=== PATIENT | female | born 1935 | race Caucasian/White ===

== ENCOUNTER → 2017-06-21 09:03 | Outpatient (CLI) | payer MEDICARE, OTHER, SELFPAY ==
[2017-06-21 11:39] LABS: Absolute Lymphocyte Count 0.76 X10^3/ul (0.83-4.51); Basophil# 0.01 X10^3/uL; Basophil% 0.2 % (0-1); Eosinophil# 0.18 X10^3/uL; Eosinophils% 3.2 % (0-5); Hematocrit 33.4 % (37-47); Hemoglobin 10.4 g/dl (12.0-15.0); Lymphocyte # 0.76 X10^3/ul (4.0); Lymphocyte % 13.6 % (19-41); Mean Corp Hgb Conc 31.1 g/gl (32-36); Mean Corpuscular Hgb 29.5 pg (27.0-32.0); Mean Corpuscular Volume 94.6 fL (81-99); Mean Platelet Vol. 11.8 fl (6.2-12.0); Monocyte# 0.61 X10^3/uL; Monocyte% 10.9 % (0-10); Neutrophil # 4.02 X10^3/uL (2.7-7.7); Neutrophil % 71.9 % (47-70); Platelet Count 134 K/mm3 (150-450); RBC Distribution Width CV 13.9 % (11.6-14.6); RBC Distribution Width SD 47.9 fl (35.1-43.9); Red Blood Count 3.53 M/mm3 (4.2-5.4); White Blood Count 5.6 K/mm3 (4.4-11.0)
[2017-06-21 11:44] LABS: POSITIVE COUNT NO; POSITIVE DIFFERENTIAL NO; POSITIVE MORPHOLOGY NO
[2017-06-21 12:06] LABS: ALB/GLOB Ratio 0.9 RATIO (0.9-2.4); AST(SGOT) 20 U/L (15-37); Alanine Aminotransfer ALT/SGPT 31 U/L (13-56); Albumin, Serum 3.6 g/dL (3.2-5.0); Alkaline Phosphatase 98 U/L (45-117); Anion Gap 9 (5-15); BUN 28 mg/dL (7-18); BUN/Creat Ratio 20.9 RATIO (10-20); Calcium,Total 8.6 mg/dL (8.5-10.1); Chloride 102 mmol/L (98-107); Creatinine, Serum 1.34 mg/dL (0.55-1.02); EST Glomerular Filtration Rate 40 mL/min (>60); Est Glom Filt Rate - Afr Amer 49 mL/min (>60); Globulin 3.9 g/dL (2.2-4.2); Glucose 259 mg/dL (70-110); Potassium 4.7 mmol/L (3.5-5.1); Protein, Total 7.5 g/dL (6.4-8.2); Sodium Level 135 mmol/L (136-145); Thyroid Stim Hormone (TSH) 2.24 uIU/mL (0.358-3.74)
== END ==
PROVIDERS: Family Provider Family Medicine Geriatric Medicine; PCP Family Medicine Geriatric Medicine; Visit Provider Family Medicine Geriatric Medicine
DX: I10 Essential (primary) hypertension (principal); E11.9 Type 2 diabetes mellitus without complications; E55.9 Vitamin D deficiency, unspecified
CPT/HCPCS: 36415; 80053; 82306; 84443; 85025

== ENCOUNTER → 2017-09-19 10:40 | Outpatient (CLI) | payer MEDICARE, OTHER, SELFPAY ==
[2017-09-19 12:56] LABS: Absolute Lymphocyte Count 1.01 X10^3/ul (0.83-4.51); Absolute Neutrophil Count 3.3 X10^3/uL (2.0-7.7); Basophil# 0.01 X10^3/uL; Basophil% 0.2 % (0-1); Eosinophil# 0.11 X10^3/uL; Eosinophils% 2.2 % (0-5); Hematocrit 30.7 % (37-47); Lymphocyte # 1.01 X10^3/ul (4.0); Mean Corp Hgb Conc 32.6 g/gl (32-36); Mean Corpuscular Hgb 31.3 pg (27.0-32.0); Mean Corpuscular Volume 95.9 fL (81-99); Mean Platelet Vol. 11.7 fl (6.2-12.0); Monocyte# 0.62 X10^3/uL; Monocyte% 12.3 % (0-10); Neutrophil # 3.29 X10^3/uL (2.7-7.7); Neutrophil % 65.3 % (47-70); Platelet Count 119 K/mm3 (150-450); RBC Distribution Width CV 14.3 % (11.6-14.6); RBC Distribution Width SD 47.9 fl (35.1-43.9)
[2017-09-19 12:57] LABS: POSITIVE COUNT NO; POSITIVE DIFFERENTIAL NO; POSITIVE MORPHOLOGY NO
[2017-09-19 13:23] LABS: AST(SGOT) 32 U/L (15-37); Alanine Aminotransfer ALT/SGPT 38 U/L (13-56); Albumin, Serum 3.6 g/dL (3.2-5.0); Alkaline Phosphatase 107 U/L (45-117); Anion Gap 7 (5-15); BUN 41 mg/dL (7-18); BUN/Creat Ratio 27.7 RATIO (10-20); Calcium,Total 8.7 mg/dL (8.5-10.1); Chloride 107 mmol/L (98-107); Creatinine, Serum 1.48 mg/dL (0.55-1.02); EST Glomerular Filtration Rate 36 mL/min (>60); Est Glom Filt Rate - Afr Amer 43 mL/min (>60); Globulin 3.7 g/dL (2.2-4.2); Glucose 207 mg/dL (74-106); Potassium 4.6 mmol/L (3.5-5.1); Protein, Total 7.3 g/dL (6.4-8.2); Sodium Level 137 mmol/L (136-145); Thyroid Stim Hormone (TSH) 2.22 uIU/mL (0.358-3.74)
[2017-09-20 08:47] LABS: Vitamin D,25 Hydroxy 31.7 ng/mL (29.95-100.01)
== END ==
PROVIDERS: Family Provider Family Medicine Geriatric Medicine; PCP Family Medicine Geriatric Medicine; Visit Provider Family Medicine Geriatric Medicine
DX: E11.9 Type 2 diabetes mellitus without complications (principal); E55.9 Vitamin D deficiency, unspecified; I10 Essential (primary) hypertension
CPT/HCPCS: 36415; 80053; 82306; 84443; 85025

== ENCOUNTER → 2017-11-08 09:44 | Outpatient (CLI) | payer MEDICARE, OTHER, SELFPAY ==
--- NOTE | 2017-11-08 09:46 | BI_ITS ---
MAMMOGRAPHY - BILATERAL SCREENING REASON FOR EXAM: Female, 82 years old. Routine annual screening examination. PERTINENT HISTORY: Grandmother with breast cancer. TECHNIQUE: Digital bilateral breast clive (3D mammographic acquisition) in the CC and MLO projections. 2-D mediolateral oblique (MLO) and craniocaudad (CC) views of both breasts were obtained. CAD: Full Field Digital Mammography with Computer Added Detection was performed. COMPARISON: Comparison is made with prior study dated July 13, 2016 and June 01, 2015. FINDINGS: Breast Composition: There are scattered areas of fibroglandular density. There are no dominant masses or suspicious calcifications. Stable appearance of the bilateral benign appearing axillary lymph nodes. No other significant abnormalities are identified. There has been no significant change since the prior study. BI/SCREENING MAMM (CAD), BILAT IMPRESSION: Stable bilateral screening mammogram. Yearly follow-up mammogram recommended. (A) ASSESSMENT CATEGORY: BIRADS Category 2: Benign. A letter regarding these results will be sent to the patient by the facility within 30 days. Approximately 10% of breast cancers are not detected by mammography. A normal mammogram should not delay biopsy of a clinically suspicious abnormality. [id number] Electronically Signed: Larry Abraham MD at 13:15 EDT Tel [phone], Service support ,
== END ==
PROVIDERS: Family Provider Family Medicine Geriatric Medicine; PCP Family Medicine Geriatric Medicine; Visit Provider Family Medicine Geriatric Medicine
DX: Z12.31 Encounter for screening mammogram for malignant neoplasm of breast (principal)
CPT/HCPCS: 77063; 77067

== ENCOUNTER → 2017-12-27 11:25 | Outpatient (CLI) | payer MEDICARE, OTHER, SELFPAY ==
[2017-12-27 12:55] LABS: Absolute Lymphocyte Count 0.95 X10^3/ul (0.83-4.51); Absolute Neutrophil Count 2.9 X10^3/uL (2.0-7.7); Basophil# 0.01 X10^3/uL; Basophil% 0.2 % (0-1); Eosinophil# 0.09 X10^3/uL; Hematocrit 30.5 % (37-47); Lymphocyte # 0.95 X10^3/ul (4.0); Lymphocyte % 21.2 % (19-41); Mean Corp Hgb Conc 32.8 g/gl (32-36); Mean Corpuscular Hgb 31.9 pg (27.0-32.0); Mean Corpuscular Volume 97.4 fL (81-99); Mean Platelet Vol. 11.2 fl (6.2-12.0); Monocyte# 0.56 X10^3/uL; Monocyte% 12.5 % (0-10); Neutrophil # 2.87 X10^3/uL (2.7-7.7); Neutrophil % 64.1 % (47-70); Platelet Count 114 K/mm3 (150-450); RBC Distribution Width CV 12.8 % (11.6-14.6); RBC Distribution Width SD 44.1 fl (35.1-43.9); Red Blood Count 3.13 M/mm3 (4.2-5.4); White Blood Count 4.5 K/mm3 (4.4-11.0)
[2017-12-27 13:03] LABS: POSITIVE COUNT NO; POSITIVE DIFFERENTIAL NO; POSITIVE MORPHOLOGY NO
[2017-12-27 13:16] LABS: Vitamin D,25 Hydroxy 29.1 ng/mL (29.95-100.01)
[2017-12-27 13:19] LABS: ALB/GLOB Ratio 1.1 RATIO (0.9-2.4); AST(SGOT) 26 U/L (15-37); Alanine Aminotransfer ALT/SGPT 33 U/L (13-56); Albumin, Serum 3.9 g/dL (3.2-5.0); Alkaline Phosphatase 99 U/L (45-117); Anion Gap 10 (5-15); BUN 30 mg/dL (7-18); BUN/Creat Ratio 22.4 RATIO (10-20); Calcium,Total 8.9 mg/dL (8.5-10.1); Chloride 103 mmol/L (98-107); Creatinine, Serum 1.34 mg/dL (0.55-1.02); EST Glomerular Filtration Rate 40 mL/min (>60); Est Glom Filt Rate - Afr Amer 49 mL/min (>60); Globulin 3.7 g/dL (2.2-4.2); Glucose 116 mg/dL (74-106); Iron 103 ug/dL (50-170); Iron Binding Capacity,Total 322 ug/dL (250-450); Potassium 4.5 mmol/L (3.5-5.1); Protein, Total 7.6 g/dL (6.4-8.2); Sodium Level 137 mmol/L (136-145); Thyroid Stim Hormone (TSH) 2.83 uIU/mL (0.358-3.74)
== END ==
PROVIDERS: Family Provider Family Medicine Geriatric Medicine; PCP Family Medicine Geriatric Medicine; Visit Provider Family Medicine Geriatric Medicine
DX: I10 Essential (primary) hypertension (principal); D64.9 Anemia, unspecified; D69.6 Thrombocytopenia, unspecified; E55.9 Vitamin D deficiency, unspecified; E11.9 Type 2 diabetes mellitus without complications
CPT/HCPCS: 36415; 80053; 82306; 83540; 83550; 84443; 85025

== ENCOUNTER → 2018-01-02 12:07 | Outpatient (CLI) | payer MEDICARE, OTHER, SELFPAY ==
--- NOTE | 2018-01-02 10:07 | LES_PTH ---
PATIENT: MERCEDES SORTO LOC: [facility] U#:[id number] AGE/SX: 89/F ROOM: RE01/02/[address]: Dr. Aleksandar Clemens MD : 1935 BED: DIS: SPEC #: [id number] RECD: 01/02/18 13:51 STATUS: IRA PARAMJIT #: [id number] JOSE RAFAEL: 01/02/18 10:[address]: Aleksandar Clemens Chi DEPT: SURGICAL PATHOLOGY RECD BY: Ihsan Cuba Tissues: Skin of face, NOS Procedures: Surgery Specimen Level IV HEADER OPERATION: Not noted PRE-OP DIAGNOSIS: L98.9 TISSUE SUBMITTED: Under darren in [facility] MICROSCOPIC DIAGNOSIS Skin lesion of [facility], biopsy: Ulcerated basal cell carcinoma. Solar elastosis. AM:[place] 01/03/18 COMMENT The lesion extends focally to the deep margin of excision. Clinical correlation is suggested. MICROSCOPIC DESCRIPTION Slides are reviewed. GROSS DESCRIPTION Received in fixative is one container labeled with the patient's name and designated under chin. The specimen consists of a piece of lewis-white skin measuring 1 x 0.7 cm and up to 0.2 cm in thickness. The specimen is inked and submitted entirely in one cassette. It will be serially sectioned at the time of embedding. / SJ:rg 01/02/18 TC:0 [facility]: [id number]
== END ==
PROVIDERS: Family Provider Family Medicine Geriatric Medicine; PCP Family Medicine Geriatric Medicine; Visit Provider Family Medicine Geriatric Medicine
DX: L98.9 Disorder of the skin and subcutaneous tissue, unspecified (principal)
CPT/HCPCS: 88305

== ENCOUNTER → 2018-06-27 15:02 | Outpatient (CLI) | payer MEDICARE, OTHER, SELFPAY ==
[2018-06-27 16:46] LABS: Absolute Neutrophil Count 3.6 X10^3/uL (2.0-7.7); Basophil# 0.02 X10^3/uL; Basophil% 0.4 % (0-1); Eosinophil# 0.12 X10^3/uL; Eosinophils% 2.3 % (0-5); Hematocrit 32.2 % (37-47); Lymphocyte % 17.3 % (19-41); Mean Corp Hgb Conc 31.1 g/gl (32-36); Mean Corpuscular Hgb 31.1 pg (27.0-32.0); Mean Platelet Vol. 11.7 fl (6.2-12.0); Monocyte# 0.51 X10^3/uL; Monocyte% 9.8 % (0-10); Neutrophil # 3.64 X10^3/uL (2.7-7.7); Platelet Count 107 K/mm3 (150-450); RBC Distribution Width CV 12.9 % (11.6-14.6); RBC Distribution Width SD 45.6 fl (35.1-43.9); Red Blood Count 3.22 M/mm3 (4.2-5.4); White Blood Count 5.2 K/mm3 (4.4-11.0)
[2018-06-27 16:55] LABS: POSITIVE COUNT NO; POSITIVE DIFFERENTIAL NO; POSITIVE MORPHOLOGY NO; Vitamin D,25 Hydroxy 29.5 ng/mL (29.95-100.01)
[2018-06-27 17:02] LABS: AST(SGOT) 21 U/L (15-37); Alanine Aminotransfer ALT/SGPT 30 U/L (13-56); Albumin, Serum 3.6 g/dL (3.2-5.0); Alkaline Phosphatase 93 U/L (45-117); Anion Gap 9 (5-15); BUN 28 mg/dL (7-18); BUN/Creat Ratio 19.6 RATIO (10-20); Calcium,Total 8.6 mg/dL (8.5-10.1); Chloride 104 mmol/L (98-107); Creatinine, Serum 1.43 mg/dL (0.55-1.02); EST Glomerular Filtration Rate 37 mL/min (>60); Est Glom Filt Rate - Afr Amer 45 mL/min (>60); Globulin 3.5 g/dL (2.2-4.2); Glucose 232 mg/dL (74-106); Potassium 4.8 mmol/L (3.5-5.1); Protein, Total 7.1 g/dL (6.4-8.2); Sodium Level 137 mmol/L (136-145); Thyroid Stim Hormone (TSH) 2.36 uIU/mL (0.358-3.74)
[2018-07-02 11:36] LABS: Ferritin 134 ng/mL (8-252); Iron 103 ug/dL (50-170); Iron Binding Capacity,Total 268 ug/dL (250-450); PERCENT IRON SATURATION 38.4 % (15.0-55.0)
== END ==
PROVIDERS: Internal Medicine Hematology & Oncology; Family Provider Family Medicine Geriatric Medicine; PCP Family Medicine Geriatric Medicine; Visit Provider Family Medicine Geriatric Medicine
DX: E11.9 Type 2 diabetes mellitus without complications (principal); E55.9 Vitamin D deficiency, unspecified; I10 Essential (primary) hypertension
CPT/HCPCS: 36415; 80053; 82306; 82728; 83540; 83550; 84443; 85025

== ENCOUNTER → 2019-01-01 08:47 | Outpatient (CLI) | payer MEDICARE, OTHER, SELFPAY ==
[2018-07-19 13:41] VITALS: BMI 33.5
[2019-01-01 13:01] LABS: Absolute Lymphocyte Count 0.67 X10^3/uL (0.83-4.51); Absolute Neutrophil Count 3.4 X10^3/uL (2.0-7.7); Basophil# 0.02 X10^3/uL; Basophil% 0.4 % (0-1); Eosinophils% 2.1 % (0-5); Hematocrit 27.9 % (37-47); Hemoglobin 9.3 g/dL (12.0-15.0); Lymphocyte # 0.67 X10^3/ul (4.0); Lymphocyte % 14.4 % (19-41); Mean Corp Hgb Conc 33.3 g/dL (32-36); Mean Corpuscular Hgb 32.5 pg (27.0-32.0); Mean Corpuscular Volume 97.6 fL (81-99); Mean Platelet Vol. 11.4 fl (6.2-12.0); Monocyte# 0.49 X10^3/uL; Monocyte% 10.5 % (0-10); NRBC Flagged by Analyzer 0 % (0-5); Neutrophil # 3.37 X10^3/uL (2.7-7.7); Neutrophil % 72.4 % (47-70); Platelet Count 114 K/mm3 (150-450); RBC Distribution Width CV 13.2 % (11.6-14.6); RBC Distribution Width SD 46.8 fl (35.1-43.9); Red Blood Count 2.86 M/mm3 (4.2-5.4); White Blood Count 4.7 K/mm3 (4.4-11.0)
[2019-01-01 13:25] LABS: Vitamin D,25 Hydroxy 35.4 ng/mL (29.95-100.01)
[2019-01-01 13:32] LABS: AST(SGOT) 23 U/L (15-37); Alanine Aminotransfer ALT/SGPT 24 U/L (13-56); Albumin, Serum 3.7 g/dL (3.2-5.0); Alkaline Phosphatase 101 U/L (45-117); Anion Gap 8 (5-15); BUN 33 mg/dL (7-18); BUN/Creat Ratio 20.1 RATIO (10-20); Calcium,Total 8.7 mg/dL (8.5-10.1); Chloride 100 mmol/L (98-107); Creatinine, Serum 1.64 mg/dL (0.55-1.02); EST Glomerular Filtration Rate 32 mL/min (>60); Est Glom Filt Rate - Afr Amer 38 mL/min (>60); Globulin 3.6 g/dL (2.2-4.2); Glucose 200 mg/dL (74-106); Potassium 4.4 mmol/L (3.5-5.1); Protein, Total 7.3 g/dL (6.4-8.2); Sodium Level 130 mmol/L (136-145); Thyroid Stim Hormone (TSH) 2.82 uIU/mL (0.358-3.74)
== END ==
PROVIDERS: Family Provider Family Medicine Geriatric Medicine; PCP Family Medicine Geriatric Medicine; Visit Provider Family Medicine Geriatric Medicine
DX: E11.9 Type 2 diabetes mellitus without complications (principal); E55.9 Vitamin D deficiency, unspecified; I10 Essential (primary) hypertension
CPT/HCPCS: 36415; 80053; 82306; 84443; 85025

== ENCOUNTER → 2019-02-14 | Outpatient (CLI) | payer MEDICARE, OTHER, SELFPAY ==
[2019-02-08 10:44] VITALS: BMI 34.2
== END | disposition home or self-care (01) ==
LOC: PSN 16:36
PROVIDERS: Family Provider Family Medicine Geriatric Medicine; PCP Family Medicine Geriatric Medicine; Referring Provider Family Medicine Geriatric Medicine; Visit Provider Family Medicine Geriatric Medicine
DX: R68.83 Chills (without fever) (principal)
CPT/HCPCS: 87633

== ENCOUNTER → 2019-04-16 11:29 | Outpatient (CLI) | payer MEDICARE, OTHER, SELFPAY ==
[2019-02-08 10:44] VITALS: BMI 34.2
--- NOTE | 2019-04-16 12:16 | RAD_ITS ---
STUDY: X-RAY CHEST REASON FOR EXAM: Female, 84 years old. TECHNIQUE: COMPARISON: None. FINDINGS: The lungs are clear and expanded. There is no demonstrated pleural abnormality. Normal size heart. Normal mediastinum and simona. Normal visualized pulmonary arteries. Normal visualized aortic arch and descending thoracic aorta there is calcification of the aorta. There is minimal blunting of the left costophrenic angle. No pneumothorax is seen. Normal visualized thoracic spine shows hypertrophic changes with osteoporosis and disc space narrowing. Normal visualized ribs, clavicles, and shoulders old fracture seen in the neck of the right humerus. There is no demonstrated abnormality of the visualized soft tissue structures of the upper abdomen. RAD/Chest PA and Lateral IMPRESSION: Negative study for intrathoracic active disease. Electronically Signed: Addie Bob, at 8:47 EST Tel , Service support ,
[2019-04-16 12:25] LABS: Absolute Lymphocyte Count 0.85 X10^3/uL (0.83-4.51); Absolute Neutrophil Count 6.3 X10^3/uL (2.0-7.7); Basophil# 0.03 X10^3/uL; Basophil% 0.4 % (0-1); Eosinophil# 0.25 X10^3/uL; Hematocrit 27.6 % (37-47); Hemoglobin 8.8 g/dL (12.0-15.0); Lymphocyte # 0.85 X10^3/ul (4.0); Lymphocyte % 10.1 % (19-41); Mean Corp Hgb Conc 31.9 g/dL (32-36); Mean Corpuscular Hgb 29.8 pg (27.0-32.0); Mean Corpuscular Volume 93.6 fL (81-99); Mean Platelet Vol. 10.2 fl (6.2-12.0); Monocyte# 0.88 X10^3/uL; Monocyte% 10.5 % (0-10); NRBC Flagged by Analyzer 0 % (0-5); Neutrophil # 6.33 X10^3/uL (2.7-7.7); Neutrophil % 75.4 % (47-70); Platelet Count 213 K/mm3 (150-450); RBC Distribution Width CV 13.7 % (11.6-14.6); RBC Distribution Width SD 46.9 fl (35.1-43.9); Red Blood Count 2.95 M/mm3 (4.2-5.4); White Blood Count 8.4 K/mm3 (4.4-11.0)
[2019-04-16 12:44] LABS: Anion Gap 9 (5-15); BUN 20 mg/dL (7-18); BUN/Creat Ratio 13.2 RATIO (10-20); Calcium,Total 8.7 mg/dL (8.5-10.1); Chloride 99 mmol/L (98-107); Creatinine, Serum 1.51 mg/dL (0.55-1.02); EST Glomerular Filtration Rate 35 mL/min (>60); Est Glom Filt Rate - Afr Amer 42 mL/min (>60); Glucose 231 mg/dL (74-106); Potassium 4.6 mmol/L (3.5-5.1); Sodium Level 131 mmol/L (136-145)
== END ==
PROVIDERS: Family Provider Family Medicine Geriatric Medicine; PCP Family Medicine Geriatric Medicine; Referring Provider Family Medicine Geriatric Medicine; Visit Provider Family Medicine Geriatric Medicine
DX: I10 Essential (primary) hypertension (principal); R69 Illness, unspecified; R68.83 Chills (without fever)
CPT/HCPCS: 36415; 71046; 80048; 85025; 87633

== ENCOUNTER → 2019-07-02 | Outpatient (CLI) | payer MEDICARE, OTHER, SELFPAY ==
[2019-06-13 13:24] VITALS: BMI 33.8
[2019-07-02 13:07] LABS: Absolute Lymphocyte Count 0.83 X10^3/uL (0.83-4.51); Absolute Neutrophil Count 4.1 X10^3/uL (2.0-7.7); Basophil# 0.03 X10^3/uL; Basophil% 0.5 % (0-1); Eosinophil# 0.11 X10^3/uL; Eosinophils% 1.9 % (0-5); Hematocrit 31.6 % (37-47); Hemoglobin 9.9 g/dL (12.0-15.0); Lymphocyte # 0.83 X10^3/ul (4.0); Lymphocyte % 14.5 % (19-41); Mean Corp Hgb Conc 31.3 g/dL (32-36); Mean Corpuscular Hgb 28.4 pg (27.0-32.0); Mean Corpuscular Volume 90.8 fL (81-99); Mean Platelet Vol. 12.1 fl (6.2-12.0); Monocyte# 0.67 X10^3/uL; Monocyte% 11.7 % (0-10); NRBC Flagged by Analyzer 0 % (0-5); Neutrophil # 4.07 X10^3/uL (2.7-7.7); Neutrophil % 71.2 % (47-70); Platelet Count 149 K/mm3 (150-450); RBC Distribution Width CV 13.9 % (11.6-14.6); RBC Distribution Width SD 46.5 fl (35.1-43.9); Red Blood Count 3.48 M/mm3 (4.2-5.4); White Blood Count 5.7 K/mm3 (4.4-11.0)
[2019-07-02 13:25] LABS: Vitamin D,25 Hydroxy 45.6 ng/mL (29.95-100.01)
[2019-07-02 13:44] LABS: BUN 21 mg/dL (7-18); Creatinine, Serum 1.74 mg/dL (0.55-1.02); Glucose 172 mg/dL (74-106)
[2019-07-02 13:45] LABS: ALB/GLOB Ratio 0.8 RATIO (0.9-2.4); AST(SGOT) 19 U/L (15-37); Alanine Aminotransfer ALT/SGPT 17 U/L (13-56); Alkaline Phosphatase 79 U/L (45-117); Anion Gap 9 (5-15); BUN/Creat Ratio 12.1 RATIO (10-20); Calcium,Total 8.8 mg/dL (8.5-10.1); Chloride 104 mmol/L (98-107); EST Glomerular Filtration Rate 30 mL/min (>60); Est Glom Filt Rate - Afr Amer 36 mL/min (>60); Globulin 3.6 g/dL (2.2-4.2); Potassium 4.4 mmol/L (3.5-5.1); Protein, Total 6.6 g/dL (6.4-8.2); Sodium Level 135 mmol/L (136-145); Thyroid Stim Hormone (TSH) 5.01 uIU/mL (0.358-3.74)
== END | disposition home or self-care (01) ==
LOC: POLAB3 09:49
PROVIDERS: PCP Family Medicine Geriatric Medicine; Visit Provider Family Medicine Geriatric Medicine
DX: E11.9 Type 2 diabetes mellitus without complications (principal); E55.9 Vitamin D deficiency, unspecified; I10 Essential (primary) hypertension
CPT/HCPCS: 36415; 80053; 82306; 84443; 85025

== ENCOUNTER → 2019-07-24 13:45 | Outpatient (CLI) | payer MEDICARE, OTHER, SELFPAY ==
[2019-06-13 13:24] VITALS: BMI 33.8
--- NOTE | 2019-07-24 13:51 | RAD_ITS ---
STUDY: X-RAY CHEST REASON FOR EXAM: Female, 84 years old. Chest pain/pressure TECHNIQUE: PA and lateral views of the chest. COMPARISON: 04/16/2019 FINDINGS: Chronic interstitial changes in both lung causey with left pleural effusion. There is no demonstrated pleural abnormality. Normal size heart. Normal mediastinum and simona. Normal visualized pulmonary arteries. There is atherosclerotic calcification of the aortic arch with tortuosity. There are diffuse degenerative changes of the visualized thoracic spine. There is degenerative osteoarthritis of the bilateral shoulders. Old healed right humeral fracture There is no demonstrated abnormality of the visualized soft tissue structures of the upper abdomen. RAD/Chest PA and Lateral IMPRESSION: Chronic interstitial changes with superimposed left pleural effusion. Follow-up recommended to sure resolution Electronically Signed: Ousmane Gresham MD at 17:00 EST , Service support ,
== END ==
PROVIDERS: PCP Family Medicine Geriatric Medicine
DX: H43.89 Other disorders of vitreous body (principal)
CPT/HCPCS: 71046

== ENCOUNTER → 2019-08-08 | Outpatient (CLI) | payer MEDICARE, OTHER, SELFPAY ==
[2019-06-13 13:24] VITALS: BMI 33.8
--- NOTE | 2019-08-08 09:04 | RAD_ITS ---
STUDY: X-RAY CHEST REASON FOR EXAM: Female, 84 years old. Bronchitis in March, some coughing TECHNIQUE: PA and lateral views of the chest. COMPARISON: Comparison is made with prior examination dated July 24, 2019. FINDINGS: There is evidence of thoracic congestion and mild degree of CHF. Stable small left pleural effusion with left basilar atelectasis. There is borderline cardiomegaly. Normal mediastinum and simona. Normal visualized pulmonary arteries. There is atherosclerotic calcification of the aortic arch with tortuosity. There are diffuse degenerative changes of the visualized thoracic spine. Normal visualized ribs, clavicles, and shoulders. There is no demonstrated abnormality of the visualized soft tissue structures of the upper abdomen. RAD/Chest PA and Lateral IMPRESSION: Mild degree of vascular congestion and CHF superimposed on mild degree of left basilar atelectasis and small left pleural effusion. Electronically Signed: Larry Abraham, at 10:17 EDT , Service support ,
== END | disposition home or self-care (01) ==
LOC: MTRAD 09:02
PROVIDERS: PCP Family Medicine Geriatric Medicine; Referring Provider Family Medicine Geriatric Medicine; Visit Provider Family Medicine Geriatric Medicine
DX: R07.9 Chest pain, unspecified (principal)
CPT/HCPCS: 71046

== ENCOUNTER → 2019-08-13 | Outpatient (CLI) | payer MEDICARE, OTHER, SELFPAY ==
[2019-06-13 13:24] VITALS: BMI 33.8
[2019-08-13 13:02] LABS: BNP,B-Type NATRIURETIC PEPTIDE 463.5 pg/mL (0-100)
[2019-08-13 13:14] LABS: Thyroid Stim Hormone (TSH) 3.96 uIU/mL (0.358-3.74)
== END | disposition home or self-care (01) ==
LOC: POLAB3 12:21
PROVIDERS: PCP Family Medicine Geriatric Medicine; Visit Provider Family Medicine Geriatric Medicine
DX: E03.9 Hypothyroidism, unspecified (principal); I50.9 Heart failure, unspecified
CPT/HCPCS: 36415; 83880; 84443

== ENCOUNTER → 2019-08-24 | Outpatient (CLI) | payer MEDICARE, OTHER, SELFPAY ==
[2019-06-13 13:24] VITALS: BMI 33.8
[2019-08-24 09:44] LABS: Anion Gap 6 (5-15); BUN 29 mg/dL (7-18); Calcium,Total 8.8 mg/dL (8.5-10.1); Chloride 103 mmol/L (98-107); Creatinine, Serum 1.71 mg/dL (0.55-1.02); EST Glomerular Filtration Rate 30 mL/min (>60); Est Glom Filt Rate - Afr Amer 37 mL/min (>60); Glucose 160 mg/dL (74-106); Potassium 4.6 mmol/L (3.5-5.1); Sodium Level 133 mmol/L (136-145)
== END | disposition home or self-care (01) ==
LOC: LAB 09:02
PROVIDERS: PCP Family Medicine Geriatric Medicine; Referring Provider Family Medicine Geriatric Medicine; Visit Provider Family Medicine Geriatric Medicine
DX: R68.89 Other general symptoms and signs (principal)
CPT/HCPCS: 36415; 80048

== ENCOUNTER → 2019-09-27 | Outpatient (CLI) | payer MEDICARE, OTHER, SELFPAY ==
[2019-06-13 13:24] VITALS: BMI 33.8
[2019-09-27 12:15] LABS: Thyroid Stim Hormone (TSH) 2.24 uIU/mL (0.358-3.74)
== END | disposition home or self-care (01) ==
LOC: LAB 11:25
PROVIDERS: PCP Family Medicine Geriatric Medicine; Referring Provider Family Medicine Geriatric Medicine; Visit Provider Family Medicine Geriatric Medicine
DX: E03.9 Hypothyroidism, unspecified (principal); I35.8 Other nonrheumatic aortic valve disorders; I50.9 Heart failure, unspecified
CPT/HCPCS: 36415; 84443; 93306

== ENCOUNTER → 2019-09-27 | Outpatient (CLI) | payer MEDICARE, OTHER, SELFPAY ==
[2019-06-13 13:24] VITALS: BMI 33.8
--- NOTE | 2019-09-27 10:35 | ECHOD_ITS ---
Reason For Study: AORTIC STENOSIS Procedure This was a 2D Doppler, Color Flow transthoracic echocardiogram. Exam performed in department. Left Ventricle Normal LV size. Left ventricular systolic function is normal. The estimated ejection fraction is 60 %. Stage 2 diastolic dysfunction. No regional wall motion abnormalities noted. Right Ventricle Normal RV size. Normal systolic function. Atria Normal left atrium. Normal right atrium. Mitral Valve Bileaflet diffuse mitral valve thickening. Moderate focal mitral valve calcification of the anterior leaflet. Moderate (2+) eccentric mitral valve insufficiency. Tricuspid Valve Normal tricuspid valve. Moderate (2+) tricuspid valve insufficiency. Pulmonary artery systolic pressure is 65 mmHg. Moderate pulmonary hypertension. Aortic Valve Trisinus/trileaflet aortic valve. Mild focal aortic valve calcification. Peak aortic valve gradient 62 mmHg. Mean aortic valve gradient 38 mmHg. Calculated aortic valve area (continuity equation) is 0.8 cm2. Pulmonic Valve Normal pulmonic valve. Great Vessels Normal aortic root. The pulmonary artery is normal size. Normal inferior vena cava. Pericardium/Pleural No pericardial effusion. MMode/2D Measurements & Calculations LVIDd: 4.7 cm IVSd: 0.83 cm LVOT diam: 1.9 cm LVIDs: 2.9 cm LVPWd: 0.90 cm LVOT area: 2.8 cm2 RVDd: 3.7 cm FS: 37.9 % Ao root diam: 2.8 cm LAV(MOD-bp): 52.1 ml LVAd ap4: 29.8 cm2 LAV(MOD-bp) Indexed: 29.9 ml/m2 EDV(MOD-sp4): 93.5 ml LAV(MOD-sp2): 56.4 ml EDV(sp4-el): 97.2 ml LAV(MOD-sp4): 48.6 ml LVAs ap4: 15.5 cm2 ESV(MOD-sp4): 29.6 ml ESV(sp4-el): 30.5 ml EF(MOD-sp4): 68.3 % EF(sp4-el): 68.6 % SV(MOD-sp4): 63.9 ml SV(sp4-el): 66.7 ml LA A4 area: 18.5 cm2 LA dimension(2D): 4.2 cm RA A4 area: 15.9 cm2 Time Measurements MV dec time: 0.30 sec Doppler Measurements & Calculations MV E max jens: 229.5 cm/sec Lat Peak E' Jens: 13.4 cm/sec Med Peak E' Jens: 6.8 cm/sec MV A max jens: 156.3 cm/sec E/E' lat: 17.2 E/E' med: 33.8 MV E/A: 1.5 MV V2 max: 282.8 cm/sec MV P1/2t max jens: 271.9 cm/sec Ao V2 max: 393.8 cm/sec MV max P.0 mmHg MV P1/2t: 107.0 msec Ao max P.1 mmHg MV V2 mean: 151.4 cm/sec Ao V2 mean: 294.9 cm/sec MV mean P.1 mmHg MV dec slope: 744.1 cm/sec2 Ao mean P.4 mmHg MV V2 VTI: 58.0 cm MVA(P1/2t): 2.1 cm2 Ao V2 VTI: 95.9 cm MVA(VTI): 1.4 cm2 KATARINA(I,D): 0.87 cm2 KATARINA(V,D): 0.82 cm2 LV V1 max: 114.5 cm/sec SV(LVOT): 83.5 ml PA V2 max: 222.2 cm/sec LV V1 max P.3 mmHg LV V1 mean P.1 mmHg LV V1 mean: 83.7 cm/sec LV V1 VTI: 29.7 cm TR max jens: 385.3 cm/sec TR max P.5 mmHg Interpretation Summary Normal LV size. Left ventricular systolic function is normal. The estimated ejection fraction is 60 %. Stage 2 diastolic dysfunction. Calculated aortic valve area (continuity equation) is 0.8 cm2. Mean aortic valve gradient 38 mmHg. Pulmonary artery systolic pressure is 65 mmHg. Moderate pulmonary hypertension. Ordering Physician: Sarath^Janel^^ Referring Physician: Aleksandar Clemens Chi Performed By: Uriel, Kellee, RDCS
== END | disposition home or self-care (01) ==
LOC: CVS 10:33
PROVIDERS: PCP Family Medicine Geriatric Medicine; Referring Provider Family Medicine Geriatric Medicine; Visit Provider Family Medicine Geriatric Medicine
DX: I35.8 Other nonrheumatic aortic valve disorders (principal); I50.9 Heart failure, unspecified
CPT/HCPCS: 93306

== ENCOUNTER → 2019-11-06 | Outpatient (CLI) | payer MEDICARE, OTHER, SELFPAY ==
[2019-11-06 10:57] VITALS: BMI 31.4
[2019-11-06 12:46] LABS: Absolute Lymphocyte Count 0.56 X10^3/uL (0.83-4.51); Absolute Neutrophil Count 3.5 X10^3/uL (2.0-7.7); Basophil# 0.03 X10^3/uL; Basophil% 0.6 % (0-1); Eosinophils% 2.1 % (0-5); Hematocrit 28.6 % (37-47); Lymphocyte # 0.56 X10^3/ul (4.0); Lymphocyte % 11.6 % (19-41); Mean Corp Hgb Conc 31.5 g/dL (32-36); Mean Corpuscular Hgb 29.6 pg (27.0-32.0); Mean Corpuscular Volume 94.1 fL (81-99); Mean Platelet Vol. 10.9 fl (6.2-12.0); Monocyte# 0.64 X10^3/uL; Monocyte% 13.2 % (0-10); NRBC Flagged by Analyzer 0 % (0-5); Neutrophil % 72.3 % (47-70); POSITIVE DIFFERENTIAL YES; Platelet Count 128 K/mm3 (150-450); RBC Distribution Width CV 14.1 % (11.6-14.6); RBC Distribution Width SD 48.2 fl (35.1-43.9); Red Blood Count 3.04 M/mm3 (4.2-5.4); White Blood Count 4.8 K/mm3 (4.4-11.0)
[2019-11-06 12:52] LABS: Differential Indicated SCAN CRITERIA MET
[2019-11-06 13:13] LABS: Anion Gap 8 (5-15); BUN 42 mg/dL (7-18); BUN/Creat Ratio 21.5 RATIO (10-20); Calcium,Total 9.1 mg/dL (8.5-10.1); Chloride 101 mmol/L (98-107); Creatinine, Serum 1.95 mg/dL (0.55-1.02); EST Glomerular Filtration Rate 26 mL/min (>60); Est Glom Filt Rate - Afr Amer 31 mL/min (>60); Glucose 180 mg/dL (74-106); Potassium 4.3 mmol/L (3.5-5.1); Sodium Level 133 mmol/L (136-145)
== END | disposition home or self-care (01) ==
LOC: LAB 12:12
PROVIDERS: PCP Family Medicine Geriatric Medicine; Referring Provider Internal Medicine Cardiovascular Disease; Visit Provider Internal Medicine Cardiovascular Disease
DX: I10 Essential (primary) hypertension (principal); I35.0 Nonrheumatic aortic (valve) stenosis; R60.0 Localized edema
CPT/HCPCS: 36415; 80048; 85025

== ENCOUNTER 2019-11-11 06:52 | Day surgery (SDC) | payer MEDICARE, OTHER, SELFPAY ==
[2019-11-06 10:57] VITALS: BMI 31.4
[2019-11-08 09:49] VITALS: BMI 31.4
--- NOTE | 2019-11-11 09:54 | CL.D_ITS ---
Patient Name: MERCEDES SORTO Study Date: 11/11/2019 Performing: Naveen Hodges MD Ht: 59.84 inches 152 cm : 1935 Wt: 160.94 lbs 73 kg Age: 84 Gender: female BSA: 1.7 PROCEDURE(S) PERFORMED [id number] CLINICAL PROFILE AND INDICATIONS Indications: Valvular Disease Heart Failure: None Stress/Imaging Stress/Image Study Performed: No CAD Presentations: No Sxs, no angina. 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 RECOMMENDATIONS Surgery consult for Valve Replacement surgery DESCRIPTION OF PROCEDURE The patient arrived to the procedure lab. The risks and benefits of the procedure as well as a full d escription of our services here and current unavailability of surgical backup were fully explained to the patient and/or their significant other prior to the catheterization. The Timeout was completed, verifying the correct patient and procedure. The patient's procedural site was prepped and draped in the usual fashion. Local anesthetic was given subcutaneously to right radial region with Lidocaine 2% . Using a modified Seldinger technique, arterial access was obtained via the right radial artery, a 6 Fr sheath was inserted. Left Coronary Artery selective angiography was performed in multiple views u sing a 5 Fr. 4.0 Montchanin catheter. Right Coronary Artery selective angiography was then performed in mu ltiple views using a 5 Fr. JR 5 catheter.The arterial sheath was pulled and a TR Band was applied for hemostasis CORONARY ANGIOGRAPHY DOMINANCE: Right Dominant LEFT HEART ASSESSMENT Left Ventricular Ejection Fraction: by Echo 65 % Normal LV wall motion Normal Left Ventricular systolic function LEFT MAIN: Mild calcification, No significant disease noted LEFT ANTERIOR DESCENDING ARTERY: MID LAD: Moderate luminal irregularities up to 50% CIRCUMFLEX ARTERY: Mild luminal irregularities less than 30% RIGHT CORONARY ARTERY: Mild luminal irregularities VALVE FINDINGS: Aortic Valve Calcification - moderate Aortic Valve Stenosis - severe COMPLICATIONS No Complications PROCEDURE MEDICATIONS Versed 0.5 mg IV Versed 0.5 mg IV Fentanyl 25 mcg IV Oxygen: 2 L/min via nasal cannula Heparin diluted in 23cc Heparinized saline. Patient given 10cc IA of this solution. 11/11/2019 09:31: 45 Verapamil 2.5mg, Ntg 100mcgs, 2000 units of Heparin diluted in 23cc Heparinized saline. Patient give n 10cc IA of this solution. 11/11/2019 09:31:45 SUMMARY OF HEMODYNAMIC DATA Time AIR REST ECG 07:26:42 AO 120/37 (62) SA 09:33:37 RM AIR REST 09:52:30 Signed By Naveen Hodges MD On 11/11/2019 09:53:57 Naveen Hodges MD
== END 2019-11-11 13:11 | disposition home or self-care (01) ==
LOC: CLSP 06:53
PROVIDERS: PCP Family Medicine Geriatric Medicine; Referring Provider Internal Medicine Cardiovascular Disease; Visit Provider Internal Medicine Cardiovascular Disease
DX: I25.10 Atherosclerotic heart disease of native coronary artery without angina pectoris (principal); I35.0 Nonrheumatic aortic (valve) stenosis; E78.5 Hyperlipidemia, unspecified; D64.9 Anemia, unspecified; I13.0 Hypertensive heart and chronic kidney disease with heart failure and stage 1 through stage 4 chronic kidney disease, or unspecified chronic kidney disease; E11.22 Type 2 diabetes mellitus with diabetic chronic kidney disease; N18.3 Chronic kidney disease, stage 3 (moderate); I50.32 Chronic diastolic (congestive) heart failure; I27.20 Pulmonary hypertension, unspecified; E03.9 Hypothyroidism, unspecified; Z79.82 Long term (current) use of aspirin; Z79.84 Long term (current) use of oral hypoglycemic drugs; Z79.899 Other long term (current) drug therapy
CPT/HCPCS: 93454; 99152; 99153; J7040; C1769; C1894; Q9967

== ENCOUNTER → 2019-11-26 | Outpatient (CLI) | payer MEDICARE, OTHER, SELFPAY ==
[2019-11-08 09:49] VITALS: BMI 31.4
[2019-11-26 14:56] LABS: Absolute Lymphocyte Count 0.61 X10^3/uL (0.83-4.51); Absolute Neutrophil Count 3.4 X10^3/uL (2.0-7.7); Basophil# 0.02 X10^3/uL; Basophil% 0.4 % (0-1); Eosinophils% 2.2 % (0-5); Hematocrit 18.8 % (37-47); Lymphocyte # 0.61 X10^3/ul (4.0); Lymphocyte % 13.1 % (19-41); Mean Corp Hgb Conc 31.4 g/dL (32-36); Mean Corpuscular Hgb 30.9 pg (27.0-32.0); Mean Corpuscular Volume 98.4 fL (81-99); Mean Platelet Vol. 9.8 fl (6.2-12.0); Monocyte# 0.49 X10^3/uL; Monocyte% 10.5 % (0-10); NRBC Flagged by Analyzer 0 % (0-5); Neutrophil # 3.41 X10^3/uL (2.7-7.7); Neutrophil % 73.4 % (47-70); POSITIVE COUNT YES; Platelet Count 140 K/mm3 (150-450); RBC Distribution Width CV 17.2 % (11.6-14.6); RBC Distribution Width SD 58.7 fl (35.1-43.9); Red Blood Count 1.91 M/mm3 (4.2-5.4); White Blood Count 4.7 K/mm3 (4.4-11.0)
[2019-11-26 15:05] LABS: Differential Indicated SCAN CRITERIA MET; Hemoglobin 5.9 g/dL (12.0-15.0)
[2019-11-26 15:20] LABS: Anion Gap 8 (5-15); BUN 69 mg/dL (7-18); BUN/Creat Ratio 27.3 RATIO (10-20); Calcium,Total 8.2 mg/dL (8.5-10.1); Chloride 96 mmol/L (98-107); Creatinine, Serum 2.53 mg/dL (0.55-1.02); EST Glomerular Filtration Rate 19 mL/min (>60); Est Glom Filt Rate - Afr Amer 23 mL/min (>60); Glucose 189 mg/dL (74-106); Potassium 4.6 mmol/L (3.5-5.1); Sodium Level 130 mmol/L (136-145)
[2019-11-26 15:23] LABS: Vitamin B12 427 pg/mL (211-911)
[2019-11-26 15:34] LABS: Ferritin 113 ng/mL (8-252); Iron 34 ug/dL (50-170); Iron Binding Capacity,Total 304 ug/dL (250-450); PERCENT IRON SATURATION 11.2 % (15.0-55.0)
[2019-11-27 10:59] LABS: Pathologist Review Reviewed
== END | disposition home or self-care (01) ==
PROVIDERS: Internal Medicine Hematology & Oncology; PCP Family Medicine Geriatric Medicine; Referring Provider Nurse Practitioner Family; Visit Provider Nurse Practitioner Family
DX: D50.9 Iron deficiency anemia, unspecified (principal)
CPT/HCPCS: 36415; 80048; 82607; 82728; 82746; 83540; 83550; 85025; 86850; 86900; 86901; 86920; 86922

== ENCOUNTER 2019-12-11 00:04 | Emergency (ER) | payer MEDICARE, OTHER, SELFPAY ==
[2019-12-03 09:06] VITALS: BMI 33.2
[2019-12-11 00:06] VITALS: BP 156/44; PULSE 71; PULSE 72; RESP 16; TEMP 36.7; O2SAT 98; O2SAT 99; BMI 33.3
--- NOTE | 2019-12-11 00:33 | CT_ITS ---
STUDY: CT FACIAL BONES WITHOUT CONTRAST REASON FOR EXAM: Female, 84 years old. HIT FLOOR BRUISING LEFT SIDE FACE WITH HEMATOMA RADIATION DOSAGE (If Supplied By Facility): CTDIvol = ( 29.38 ) mGy, DLP = ( 576.84 ) mGycm TECHNIQUE: The patient was scanned in a multi detector CT scanner. Sagittal and coronal images were reconstructed. Individualized dose optimization techniques were used for this CT. COMPARISON: None. FINDINGS: There is left facial soft tissue swelling/injury. There is a soft tissue attenuation structure overlying the left maxilla/mandible measuring 2.6 x 0.8 cm. Possibly hematoma or soft tissue mass. Correlate clinically. There is soft tissue swelling in the left periorbital region. The bilateral globes appear intact. There is no significant intraconal stranding seen. Normal orbital samuel and orbital contents. Normal nasal bones and anterior nasal spine. Normal facial bones. There is no demonstrated fracture. No paranasal sinus air-fluid levels identified. CT/Sinus/Facial Bone IMPRESSION: There is left facial soft tissue swelling/injury. There is soft tissue swelling in the left periorbital region. No acute facial bone fracture identified. There is a soft tissue attenuation structure overlying the left maxilla/mandible measuring 2.6 x 0.8 cm. Possibly hematoma or soft tissue mass. Correlate clinically. Electronically Signed: Aashish Case, at 1:34 EDT Tel , Service support ,
--- NOTE | 2019-12-11 00:33 | CT_ITS ---
STUDY: CT BRAIN WITHOUT CONTRAST REASON FOR EXAM: Female, 84 years old. HIT FLOOR BRUISING LEFT SIDE FACE WITH HEMATOMA RADIATION DOSAGE (If Supplied By Facility): CTDIvol = ( 44.99 ) mGy, DLP = ( 779.24 ) mGycm TECHNIQUE: Transaxial CT imaging of the brain was performed without administration of intravenous contrast material. Individualized dose optimization techniques were used for this CT. COMPARISON: No relevant priors. FINDINGS: Left periorbital and facial soft tissue swelling. Normal calvarium. There is mild cerebral atrophy with widening of the extra-axial spaces and ventricular dilatation. There are areas of decreased attenuation within the white matter tracts of the supratentorial brain, consistent with microvascular disease changes. There are small punctate calcifications of the basal ganglia which are seen in the aging brain as a normal variant. Normal brainstem. Normal cerebellum. There is no intracranial hemorrhage. There are no findings of an acute ischemic infarction. Paranasal sinus disease. Carotid and vertebral artery calcifications. CT/Brain/Head without Contrast IMPRESSION: Left periorbital and facial soft tissue swelling. Chronic involutional and white matter changes. No acute territorial infarct or intracranial hemorrhage identified. If patient''s symptomology persists or there is continuing clinical concern MRI or follow-up CT scan can be performed. Electronically Signed: Aashish Case, at 1:21 EDT Tel , Service support ,
--- NOTE | 2019-12-11 00:34 | ED.VIS.FALL ---
History of Present Illness Chief Complaint: Head Injury Informant: Patient, Family Occurred: Today - JPTA Mechanism/Context: Same level fall Location: left face Quality of Pain: - - sore Current Severity: Mild Maximum Severity: Mild Worsened by: palpation Relieved by: leaving alone Associated Symptoms: Negative for: Parasthesias, Weakness, Loss of function, Inability to ambulate, Loss of consciousness, Amnesia Narrative: Patient states she got up to use the bathroom tonight from bed, and she accidentally bumped a glass of water and while trying to catch it lost her balance, resulting in a fall. She states she fell to the floor, which is hard laminate without carpet, she hit her left face on the floor, and did not injure anything else or lose consciousness. There was a lot of bleeding. This was controlled prior to arrival. She denies any headache, focal neurologic deficits, amnesia, vision changes or diplopia. She denies being on any anticoagulants or antiplatelets. - Past Medical History (1) Lower extremity edema Status: Chronic (2) Chronic diastolic (congestive) heart failure Status: Chronic (3) Chronic renal disease, stage 3, moderately decreased glomerular filtration rate (GFR) between 30-59 mL/min/1.73 square meter Status: Chronic (4) Essential hypertension Status: Chronic (5) Hyperlipidemia Status: Chronic (6) Iron deficiency anemia Status: Chronic (7) Non-rheumatic tricuspid valve insufficiency Status: Chronic (8) Nonrheumatic aortic (valve) stenosis Status: Chronic (9) Nonrheumatic mitral (valve) insufficiency Status: Chronic (10) Secondary pulmonary arterial hypertension Status: Chronic Past Medical History - Allergies and Home Meds Allergies/Adverse Reactions: Allergies No Known Allergies Allergy (Verified 11/27/19 09:02) Primary Care Physician: Aleksandar Clemens Chi, MD [Primary Care Provider] - Lives: With Family Smoking Status: Never smoker Review of Systems General: Denies: Chills, Fever, Sweats Eyes: Denies: Visual changes - bilaterally, Diplopia ENT: Denies: Bilateral ear pain, Rhinorrhea, Sore throat Cardiovascular: Denies: Chest pain, Palpitations Respiratory: Denies: Dyspnea, Cough, Dyspnea on exertion Gastrointestinal: Denies: Abdominal pain, Nausea, Vomiting, Diarrhea, Melena, Hematochezia Genitourinary: Denies: Dysuria, Hematuria, Frequency Musculoskeletal: Denies: Neck pain, Back pain, Extremity Pain Skin: Reports: Wounds. Denies: Rash Neurological: Denies: Headache, Weakness, Numbness Physical Exam Vital Signs/Narrative: Vital Signs Temp Pulse Resp BP Pulse Ox 12/11/19 00:06 98.0 F 71 16 156/44 H 98 Inital Vital Signs reviewed: Yes General: Well nourished, Well developed, - - Well-appearing, no distress, keenly alert, GCS 15 Head: Normocephalic, Trauma - Left face, Tenderness - Mild, left cheekbone Eyes: Perrl, EOMI - Without pain or entrapment ENT: TM's clear, No hemotympanum or drainage, - - Left periorbital ecchymosis with hematoma at the left cheek/maxilla, midface is stable and there are no deformities. Along the edge of the hematoma, there are 2 small areas that appear to be breaks in the skin as a result of the hematoma and not necessarily traumatic, they are oozing small amounts of blood.. Negative for: Otorrhea, Nasal trauma Neck: Nontender, Full ROM Cardiovascular: Regular rate, Regular rhythm, No murmurs Respiratory: No distress, CTA bilaterally, Chest nontender Abdomen: Soft, Nontender, Nondistended, Normal bowel sounds Back: Nontender. Negative for: Spinal Tenderness Extremeties: Atraumatic, full range of motion times all 4 extremities without pain. Significant symmetric edema to the knees in both lower extremities with signs of stasis dermatitis. Skin: Normal color, No rash, Trauma - Hematoma and abrasions left face Neurological: Alert, Oriented x3, Cranial nerves II-XII grossly intact, Normal Strength, Normal Sensation, Normal Gait Psychological: Normal affect, Normal Mood Diagnostic/Tx/Re-eval Clinical Impression(s) from Imaging Studies Brain CT 12/11/19 00:33 IMPRESSION: Left periorbital and facial soft tissue swelling. Chronic involutional and white matter changes. No acute territorial infarct or intracranial hemorrhage identified. If patient''s symptomology persists or there is continuing clinical concern MRI or follow-up CT scan can be performed. Electronically Signed: Aashish Case, at 1:21 EDT Tel , Service support , Facial/Sinus 12/11/19 00:33 IMPRESSION: There is left facial soft tissue swelling/injury. There is soft tissue swelling in the left periorbital region. No acute facial bone fracture identified. There is a soft tissue attenuation structure overlying the left maxilla/mandible measuring 2.6 x 0.8 cm. Possibly hematoma or soft tissue mass. Correlate clinically. Electronically Signed: Aashish Case, at 1:34 EDT Tel , Service support , - Medical Decision Making CT of the head and face show no acute bony injury or cerebral injury. Patient does not have any neurologic symptoms. She is reassured, cleanse the wound and dressed it with bacitracin, and we discussed the treatment of the hematoma that is overlying the soft tissue attenuation seen on the CT. ED Disposition - Plan for ED Patient: Disposition: Home or Assisted Living Diagnosis: Accidental fall, Closed head injury without concussion, Traumatic hematoma of face Instructions: ED Hematoma, ED CONTUSION Face No Wake Up] Referrals: Aleksandar Clemens Chi, MD [Primary Care Provider] - As Needed
[2019-12-11 02:26] VITALS: BP 144/96; PULSE 70; RESP 18; O2SAT 96
== END 2019-12-11 02:31 | disposition home or self-care (01) ==
PROVIDERS: Emergency Provider Emergency Medicine; PCP Family Medicine Geriatric Medicine
DX: S00.12XA Contusion of left eyelid and periocular area, initial encounter (principal); W18.30XA Fall on same level, unspecified, initial encounter; Y93.01 Activity, walking, marching and hiking; Y92.009 Unspecified place in unspecified non-institutional (private) residence as the place of occurrence of the external cause; Y99.8 Other external cause status
CPT/HCPCS: 70450; 70486; 99285

== ENCOUNTER → 2019-12-11 | Outpatient (CLI) | payer MEDICARE, OTHER, SELFPAY ==
[2019-12-11 00:06] VITALS: BMI 33.3
[2019-12-11 12:21] LABS: Hematocrit 25.6 % (37-47); Hemoglobin 8.4 g/dL (12.0-15.0); Mean Corp Hgb Conc 32.8 g/dL (32-36); Mean Corpuscular Hgb 30.7 pg (27.0-32.0); Mean Corpuscular Volume 93.4 fL (81-99); Mean Platelet Vol. 10.7 fl (6.2-12.0); POSITIVE COUNT YES; Platelet Count 99 K/mm3 (150-450); RBC Distribution Width CV 15.1 % (11.6-14.6); RBC Distribution Width SD 51.4 fl (35.1-43.9); Red Blood Count 2.74 M/mm3 (4.2-5.4); White Blood Count 4.2 K/mm3 (4.4-11.0)
[2019-12-11 12:29] LABS: Protein, Urine (Random) 29.1 mg/dL (<11.9); Protein:Creat Ratio 571 mg/g CRE (0-200)
[2019-12-11 12:30] LABS: Albumin, Serum 3.1 g/dL (3.2-5.0); BUN 49 mg/dL (7-18); BUN/Creat Ratio 24.3 RATIO (10-20); Calcium,Total 8.4 mg/dL (8.5-10.1); Chloride 93 mmol/L (98-107); Creatinine, Serum 2.02 mg/dL (0.55-1.02); EST Glomerular Filtration Rate 25 mL/min (>60); Est Glom Filt Rate - Afr Amer 30 mL/min (>60); Glucose 199 mg/dL (74-106); Phosphorus 3.3 mg/dL (2.5-4.9); Potassium 4.7 mmol/L (3.5-5.1); Sodium Level 124 mmol/L (136-145)
--- NOTE | 2019-12-11 12:30 | RAD_ITS ---
STUDY: X-RAY - ABDOMEN/PELVIS REASON FOR EXAM: Female, 84 years old. FECAL IMPACTION. TECHNIQUE: 5 views COMPARISON: None. FINDINGS: Normal visualized lung bases. There is an abundance of fecal material throughout the colon. There is no demonstrated free abdominal air. The visualized liver, spleen and kidneys are grossly normal in size and morphology. There are calcified phleboliths in the pelvis. There are diffuse degenerative changes of the visualized lumbar spine. RAD/Abd Inc Decub and/or Erect IMPRESSION: No acute findings, retained stool Electronically Signed: Ousmane Gresham MD at 12:55 EDT , Service support ,
[2019-12-11 13:30] LABS: PTHIN 84.5 pg/mL (18.4-80.1)
== END | disposition home or self-care (01) ==
PROVIDERS: Internal Medicine Nephrology; PCP Family Medicine Geriatric Medicine; Referring Provider Family Medicine Geriatric Medicine; Visit Provider Family Medicine Geriatric Medicine
DX: E11.22 Type 2 diabetes mellitus with diabetic chronic kidney disease (principal); N18.4 Chronic kidney disease, stage 4 (severe); D50.9 Iron deficiency anemia, unspecified; K56.41 Fecal impaction; S00.12XA Contusion of left eyelid and periocular area, initial encounter; W18.30XA Fall on same level, unspecified, initial encounter; Y93.01 Activity, walking, marching and hiking; Y92.009 Unspecified place in unspecified non-institutional (private) residence as the place of occurrence of the external cause; Y99.8 Other external cause status
CPT/HCPCS: 36415; 70450; 70486; 74019; 80069; 82570; 83970; 84156; 85027; 99285

== ENCOUNTER → 2019-12-31 16:05 | Outpatient (CLI) | payer MEDICARE, OTHER, SELFPAY ==
[2019-12-11 00:06] VITALS: BMI 33.3
[2019-12-26 13:51] VITALS: BMI 35.2
[2019-12-31 17:04] LABS: BUN 32 mg/dL (7-18); BUN/Creat Ratio 15.6 RATIO (10-20); Calcium,Total 8.3 mg/dL (8.5-10.1); Chloride 93 mmol/L (98-107); Creatinine, Serum 2.05 mg/dL (0.55-1.02); EST Glomerular Filtration Rate 25 mL/min (>60); Est Glom Filt Rate - Afr Amer 30 mL/min (>60); Glucose 154 mg/dL (74-106); Phosphorus 2.8 mg/dL (2.5-4.9); Potassium 4.6 mmol/L (3.5-5.1); Sodium Level 126 mmol/L (136-145)
== END ==
PROVIDERS: PCP Family Medicine Geriatric Medicine; Referring Provider Internal Medicine Nephrology; Visit Provider Internal Medicine Nephrology
DX: N18.4 Chronic kidney disease, stage 4 (severe) (principal)
CPT/HCPCS: 36415; 80069

== ENCOUNTER → 2020-01-06 | Outpatient (CLI) | payer MEDICARE, OTHER, SELFPAY ==
[2019-12-26 13:51] VITALS: BMI 35.2
[2020-01-02 14:07] VITALS: BMI 36.1
[2020-01-06 15:01] LABS: Anion Gap 5 (5-15); BUN 31 mg/dL (7-18); Chloride 92 mmol/L (98-107); Creatinine, Serum 1.94 mg/dL (0.55-1.02); EST Glomerular Filtration Rate 26 mL/min (>60); Est Glom Filt Rate - Afr Amer 32 mL/min (>60); Glucose 172 mg/dL (74-106); Potassium 4.6 mmol/L (3.5-5.1); Sodium Level 126 mmol/L (136-145)
== END | disposition home or self-care (01) ==
LOC: LAB 14:05
PROVIDERS: PCP Family Medicine Geriatric Medicine; Referring Provider Internal Medicine Nephrology; Visit Provider Internal Medicine Nephrology
DX: E87.1 Hypo-osmolality and hyponatremia (principal)
CPT/HCPCS: 36415; 80048

== ENCOUNTER → 2020-01-07 | Outpatient (CLI) | payer MEDICARE, OTHER, SELFPAY ==
[2020-01-02 14:07] VITALS: BMI 36.1
[2020-01-07 12:28] LABS: Absolute Lymphocyte Count 0.33 X10^3/uL (0.83-4.51); Absolute Neutrophil Count 4.2 X10^3/uL (2.0-7.7); Basophil# 0.03 X10^3/uL; Basophil% 0.6 % (0-1); Eosinophil# 0.22 X10^3/uL; Hematocrit 25.9 % (37-47); Hemoglobin 8.3 g/dL (12.0-15.0); Lymphocyte # 0.33 X10^3/ul (4.0); Lymphocyte % 6.1 % (19-41); Mean Corpuscular Hgb 30.2 pg (27.0-32.0); Mean Corpuscular Volume 94.2 fL (81-99); Mean Platelet Vol. 9.5 fl (6.2-12.0); Monocyte# 0.64 X10^3/uL; Monocyte% 11.8 % (0-10); NRBC Flagged by Analyzer 0 % (0-5); Neutrophil % 77.1 % (47-70); POSITIVE DIFFERENTIAL YES; Platelet Count 170 K/mm3 (150-450); RBC Distribution Width CV 15.1 % (11.6-14.6); RBC Distribution Width SD 51.6 fl (35.1-43.9); Red Blood Count 2.75 M/mm3 (4.2-5.4); White Blood Count 5.4 K/mm3 (4.4-11.0)
[2020-01-07 12:35] LABS: Differential Indicated SCAN CRITERIA MET
[2020-01-07 12:40] LABS: Vitamin D,25 Hydroxy 55.5 ng/mL
[2020-01-07 12:44] LABS: ALB/GLOB Ratio 0.9 RATIO (0.9-2.4); AST(SGOT) 24 U/L (15-37); Alanine Aminotransfer ALT/SGPT 18 U/L (13-56); Albumin, Serum 3.1 g/dL (3.2-5.0); Alkaline Phosphatase 96 U/L (45-117); Anion Gap 7 (5-15); BUN 31 mg/dL (7-18); BUN/Creat Ratio 16.3 RATIO (10-20); Calcium,Total 8.2 mg/dL (8.5-10.1); Chloride 90 mmol/L (98-107); EST Glomerular Filtration Rate 27 mL/min (>60); Est Glom Filt Rate - Afr Amer 32 mL/min (>60); Globulin 3.4 g/dL (2.2-4.2); Glucose 140 mg/dL (74-106); Potassium 4.4 mmol/L (3.5-5.1); Protein, Total 6.5 g/dL (6.4-8.2); Sodium Level 124 mmol/L (136-145); Thyroid Stim Hormone (TSH) 7.97 uIU/mL (0.358-3.74)
== END | disposition home or self-care (01) ==
LOC: POLAB3 10:47
PROVIDERS: PCP Family Medicine Geriatric Medicine; Visit Provider Family Medicine Geriatric Medicine
DX: E11.9 Type 2 diabetes mellitus without complications (principal); E55.9 Vitamin D deficiency, unspecified; I10 Essential (primary) hypertension
CPT/HCPCS: 36415; 80053; 82306; 84443; 85025

== ENCOUNTER → 2020-01-14 | Outpatient (CLI) | payer MEDICARE, OTHER, SELFPAY ==
[2020-01-02 14:07] VITALS: BMI 36.1
[2020-01-09 13:49] VITALS: BMI 37.0
[2020-01-14 18:22] LABS: BUN 25 mg/dL (7-18); Calcium,Total 8.3 mg/dL (8.5-10.1); Chloride 97 mmol/L (98-107); Creatinine, Serum 1.67 mg/dL (0.55-1.02); EST Glomerular Filtration Rate 31 mL/min (>60); Est Glom Filt Rate - Afr Amer 38 mL/min (>60); Glucose 155 mg/dL (74-106); Phosphorus 1.8 mg/dL (2.5-4.9); Potassium 4.6 mmol/L (3.5-5.1); Sodium Level 130 mmol/L (136-145)
== END | disposition home or self-care (01) ==
LOC: LAB 16:18
PROVIDERS: PCP Family Medicine Geriatric Medicine; Referring Provider Internal Medicine Nephrology; Visit Provider Internal Medicine Nephrology
DX: N18.4 Chronic kidney disease, stage 4 (severe) (principal); E87.1 Hypo-osmolality and hyponatremia
CPT/HCPCS: 36415; 80069

== ENCOUNTER 2020-01-20 19:09 | Emergency (ER) | payer MEDICARE, OTHER, SELFPAY ==
[2020-01-09 13:49] VITALS: BMI 37.0
[2020-01-20 19:10] VITALS: BP 183/81; PULSE 83; RESP 16; TEMP 36.6; O2SAT 97; BMI 35.2
--- NOTE | 2020-01-20 19:32 | ED.DCSUM_ITS ---
History of Present Illness Chief Complaint: Edema Informant: Patient, Family Narrative: Patient has a history of chronic lymphedema secondary to CHF with contributing severe aortic stenosis and chronic kidney disease. Patient takes 20 mg of Lasix a day. She states that her legs are not more swollen than normal. She is not experiencing any shortness of breath or chest pain. She is weighing herself and has not any heavier than she has been. Tonight she was using a device to picking supervisor something off the ground when she caused a skin avulsion to the anterior right leg. Family states the bleeding stopped it continues to leak fluid and they had not seen that before and was concerned and came in. Past Medical History - Allergies and Home Meds Allergies/Adverse Reactions: Allergies No Known Allergies Allergy (Verified 01/20/20 19:13) Primary Care Physician: Aleksandar Clemens Chi, MD [Primary Care Provider] - Smoking Status: Never smoker Review of Systems General: Denies: Chills, Fever, Sweats Eyes: Denies: Visual changes - bilaterally, Diplopia ENT: Denies: Rhinorrhea, Sore throat Cardiovascular: Denies: Chest pain, Palpitations Respiratory: Denies: Dyspnea, Cough, Dyspnea on exertion Gastrointestinal: Denies: Abdominal pain, Nausea, Vomiting, Diarrhea, Melena, Hematochezia Genitourinary: Denies: Dysuria, Hematuria, Frequency Musculoskeletal: Reports: Swelling. Denies: Back pain, Extremity Pain Skin: Denies: Rash, Wounds Neurological: Denies: Headache, Weakness, Numbness Physical Exam Vital Signs/Narrative: Vital Signs Temp Pulse Resp BP Pulse Ox 01/20/20 19:10 97.9 F 83 16 183/81 H 97 Inital Vital Signs reviewed: Yes General: Well nourished, Well developed, No Acute Distress Head: Normocephalic, Atraumatic Eyes: Perrl, EOMI ENT: Moist mucous membranes, No rhinorrhea Neck: Supple, Nontender Cardiovascular: Regular rate, Regular rhythm, No murmurs Respiratory: No distress, CTA bilaterally, Chest nontender Abdomen: Soft, Nontender, Nondistended, Normal bowel sounds Back: Nontender, Normal Inspection Extremities: Nontender, Edema - Bilateral lower extremity edema. Skin: Normal color, No rash, Trauma - 1 cm elliptical skin avulsion to the anterior mid right delgado. There is no active bleeding but there is mild lymph drainage. No evidence of infection Neurological: Alert, Oriented x3, Cranial nerves II-XII grossly intact, Normal Strength, Normal Sensation Psychological: Normal affect, Normal Mood Diagnostic/Tx/Re-eval - Medical Decision Making We will recommend that we just do 4 x 4's and Hunter wrap. I told him that this is going to potentially cause a wound healing issue. There is such thin skin and tension on the wound that I do not think I could suture it without tearing through the skin and complicating matters. Will refer to the wound clinic return if worsening or concerns ED Disposition - Plan for ED Patient: Disposition: Home or Assisted Living Diagnosis: Avulsion of skin of lower leg, Lymphedema Instructions: ED Lymphedema, ED AVULSION LACERATION Referrals: Aleksandar Clemens Chi, MD [Primary Care Provider] - Keep [facility] appointment Clinic,Wound [None] - (As discussed these wounds have high rates of healing complications and I recommend you follow-up at wound clinic.)
[2020-01-20 20:06] VITALS: BP 155/65
== END 2020-01-20 20:13 | disposition home or self-care (01) ==
LOC: ED 19:40
PROVIDERS: Emergency Provider Emergency Medicine; PCP Family Medicine Geriatric Medicine
DX: I89.0 Lymphedema, not elsewhere classified (principal); S81.801A Unspecified open wound, right lower leg, initial encounter; W26.8XXA Contact with other sharp object(s), not elsewhere classified, initial encounter; Y93.89 Activity, other specified; Y92.009 Unspecified place in unspecified non-institutional (private) residence as the place of occurrence of the external cause; Y99.8 Other external cause status
CPT/HCPCS: 99282

== ENCOUNTER → 2020-01-22 15:07 | Outpatient (CLI) | payer MEDICARE, OTHER, SELFPAY ==
[2020-01-20 19:10] VITALS: BMI 35.2
[2020-01-22 16:18] LABS: Anion Gap 5 (5-15); BUN 18 mg/dL (7-18); BUN/Creat Ratio 11.3 RATIO (10-20); Calcium,Total 8.4 mg/dL (8.5-10.1); Chloride 98 mmol/L (98-107); Creatinine, Serum 1.59 mg/dL (0.55-1.02); EST Glomerular Filtration Rate 33 mL/min (>60); Est Glom Filt Rate - Afr Amer 40 mL/min (>60); Glucose 200 mg/dL (74-106); Potassium 4.5 mmol/L (3.5-5.1); Sodium Level 130 mmol/L (136-145)
== END ==
PROVIDERS: PCP Family Medicine Geriatric Medicine; Visit Provider Family Medicine Geriatric Medicine
DX: N18.4 Chronic kidney disease, stage 4 (severe) (principal)
CPT/HCPCS: 36415; 80048

== ENCOUNTER → 2020-01-29 | Outpatient (CLI) | payer MEDICARE, OTHER, SELFPAY ==
[2020-01-29 08:01] VITALS: BMI 35.2
[2020-01-29 12:59] LABS: Anion Gap 5 (5-15); BUN 19 mg/dL (7-18); BUN/Creat Ratio 11.7 RATIO (10-20); Calcium,Total 9.1 mg/dL (8.5-10.1); Chloride 98 mmol/L (98-107); Creatinine, Serum 1.62 mg/dL (0.55-1.02); EST Glomerular Filtration Rate 32 mL/min (>60); Est Glom Filt Rate - Afr Amer 39 mL/min (>60); Glucose 175 mg/dL (74-106); Potassium 4.1 mmol/L (3.5-5.1); Sodium Level 131 mmol/L (136-145)
== END | disposition home or self-care (01) ==
LOC: POLAB3 11:10
PROVIDERS: PCP Family Medicine Geriatric Medicine; Visit Provider Family Medicine Geriatric Medicine
DX: N18.4 Chronic kidney disease, stage 4 (severe) (principal); D63.1 Anemia in chronic kidney disease; S81.801D Unspecified open wound, right lower leg, subsequent encounter; I36.1 Nonrheumatic tricuspid (valve) insufficiency; I50.32 Chronic diastolic (congestive) heart failure; D50.9 Iron deficiency anemia, unspecified; R60.0 Localized edema; S81.831A Puncture wound without foreign body, right lower leg, initial encounter; W22.8XXA Striking against or struck by other objects, initial encounter; I13.0 Hypertensive heart and chronic kidney disease with heart failure and stage 1 through stage 4 chronic kidney disease, or unspecified chronic kidney disease; N18.3 Chronic kidney disease, stage 3 (moderate); I27.21 Secondary pulmonary arterial hypertension; E78.5 Hyperlipidemia, unspecified
CPT/HCPCS: 11042; 36415; 80048; 99213; G0463

== ENCOUNTER 2020-02-12 10:15 | Outpatient (RCR) | payer MEDICARE, OTHER, SELFPAY ==
[2020-01-23 14:28] VITALS: BMI 36.3
[2020-01-29 08:01] VITALS: BP 168/58; PULSE 77; RESP 18; TEMP 36.6; BMI 35.2
--- NOTE | 2020-01-29 09:23 | PCM.WC.HP ---
(1) Anemia of chronic renal failure, stage 3 (moderate) Status: Chronic Current Visit: No Code(s): N18.3 - Chronic kidney disease, stage 3 (moderate); D63.1 - Anemia in chronic kidney disease (2) Chronic diastolic (congestive) heart failure Status: Chronic Current Visit: No Code(s): I50.32 - Chronic diastolic (congestive) heart failure (3) Iron deficiency anemia Status: Chronic Current Visit: No Code(s): D50.9 - Iron deficiency anemia, unspecified (4) Lower extremity edema Status: Chronic Current Visit: No Code(s): R60.0 - Localized edema (5) Non-rheumatic tricuspid valve insufficiency Status: Chronic Current Visit: No Code(s): I36.1 - Nonrheumatic tricuspid (valve) insufficiency (6) Traumatic open wound of right lower leg with delayed healing Status: Acute Current Visit: Yes Code(s): S81.801D - Unspecified open wound, right lower leg, subsequent encounter History of Present Illness Date of Service: 01/29/20 Chief Complaint: Follow-up of the right lateral lower leg wound History of Wound: 84-year-old white female was using a tool to pickup driver things off the floor gouged her right lateral lower leg. She has history of a tricuspid valve that needs to be replaced. She has developed severe kidney damage and lower leg edema from this that is reversible upon completion of surgery. Patient's legs are so edematous that she is seeping fluid out of the left leg also. Past Medical History Past Medical History: Chronic Problems (Last Reviewed 01/23/20 @ 12:59 by Suad Cantu) Anemia of chronic renal failure, stage 3 (moderate) (Chronic) Lower extremity edema (Chronic) Chronic diastolic (congestive) heart failure (Chronic) Non-rheumatic tricuspid valve insufficiency (Chronic) Nonrheumatic mitral (valve) insufficiency (Chronic) Nonrheumatic aortic (valve) stenosis (Chronic) Secondary pulmonary arterial hypertension (Chronic) Essential hypertension (Chronic) Hyperlipidemia (Chronic) Chronic renal disease, stage 3, moderately decreased glomerular filtration rate (GFR) between 30-59 mL/min/1.73 square meter (Chronic) Thrombocytopenia (Chronic) Iron deficiency anemia (Chronic) Allergies/Adverse Reactions: Allergies No Known Allergies Allergy (Verified 01/29/20 08:23) Home Medications: Ambulatory Orders Medication Instructions Recorded Aspirin [Ecotrin] 81 mg PO DAILY 09/10/13 Atorvastatin Calcium [Lipitor] 20 mg PO QHS 09/10/13 cholecalciferol (vitamin D3) 25 25 mcg PO DAILY 11/05/19 mcg (1,000 unit) tablet glimepiride 1 mg tablet 1 mg PO BID tab 11/05/19 amlodipine 5 mg tablet 5 mg PO DAILY #90 tab 11/06/19 losartan 50 mg tablet 50 mg PO DAILY #90 tab 11/06/19 metoprolol succinate 50 mg 50 mg PO DAILY #90 tab 11/06/19 tablet,extended release 24 hr furosemide 20 mg tablet 20 mg PO DAILY tab 01/07/20 Levothyroxine [Synthroid] 100 mcg PO DAILY 01/09/20 Cephalexin [Keflex] 250 mg PO Q12 01/23/20 Lives: Spouse/ Significant Other Smoking Status: Never smoker Review of Systems Constitutional: Denies: Chills, Fever Eyes: Denies: Blurred vision, Drainage, Pain HEENT: Denies: Difficulty Hearing, Difficulty Swallowing, Sore Throat, Visual Changes Cardiovascular: Denies: Chest Pain, Palpitations, Syncope Respiratory: Denies: Cough, Shortness of Breath Gastrointestinal: Denies: Abdominal Pain, Nausea, Vomiting Genitourinary: Denies: Dysuria, Frequency Musculoskeletal: Denies: Joint Pain, Muscle pain Skin: Reports: Pruritis, Wounds - Traumatic wound right lateral lower leg. Denies: Jaundice, Rash Neurological: Denies: Balance problems, Change in Speech, Difficulty swallowing, Focal weakness Psychiatric: Denies: Anxiety, Depression Endocrine: Denies: Change in Body Habitus Hematologic/ Lymphatic: Reports: Anemia, Petechiae. Denies: Adenopathy - Physical Exam Vital Signs Temp Pulse Resp BP 97.8 F 77 18 168/58 H 01/29/20 08:01 01/29/20 08:01 01/29/20 08:01 01/29/20 08:01 General: Oriented x3, Cooperative, Well developed HEENT: Atraumatic, PERRLA Oral: Moist Mucosa Neck: Supple, No JVD Lungs: Clear to auscultation, Normal air movement Cardiovascular: Regular rate, Regular Rhythm Abdomen: Bowel Sounds Present, Soft, Non Tender, No Hepato-splenomegaly Extremities: No clubbing, No edema Skin: Ulcer/ Wound - Traumatic wound right lateral lower leg Wound Measurements and Assessment WC - Nurse 1 - General Ulcer Measurement Start: 01/29/20 07:56 Freq: Status: Active Protocol: Activity Type Activity Date Activity User E-Sign Co-Sign Detail Recorded Client Recorded Date Recorded By Document 01/29/20 08:01 [facility] [id number] 01/29/20 08:21 BM 01/29/20 08:01 Wound Center Nurse 1 [Ulcer Assessment] #1- R LAT LE (SKIN TEAR) -Combined with other wound No -Current Size (cm) - Length 1 -Current Size (cm) - Width 0.6 -Current Size (cm) - Depth 0.1 -Total Square Cm 0.6 -Date of Last Picture (Recall this 01/29/20 field) -Photo Taken Yes -Epithelialization None Present -Tunneling No -Undermining/Tunneling No -Circular Undermining No -Exudate Amt Small -Exudate Type Serous -Wound Margin Flat & Intact -Granulation Amt None Present (0 %) -Slough/Fibrin Yes -Necrosis Amt Large (67-100%) -Necrotic Tissue Type Adherent Slough -Texture (Cassidy-wound Skin Appearance) Assessed, Scarring -Moisture (Cassidy-wound Skin Appearance Assessed,Dry/ ) Scaly -Color (Cassidy-wound Skin Appearance) Assessed -Temperature (Cassidy-wound Skin No Abnormality Appearance) (Pt Warm) -Tenderness on Palpation (Cassidy-wound No Skin Appearance) -Ulcer Cleansing Rinsed/ Irrigated with Saline -Foul Odor after Cleansing No -Anesthetic Used 4% Lidocaine Solution [Edema Assessment] -Lower Limb Edema Present Yes -Right Calf (cm) 45 -Right Ankle (cm) 25.6 -Left Calf (cm) 45.5 -Left Ankle (cm) 26.8 WC - Nurse 2 - General Ulcer CM Notes Start: 01/29/20 07:56 Freq: Status: Active Protocol: Activity Type Activity Date Activity User E-Sign Co-Sign Detail Recorded Client Recorded Date Recorded By Document 01/29/20 08:38 MW [id number] 01/29/20 08:42 MW 01/29/20 08:38 Wound Center Nurse 2 [Procedure/Treatment] #1- R LAT LE (SKIN TEAR) -Time 08:39 -Correct Patient Yes -Correct Side, Site, Position Yes -Correct Procedure Yes -Procedure Performed Yes -Type of Procedure Debridement -Clinical Debridement Subcutaneous -Tissue Removed Subcutaneous -Post Debridement (cm) - Length 1.0 -Post Debridement (cm) - Width 0.4 -Post Debridement (cm) - Depth 0.2 -Total Square (Post) (cm) 0.40 -Area of Debridement (cm) - Length 1.0 -Area of Debridement (cm) - Width 0.4 -Total Square (Area) (cm) 0.40 -Tunneling No -Undermining/Tunneling No -Circular Undermining No -Wound/Ulcer Outcome Not Healed -Ulcer Cleansing Rinsed/ Irrigated with Saline -Foul Odor after Cleansing No -Bioengineered Tissue No -Bleeding Controlled with Pressure -Offloading No -Treatment Response Procedure Tolerated Well -Debridement - Subq, 1st 20sq cm Yes [See Physician Procedure note for Specifics] Pain Scale: 0-10 Numeric [Pain] -Is Patient Pain Free? Yes WC - Nurse 3 - General Ulcer D/C NN Start: 01/29/20 07:56 Freq: Status: Active Protocol: Activity Type Activity Date Activity User E-Sign Co-Sign Detail Recorded Client Recorded Date Recorded By Document 01/29/20 08:43 MW [id number] 01/29/20 08:44 MW 01/29/20 08:43 Wound Care Nurse 3 [Wound Dressing] #1- R LAT LE (SKIN TEAR) -Ulcer Cleansing Rinsed/ Irrigated with Saline -Foul Odor after Cleansing No -Negative Pressure Wound Therapy N/A -Primary Dressing Applied Aquacel AG 4x4 -Primary Dressing Covered/Secured Dry Gauze & with Roll Gauze, Secured with Tape -Aquacel AG 4x4 1 [Compression Applied] Right -Lotion applied to leg before No compression wrap -Tubular Bandage Double Layer -Size of Tubigrip Used Size F -Size F ($) 1 Left -Lotion applied to leg before No compression wrap -Tubular Bandage Double Layer -Size of Tubigrip Used Size F -Size F ($) 1 [Post Procedure Tolerated] -Treatment Response Procedure Tolerated Well Pain Scale: 0-10 Numeric [Pain] -Is Patient Pain Free? Yes Teaching: Wound Center [Wound Center Education] (Items with an * have Printed Materials Available- Please identify what is given to patient under the Teaching materials given to patient and caregiver Section. Dressing Your Wound -Person Taught Patient,Family -Teaching Method Discussion -Response to teaching Verbalize understanding WC - Visit Discharge [Visit Discharge Information] -Discharge Condition Stable -Ambulatory Status Ambulatory -Transportation Private Auto -Accompanied by daughter -Medication Reconcilliation completed No & provided to patient/care provider -Clinical Summary of Care Provided Yes Musculoskeletal: No Tenderness to Palpation of Joints or Extremities Lymphatic: No Cervical, Supraclavicular, or Inguinal Adenopathy Neurological: Cranial nerves II-XII grossly intact, Neuro grossly intact Psych/Mental Status: Normal Affect, Appropriate Debridement Note Post-Debridement Measurements/Treatment WC - Nurse 2 - General Ulcer CM Notes Start: 01/29/20 07:56 Freq: Status: Active Protocol: Activity Type Activity Date Activity User E-Sign Co-Sign Detail Recorded Client Recorded Date Recorded By Document 01/29/20 08:38 MW [id number] 01/29/20 08:42 MW 01/29/20 08:38 Wound Center Nurse 2 #1- R LAT LE (SKIN TEAR) -Time 08:39 -Correct Patient Yes -Correct Side, Site, Position Yes -Correct Procedure Yes -Procedure Performed Yes -Type of Procedure Debridement -Clinical Debridement Subcutaneous -Tissue Removed Subcutaneous -Post Debridement (cm) - Length 1.0 -Post Debridement (cm) - Width 0.4 -Post Debridement (cm) - Depth 0.2 -Total Square (Post) (cm) 0.40 -Area of Debridement (cm) - Length 1.0 -Area of Debridement (cm) - Width 0.4 -Total Square (Area) (cm) 0.40 -Tunneling No -Undermining/Tunneling No -Circular Undermining No -Wound/Ulcer Outcome Not Healed -Ulcer Cleansing Rinsed/ Irrigated with Saline -Foul Odor after Cleansing No -Bioengineered Tissue No -Bleeding Controlled with Pressure -Offloading No -Treatment Response Procedure Tolerated Well -Debridement - Subq, 1st 20sq cm Yes Pain Scale: 0-10 Numeric Is Patient Pain Free? Yes - Nurse 3 - General Ulcer D/C NN Start: 01/29/20 07:56 Freq: Status: Active Protocol: Activity Type Activity Date Activity User E-Sign Co-Sign Detail Recorded Client Recorded Date Recorded By Document 01/29/20 08:43 MW [id number] 01/29/20 08:44 MW 01/29/20 08:43 Wound Care Nurse 3 #1- R LAT LE (SKIN TEAR) -Ulcer Cleansing Rinsed/ Irrigated with Saline -Foul Odor after Cleansing No -Negative Pressure Wound Therapy N/A -Primary Dressing Applied Aquacel AG 4x4 -Primary Dressing Covered/Secured with Dry Gauze & Roll Gauze, Secured with Tape -Aquacel AG 4x4 1 Right -Lotion applied to leg before No compression wrap -Tubular Bandage Double Layer -Size of Tubigrip Used Size F -Size F ($) 1 Left -Lotion applied to leg before No compression wrap -Tubular Bandage Double Layer -Size of Tubigrip Used Size F -Size F ($) 1 Treatment Response Procedure Tolerated Well Pain Scale: 0-10 Numeric Is Patient Pain Free? Yes Teaching: Wound Center Dressing Your Wound -Person Taught Patient,Family -Teaching Method Discussion -Response to teaching Verbalize understanding WC - Visit Discharge Discharge Condition Stable Ambulatory Status Ambulatory Transportation Private Auto Accompanied by daughter Medication Reconcilliation completed & No provided to patient/care provider Clinical Summary of Care Provided Yes Wound debrided: Right lateral lower leg wound Type of Debridement: Excisional debridement Anesthesia Used: 5% Lidocaine Gel Depth: Down to and including healthy tissue, in the subcutaneous layer Percentage of wound debrided: 100 Instrument Used: 5mm curette Tissue Removed: Slough and fibrin Severity: Fat Layer Exposed Bleeding Controlled with: Compression and gauze Patient tolerated procedure well Assessment/Plan Active Problems (Last Reviewed 01/23/20 @ 12:59 by Suad Cantu) Traumatic open wound of right lower leg with delayed healing (Acute) Assessment: Traumatic wound right lateral lower leg. Renal insufficiency stage III. Tricuspid valve insufficiency. Severe edema of lower extremities Plan: Wash leg with antibacterial soap. Apply Aquacel extra to wound base moistened. Cover with Adaptic gauze Yuliana. Double layer Tubigrip bilateral lower legs. Follow-up in 1 week
[2020-02-05 09:51] VITALS: BP 166/55; PULSE 75; RESP 18; TEMP 36.6; BMI 35.2
--- NOTE | 2020-02-05 10:46 | PN.PCM_ITS ---
(1) Anemia of chronic renal failure, stage 3 (moderate) Status: Chronic Current Visit: Yes Code(s): N18.3 - Chronic kidney disease, stage 3 (moderate); D63.1 - Anemia in chronic kidney disease (2) Chronic diastolic (congestive) heart failure Status: Chronic Current Visit: Yes Code(s): I50.32 - Chronic diastolic (congestive) heart failure (3) Iron deficiency anemia Status: Chronic Current Visit: Yes Code(s): D50.9 - Iron deficiency anemia, unspecified (4) Lower extremity edema Status: Chronic Current Visit: Yes Code(s): R60.0 - Localized edema (5) Non-rheumatic tricuspid valve insufficiency Status: Chronic Current Visit: No Code(s): I36.1 - Nonrheumatic tricuspid (valve) insufficiency (6) Traumatic open wound of right lower leg with delayed healing Status: Acute Current Visit: Yes Code(s): S81.801D - Unspecified open wound, right lower leg, subsequent encounter Type of Wound Date of Service: 02/05/20 Chief Complaint: Follow-up of the right lateral lower leg wound History of Wound: 84-year-old white female was using a tool to 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 She has history of a tricuspid valve that needs to be replaced. She has developed severe kidney damage and lower leg edema from this that is reversible upon completion of surgery. Patient's legs are so edematous that she is seeping fluid out of the left leg also. Progress of Wound: Opening is smaller than it was last week tolerating treatment well we will continue with Aquacel extra now and stop the silver - Physical Exam Vital Signs Temp Pulse Resp BP 98 F 75 18 166/55 H 02/05/20 09:51 02/05/20 09:51 02/05/20 09:51 02/05/20 09:51 General: Oriented x3, Cooperative, Well developed HEENT: Atraumatic, PERRLA Oral: Moist Mucosa Neck: Supple, No JVD Lungs: Clear to auscultation, Normal air movement Cardiovascular: Regular rate, Regular Rhythm Abdomen: Bowel Sounds Present, Soft, Non Tender, No Hepato-splenomegaly Extremities: No clubbing, No edema Skin: Ulcer/ Wound - Right lateral traumatic skin tear Wound Measurements and Assessment WC - Nurse 1 - General Ulcer Measurement Start: 01/29/20 07:56 Freq: Status: Active Protocol: Activity Type Activity Date Activity User E-Sign Co-Sign Detail Recorded Client Recorded Date Recorded By Document 02/05/20 09:51 RB [id number] 02/05/20 09:53 RB 02/05/20 09:51 Wound Center Nurse 1 [Ulcer Assessment] #1- R LAT LE (SKIN TEAR) -Combined with other wound No -Current Size (cm) - Length 0.3 -Current Size (cm) - Width 0.4 -Current Size (cm) - Depth 0.1 -Total Square Cm 0.12 -Tunneling No -Undermining/Tunneling No -Circular Undermining No -Exudate Amt Small -Exudate Type Serosanguineous -Wound Margin Flat & Intact -Granulation Amt Small (1-33%) -Granulation Quality [place] -Slough/Fibrin Yes -Necrosis Amt Large (67-100%) -Necrotic Tissue Type Adherent Slough -Structure Exposed N/A -Texture (Cassidy-wound Skin Appearance) Assessed -Moisture (Cassidy-wound Skin Appearance Assessed ) -Color (Cassidy-wound Skin Appearance) Assessed -Temperature (Cassidy-wound Skin No Abnormality Appearance) (Pt Warm) -Tenderness on Palpation (Cassidy-wound No Skin Appearance) -Ulcer Cleansing Wound Cleanser -Foul Odor after Cleansing No -Anesthetic Used 4% Lidocaine Solution [Edema Assessment] -Lower Limb Edema Present Yes -Right Calf (cm) 45.5 -Right Ankle (cm) 26 WC - Nurse 2 - General Ulcer CM Notes Start: 01/29/20 07:56 Freq: Status: Active Protocol: Activity Type Activity Date Activity User E-Sign Co-Sign Detail Recorded Client Recorded Date Recorded By Document 02/05/20 10:18 MW [id number] 02/05/20 10:20 MW 02/05/20 10:18 Wound Center Nurse 2 [Procedure/Treatment] #1- R LAT LE (SKIN TEAR) -Time 10:20 -Correct Patient Yes -Correct Side, Site, Position Yes -Correct Procedure Yes -Procedure Performed Yes -Type of Procedure Debridement -Clinical Debridement Subcutaneous -Tissue Removed Subcutaneous -Post Debridement (cm) - Length 0.6 -Post Debridement (cm) - Width 0.2 -Post Debridement (cm) - Depth 0.1 -Total Square (Post) (cm) 0.12 -Area of Debridement (cm) - Length 0.6 -Area of Debridement (cm) - Width 0.2 -Total Square (Area) (cm) 0.12 -Tunneling No -Undermining/Tunneling No -Circular Undermining No -Wound/Ulcer Outcome Not Healed -Foul Odor after Cleansing No -Bioengineered Tissue No -Bleeding Controlled with Pressure -Offloading No -Treatment Response Procedure Tolerated Well -Debridement - Subq, 1st 20sq cm Yes [See Physician Procedure note for Specifics] Pain Scale: 0-10 Numeric [Pain] -Is Patient Pain Free? Yes - Nurse 3 - General Ulcer D/C NN Start: 01/29/20 07:56 Freq: Status: Active Protocol: Activity Type Activity Date Activity User E-Sign Co-Sign Detail Recorded Client Recorded Date Recorded By Document 02/05/20 10:39 [id number] 02/05/20 10:40 02/05/20 10:39 Wound Care Nurse 3 [Wound Dressing] #1- R LAT LE (SKIN TEAR) -Ulcer Cleansing Not Cleansed -Foul Odor after Cleansing No -Negative Pressure Wound Therapy N/A -Primary Dressing Applied Aquacel Extra -Primary Dressing Covered/Secured Dry Gauze, with Secured with Tape -Aquacel Extra 1 [Compression Applied] Right -Lotion applied to leg before No compression wrap -Tubular Bandage Double Layer -Size of Tubigrip Used Size F -Size F ($) 2 Left -Lotion applied to leg before No compression wrap -Tubular Bandage Double Layer -Size of Tubigrip Used Size F -Size F ($) 2 Pain Scale: 0-10 Numeric [Pain] -Is Patient Pain Free? Yes - Visit Discharge [Visit Discharge Information] -Discharge Condition Stable -Ambulatory Status Ambulatory -Transportation Private Auto -Accompanied by daughter -Medication Reconcilliation completed Yes & provided to patient/care provider -Clinical Summary of Care Provided Yes Musculoskeletal: No Tenderness to Palpation of Joints or Extremities Lymphatic: No Cervical, Supraclavicular, or Inguinal Adenopathy Neurological: Cranial nerves II-XII grossly intact, Neuro grossly intact Psych/Mental Status: Normal Affect, Appropriate Debridement Note Post-Debridement Measurements/Treatment - Nurse 2 - General Ulcer CM Notes Start: 01/29/20 07:56 Freq: Status: Active Protocol: Activity Type Activity Date Activity User E-Sign Co-Sign Detail Recorded Client Recorded Date Recorded By Document 01/29/20 08:38 MW [id number] 01/29/20 08:42 MW Document 02/05/20 10:18 MW [id number] 02/05/20 10:20 MW 01/29/20 02/05/20 08:38 10:18 Wound Center Nurse 2 #1- R LAT LE (SKIN TEAR) -Time 08:39 10:20 -Correct Patient Yes Yes -Correct Side, Site, Position Yes Yes -Correct Procedure Yes Yes -Procedure Performed Yes Yes -Type of Procedure Debridement Debridement -Clinical Debridement Subcutaneous Subcutaneous -Tissue Removed Subcutaneous Subcutaneous -Post Debridement (cm) - Length 1.0 0.6 -Post Debridement (cm) - Width 0.4 0.2 -Post Debridement (cm) - Depth 0.2 0.1 -Total Square (Post) (cm) 0.40 0.12 -Area of Debridement (cm) - Length 1.0 0.6 -Area of Debridement (cm) - Width 0.4 0.2 -Total Square (Area) (cm) 0.40 0.12 -Tunneling No No -Undermining/Tunneling No No -Circular Undermining No No -Wound/Ulcer Outcome Not Healed Not Healed -Ulcer Cleansing Rinsed/ Irrigated with Saline -Foul Odor after Cleansing No No -Bioengineered Tissue No No -Bleeding Controlled with Pressure Pressure -Offloading No No -Treatment Response Procedure Procedure Tolerated Well Tolerated Well -Debridement - Subq, 1st 20sq cm Yes Yes Pain Scale: 0-10 Numeric Is Patient Pain Free? Yes Yes WC - Nurse 3 - General Ulcer D/C NN Start: 01/29/20 07:56 Freq: Status: Active Protocol: Activity Type Activity Date Activity User E-Sign Co-Sign Detail Recorded Client Recorded Date Recorded By Document 01/29/20 08:43 MW [id number] 01/29/20 08:44 MW Document 02/05/20 10:39 CS [id number] 02/05/20 10:40 CS 01/29/20 02/05/20 08:43 10:39 Wound Care Nurse 3 #1- R LAT LE (SKIN TEAR) -Ulcer Cleansing Rinsed/ Not Cleansed Irrigated with Saline -Foul Odor after Cleansing No No -Negative Pressure Wound Therapy N/A N/A -Primary Dressing Applied Aquacel AG 4x4 Aquacel Extra -Primary Dressing Covered/Secured with Dry Gauze & Dry Gauze, Roll Gauze, Secured with Secured with Tape Tape -Aquacel Extra 1 -Aquacel AG 4x4 1 Right -Lotion applied to leg before No No compression wrap -Tubular Bandage Double Layer Double Layer -Size of Tubigrip Used Size F Size F -Size F ($) 1 2 Left -Lotion applied to leg before No No compression wrap -Tubular Bandage Double Layer Double Layer -Size of Tubigrip Used Size F Size F -Size F ($) 1 2 Treatment Response Procedure Tolerated Well Pain Scale: 0-10 Numeric Is Patient Pain Free? Yes Yes Teaching: Wound Center Dressing Your Wound -Person Taught Patient,Family -Teaching Method Discussion -Response to teaching Verbalize understanding WC - Visit Discharge Discharge Condition Stable Stable Ambulatory Status Ambulatory Ambulatory Transportation Private Auto Private Auto Accompanied by daughter daughter Medication Reconcilliation completed & No Yes provided to patient/care provider Clinical Summary of Care Provided Yes Yes Wound debrided: Right lateral lower leg wound Type of Debridement: Excisional debridement Anesthesia Used: 5% Lidocaine Gel Depth: Down to and including healthy tissue, in the subcutaneous layer Percentage of wound debrided: 100 Instrument Used: 3mm curette Tissue Removed: Fibrin Severity: Fat Layer Exposed Amount of bleeding with debridement: Mild Bleeding Controlled with: Compression and gauze Patient tolerated procedure well Assessment/Plan Active Problems (Last Reviewed 01/23/20 @ 12:59 by Suad Cantu) Traumatic open wound of right lower leg with delayed healing (Acute) Anemia of chronic renal failure, stage 3 (moderate) (Chronic) Lower extremity edema (Chronic) Chronic diastolic (congestive) heart failure (Chronic) Iron deficiency anemia (Chronic) Assessment: Traumatic wound right lateral lower leg. Renal insufficiency stage III. Tricuspid valve insufficiency. Severe edema of lower extremities Plan: Wash leg with antibacterial soap. Apply Aquacel extra to wound base moistened. Cover with Adaptic gauze Yuliana. Double layer Tubigrip bilateral lower legs. Follow-up in 1 week
[2020-02-12 10:24] VITALS: BP 176/56; PULSE 76; RESP 18; TEMP 36.1; BMI 35.2
[2020-02-12 10:56] VITALS: BP 160/53; PULSE 72; RESP 18
--- NOTE | 2020-02-12 11:49 | PCM.WC.PN ---
(1) Anemia of chronic renal failure, stage 3 (moderate) Status: Chronic Current Visit: Yes Code(s): N18.3 - Chronic kidney disease, stage 3 (moderate); D63.1 - Anemia in chronic kidney disease (2) Chronic diastolic (congestive) heart failure Status: Chronic Current Visit: Yes Code(s): I50.32 - Chronic diastolic (congestive) heart failure (3) Iron deficiency anemia Status: Chronic Current Visit: Yes Code(s): D50.9 - Iron deficiency anemia, unspecified (4) Lower extremity edema Status: Chronic Current Visit: Yes Code(s): R60.0 - Localized edema (5) Non-rheumatic tricuspid valve insufficiency Status: Chronic Current Visit: Yes Code(s): I36.1 - Nonrheumatic tricuspid (valve) insufficiency (6) Traumatic open wound of right lower leg with delayed healing Status: Acute Current Visit: Yes Code(s): S81.801D - Unspecified open wound, right lower leg, subsequent encounter Type of Wound Date of Service: 02/12/20 Chief Complaint: Follow-up of the right lateral lower leg wound History of Wound: 84-year-old white female was using a tool to cook pickled meat things off the floor gouged her right lateral lower leg. She has history of a tricuspid valve that needs to be replaced. She has developed severe kidney damage and lower leg edema from this that is reversible upon completion of surgery. Patient's legs are so edematous that she is seeping fluid out of the left leg also. Progress of Wound: Wound is healed patient will be discharged from the wound center - Physical Exam Vital Signs Temp Pulse Resp BP 96.9 F L 72 18 160/53 H 02/12/20 10:24 02/12/20 10:56 02/12/20 10:56 02/12/20 10:56 General: Oriented x3, Cooperative, Well developed HEENT: Atraumatic, PERRLA Oral: Moist Mucosa Neck: Supple, No JVD Lungs: Clear to auscultation, Normal air movement Cardiovascular: Regular rate, Regular Rhythm Abdomen: Bowel Sounds Present, Soft, Non Tender, No Hepato-splenomegaly Extremities: No clubbing, No edema, - - Right lower leg wound is healed Wound Measurements and Assessment WC - Nurse 1 - General Ulcer Measurement Start: 01/29/20 07:56 Freq: Status: Active Protocol: Activity Type Activity Date Activity User E-Sign Co-Sign Detail Recorded Client Recorded Date Recorded By Document 02/12/20 10:24 RB [id number] 02/12/20 10:27 RB 02/12/20 10:24 Wound Center Nurse 1 [Ulcer Assessment] #1- R LAT LE (SKIN TEAR) -Combined with other wound No -Current Size (cm) - Length 0.1 -Current Size (cm) - Width 0.1 -Current Size (cm) - Depth 0.1 -Total Square Cm 0.01 -Epithelialization Large 67-100% -Tunneling No -Undermining/Tunneling No -Circular Undermining No -Exudate Amt None Present -Wound Margin Flat & Intact -Granulation Amt Large (67-100%) -Granulation Quality [employer] -Slough/Fibrin No -Necrosis Amt None Present (0 %) -Structure Exposed N/A -Texture (Cassidy-wound Skin Appearance) Assessed -Moisture (Cassidy-wound Skin Appearance Assessed ) -Color (Cassidy-wound Skin Appearance) Assessed -Temperature (Cassidy-wound Skin No Abnormality Appearance) (Pt Warm) -Tenderness on Palpation (Cassidy-wound No Skin Appearance) -Ulcer Cleansing Wound Cleanser -Foul Odor after Cleansing No -Anesthetic Used 4% Lidocaine Solution [Edema Assessment] -Lower Limb Edema Present Yes -Right Calf (cm) 45.2 -Right Ankle (cm) 25 WC - Nurse 2 - General Ulcer CM Notes Start: 01/29/20 07:56 Freq: Status: Active Protocol: Activity Type Activity Date Activity User E-Sign Co-Sign Detail Recorded Client Recorded Date Recorded By Document 02/12/20 10:47 MW [id number] 02/12/20 10:48 MW 02/12/20 10:47 Wound Center Nurse 2 [Procedure/Treatment] #1- R LAT LE (SKIN TEAR) -Time 10:47 -Correct Patient Yes -Correct Side, Site, Position Yes -Correct Procedure Yes -Procedure Performed No -Post Debridement (cm) - Length 0 -Post Debridement (cm) - Width 0 -Post Debridement (cm) - Depth 0 -Total Square (Post) (cm) 0 -Wound/Ulcer Outcome Healed- Epithelialized [See Physician Procedure note for Specifics] WC - Nurse 3 - General Ulcer D/C NN Start: 01/29/20 07:56 Freq: Status: Active Protocol: Activity Type Activity Date Activity User E-Sign Co-Sign Detail Recorded Client Recorded Date Recorded By Document 02/12/20 10:56 RB [id number] 02/12/20 10:58 RB 02/12/20 10:56 Wound Care Nurse 3 [Compression Applied] Right -Stockings Yes Left -Stockings Yes [Post Procedure Tolerated] -Treatment Response Procedure Tolerated Well Vital Signs [Pulse] -Pulse Rate (60-100 beats/min) 72 -Pulse Location Monitor [Respirations] -Respiratory Rate (12-18 breaths/min) 18 -Respiratory rate source Observation [Blood Pressure] -Blood Pressure (90/60-120/80 mm Hg) 160/53 H -Blood Pressure Mean (mm Hg) 88 -Source Monitor -Position Semi-Fowlers -Blood Pressure Location Left Arm Pain Scale: 0-10 Numeric [Pain] -Is Patient Pain Free? Yes Teaching: Wound Center [Wound Center Education] (Items with an * have Printed Materials Available- Please identify what is given to patient under the Teaching materials given to patient and caregiver Section. Discharge Instructions -Person Taught Patient,Primary Caregiver -Teaching Method Discussion -Response to teaching Verbalize understanding WC - Visit Discharge [Visit Discharge Information] -Discharge Condition Stable -Ambulatory Status Ambulatory -Transportation Private Auto -Medication Reconcilliation completed No & provided to patient/care provider -Clinical Summary of Care Provided Yes Musculoskeletal: No Tenderness to Palpation of Joints or Extremities Lymphatic: No Cervical, Supraclavicular, or Inguinal Adenopathy Neurological: Cranial nerves II-XII grossly intact, Neuro grossly intact Psych/Mental Status: Normal Affect, Appropriate Debridement Note Post-Debridement Measurements/Treatment WC - Nurse 2 - General Ulcer CM Notes Start: 01/29/20 07:56 Freq: Status: Active Protocol: Activity Type Activity Date Activity User E-Sign Co-Sign Detail Recorded Client Recorded Date Recorded By Document 01/29/20 08:38 MW [id number] 01/29/20 08:42 MW Document 02/05/20 10:18 MW [id number] 02/05/20 10:20 MW Document 02/12/20 10:47 MW [id number] 02/12/20 10:48 MW 01/29/20 02/05/20 02/12/20 08:38 10:18 10:47 Wound Center Nurse 2 #1- R LAT LE (SKIN TEAR) -Time 08:39 10:20 10:47 -Correct Patient Yes Yes Yes -Correct Side, Site, Position Yes Yes Yes -Correct Procedure Yes Yes Yes -Procedure Performed Yes Yes No -Type of Procedure Debridement Debridement -Clinical Debridement Subcutaneous Subcutaneous -Tissue Removed Subcutaneous Subcutaneous -Post Debridement (cm) - Length 1.0 0.6 0 -Post Debridement (cm) - Width 0.4 0.2 0 -Post Debridement (cm) - Depth 0.2 0.1 0 -Total Square (Post) (cm) 0.40 0.12 0 -Area of Debridement (cm) - Length 1.0 0.6 -Area of Debridement (cm) - Width 0.4 0.2 -Total Square (Area) (cm) 0.40 0.12 -Tunneling No No -Undermining/Tunneling No No -Circular Undermining No No -Wound/Ulcer Outcome Not Healed Not Healed Healed- Epithelialized -Ulcer Cleansing Rinsed/ Irrigated with Saline -Foul Odor after Cleansing No No -Bioengineered Tissue No No -Bleeding Controlled with Pressure Pressure -Offloading No No -Treatment Response Procedure Procedure Tolerated Well Tolerated Well -Debridement - Subq, 1st 20sq cm Yes Yes Pain Scale: 0-10 Numeric Is Patient Pain Free? Yes Yes WC - Nurse 3 - General Ulcer D/C NN Start: 01/29/20 07:56 Freq: Status: Active Protocol: Activity Type Activity Date Activity User E-Sign Co-Sign Detail Recorded Client Recorded Date Recorded By Document 01/29/20 08:43 MW [id number] 01/29/20 08:44 MW Document 02/05/20 10:39 CS [id number] 02/05/20 10:40 CS Document 02/12/20 10:56 RB [id number] 02/12/20 10:58 RB 01/29/20 02/05/20 02/12/20 08:43 10:39 10:56 Wound Care Nurse 3 #1- R LAT LE (SKIN TEAR) -Ulcer Cleansing Rinsed/ Not Cleansed Irrigated with Saline -Foul Odor after Cleansing No No -Negative Pressure Wound Therapy N/A N/A -Primary Dressing Applied Aquacel AG 4x4 Aquacel Extra -Primary Dressing Covered/Secured with Dry Gauze & Dry Gauze, Roll Gauze, Secured with Secured with Tape Tape -Aquacel Extra 1 -Aquacel AG 4x4 1 Right -Lotion applied to leg before No No compression wrap -Tubular Bandage Double Layer Double Layer -Size of Tubigrip Used Size F Size F -Size F ($) 1 2 -Stockings Yes Left -Lotion applied to leg before No No compression wrap -Tubular Bandage Double Layer Double Layer -Size of Tubigrip Used Size F Size F -Size F ($) 1 2 -Stockings Yes Treatment Response Procedure Procedure Tolerated Well Tolerated Well Pain Scale: 0-10 Numeric Is Patient Pain Free? Yes Yes Yes Vital Signs Pulse Rate (60-100 beats/min) 72 Pulse Location Monitor Respiratory Rate (12-18 breaths/min) 18 Respiratory rate source Observation Blood Pressure (90/60-120/80 mm Hg) 160/53 H Blood Pressure Mean (mm Hg) 88 Source Monitor Position Semi-Fowlers Blood Pressure Location Left Arm Teaching: Wound Center Discharge Instructions -Person Taught Patient,Primary Caregiver -Teaching Method Discussion -Response to teaching Verbalize understanding Dressing Your Wound -Person Taught Patient,Family -Teaching Method Discussion -Response to teaching Verbalize understanding WC - Visit Discharge Discharge Condition Stable Stable Stable Ambulatory Status Ambulatory Ambulatory Ambulatory Transportation Private Auto Private Auto Private Auto Accompanied by daughter daughter Medication Reconcilliation completed & No Yes No provided to patient/care provider Clinical Summary of Care Provided Yes Yes Yes No debridement was completed today Assessment/Plan Active Problems (Last Reviewed 02/10/20 @ 14:15 by Andreina Carlin) Traumatic open wound of right lower leg with delayed healing (Acute) Anemia of chronic renal failure, stage 3 (moderate) (Chronic) Lower extremity edema (Chronic) Chronic diastolic (congestive) heart failure (Chronic) Non-rheumatic tricuspid valve insufficiency (Chronic) Iron deficiency anemia (Chronic) Assessment: Traumatic wound right lateral lower leg. Renal insufficiency stage III. Tricuspid valve insufficiency. Severe edema of lower extremities Plan: Discharge from the wound center follow-up as needed
== END 2020-02-19 23:59 ==
LOC: WC 10:15
PROVIDERS: PCP Family Medicine Geriatric Medicine; Visit Provider Nurse Practitioner
DX: S81.831A Puncture wound without foreign body, right lower leg, initial encounter (principal); W22.8XXA Striking against or struck by other objects, initial encounter; D63.1 Anemia in chronic kidney disease; I13.0 Hypertensive heart and chronic kidney disease with heart failure and stage 1 through stage 4 chronic kidney disease, or unspecified chronic kidney disease; N18.3 Chronic kidney disease, stage 3 (moderate); I50.32 Chronic diastolic (congestive) heart failure; I27.21 Secondary pulmonary arterial hypertension; E78.5 Hyperlipidemia, unspecified; R60.0 Localized edema
CPT/HCPCS: 11042; 99212; 99213; G0463

== ENCOUNTER → 2020-02-12 11:09 | Outpatient (CLI) | payer MEDICARE, OTHER, SELFPAY ==
[2020-01-02 14:07] VITALS: BMI 36.1
[2020-02-12 10:24] VITALS: BMI 35.2
[2020-02-12 13:41] LABS: Anion Gap 5 (5-15); BUN 20 mg/dL (7-18); BUN/Creat Ratio 12.9 RATIO (10-20); Calcium,Total 8.7 mg/dL (8.5-10.1); Chloride 98 mmol/L (98-107); Creatinine, Serum 1.55 mg/dL (0.55-1.02); EST Glomerular Filtration Rate 34 mL/min (>60); Est Glom Filt Rate - Afr Amer 41 mL/min (>60); Glucose 170 mg/dL (74-106); Potassium 4.7 mmol/L (3.5-5.1); Sodium Level 132 mmol/L (136-145); Thyroid Stim Hormone (TSH) 4.15 uIU/mL (0.358-3.74)
== END ==
PROVIDERS: Internal Medicine Nephrology; PCP Family Medicine Geriatric Medicine; Referring Provider Family Medicine Geriatric Medicine; Visit Provider Family Medicine Geriatric Medicine
DX: E03.9 Hypothyroidism, unspecified (principal); N18.4 Chronic kidney disease, stage 4 (severe); S81.801D Unspecified open wound, right lower leg, subsequent encounter
CPT/HCPCS: 36415; 80048; 84443; 99212; G0463

== ENCOUNTER → 2020-03-04 | Outpatient (CLI) | payer MEDICARE, OTHER, SELFPAY ==
[2020-02-20 00:41] VITALS: BMI 36.0
[2020-02-26 11:20] VITALS: BMI 34.9
[2020-03-04 13:03] LABS: Hematocrit 35.2 % (37-47); Mean Corp Hgb Conc 31.3 g/dL (32-36); Mean Corpuscular Volume 92.9 fL (81-99); Mean Platelet Vol. 9.3 fl (6.2-12.0); Platelet Count 183 K/mm3 (150-450); RBC Distribution Width CV 14.4 % (11.6-14.6); RBC Distribution Width SD 49.3 fl (35.1-43.9); Red Blood Count 3.79 M/mm3 (4.2-5.4)
[2020-03-04 13:26] LABS: BUN 22 mg/dL (7-18); BUN/Creat Ratio 12.9 RATIO (10-20); Calcium,Total 8.5 mg/dL (8.5-10.1); Chloride 101 mmol/L (98-107); EST Glomerular Filtration Rate 30 mL/min (>60); Est Glom Filt Rate - Afr Amer 37 mL/min (>60); Glucose 191 mg/dL (74-106); Phosphorus 2.7 mg/dL (2.5-4.9); Potassium 4.5 mmol/L (3.5-5.1); Sodium Level 134 mmol/L (136-145)
== END | disposition home or self-care (01) ==
PROVIDERS: PCP Family Medicine Geriatric Medicine; Referring Provider Internal Medicine Nephrology; Visit Provider Internal Medicine Nephrology
DX: N18.4 Chronic kidney disease, stage 4 (severe) (principal); D63.1 Anemia in chronic kidney disease; D50.9 Iron deficiency anemia, unspecified
CPT/HCPCS: 36415; 80069; 85027

== ENCOUNTER → 2020-03-24 12:10 | Outpatient (CLI) | payer MEDICARE, OTHER, SELFPAY ==
[2020-01-02 14:07] VITALS: BMI 36.1
[2020-03-18 14:23] VITALS: BMI 29.8
[2020-03-24 13:29] LABS: Albumin, Serum 3.4 g/dL (3.2-5.0); BUN 29 mg/dL (7-18); BUN/Creat Ratio 16.2 RATIO (10-20); Calcium,Total 8.5 mg/dL (8.5-10.1); Chloride 101 mmol/L (98-107); Creatinine, Serum 1.79 mg/dL (0.55-1.02); EST Glomerular Filtration Rate 29 mL/min (>60); Est Glom Filt Rate - Afr Amer 35 mL/min (>60); Glucose 246 mg/dL (74-106); Phosphorus 3.4 mg/dL (2.5-4.9); Sodium Level 136 mmol/L (136-145)
== END ==
PROVIDERS: PCP Family Medicine Geriatric Medicine; Visit Provider Internal Medicine Nephrology
DX: N18.4 Chronic kidney disease, stage 4 (severe) (principal)
CPT/HCPCS: 36415; 80069

== ENCOUNTER → 2020-03-27 09:12 | Outpatient (CLI) | payer MEDICARE, OTHER, SELFPAY ==
[2020-03-18 14:23] VITALS: BMI 29.8
--- NOTE | 2020-03-27 09:19 | US_ITS ---
STUDY: ABDOMINAL ULTRASOUND - RIGHT UPPER QUADRANT REASON FOR VISIT: Female, 84 years old Ascites TECHNIQUE: Ultrasound evaluation of the right upper quadrant was performed with real-time and static cole-scale imaging. TECHNICAL QUALITY: Adequate. COMPARISON: None. FINDINGS: Liver: The liver measures 12.4 cm. There is a heterogeneous echogenicity of the liver. The bile ducts are within normal limits. There is hepatic color flow. The direction of portal flow is hepatopetal. There is no demonstrated mass lesion. Gallbladder: The patient is status post cholecystectomy. Common Bile Duct (C.B.D.): The common bile duct measures 4 mm. Pancreas: Normal size of the head, body and tail of the pancreas. There is normal echogenicity of the pancreas. There is no demonstrated pancreatic mass or cyst. Right Kidney: Normal size of the right kidney. The right kidney measures 10.8 cm x 5.5 cm x 5.7 cm. Normal renal cortex. The right cortex measures 1.3 cm. Complex cyst in the medial aspect of the right kidney measuring 4.1 cm x 3 cm x 2.8 cm. There is no right hydronephrosis. Ascites in all 4 quadrants. US/Abdomen Limited IMPRESSION: Complex cyst in the medial aspect of the right kidney. Correlation with a CT scan is recommended. Heterogeneous echogenicity of the liver. Ascites. Electronically Signed: Larry Abraham, at 15:14 EST , Service support ,
== END ==
PROVIDERS: PCP Family Medicine Geriatric Medicine; Referring Provider Family Medicine Geriatric Medicine; Visit Provider Family Medicine Geriatric Medicine
DX: R18.8 Other ascites (principal)
CPT/HCPCS: 76705

== ENCOUNTER → 2020-04-10 15:06 | Outpatient (CLI) | payer MEDICARE, OTHER, SELFPAY ==
[2020-04-03 07:28] VITALS: BMI 26.6
--- NOTE | 2020-04-10 15:08 | CT_ITS ---
STUDY: CT ABDOMEN AND PELVIS WITHOUT CONTRAST REASON FOR EXAM: Female, 85 years old. Renal cyst, ascites, abnormal US, elevated creatinine.. Hx diabetes, recent heart valve surgery. RADIATION DOSAGE (If Supplied By Facility): CTDIvol = ( 8.51 ) mGy, DLP = ( 401.84 ) mGycm TECHNIQUE: Transaxial images were obtained from the dome of the diaphragm to the symphysis pubis without oral contrast, and without intravenous contrast. Sagittal and coronal images were reconstructed. Individualized dose optimization techniques were used for this CT. COMPARISON: 04/20/2017, ultrasound of 03/27/2020 FINDINGS: Tiny left pleural effusion. Moderate amount of ascites. The visualized portions of the heart are within normal limits. There is a diffuse contour abnormality of the liver consistent with cirrhotic changes. Normal gallbladder and extrahepatic biliary system. Normal spleen. Normal pancreas. Normal bilateral adrenal glands. Bilateral nonobstructing renal stones. No hydronephrosis, ureteral stone, or ureteral dilatation. Questionable 3 cm mass of the anterior cortex of the midsection the right kidney and correlation with renal mass protocol CT or MRI is recommended. Normal visualized stomach. Diverticulum of second portion duodenum. There are multiple colonic diverticula consistent with diverticulosis. The appendix is visualized and appears normal. There is diffuse atherosclerotic calcification of the abdominal aorta, without a demonstrated aneurysm. Normal inferior vena cava. Normal retroperitoneum. Normal urinary bladder. Normal abdominal wall. Normal osseous structures. CT/Abdomen/Pelvis without Cont IMPRESSION: 1. Questionable 3 cm solid mass of the anterior cortex of the midsection right kidney and correlation with renal mass protocol CT or MRI is recommended. 2. 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 Electronically Signed: Deandre Anderson MD at 16:04 EST Tel , Service support ,
== END ==
PROVIDERS: PCP Family Medicine Geriatric Medicine; Referring Provider Family Medicine Geriatric Medicine; Visit Provider Family Medicine Geriatric Medicine
DX: Q61.9 Cystic kidney disease, unspecified (principal)
CPT/HCPCS: 74176

== ENCOUNTER → 2020-04-21 10:12 | Outpatient (CLI) | payer MEDICARE, OTHER, SELFPAY ==
[2020-04-03 07:28] VITALS: BMI 26.6
--- NOTE | 2020-04-21 10:17 | MRI_ITS ---
HISTORY: Right kidney mass. Comparison CT scan of the abdomen and pelvis is a noncontrast CT scan from April 10, 2020. An ultrasound is available from March 27, 2020. A contrasted CT scan of the abdomen and pelvis is also available from April 20, 2017. A report, not the images, from an ultrasound of October 09, 2008 discusses a 3 cm lesion within the midportion of the right kidney. Technique: Coronal T1, coronal T2 fat sat, axial T2 fat sat, repeat axial T2 fat sat, and sequential axial T1 fat saturated series with different water weighting and some of which in and out of phase series were obtained. Repeat coronal T2 fat sat serie s was also obtained. 582 images. Findings: Respiratory motion is severe. Respiratory motion decreases the overall utility of the study due to registration artifact. Within the right kidney the area of bulbous prominence to the parenchyma in the midportion of the right kidney anteriorly is the same as that is seen on the CT scans. This area is ill-defined as it is similar in signal intensity on T1 and T2-weighted images to the adjacent renal parenchyma, as it was on the [address] scans. I measure it at 3 x 3 cm. Within this area of bulbous prominence of the mid right renal parenchyma, there is an area of hyperintense signal on the T2-weighted images that is hypointense on the T1-weighted series, and consistent with an 11mm, benign cyst. This area was present on the April 20, 2017 CT scan, and has not significantly changed. The signal intensity of the bulbous portion to the contour of the anterior right renal parenchyma at the midportion is homogeneous on all series, to the adjacent renal parenchyma other than the 11 mm cyst.. The left kidney is homogeneous in signal intensity. No hydronephrosis. The visualized portions of the liver suggest no lesions. The spleen is normal. Ascites is present. The abdominal aorta is without aneurysm. The adrenal glands are not enlarged. No pancreatic lesions are perceived. The gallbladder has been resected. MRI/Abdomen without Contrast IMPRESSION: 3 cm bulbous area of tissue within the anterior aspect of the midportion of the right kidney similar to that on the [address] scans and the ultrasound of March 27, 2020. I do not have the images, but a report from an ultrasound of October 09, 2008 discusses a 3 cm right mid renal lesion. This is likely the same lesion. Persistence of this lesion at 3 cm for 11 years without significant growth is consistent with benignity. There does appear to be a cyst within this focal area of right renal parenchyma that I measure at 11 mm. at [id number] Reported and signed by: Elvin De Oliveira MD Electronically Signed: Elvin De Oliveira MD at 22:38 EST Tel , Service support ,
== END ==
PROVIDERS: PCP Family Medicine Geriatric Medicine; Referring Provider Family Medicine Geriatric Medicine; Visit Provider Family Medicine Geriatric Medicine
DX: N28.9 Disorder of kidney and ureter, unspecified (principal)
CPT/HCPCS: 74181

== ENCOUNTER 2020-04-25 23:18 | Inpatient (IN) | payer MEDICARE, OTHER, SELFPAY ==
[2020-04-03 07:28] VITALS: BMI 26.6
--- NOTE | 2020-04-25 00:18 | RAD_ITS ---
STUDY: X-RAY CHEST REASON FOR EXAM: Female, 85 years old. PT WOKE UP TONIGHT TO USE BATHROOM THEN SAT IN CHAIR. PT STARTED SCREAMING AND THEN SEIZING AND CAME TO HOSPITAL VIA EMS. PT HAS BEEN SEIZING FOR THE PAST HOUR. TECHNIQUE: Single AP portable view of the chest. COMPARISON: 08/08/2019. FINDINGS: The endotracheal tube has the tip at the rivka. The nasogastric tube has the tip at the level of the gastric body. The lungs are normally expanded with suggestion of subtle nodularity superimposed over the ribs likely representing sequela of old rib fractures. Otherwise lung causey are clear. There is no demonstrated pleural abnormality. There is superimposed stent at the origin of the aorta. Normal size heart. Normal mediastinum and simona. There is atherosclerotic calcification of the aortic arch with tortuosity. There is demineralization of the osseous structures. There is degenerative osteoarthritis of the bilateral shoulders. There is no demonstrated abnormality of the visualized soft tissue structures of the upper abdomen. RAD/Chest 1 View IMPRESSION: No acute cardiac pulmonary disease. Lines and tubes as described. Recommend pulling back the endotracheal tube approximately 2.5 cm. Electronically Signed: Anu Liu MD at 0:43 EST , Service support ,
[2020-04-25 23:19] VITALS: PULSE 109; RESP 26; TEMP 36.1; O2SAT 88; BMI 24.2
[2020-04-25 23:24] VITALS: BP 141/91; PULSE 107; RESP 28; TEMP 36.1
[2020-04-25 23:29] VITALS: O2SAT 98
[2020-04-25] MEDS: Succinylcholine Chloride 200 MG/10 ML Vial 100 MG IV (23:32)
[2020-04-25] MEDS: Succinylcholine Chloride 200 MG/10 ML Vial 50 MG IV (23:39)
[2020-04-25 23:42] VITALS: PULSE 84; RESP 14; O2SAT 100
--- NOTE | 2020-04-25 23:46 | EKG12_ITS ---
Test Reason : DYSRHYTHMIA Blood Pressure : / mmHG Vent. Rate : 082 BPM Atrial Rate : 082 BPM P-R Int : 202 ms QRS Dur : 100 ms QT Int : 392 ms P-R-T Axes : -01 009 062 degrees QTc Int : 457 ms Normal sinus rhythm Cannot rule out Anterior infarct , age undetermined Abnormal ECG Confirmed by JAVIER BUENO, ANUPAM ([id number]), index editor ISABELA FRYE ([id number]) on 04/28/2020 8:41:35 AM Referred By: JESSIE Confirmed By:ANUPAM HERRERA MD
--- NOTE | 2020-04-25 23:47 | ED.VISSUMM ---
- ER Visit Summary Date of Service: 04/25/20 Chief Complaint: Unresponsive and acute seizure History of Present Illness: The patient is a 85 F history of diabetes, renal insufficiency and recent aortic valve surgery. Patient is on Plavix. The daughter was called by her father who stated the patient was acting abnormally when she got there she was in an active seizure. She is prior been seizing for approximately an hour. Patient is unable to give any history is completely unresponsive due to seizing. Physical Examination: Actively seizing elderly patient. Initial blood pressure 141/91. Pulse ox 98% on oxygen. Afebrile at 97 degrees. H EENT exam patient is actively seizing. Pupils are 2 mm bilaterally. Not dilated. No obvious signs of trauma to her head or face other than an old bruise on her right lateral jaw. Trachea midline no lymphadenopathy. Lungs coarse breath sounds. She may have aspirated. Heart regular rhythm rate about 100. Abdomen soft nontender distended. Extremities actively seizing with a tonic-clonic seizure. No gross deformity. Neurologically she is actively seizing. And is completely otherwise unresponsive. Test Results: Chest x-ray shows the metallic stent valve in place. Normal cardiac silhouette. ET tube is just above the rivka. ET tube will be pulled back 1 to 2 cm by respiratory. And lung causey are clear. His portable 1 view read by myself. CAT scan of the brain read by the radiologist shows no acute stroke or bleed no acute abnormality. I did review the CAT scan. EKG showed a normal sinus rhythm rate 82 no acute signs of SD or ischemia. No dysrhythmia. CBC showed a white count of 7 hemoglobin of 12. Platelets were little low at 141,000. Chemistries showed a sodium of 130. Anion gap of 14 glucose elevated at 623 BUN of 50 creatinine 2.94 her last creatinine here was 1.9. PT PTT INR normal. UA normal. Troponin normal. Serum ketones negative. BG was obtained after she had been on the ventilator for approximately 2 hours. Currently her pH is 7.43 PCO2 of 38 PO2 of 114 and 98% saturation on the ventilator. Lactic acid = 2.9. Emergency Department Course and Treatment: Patient was initially given a milligram of Ativan to try to stop the seizing. Was given a second and a third dose. She continued to seize. I discussed with her daughter and we decided to intubate her to protect her airway. She was given etomidate and succinyl choline. The patient significant secretions in her posterior pharynx. A small amount of blood. And her cords were edematous. Both with a glide scope and with a MAC blade I could see the cords I was unable to get the 7-1/2 ET tube past them. I then used the Frova and was able to pass the tube. She had bilateral breath sounds after the intubation.. It is approximately 23 at the lips. Treatment Plan: Patient be started on insulin drip for her hyperglycemia. That will be watched closely. Again she is not in DKA. She will be given a second liter normal saline. She has been given IV Dilantin for the seizure. Currently at 1 AM it does appear that the paralytics have worn off. And she is not actively seizing at this time at least there is no tonic-clonic activity and she has mild movement of her right upper extremity. Spoke to the patient's daughters at length. She is actually highly functioning and recovered very well from her recent heart valve surgery. I spoke to [facility] and they are seeing if they have an ICU bed available. I also spoke to the on-call teleneurologist Dr. Juan. He basically said continue the Dilantin. Wean her sedation. And close monitoring. Disposition: [facility] had no ICU beds were unable to accept the patient. On the state to our hospitalist here about admission. Impression: Acute seizure with status epilepticus Intubated by ER Acute hyperglycemia with a history of insulin-dependent diabetes Hyponatremia Acute on chronic renal insufficiency with acute kidney injury History of aortic valve surgery on Plavix History of diabetes This note was generated with [employer] dictation software. It may contain incorrect words, spelling, and punctuation that were not noted in review of the chart prior to signing ED Disposition - Plan for ED Patient: Disposition: Acute Care Hospital [facility]
--- NOTE | 2020-04-25 23:49 | ED.RN ---
Hardeep pulled back on ET tube to 25 at lip line.
[2020-04-25] MEDS: LORazepam 2 MG/ML Syringe 1 MG IV ×3 (23:50→23:51)
[2020-04-25] MEDS: Etomidate 20 MG/10 ML Vial IV (23:52)
[2020-04-25 23:56] VITALS: O2SAT 100
[2020-04-25 23:56] LABS: Absolute Lymphocyte Count 2.04 X10^3/uL (0.83-4.51); Absolute Neutrophil Count 3.9 X10^3/uL (2.0-7.7); Basophil# 0.06 X10^3/uL; Basophil% 0.8 % (0-1); Eosinophil# 0.28 X10^3/uL; Hematocrit 37.7 % (37-47); Lymphocyte # 2.04 X10^3/ul (4.0); Lymphocyte % 28.8 % (19-41); Mean Corp Hgb Conc 31.8 g/dL (32-36); Mean Corpuscular Volume 91.1 fL (81-99); Mean Platelet Vol. 12.4 fl (6.2-12.0); Monocyte# 0.82 X10^3/uL; Monocyte% 11.6 % (0-10); NRBC Flagged by Analyzer 0 % (0-5); Neutrophil # 3.85 X10^3/uL (2.7-7.7); Neutrophil % 54.4 % (47-70); Platelet Count 141 K/mm3 (150-450); RBC Distribution Width CV 14.7 % (11.6-14.6); RBC Distribution Width SD 49.3 fl (35.1-43.9); Red Blood Count 4.14 M/mm3 (4.2-5.4); White Blood Count 7.1 K/mm3 (4.4-11.0)
[2020-04-25 23:59] LABS: International Normalized Ratio 1.2; Prothrombin Time (Protime)PT. 14.8 SECONDS (11.7-14.9)
[2020-04-26] VITALS (40 sets, daily range): BP systolic 99–170; BP diastolic 32–72; PULSE 64–81; RESP 12–19; TEMP 35.5–37.6; O2SAT 97–100; BMI 24.3; BMI 24.4
[2020-04-26] LABS: Bedside Glucose > 500 mg/dL (70-110)
[2020-04-26 00:05] LABS: Bacteria 0 SEEN /hpf (None Seen); Mucous, Urine 0 SEEN /hpf (<or=2+); Red Blood Cells-Urine 0 SEEN /hpf (0-5); Squamous Epithelial Cells - UA 0 SEEN /hpf (5-10); White Blood Cells 0 SEEN /hpf (0-5)
--- NOTE | 2020-04-26 00:05 | CT_ITS ---
We are attempting to reach an attending provider to discuss findings. An addendum with communication details will be sent when the communication is complete. STUDY: CT HEAD STROKE PROTOCOL W/O CONTRAST INJECTION REASON FOR EXAM: Female, 85 years old. SEIZURE lasted one hour-No hx seizures. Hx of diabetes, HTN, HLD and heart valve replacement RADIATION DOSAGE (If Supplied By Facility): CTDIvol = ( 44.99 ) mGy, DLP = ( 779.24 ) mGycm TECHNIQUE: Transaxial CT imaging of the brain was performed without administration of intravenous contrast material. Individualized dose optimization techniques were used for this CT. COMPARISON: No relevant priors. FINDINGS: Normal soft tissue structures. Normal calvarium. There is mild cerebral atrophy with widening of the extra-axial spaces and ventricular dilatation. There are areas of decreased attenuation within the white matter tracts of the supratentorial brain, consistent with microvascular disease changes. Normal basal ganglia and thalami. Normal brainstem. Normal cerebellum. There is no intracranial hemorrhage. There are no findings of an acute ischemic infarction. Normal visualized paranasal sinuses. CT/STROKE Brain/Head without Cont IMPRESSION: Chronic changes as described otherwise normal unenhanced CT scan of the brain. Electronically Signed: Anu Liu MD at 0:35 EST , Service support ,
[2020-04-26 00:12] LABS: Color, Urine Yellow (Yellow); Glucose, Dipstick 1000 mg/dl (Normal); Ketone-Dipstick Negative (Negative); Leukocyte Esterase-Dipstick Negative /ul (Negative); Nitrite-Dipstick Negative (Negative); Occult Blood-Urine 10 /ul (Negative); Protein-Dipstick 30 mg/dl (Negative); Specific Gravity, Urine 1.015 (1.002-1.030); Urine Bilirubin Dipstick Negative (Negative); Urine Clarity Clear (Clear); Urine Urobilinogen Normal (Normal)
[2020-04-26 00:17] LABS: Anion Gap 14 (5-15); BUN 50 mg/dL (7-18); Chloride 95 mmol/L (98-107); Creatinine, Serum 2.94 mg/dL (0.55-1.02); EST Glomerular Filtration Rate 16 mL/min (>60); Est Glom Filt Rate - Afr Amer 20 mL/min (>60); Estimated Creatinine Clearance 10.56 ml/min; Glucose 623 mg/dL (74-106); Potassium 4.7 mmol/L (3.5-5.1); Sodium Level 130 mmol/L (136-145)
[2020-04-26] MEDS: Propofol 10MG/Ml 1,000 MG/100 ML Bottle 3.5 MG CONT INF (00:41)
--- NOTE | 2020-04-26 00:58 | ED.RN ---
pt family at bedside.
[2020-04-26] MEDS: 0.9% Normal Saline 1,000 ML 999 ML IV (01:11)
[2020-04-26 01:21] LABS: Bedside Glucose > 500 mg/dL (70-110)
[2020-04-26 01:36] LABS: Allen Test Positive; Base Excess -4 mmol/L (-2 to +2); Bicarbonate 20.6 mmol/L (22-26); Blood Gas Specimen Type ART; FI02 30; Mode AC; O2 Delivery Device Adult Vent; PEEP 5; PO2 115 mmHG (75-100); RR 14; SITE L Radial; SO2 99 % (95-99); Total Carbon Dioxide 22 mmol/L; Vt 450; pCO2 30.6 mmHg (35-45); pH 7.44 (7.35-7.45)
--- NOTE | 2020-04-26 02:03 | ED.RN ---
slight random non-purposeful movement noted of right arm and leg. left arm and leg withdraws to painful stimuli only.
--- NOTE | 2020-04-26 02:04 | PCM.HP.STD ---
Problem List (1) Status epilepticus Status: Acute (2) Lower extremity edema Status: Chronic (3) Ascites Status: Chronic (4) Chronic diastolic (congestive) heart failure Status: Chronic (5) Nonrheumatic aortic (valve) stenosis Status: Chronic (6) History of aortic valve replacement with bioprosthetic valve Status: Chronic Comment: TAVR w/ Medtronic Evolut Pro bioprosthetic valve 23 mm 03/09/2020 (7) Nonrheumatic mitral valve stenosis with insufficiency Status: Chronic (8) Left bundle branch block (LBBB) Status: Chronic Comment: post-op TAVR transient LBBB w/ 1 degree AV block (9) Cirrhosis of liver with ascites Status: Chronic (10) Secondary pulmonary arterial hypertension Status: Chronic (11) Essential hypertension Status: Chronic (12) Hyperlipidemia Status: Chronic (13) Chronic renal disease, stage 3, moderately decreased glomerular filtration rate (GFR) between 30-59 mL/min/1.73 square meter Status: Chronic (14) Thrombocytopenia Status: Chronic (15) Iron deficiency anemia Status: Chronic (16) Anemia of chronic renal failure, stage 3 (moderate) Status: Chronic History of Present Illness Date of Admission: 04/26/20 Chief Complaint: seizures The patient is a 85 year old F with a significant history of cirrhosis; diabetes mellitus; TVAR; hypertension; and hypothyroidism who presented to emergency department with seizures. Her symptoms started few hours before presentation. Patient was at home with her who has dementia. Reportedly patient began to act weird and shouted. Her called daughter who lives across the street. When daughter go to her parents home patient realized that patient was mumbling and she was seizing. As times went on patient became less responsive. Her daughter denies that patient had bowel or bladder incontinence. Daughter denies any biting of tongue. Squad gave patient Versed without any response. Patient was actively seizing when she got emergency department. She received multiple doses of Ativan. She was subsequently intubated. Past Medical History Past Medical History (Chronic Problems): Chronic Problems (Last Reviewed 04/26/20 @ 03:[address] 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 Jin Chance MD) Lower extremity edema (Chronic) R60.0 Ascites (Chronic) R18.8 Chronic diastolic (congestive) heart failure (Chronic) I50.32 Nonrheumatic aortic (valve) stenosis (Chronic) I35.0 Nonrheumatic mitral valve stenosis with insufficiency (Chronic) I34.2, I34.0 Left bundle branch block (LBBB) (Chronic) I44.7 post-op TAVR transient LBBB w/ 1 degree AV block Cirrhosis of liver with ascites (Chronic) K74.60, R18.8 Secondary pulmonary arterial hypertension (Chronic) I27.21 Essential hypertension (Chronic) I10 Hyperlipidemia (Chronic) E78.5 Chronic renal disease, stage 3, moderately decreased glomerular filtration rate (GFR) between 30-59 mL/min/1.73 square meter (Chronic) N18.3 Thrombocytopenia (Chronic) D69.6 Iron deficiency anemia (Chronic) D50.9 Anemia of chronic renal failure, stage 3 (moderate) (Chronic) N18.3, D63.1 Anemia D64.9 Hypothyroid E03.9 TRACY (iron deficiency anemia) D50.9 Non-rheumatic tricuspid valve insufficiency I36.1 Type 2 diabetes mellitus without complication E11.9 Basal cell carcinoma C44.Dec NECK Cataracts, bilateral H26.9 Pleural effusion J90 Pleural effusion, left J90 Traumatic open wound of right lower leg with delayed healing S81.801D Allergies No Known Allergies Allergy (Verified 04/03/20 08:15) Home Medications: Ambulatory Orders Medication Instructions Recorded Aspirin [Ecotrin] 81 mg PO DAILY 09/10/13 Atorvastatin Calcium [Lipitor] 20 mg PO QHS 09/10/13 cholecalciferol (vitamin D3) 25 25 mcg PO DAILY 11/05/19 mcg (1,000 unit) tablet glimepiride 1 mg tablet 1 mg PO BID tab 11/05/19 losartan 50 mg tablet 50 mg PO DAILY #90 tab 11/06/19 Levothyroxine [Synthroid] 100 mcg PO DAILY 01/09/20 clopidogrel 75 mg tablet 75 mg PO DAILY 03/16/20 metoprolol succinate 25 mg 25 mg PO DAILY 03/16/20 tablet,extended release 24 hr spironolactone 100 mg tablet 100 mg PO DAILY 03/16/20 Pantoprazole Sodium 40 mg PO DAILY 03/18/20 amlodipine 10 mg tablet 10 mg PO DAILY #90 tab 03/31/20 epoetin franklin 20,000 unit/2 mL 15,000 unit SC .[id number] ml 04/02/20 injection solution furosemide 40 mg tablet 40 mg PO DAILY #90 tab 04/03/20 Surgical History: Surgical History (Last Reviewed 04/26/20 @ 03:[address] Jin Chance MD) History of aortic valve replacement with bioprosthetic valve (Chronic) Onset Date: 03/09/20 Z95.3 TAVR w/ Medtronic Evolut Pro bioprosthetic valve 23 mm 03/09/2020 History of abdominal paracentesis Onset Date: 03/11/20 Z98.890 History of bilateral cataract extraction Z98.41, Z98.42 History of cholecystectomy Z98.890, Z90.49 History of left heart catheterization Onset Date: 11/11/19 Z98.890 Smoking Status: Never smoker - *Family History Maternal Family History: Family History (Last Reviewed 04/26/20 @ 03:[address] Jin Chance MD) Brother Myocardial infarction, Onset Age: 50 Father Myocardial infarction, Onset Age: 60 Review of Systems Unable to obtain accurate/complete ROS d/t: Intubated and sedated on [facility] vent. History obtained from daughter. VTE Information - Inpt Only VTE Present on Admission: No VTE Mechan Device Prophylaxis: None VTE Pharm Prophylaxis ordered?: Yes Patient Problems: Active and Suspected Problems (Last Reviewed 04/26/20 @ 03:[address] Jin Chance MD) Status epilepticus (Acute) - Physical Exam Vitals/I&O's: Vital Signs Temp Pulse Resp BP Pulse Ox 96.1 F L 71 14 129/42 H 100 04/26/20 01:01 04/26/20 02:00 04/26/20 02:00 04/26/20 02:00 04/26/20 02:00 Oxygen Delivery Method Mechanical Ventilator Weight: 58.18 kg Body Mass Index (BMI) 24.2 Finger Stick Blood Glucose 527 Intake and Output for Last 24 Hours 04/24/20 04/25/20 04/26/20 23:59 23:59 23:59 Intake Total 120 / 120 Balance 120 / 120 General: - - Intubated and sedated on mechanical ventilation. HEENT: Atraumatic, Normocephalic Neck: No JVD, Trachea Midline Lungs: Clear to auscultation, Normal air movement Cardiovascular: Regular rate, Normal S1, Normal S2, No murmurs Abdomen: Bowel Sounds Present, Soft, - Extremities: No edema, Capillary Refill Less than 3 Seconds Skin: - - Erythema bilateral lower legs with mild excoriations. Musculoskeletal: No Muscle Wasting Neurological: - - Intubated and sedated on mechanical ventilation. Psych/Mental Status: - - Intubated and sedated mechanical ventilation. Laboratory Results 04/25/20 23:25: WBC 7.1, RBC 4.14 L, Hgb 12.0, Hct 37.7, MCV 91.1, MCH 29.0, MCHC 31.8 L, RDW Std Deviation 49.3 H, RDW Coeff of Meng 14.7 H, Plt Count 141 L, MPV 12.4 H, Immature Gran % (Auto) 0.400, Neut % (Auto) 54.4, Lymph % (Auto) 28.8, [place] % (Auto) 11.6 H, Eos % (Auto) 4.0, Baso % (Auto) 0.8, Absolute Neuts (auto) 3.9, Absolute Lymphs (auto) 2.04, Nucleated RBC % 0 04/25/20 23:25: PT 14.8, INR 1.2, APTT 26.0 04/25/20 23:25: Sodium 130 L, Potassium 4.7, Chloride 95 L, Carbon Dioxide 21.0, Anion Gap 14, BUN 50 H, Creatinine 2.94 H, Estim Creat Clear Calc 10.56, Est GFR (MDRD) Af Amer 20 L, Est GFR (MDRD) Non-Af 16 L, BUN/Creatinine Ratio 17.0, Glucose 623 H*, Calcium 9.0, Troponin I < 0.015 04/25/20 23:35: Urine Color Yellow, Urine Clarity Clear, Urine pH 5.0, Ur Specific [place] 1.015, Urine Protein 30 H, Urine Glucose (UA) 1000 H, Urine Ketones Negative, Urine Occult Blood 10 H, Urine Nitrite Negative, Urine Bilirubin Negative, Urine Urobilinogen Normal, Ur Leukocyte Esterase Negative, Urine RBC 0 SEEN, Urine WBC 0 SEEN, Ur Squamous Epith Cells 0 SEEN, Urine Bacteria 0 SEEN, Urine Mucus 0 SEEN 04/25/20 23:56: POC Glucose > 500 H* 04/25/20 23:59: Acetone Level NEGATIVE 04/26/20 01:15: POC Glucose > 500 H* 04/26/20 01:31: Specimen Type ART, Sample Site L Radial, pH 7.44, Bicarbonate Actual 20.6 L, Total CO2 22, Base Excess -4 L, O2 Saturation 99, O2 % 30, ABG pCO2 30.6 L, ABG pO2 115 H, Gianfranco Test Positive, Respiration Rate 14, O2 Delivery Device Adult Vent, Vent Mode AC, Tidal Volume 450, POC PEEP 5 04/26/20 01:52: Lactic Acid Pending Current Medications Dextrose (Dextrose 50%-Water 25 Gm/50 Ml Disp.Syrin) 0 gm IV X1 PRN; Protocol PRN Reason: Hypoglycemia Protocol Glucagon (Glucagon 1 Mg/Ml Syringe) 1 mg IM .X1 PRN PRN Reason: Hypoglycemia Propofol (Diprivan) 1,000 mg in 100 mls @ 3.491 mls/hr CONT INF .Q12H [facility]; Protocol Last Admin: 04/26/20 00:41 Dose: 10 mcg/kg/min, 3.5 mls/hr Documented by: Insulin Human Lispro 100 unit/ (Sodium Chloride) 100 mls @ 5.818 mls/hr IV .[id number] [facility]; Protocol Stop: 04/26/20 18:26 Last Admin: 04/26/20 01:27 Dose: 0.1 units/kg/hr, 5.8 mls/hr Documented by: Sodium Chloride () 1,000 mls @ 999 mls/hr IV .Q1H1M ONE Stop: 04/26/20 02:06 Last Admin: 04/26/20 01:11 Dose: 999 mls/hr Documented by: Labetalol HCl (Labetalol (Prefilled) 20 Mg/4 Ml) 20 mg IV X1 PRN PRN Reason: Blood Pressure Assessment/Plan All Active Problems (Last Reviewed 04/26/20 @ 03:[address] Jin Chance MD) Status epilepticus (Acute) Status epilepticus Patient received Versed by paramedics Received multiple doses of Ativan at emergency department and was intubated and started on propofol. Was also given Dilantin at emergency department. Discussed with emergent department doctor who consulted [facility] neurologist. Per conversation with emergency department doctor and [facility] neurologist all continue patient on Dilantin. Of note patient has no history of seizure and does not take any home antiepileptic medication. Brain CT was not revealing. Seizures likely secondary to hypoglycemia. Patient has KELLY on CKD stage III to stage IV. Will check Dilantin level in a.m. Ativan as needed. Patient is intubated. Will send patient to intensive care unit and will consult special forces medical sergeant. Propofol continued. Intermittent as needed fentanyl for pain. Continue home Protonix for stress ulcer prophylaxis. Diabetes mellitus with acute hyperglycemia. Blood glucose on BMP was 623. Will check osmolality level. Ketones was negative. Started on insulin drip at emergency department. Insulin drip will be continued. Accu-Chek every 1 hour. Check CMP and CBC. KELLY on CKD stage 3b to Stage 4 CKD likely secondary to diabetic nephropathy and hypertensive nephrosclerosis. Creatinine on presentation was 2.94 Baseline creatinine is less than 2. BUN is 50. BUN over creatinine is 17. Likely dehydration from osmotic diuresis and diuretic use. Hold home Lasix and Aldactone for now. Received normal saline bolus at emergency department. Normal saline continue. Electrolytes ordered. Patient follows up with Dr. Kelly Maxwell accounts specialist. Will consult Dr. Maxwell. Cirrhosis Does not look hypervolemic. Hold Aldactone and Lasix secondary to KELLY. Chronic congestive heart failure Echocardiogram on 04/09/2020 showed estimated ejection fraction of 70%. Features were consistent with a pseudonormal left ventricular filling pattern, with concomitant abnormal relaxation and increased filling pressure (grade 2 diastolic dysfunction) right ventricular pressure was mildly increased. Mitral valve almost with moderate stenosis and moderate to severe 3+ regurgitation aortic valve showed a 23 mm bioprosthetic valve. Tricuspid valve had mild to moderate regurgitation. Does not look hypervolemic. Lasix and Aldactone on hold secondary to KELLY. Status post TAVR in February 2020 at [facility]. Hypothyroidism: Synthroid continued Hypertension: Systolic blood pressure is stable. Diastolic blood pressure is low. Hold all home blood pressure medications at this time. DVT prophylaxis Subcutaneous heparin ordered Inpatient E&M: 00636 Init Hosp L3
[2020-04-26 02:25] LABS: Lactic Acid 2.9 mmol/L (0.4-1.9)
[2020-04-26 02:31] LABS: Bedside Glucose 495 mg/dL (70-110)
[2020-04-26 02:35] LABS: Urea Nitrogen, Urine 272 mg/dL (NO RANGE EST.); Urine Sodium 49 mmol/L (Not Establ.)
--- NOTE | 2020-04-26 02:36 | ED.RN ---
daughter julius aponte to be social contact worker. [phone].
[2020-04-26] MEDS: 0.9% Normal Saline 1,000 ML 100 ML IV (03:14)
[2020-04-26] MEDS: 0.9% Saline Lock 10 ML Syringe IV ×3 (03:50→21:04)
[2020-04-26 04:11] LABS: Bedside Glucose 473 mg/dL (70-110)
[2020-04-26 04:11] LABS: Bedside Glucose 423 mg/dL (70-110)
[2020-04-26 04:36] LABS: Osmolality, Serum 328 mOsm/KG (280-301)
[2020-04-26 05:01] LABS: Bedside Glucose 402 mg/dL (70-110)
[2020-04-26 05:55] LABS: Reflex Lactate? Y
[2020-04-26 05:59] LABS: Absolute Lymphocyte Count 0.62 X10^3/uL (0.83-4.51); Absolute Neutrophil Count 5.1 X10^3/uL (2.0-7.7); Basophil# 0.02 X10^3/uL; Basophil% 0.3 % (0-1); Eosinophil# 0.07 X10^3/uL; Eosinophils% 1.1 % (0-5); Hematocrit 28.5 % (37-47); Hemoglobin 9.3 g/dL (12.0-15.0); Lymphocyte # 0.62 X10^3/ul (4.0); Lymphocyte % 9.6 % (19-41); Mean Corp Hgb Conc 32.6 g/dL (32-36); Mean Corpuscular Hgb 28.6 pg (27.0-32.0); Mean Corpuscular Volume 87.7 fL (81-99); Mean Platelet Vol. 11.7 fl (6.2-12.0); Monocyte# 0.66 X10^3/uL; Monocyte% 10.2 % (0-10); NRBC Flagged by Analyzer 0 % (0-5); Neutrophil # 5.08 X10^3/uL (2.7-7.7); Neutrophil % 78.5 % (47-70); POSITIVE COUNT YES; Platelet Count 90 K/mm3 (150-450); RBC Distribution Width CV 14.6 % (11.6-14.6); RBC Distribution Width SD 46.8 fl (35.1-43.9); Red Blood Count 3.25 M/mm3 (4.2-5.4); White Blood Count 6.5 K/mm3 (4.4-11.0)
[2020-04-26 06:06] LABS: Bedside Glucose 328 mg/dL (70-110)
[2020-04-26 06:07] LABS: Differential Indicated SCAN CRITERIA MET
[2020-04-26 06:15] LABS: Phenytoin (Dilantin) Level 15.8 mL (10.0-20.0)
[2020-04-26 06:30] LABS: Differential Comment SCANNED
[2020-04-26 06:31] LABS: ALB/GLOB Ratio 0.9 RATIO (0.9-2.4); AST(SGOT) 38 U/L (15-37); Alanine Aminotransfer ALT/SGPT 31 U/L (13-56); Alkaline Phosphatase 138 U/L (45-117); Anion Gap 8 (5-15); BUN 47 mg/dL (7-18); BUN/Creat Ratio 18.8 RATIO (10-20); Calcium,Total 8.4 mg/dL (8.5-10.1); Chloride 104 mmol/L (98-107); EST Glomerular Filtration Rate 20 mL/min (>60); Est Glom Filt Rate - Afr Amer 24 mL/min (>60); Estimated Creatinine Clearance 12.41 ml/min; Globulin 3.4 g/dL (2.2-4.2); Glucose 341 mg/dL (74-106); Potassium 3.6 mmol/L (3.5-5.1); Protein, Total 6.4 g/dL (6.4-8.2); Sodium Level 136 mmol/L (136-145)
--- NOTE | 2020-04-26 06:42 | CON.PCM_ITS ---
Reason for Consult Date of Consultation: 04/26/20 Reason for Consultation: Respiratory failure History of Present Illness: The patient is an 85-year-old female, with a history as outlined below, who presented to the emergency department on April 25 by EMS with altered mentation and new onset seizure activity. The patient has a history of stage II diastolic dysfunction, pulmonary hypertension and valvular heart disease with recent TAVR in February 2020 at [facility]. The patient also has a history of cirrhosis of unclear etiology, for which she is prescribed diuretic therapy. History pertinent to the patient's hospitalization was obtained primarily via chart review as the patient is currently intubated and there is no family available at the bedside. Per documentation, EMS was contacted if the patient was apparently not acting right. Per EMS documentation the patient was unr esponsive and actively seizing upon their arrival. She does not have a reported history of prior seizures. On presentation to the emergency department, the patient was noted to be afebrile but was tachycardic, tachypneic and hypoxemic. Laboratory evaluation revealed a normal white blood cell count. Coagulation profile was within normal limits. Chemistry profile was notable for an elevated creatinine of 2.94. Glucose was elevated to 623. Initial lactate was increased to 2.9. Troponin was negative. Serum acetone level was negative. On arrival to the emergency department, the patient was still actively seizing. There was some concern for potential aspiration per documentation. The patient continued to seize despite multiple doses of Ativan. She was emergently intubated for airway protection. The patient was placed on an insulin drip for hyperglycemia. A tele-neurology consultation was obtained and the patient was placed on Dilantin. Initial chest x-ray did not reveal an acute cardiopulmonary process. CT head was unremarkable. Although there was concern for aspiration, no antibiotics were started in the emergency department. The patient was subsequently transferred t o the medical intensive care unit for further management. Past Medical History Past Medical History (Chronic Problems): Chronic Problems (Last Reviewed 04/26/20 @ 03:[address] 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 Jin Chance MD) Lower extremity edema (Chronic) R60.0 Ascites (Chronic) R18.8 Chronic diastolic (congestive) heart failure (Chronic) I50.32 Nonrheumatic aortic (valve) stenosis (Chronic) I35.0 Nonrheumatic mitral valve stenosis with insufficiency (Chronic) I34.2, I34.0 Left bundle branch block (LBBB) (Chronic) I44.7 post-op TAVR transient LBBB w/ 1 degree AV block Cirrhosis of liver with ascites (Chronic) K74.60, R18.8 Secondary pulmonary arterial hypertension (Chronic) I27.21 Essential hypertension (Chronic) I10 Hyperlipidemia (Chronic) E78.5 Chronic renal disease, stage 3, moderately decreased glomerular filtration rate (GFR) between 30-59 mL/min/1.73 square meter (Chronic) N18.3 Thrombocytopenia (Chronic) D69.6 Iron deficiency anemia (Chronic) D50.9 Anemia of chronic renal failure, stage 3 (moderate) (Chronic) N18.3, D63.1 Anemia D64.9 Hypothyroid E03.9 TRACY (iron deficiency anemia) D50.9 Non-rheumatic tricuspid valve insufficiency I36.1 Type 2 diabetes mellitus without complication E11.9 Basal cell carcinoma C44.Dec NECK Cataracts, bilateral H26.9 Pleural effusion J90 Pleural effusion, left J90 Traumatic open wound of right lower leg with delayed healing S81.801D Allergies No Known Allergies Allergy (Verified 04/03/20 08:15) Home Medications: Ambulatory Orders Medication Instructions Recorded Aspirin [Ecotrin] 81 mg PO DAILY 09/10/13 Atorvastatin Calcium [Lipitor] 20 mg PO QHS 09/10/13 cholecalciferol (vitamin D3) 25 25 mcg PO DAILY 11/05/19 mcg (1,000 unit) tablet glimepiride 1 mg tablet 1 mg PO BID tab 11/05/19 losartan 50 mg tablet 50 mg PO DAILY #90 tab 11/06/19 Levothyroxine [Synthroid] 100 mcg PO DAILY 01/09/20 clopidogrel 75 mg tablet 75 mg PO DAILY 03/16/20 metoprolol succinate 25 mg 25 mg PO DAILY 03/16/20 tablet,extended release 24 hr spironolactone 100 mg tablet 100 mg PO DAILY 03/16/20 Pantoprazole Sodium 40 mg PO DAILY 03/18/20 amlodipine 10 mg tablet 10 mg PO DAILY #90 tab 03/31/20 epoetin franklin 20,000 unit/2 mL 15,000 unit SC .[id number] ml 04/02/20 injection solution furosemide 40 mg tablet 40 mg PO DAILY #90 tab 04/03/20 Surgical History: Surgical History (Last Reviewed 04/26/20 @ 03:[address] Jin Chance MD) History of aortic valve replacement with bioprosthetic valve (Chronic) Onset Date: 03/09/20 Z95.3 TAVR w/ Medtronic Evolut Pro bioprosthetic valve 23 mm 03/09/2020 History of abdominal paracentesis Onset Date: 03/11/20 Z98.890 History of bilateral cataract extraction Z98.41, Z98.42 History of cholecystectomy Z98.890, Z90.49 History of left heart catheterization Onset Date: 11/11/19 Z98.890 Smoking Status: Never smoker - *Family History Maternal Family History: Family History (Last Reviewed 04/26/20 @ 03:[address] Jin Chance MD) Brother Myocardial infarction, Onset Age: 50 Father Myocardial infarction, Onset Age: 60 Review of Systems Unable to obtain accurate/complete ROS d/t: Due to current intubation and mechanical ventilation status. Patient Problems: Active and Suspected Problems (Last Reviewed 04/26/20 @ 03:[address] Jin Chance MD) Status epilepticus (Acute) Objective: The patient's most recent lab work, culture data and imaging studies have all been personally reviewed. Surface echocardiogram from September 2019 revealed normal LV function with an ejection fraction of 60% and stage II diastolic dysfunction. Pulmonary artery systolic pressure was estimated to be 65 mmHg. - Physical Exam Vitals/I&O's: Vital Signs Temp Pulse Resp BP Pulse Ox 97.3 F L 69 14 128/40 H 100 04/26/20 06:00 04/26/20 06:00 04/26/20 06:00 04/26/20 06:00 04/26/20 06:00 Oxygen Delivery Method Mechanical Ventilator Weight: 128 lb 15.527 oz Body Mass Index (BMI) 24.3 Finger Stick Blood Glucose 328 Intake and Output for Last 24 Hours 04/24/20 04/25/20 04/26/20 23:59 23:59 23:59 Intake Total 1494.26 / 1494.26 Output Total 250 / 250 Balance 1244.26 / 1244.26 General: - - Remains intubated and mechanically ventilated. No sedation is currently infusing. HEENT: Atraumatic, Normocephalic Oral: No Gingival or Mucosal Lesions/ Ulcerations, - - Endotracheal and OG tubes in place Neck: Supple, No Nodes, Trachea Midline Lungs: No rhonchi, No wheeze, No rales, - - Mechanical breath sounds bilaterally. Cardiovascular: Regular rate, Regular Rhythm, Murmur Abdomen: Bowel Sounds Present, Soft, Non Tender Extremities: No clubbing, No cyanosis, Edema Skin: - - Scant pretibial erythema Musculoskeletal: No Muscle Wasting Lymphatic: No Cervical, Supraclavicular, or Inguinal Adenopathy Neurological: - - The patient is nonresponsive to verbal and tactile stimulation. The patient is moving her head, but does not appear to be purposeful. Labs (Last 48 Hours) 04/25/20 04/25/20 04/25/20 23:25 23:25 23:25 WBC 7.1 RBC 4.14 L Hgb 12.0 Hct 37.7 MCV 91.1 MCH 29.0 MCHC 31.8 L RDW Std Deviation 49.3 H RDW Coeff of Meng 14.7 H Plt Count 141 L MPV 12.4 H Immature Gran % (Auto) 0.400 Neut % (Auto) 54.4 Lymph % (Auto) 28.8 [place] % (Auto) 11.6 H Eos % (Auto) 4.0 Baso % (Auto) 0.8 Absolute Neuts (auto) 3.9 Absolute Lymphs (auto) 2.04 Nucleated RBC % 0 Differential Comment PT 14.8 INR 1.2 APTT 26.0 Specimen Type Sample Site pH Bicarbonate Actual Total CO2 Base Excess O2 Saturation O2 % ABG pCO2 ABG pO2 Gianfranco Test Respiration Rate O2 Delivery Device Vent Mode Tidal Volume POC PEEP Sodium 130 L Potassium 4.7 Chloride 95 L Carbon Dioxide 21.0 Anion Gap 14 BUN 50 H Creatinine 2.94 H Estim Creat Clear Calc 10.56 Est GFR (MDRD) Af Amer 20 L Est GFR (MDRD) Non-Af 16 L BUN/Creatinine Ratio 17.0 Glucose 623 H* Serum Osmolality Lactic Acid Calcium 9.0 Total Bilirubin AST ALT Alkaline Phosphatase Troponin I < 0.015 Total Protein Albumin Globulin Albumin/Globulin Ratio TSH Urine Color Urine Clarity Urine pH Ur Specific [place] Urine Protein Urine Glucose (UA) Urine Ketones Urine Occult Blood Urine Nitrite Urine Bilirubin Urine Urobilinogen Ur Leukocyte Esterase Urine RBC Urine WBC Ur Squamous Epith Cells Urine Bacteria Urine Mucus Ur Random Sodium Urine Creatinine Urine Urea Nitrogen Phenytoin Acetone Level POC Glucose 04/25/20 04/25/20 04/25/20 23:35 23:56 23:59 WBC RBC Hgb Hct MCV MCH MCHC RDW Std Deviation RDW Coeff of Meng Plt Count MPV Immature Gran % (Auto) Neut % (Auto) Lymph % (Auto) [place] % (Auto) Eos % (Auto) Baso % (Auto) Absolute Neuts (auto) Absolute Lymphs (auto) Nucleated RBC % Differential Comment PT INR APTT Specimen Type Sample Site pH Bicarbonate Actual Total CO2 Base Excess O2 Saturation O2 % ABG pCO2 ABG pO2 Gianfranco Test Respiration Rate O2 Delivery Device Vent Mode Tidal Volume POC PEEP Sodium Potassium Chloride Carbon Dioxide Anion Gap BUN Creatinine Estim Creat Clear Calc Est GFR (MDRD) Af Amer Est GFR (MDRD) Non-Af BUN/Creatinine Ratio Glucose Serum Osmolality Lactic Acid Calcium Total Bilirubin AST ALT Alkaline Phosphatase Troponin I Total Protein Albumin Globulin Albumin/Globulin Ratio TSH Urine Color Yellow Urine Clarity Clear Urine pH 5.0 Ur Specific [place] 1.015 Urine Protein 30 H Urine Glucose (UA) 1000 H Urine Ketones Negative Urine Occult Blood 10 H Urine Nitrite Negative Urine Bilirubin Negative Urine Urobilinogen Normal Ur Leukocyte Esterase Negative Urine RBC 0 SEEN Urine WBC 0 SEEN Ur Squamous Epith Cells 0 SEEN Urine Bacteria 0 SEEN Urine Mucus 0 SEEN Ur Random Sodium Urine Creatinine Urine Urea Nitrogen Phenytoin Acetone Level NEGATIVE POC Glucose > 500 H* 04/25/20 04/26/20 04/26/20 23:59 01:15 01:31 WBC RBC Hgb Hct MCV MCH MCHC RDW Std Deviation RDW Coeff of Meng Plt Count MPV Immature Gran % (Auto) Neut % (Auto) Lymph % (Auto) [place] % (Auto) Eos % (Auto) Baso % (Auto) Absolute Neuts (auto) Absolute Lymphs (auto) Nucleated RBC % Differential Comment PT INR APTT Specimen Type ART Sample Site L Radial pH 7.44 Bicarbonate Actual 20.6 L Total CO2 22 Base Excess -4 L O2 Saturation 99 O2 % 30 ABG pCO2 30.6 L ABG pO2 115 H Gianfranco Test Positive Respiration Rate 14 O2 Delivery Device Adult Vent Vent Mode AC Tidal Volume 450 POC PEEP 5 Sodium Potassium Chloride Carbon Dioxide Anion Gap BUN Creatinine Estim Creat Clear Calc Est GFR (MDRD) Af Amer Est GFR (MDRD) Non-Af BUN/Creatinine Ratio Glucose Serum Osmolality 328 H Lactic Acid Calcium Total Bilirubin AST ALT Alkaline Phosphatase Troponin I Total Protein Albumin Globulin Albumin/Globulin Ratio TSH Urine Color Urine Clarity Urine pH Ur Specific [place] Urine Protein Urine Glucose (UA) Urine Ketones Urine Occult Blood Urine Nitrite Urine Bilirubin Urine Urobilinogen Ur Leukocyte Esterase Urine RBC Urine WBC Ur Squamous Epith Cells Urine Bacteria Urine Mucus Ur Random Sodium Urine Creatinine Urine Urea Nitrogen Phenytoin Acetone Level POC Glucose > 500 H* 04/26/20 04/26/20 04/26/20 01:52 02:10 02:18 WBC RBC Hgb Hct MCV MCH MCHC RDW Std Deviation RDW Coeff of Meng Plt Count MPV Immature Gran % (Auto) Neut % (Auto) Lymph % (Auto) [place] % (Auto) Eos % (Auto) Baso % (Auto) Absolute Neuts (auto) Absolute Lymphs (auto) Nucleated RBC % Differential Comment PT INR APTT Specimen Type Sample Site pH Bicarbonate Actual Total CO2 Base Excess O2 Saturation O2 % ABG pCO2 ABG pO2 Gianfranco Test Respiration Rate O2 Delivery Device Vent Mode Tidal Volume POC PEEP Sodium Potassium Chloride Carbon Dioxide Anion Gap BUN Creatinine Estim Creat Clear Calc Est GFR (MDRD) Af Amer Est GFR (MDRD) Non-Af BUN/Creatinine Ratio Glucose Serum Osmolality Lactic Acid 2.9 H* Calcium Total Bilirubin AST ALT Alkaline Phosphatase Troponin I Total Protein Albumin Globulin Albumin/Globulin Ratio TSH Urine Color Urine Clarity Urine pH Ur Specific [place] Urine Protein Urine Glucose (UA) Urine Ketones Urine Occult Blood Urine Nitrite Urine Bilirubin Urine Urobilinogen Ur Leukocyte Esterase Urine RBC Urine WBC Ur Squamous Epith Cells Urine Bacteria Urine Mucus Ur Random Sodium 49 Urine Creatinine 32.00 Urine Urea Nitrogen 272 Phenytoin Acetone Level POC Glucose 495 H* 04/26/20 04/26/20 04/26/20 03:03 04:00 04:55 WBC RBC Hgb Hct MCV MCH MCHC RDW Std Deviation RDW Coeff of Meng Plt Count MPV Immature Gran % (Auto) Neut % (Auto) Lymph % (Auto) [place] % (Auto) Eos % (Auto) Baso % (Auto) Absolute Neuts (auto) Absolute Lymphs (auto) Nucleated RBC % Differential Comment PT INR APTT Specimen Type Sample Site pH Bicarbonate Actual Total CO2 Base Excess O2 Saturation O2 % ABG pCO2 ABG pO2 Gianfranco Test Respiration Rate O2 Delivery Device Vent Mode Tidal Volume POC PEEP Sodium Potassium Chloride Carbon Dioxide Anion Gap BUN Creatinine Estim Creat Clear Calc Est GFR (MDRD) Af Amer Est GFR (MDRD) Non-Af BUN/Creatinine Ratio Glucose Serum Osmolality Lactic Acid Calcium Total Bilirubin AST ALT Alkaline Phosphatase Troponin I Total Protein Albumin Globulin Albumin/Globulin Ratio TSH Urine Color Urine Clarity Urine pH Ur Specific [place] Urine Protein Urine Glucose (UA) Urine Ketones Urine Occult Blood Urine Nitrite Urine Bilirubin Urine Urobilinogen Ur Leukocyte Esterase Urine RBC Urine WBC Ur Squamous Epith Cells Urine Bacteria Urine Mucus Ur Random Sodium Urine Creatinine Urine Urea Nitrogen Phenytoin Acetone Level POC Glucose 473 H* 423 H 402 H 04/26/20 04/26/20 04/26/20 05:45 05:45 05:45 WBC 6.5 RBC 3.25 L Hgb 9.3 L Hct 28.5 L MCV 87.7 MCH 28.6 MCHC 32.6 RDW Std Deviation 46.8 H RDW Coeff of Meng 14.6 Plt Count 90 L MPV 11.7 Immature Gran % (Auto) 0.300 Neut % (Auto) 78.5 H Lymph % (Auto) 9.6 L [place] % (Auto) 10.2 H Eos % (Auto) 1.1 Baso % (Auto) 0.3 Absolute Neuts (auto) 5.1 Absolute Lymphs (auto) 0.62 L Nucleated RBC % 0 Differential Comment SCANNED PT INR APTT Specimen Type Sample Site pH Bicarbonate Actual Total CO2 Base Excess O2 Saturation O2 % ABG pCO2 ABG pO2 Gianfranco Test Respiration Rate O2 Delivery Device Vent Mode Tidal Volume POC PEEP Sodium 136 Potassium 3.6 Chloride 104 Carbon Dioxide 24.0 Anion Gap 8 BUN 47 H Creatinine 2.50 H Estim Creat Clear Calc 12.41 Est GFR (MDRD) Af Amer 24 L Est GFR (MDRD) Non-Af 20 L BUN/Creatinine Ratio 18.8 Glucose 341 H Serum Osmolality Lactic Acid Calcium 8.4 L Total Bilirubin 0.90 AST 38 H ALT 31 Alkaline Phosphatase 138 H Troponin I Total Protein 6.4 Albumin 3.0 L Globulin 3.4 Albumin/Globulin Ratio 0.9 TSH Urine Color Urine Clarity Urine pH Ur Specific [place] Urine Protein Urine Glucose (UA) Urine Ketones Urine Occult Blood Urine Nitrite Urine Bilirubin Urine Urobilinogen Ur Leukocyte Esterase Urine RBC Urine WBC Ur Squamous Epith Cells Urine Bacteria Urine Mucus Ur Random Sodium Urine Creatinine Urine Urea Nitrogen Phenytoin 15.8 Acetone Level POC Glucose 04/26/20 04/26/20 04/26/20 05:45 05:56 06:25 WBC RBC Hgb Hct MCV MCH MCHC RDW Std Deviation RDW Coeff of Meng Plt Count MPV Immature Gran % (Auto) Neut % (Auto) Lymph % (Auto) [place] % (Auto) Eos % (Auto) Baso % (Auto) Absolute Neuts (auto) Absolute Lymphs (auto) Nucleated RBC % Differential Comment PT INR APTT Specimen Type Sample Site pH Bicarbonate Actual Total CO2 Base Excess O2 Saturation O2 % ABG pCO2 ABG pO2 Gianfranco Test Respiration Rate O2 Delivery Device Vent Mode Tidal Volume POC PEEP Sodium Potassium Chloride Carbon Dioxide Anion Gap BUN Creatinine Estim Creat Clear Calc Est GFR (MDRD) Af Amer Est GFR (MDRD) Non-Af BUN/Creatinine Ratio Glucose Serum Osmolality Lactic Acid Pending Calcium Total Bilirubin AST ALT Alkaline Phosphatase Troponin I Total Protein Albumin Globulin Albumin/Globulin Ratio TSH Pending Urine Color Urine Clarity Urine pH Ur Specific [place] Urine Protein Urine Glucose (UA) Urine Ketones Urine Occult Blood Urine Nitrite Urine Bilirubin Urine Urobilinogen Ur Leukocyte Esterase Urine RBC Urine WBC Ur Squamous Epith Cells Urine Bacteria Urine Mucus Ur Random Sodium Urine Creatinine Urine Urea Nitrogen Phenytoin Acetone Level POC Glucose 328 H Clinical Impression(s) from Imaging Studies Chest X-Ray 04/25/20 00:18 IMPRESSION: No acute cardiac pulmonary disease. Lines and tubes as described. Recommend pulling back the endotracheal tube approximately 2.5 cm. Electronically Signed: Anu Liu MD at 0:43 EST , Service support , Brain CT 04/26/20 00:05 IMPRESSION: Chronic changes as described otherwise normal unenhanced CT scan of the brain. Electronically Signed: Anu Liu MD at 0:35 EST , Service support , ADDENDUM: 04/26/20 0042 IMPRESSION: Chronic changes as described otherwise normal unenhanced CT scan of the brain. N.B. : The above information has been verbally conveyed by Anu Liu MD to Felix Hopkins MD, on 04/26/2020 00:36:01 (ET). Electronically Signed: Anu Liu MD at 0:35 EST , Service support , Current Medications Acetaminophen (Acetaminophen 650 Mg Suppository) 650 mg RECTAL Q4H PRN PRN PRN Reason: Pain Score 1-10/Temp > 100.7 F Aspirin (Aspirin 81 Mg Tab.Chew) 81 mg GT DAILY [facility] Atorvastatin Calcium (Atorvastatin Calcium 20 Mg Tablet) 20 mg GT QHS [facility] Chlorhexidine Gluconate (Chlorhexidine 15 Ml) 15 ml PO BID FERN Clopidogrel Bisulfate (Clopidogrel Bisulfate 75 Mg Tablet) 75 mg GT DAILY [facility] Dextrose (Dextrose 50%-Water 25 Gm/50 Ml Disp.Syrin) 0 gm IV X1 PRN; Protocol PRN Reason: Hypoglycemia Protocol Glucagon (Glucagon 1 Mg/Ml Syringe) 1 mg IM .X1 PRN PRN Reason: Hypoglycemia Heparin Sodium (Porcine) (Heparin Injection (Vial) 5,000 Unit/Ml Vial) 5,000 unit SC Q12 [facility] Insulin Human Lispro 100 unit/ (Sodium Chloride) 100 mls @ 5.818 mls/hr IV .[id number] FERN; Protocol Stop: 04/26/20 18:26 Last Titration: 04/26/20 06:00 Dose: 0.03 units/kg/hr, 1.8 mls/hr Documented by: Sodium Chloride () 250 mls @ 15 mls/hr IV .[id number] PRN PRN Reason: Saline Flush Sodium Chloride () 250 mls @ 15 mls/hr IV .[id number] PRN PRN Reason: Additional IVPB Infusion Lansoprazole (Lansoprazole 15 Mg Capsule.) 30 mg GT DAILY FERN Levothyroxine Sodium (Levothyroxine 100 Mcg Tablet) 100 mcg GT DAILY FERN Lorazepam (Lorazepam 2 Mg/Ml Syringe) 2 mg IV PRN PRN PRN Reason: SEIZURES Ondansetron HCl (Ondansetron 4 Mg/2 Ml Vial) 4 mg IV Q8H PRN PRN PRN Reason: NAUSEA/VOMITING Phenytoin Sodium (Phenytoin Na 100 Mg/2 Ml Vial) 100 mg IV Q8 FERN Sodium Chloride (0.9% Saline Lock 10 Ml Syringe) 10 - 40 ml IV UD PRN PRN Reason: SALINE FLUSH Last Admin: 04/26/20 03:50 Dose: 10 ml Documented by: Assessment/Plan Active and Suspected Problems (Last Reviewed 04/26/20 @ 03:[address] Jin Chance MD) Status epilepticus (Acute) RECOMMENDATIONS: 1. Obtain stat EEG. If unable to obtain EEG and interpretation for EEG, recommend transferring patient to tertiary care facility. 2. Given concerns for potential aspiration noted in ED, will start empiric antimicrobials. 3. Obtain blood, urine and sputum cultures. 4. Continue antiepileptics as ordered. 5. Avoid all sedating medications. 6. Transition from continuous insulin infusion to basal and sliding scale coverage. 7. Continue as needed Ativan and seizure precautions. 8. Discontinue supplemental IV fluids, given history of cirrhosis and propensity for 3rd spacing. 9. Continue appropriate GI prophylaxis. IMPRESSIONS: 1. Encephalopathy/status epilepticus Unclear precipitating etiology for new onset seizures. Although the patient was treated medically with antiepileptics after discussion with neurology, she remains largely unresponsive this morning, raising the concern for continued seizure activity, possible nonconvulsive status. Plan to obtain stat EEG. If EEG is unable to be obtained or neurology is unable to read the study today, the patient will need to be transferred to a tertiary care facility. Recommend holding all sedating medications for now to better assess neurological status. 2. Acute respiratory failure The patient was intubated in the emergency department for airway protection in the setting of #1. Ventilator requirements are minimal. There was concern for possible aspiration at the time of intubation. Therefore, empiric antimicrobials will be initiated, while awaiting infectious work-up. 3. Acute on chronic kidney disease Likely prerenal in etiology, as creatinine has improved with volume expansion. Continue to monitor urine output for now. No current indication for renal replacement therapy. 4. Hyperglycemia The patient has a known history of diabetes mellitus and was significantly hyperglycemic at presentation. Blood glucose levels have improved on a continuous insulin infusion. There is no evidence of DKA. Therefore, the patient can be transition to basal and sliding scale coverage from my perspective. 5. Heart failure with preserved ejection fraction/pulmonary hypertension/deondre vular heart disease status post TAVR Continue outpatient medical management. 6. Advanced age/diabetes mellitus/hypertension/hypothyroidism Complicates care, management, recovery and prognosis. Check TSH and continue home medications as indicated. TIME: 45 minutes of critical care time, independent of procedures, was spent addressi ng the patient's encephalopathy, status epilepticus, acute respiratory failure, acute on chronic kidney disease, hyperglycemia, diastolic heart failure, review of all data and collaboration with the care team. [phone]) [phone] [id number] Critical care first hour
[2020-04-26 07:06] LABS: Bedside Glucose 285 mg/dL (70-110)
[2020-04-26 07:09] LABS: Lactic Acid 2.2 mmol/L (0.4-1.9)
[2020-04-26 07:12] LABS: Thyroid Stim Hormone (TSH) 2.04 uIU/mL (0.358-3.74)
[2020-04-26 08:11] LABS: Bedside Glucose 290 mg/dL (70-110)
--- NOTE | 2020-04-26 08:32 | CCHN_ITS ---
Hospitalist Note Patient was seen and examined in the ICU today, she remains sedated on the ventilator, they are preparing to do an EEG this morning. The handbag parts cutter saw the patient this morning. Defer further orders today to intensive care physician.
--- NOTE | 2020-04-26 08:39 | PCM.NTREPORT ---
Nutrition Therapy Report - History Nutrition Services has been consulted to:: Manage nutrient details of diet order Current diet / nutrition support order:: NPO - Anthropometric Measurements Height:: 5 ft 1 in Weight:: 58.5 kg Body Mass Index (BMI):: 24.3 - Relevant Labs Relevant Labs:: RBC 3.25 M/mm3 (4.2-5.4) L 04/26/20 05:45 Hgb 9.3 g/dL (12.0-15.0) L 04/26/20 05:45 Hct 28.5 % (37-47) L 04/26/20 05:45 MCHC 31.8 g/dL (32-36) L 04/25/20 23:25 RDW Std Deviation 46.8 fl (35.1-43.9) H 04/26/20 05:45 RDW Coeff of Meng 14.7 % (11.6-14.6) H 04/25/20 23:25 Plt Count 90 K/mm3 (150-450) L 04/26/20 05:45 MPV 12.4 fl (6.2-12.0) H 04/25/20 23:25 Neut % (Auto) 78.5 % (47-70) H 04/26/20 05:45 Lymph % (Auto) 9.6 % (19-41) L 04/26/20 05:45 [place] % (Auto) 10.2 % (0-10) H 04/26/20 05:45 Absolute Lymphs (auto) 0.62 X10^3/uL (0.83-4.51) L 04/26/20 05:45 Sodium 130 mmol/L (136-145) L 04/25/20 23:25 Chloride 95 mmol/L (98-107) L 04/25/20 23:25 BUN 47 mg/dL (7-18) H 04/26/20 05:45 Creatinine 2.50 mg/dL (0.55-1.02) H 04/26/20 05:45 Est GFR (MDRD) Af Amer 24 mL/min (>60) L 04/26/20 05:45 Est GFR (MDRD) Non-Af 20 mL/min (>60) L 04/26/20 05:45 Glucose 341 mg/dL (74-106) H 04/26/20 05:45 Serum Osmolality 328 mOsm/KG (280-301) H 04/25/20 23:59 Lactic Acid 2.2 mmol/L (0.4-1.9) H* 04/26/20 06:25 Calcium 8.4 mg/dL (8.5-10.1) L 04/26/20 05:45 AST 38 U/L (15-37) H 04/26/20 05:45 Alkaline Phosphatase 138 U/L (45-117) H 04/26/20 05:45 Albumin 3.0 g/dL (3.2-5.0) L 04/26/20 05:45 - Assessment Food / Nutrition-Related History:: Pt with suboptimal po intake r/t on vent aeb NPO status. [ End ] - Nutrition Diagnosis Problem / Etiology / Signs & Symptoms (PES):: Unable to talk to pt d/t on vent. Has OG to low wall suction. Pt NPO at this time. Has +1 nonpitting BLE edema - may see wt loss as fluid status improves. No known UBW per nsg adm notes. 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 If pt to remain on vent, rec TF - rec Vital AF 1.2 at goal rate 50 ml/hr w/ 75 ml water flush every 4 hours to provide ~ 1440 jerica / 90 gm pro/ 1423 ml free water/day. Would start tf at 20 ml/hr and increase by 15 ml every 6-8 hrs as pt tolerates until goal rate achieved. [ End ] Nutrition support ordered as / adjusted to:: If pt to remain on vent, rec TF - rec Vital AF 1.2 at goal rate 50 ml/hr w/ 75 ml water flush every 4 hours to provide ~ 1440 jerica / 90 gm pro/ 1423 ml free water/day. Would start tf at 20 ml/hr and increase by 15 ml every 6-8 hrs as pt tolerates until goal rate achieved. Nutrition education provided?: No - MNT Monitoring Further MNT monitoring and evaluation required?: Yes MNT Follow-up in:: 3-5 days - if questions, please call RD/LD at x [phone]
--- NOTE | 2020-04-26 09:13 | TELEMED_ITS ---
[facility] has confirmed receipt of a request for visit. This document confirms receipt of the order initiating the consult. To find the results of the consultation, please view the patient's reports for the scanned Telemed Consult.
[2020-04-26] MEDS: Aspirin 81 MG TAB.CHEW GT (09:14)
[2020-04-26] MEDS: Levothyroxine 100 MCG Tablet GT (09:14)
[2020-04-26] MEDS: Clopidogrel Bisulfate 75 MG Tablet GT (09:14)
[2020-04-26] MEDS: Heparin Injection (Vial) 5,000 UNIT/ML VIAL 5000 UNIT SC ×2 (09:14→20:13)
[2020-04-26 10:21] LABS: Bedside Glucose 227 mg/dL (70-110)
[2020-04-26] MEDS: Chlorhexidine 15 ML PO ×2 (11:00→20:13)
[2020-04-26 11:06] LABS: Bedside Glucose 217 mg/dL (70-110)
[2020-04-26 12:26] LABS: Bedside Glucose 218 mg/dL (70-110)
[2020-04-26 13:20] LABS: Bedside Glucose 176 mg/dL (70-110)
[2020-04-26] MEDS: Lansoprazole 15 MG Capsule.DR 30 MG GT (15:00)
[2020-04-26] MEDS: Phenytoin Na 100 MG/2 ML Vial IV ×2 (15:00→21:03)
[2020-04-26 15:26] LABS: Bedside Glucose 160 mg/dL (70-110)
[2020-04-26 17:11] LABS: Bedside Glucose 237 mg/dL (70-110)
[2020-04-26 17:40] LABS: Bedside Glucose 123 mg/dL (70-110)
[2020-04-26 19:21] LABS: Bedside Glucose 99 mg/dL (70-110)
[2020-04-26] MEDS: Vital AF 1.2 Cal Liquid 1,000 ML 50 ML GT (20:00)
[2020-04-26] MEDS: Atorvastatin Calcium 20 MG Tablet GT (20:13)
[2020-04-26 21:01] LABS: Bedside Glucose 114 mg/dL (70-110)
[2020-04-27] VITALS (26 sets, daily range): BP systolic 113–166; BP diastolic 26–55; PULSE 70–90; RESP 12–23; TEMP 36.3–37.3; O2SAT 90–100
[2020-04-27] MEDS: Insulin Lispro 100 UNIT/ML INSULN.PEN SC ×3 (00:12→11:20)
[2020-04-27 00:26] LABS: Bedside Glucose 188 mg/dL (70-110)
[2020-04-27] MEDS: 0.9% Saline Lock 10 ML Syringe IV ×3 (04:23→08:47)
[2020-04-27 04:26] LABS: Absolute Lymphocyte Count 0.82 X10^3/uL (0.83-4.51); Absolute Neutrophil Count 3.9 X10^3/uL (2.0-7.7); Basophil# 0.04 X10^3/uL; Basophil% 0.7 % (0-1); Eosinophil# 0.21 X10^3/uL; Eosinophils% 3.7 % (0-5); Hematocrit 28.6 % (37-47); Hemoglobin 9.5 g/dL (12.0-15.0); Lymphocyte # 0.82 X10^3/ul (4.0); Lymphocyte % 14.6 % (19-41); Mean Corp Hgb Conc 33.2 g/dL (32-36); Mean Corpuscular Hgb 29.1 pg (27.0-32.0); Mean Corpuscular Volume 87.5 fL (81-99); Mean Platelet Vol. 12.3 fl (6.2-12.0); Monocyte% 10.7 % (0-10); NRBC Flagged by Analyzer 0 % (0-5); Neutrophil # 3.94 X10^3/uL (2.7-7.7); Neutrophil % 69.9 % (47-70); POSITIVE COUNT YES; Platelet Count 78 K/mm3 (150-450); RBC Distribution Width CV 15.1 % (11.6-14.6); RBC Distribution Width SD 48.5 fl (35.1-43.9); Red Blood Count 3.27 M/mm3 (4.2-5.4); White Blood Count 5.6 K/mm3 (4.4-11.0)
[2020-04-27 04:46] LABS: ALB/GLOB Ratio 0.8 RATIO (0.9-2.4); AST(SGOT) 53 U/L (15-37); Alanine Aminotransfer ALT/SGPT 34 U/L (13-56); Albumin, Serum 2.5 g/dL (3.2-5.0); Alkaline Phosphatase 121 U/L (45-117); Anion Gap 7 (5-15); BUN 42 mg/dL (7-18); BUN/Creat Ratio 20.2 RATIO (10-20); Calcium,Total 8.2 mg/dL (8.5-10.1); Chloride 108 mmol/L (98-107); Creatinine, Serum 2.08 mg/dL (0.55-1.02); EST Glomerular Filtration Rate 24 mL/min (>60); Est Glom Filt Rate - Afr Amer 29 mL/min (>60); Estimated Creatinine Clearance 14.92 ml/min; Globulin 3.3 g/dL (2.2-4.2); Glucose 251 mg/dL (74-106); Potassium 3.6 mmol/L (3.5-5.1); Protein, Total 5.8 g/dL (6.4-8.2); Sodium Level 139 mmol/L (136-145)
[2020-04-27] MEDS: Phenytoin Na 100 MG/2 ML Vial IV ×3 (05:43→20:55)
[2020-04-27 05:51] LABS: Bedside Glucose 237 mg/dL (70-110)
--- NOTE | 2020-04-27 07:14 | PCM.PN.INT ---
Subjective: Patient did okay overnight. Patient was reportedly unresponsive and not following directions until approximately 2 AM. Patient did not have a spontaneous breathing trial initially secondary to decreased RASS. Patient is now following commands and opening her eyes. Patient was recently placed on a spontaneous breathing trial and appears to be tolerating this well. No bleeding complications have been reported. General: Alert, Cooperative, No apparent distress, - - Following commands. HEENT: Atraumatic, PERRLA, EOMI, Normocephalic, - - No scleral icterus or injection noted Oral: Moist Mucosa, No Gingival or Mucosal Lesions/ Ulcerations, - - No tongue trauma noted Neck: Supple, No JVD, Negative Hepatojugular Reflux, Trachea Midline Lungs: Clear to auscultation, Normal air movement, No rhonchi, No wheeze, No rales, - - Symmetric expansion. No dullness to percussion. Cardiovascular: Regular rate, Regular Rhythm, Normal S1, Normal S2, No murmurs, No rub noted, No Gallop Abdomen: Bowel Sounds Present, Soft, Non Tender, Non-Distended Extremities: No clubbing, No cyanosis, Edema Skin: No rashes, No breakdown Musculoskeletal: No Tenderness to Palpation of Joints or Extremities Lymphatic: No Cervical, Supraclavicular, or Inguinal Adenopathy Neurological: Cranial nerves II-XII grossly intact, Neuro grossly intact Psych/Mental Status: Appropriate, Flat Affect Vital Signs Temp Pulse Resp BP Pulse Ox 37.2 C 85 17 129/34 H 97 04/27/20 07:00 04/27/20 07:00 04/27/20 07:00 04/27/20 07:00 04/27/20 07:00 Oxygen Delivery Method Mechanical Ventilator Weight: 57.5 kg Body Mass Index (BMI) 24.3 Finger Stick Blood Glucose 285 Intake and Output for Last 24 Hours 04/25/20 04/26/20 04/27/20 23:59 23:59 23:59 Intake Total 1681.87 / 1843.87 420 / 420 Output Total 1370 / 1470 400 / 400 Balance 311.87 / 373.87 Labs (Last 48 Hours) 04/25/20 04/25/20 04/25/20 23:25 23:25 23:25 WBC 7.1 RBC 4.14 L Hgb 12.0 Hct 37.7 MCV 91.1 MCH 29.0 MCHC 31.8 L RDW Std Deviation 49.3 H RDW Coeff of Meng 14.7 H Plt Count 141 L MPV 12.4 H Immature Gran % (Auto) 0.400 Neut % (Auto) 54.4 Lymph % (Auto) 28.8 Travis % (Auto) 11.6 H Eos % (Auto) 4.0 Baso % (Auto) 0.8 Absolute Neuts (auto) 3.9 Absolute Lymphs (auto) 2.04 Nucleated RBC % 0 Differential Comment PT 14.8 INR 1.2 APTT 26.0 Specimen Type Sample Site pH Bicarbonate Actual Total CO2 Base Excess O2 Saturation O2 % ABG pCO2 ABG pO2 Gianfranco Test Respiration Rate O2 Delivery Device Vent Mode Tidal Volume POC PEEP Sodium 130 L Potassium 4.7 Chloride 95 L Carbon Dioxide 21.0 Anion Gap 14 BUN 50 H Creatinine 2.94 H Estim Creat Clear Calc 10.56 Est GFR (MDRD) Af Amer 20 L Est GFR (MDRD) Non-Af 16 L BUN/Creatinine Ratio 17.0 Glucose 623 H* Serum Osmolality Lactic Acid Calcium 9.0 Total Bilirubin AST ALT Alkaline Phosphatase Troponin I < 0.015 Total Protein Albumin Globulin Albumin/Globulin Ratio TSH Urine Color Urine Clarity Urine pH Ur Specific [place] Urine Protein Urine Glucose (UA) Urine Ketones Urine Occult Blood Urine Nitrite Urine Bilirubin Urine Urobilinogen Ur Leukocyte Esterase Urine RBC Urine WBC Ur Squamous Epith Cells Urine Bacteria Urine Mucus Ur Random Sodium Urine Creatinine Urine Urea Nitrogen Phenytoin Acetone Level POC Glucose 04/25/20 04/25/20 04/25/20 23:35 23:56 23:59 WBC RBC Hgb Hct MCV MCH MCHC RDW Std Deviation RDW Coeff of Meng Plt Count MPV Immature Gran % (Auto) Neut % (Auto) Lymph % (Auto) [place] % (Auto) Eos % (Auto) Baso % (Auto) Absolute Neuts (auto) Absolute Lymphs (auto) Nucleated RBC % Differential Comment PT INR APTT Specimen Type Sample Site pH Bicarbonate Actual Total CO2 Base Excess O2 Saturation O2 % ABG pCO2 ABG pO2 Gianfranco Test Respiration Rate O2 Delivery Device Vent Mode Tidal Volume POC PEEP Sodium Potassium Chloride Carbon Dioxide Anion Gap BUN Creatinine Estim Creat Clear Calc Est GFR (MDRD) Af Amer Est GFR (MDRD) Non-Af BUN/Creatinine Ratio Glucose Serum Osmolality Lactic Acid Calcium Total Bilirubin AST ALT Alkaline Phosphatase Troponin I Total Protein Albumin Globulin Albumin/Globulin Ratio TSH Urine Color Yellow Urine Clarity Clear Urine pH 5.0 Ur Specific [place] 1.015 Urine Protein 30 H Urine Glucose (UA) 1000 H Urine Ketones Negative Urine Occult Blood 10 H Urine Nitrite Negative Urine Bilirubin Negative Urine Urobilinogen Normal Ur Leukocyte Esterase Negative Urine RBC 0 SEEN Urine WBC 0 SEEN Ur Squamous Epith Cells 0 SEEN Urine Bacteria 0 SEEN Urine Mucus 0 SEEN Ur Random Sodium Urine Creatinine Urine Urea Nitrogen Phenytoin Acetone Level NEGATIVE POC Glucose > 500 H* 04/25/20 04/26/20 04/26/20 23:59 01:15 01:31 WBC RBC Hgb Hct MCV MCH MCHC RDW Std Deviation RDW Coeff of Meng Plt Count MPV Immature Gran % (Auto) Neut % (Auto) Lymph % (Auto) [place] % (Auto) Eos % (Auto) Baso % (Auto) Absolute Neuts (auto) Absolute Lymphs (auto) Nucleated RBC % Differential Comment PT INR APTT Specimen Type ART Sample Site L Radial pH 7.44 Bicarbonate Actual 20.6 L Total CO2 22 Base Excess -4 L O2 Saturation 99 O2 % 30 ABG pCO2 30.6 L ABG pO2 115 H Gianfranco Test Positive Respiration Rate 14 O2 Delivery Device Adult Vent Vent Mode AC Tidal Volume 450 POC PEEP 5 Sodium Potassium Chloride Carbon Dioxide Anion Gap BUN Creatinine Estim Creat Clear Calc Est GFR (MDRD) Af Amer Est GFR (MDRD) Non-Af BUN/Creatinine Ratio Glucose Serum Osmolality 328 H Lactic Acid Calcium Total Bilirubin AST ALT Alkaline Phosphatase Troponin I Total Protein Albumin Globulin Albumin/Globulin Ratio TSH Urine Color Urine Clarity Urine pH Ur Specific [place] Urine Protein Urine Glucose (UA) Urine Ketones Urine Occult Blood Urine Nitrite Urine Bilirubin Urine Urobilinogen Ur Leukocyte Esterase Urine RBC Urine WBC Ur Squamous Epith Cells Urine Bacteria Urine Mucus Ur Random Sodium Urine Creatinine Urine Urea Nitrogen Phenytoin Acetone Level POC Glucose > 500 H* 04/26/20 04/26/20 04/26/20 01:52 02:10 02:18 WBC RBC Hgb Hct MCV MCH MCHC RDW Std Deviation RDW Coeff of Meng Plt Count MPV Immature Gran % (Auto) Neut % (Auto) Lymph % (Auto) [place] % (Auto) Eos % (Auto) Baso % (Auto) Absolute Neuts (auto) Absolute Lymphs (auto) Nucleated RBC % Differential Comment PT INR APTT Specimen Type Sample Site pH Bicarbonate Actual Total CO2 Base Excess O2 Saturation O2 % ABG pCO2 ABG pO2 Gianfranco Test Respiration Rate O2 Delivery Device Vent Mode Tidal Volume POC PEEP Sodium Potassium Chloride Carbon Dioxide Anion Gap BUN Creatinine Estim Creat Clear Calc Est GFR (MDRD) Af Amer Est GFR (MDRD) Non-Af BUN/Creatinine Ratio Glucose Serum Osmolality Lactic Acid 2.9 H* Calcium Total Bilirubin AST ALT Alkaline Phosphatase Troponin I Total Protein Albumin Globulin Albumin/Globulin Ratio TSH Urine Color Urine Clarity Urine pH Ur Specific [place] Urine Protein Urine Glucose (UA) Urine Ketones Urine Occult Blood Urine Nitrite Urine Bilirubin Urine Urobilinogen Ur Leukocyte Esterase Urine RBC Urine WBC Ur Squamous Epith Cells Urine Bacteria Urine Mucus Ur Random Sodium 49 Urine Creatinine 32.00 Urine Urea Nitrogen 272 Phenytoin Acetone Level POC Glucose 495 H* 04/26/20 04/26/20 04/26/20 03:03 04:00 04:55 WBC RBC Hgb Hct MCV MCH MCHC RDW Std Deviation RDW Coeff of Meng Plt Count MPV Immature Gran % (Auto) Neut % (Auto) Lymph % (Auto) [place] % (Auto) Eos % (Auto) Baso % (Auto) Absolute Neuts (auto) Absolute Lymphs (auto) Nucleated RBC % Differential Comment PT INR APTT Specimen Type Sample Site pH Bicarbonate Actual Total CO2 Base Excess O2 Saturation O2 % ABG pCO2 ABG pO2 Gianfranco Test Respiration Rate O2 Delivery Device Vent Mode Tidal Volume POC PEEP Sodium Potassium Chloride Carbon Dioxide Anion Gap BUN Creatinine Estim Creat Clear Calc Est GFR (MDRD) Af Amer Est GFR (MDRD) Non-Af BUN/Creatinine Ratio Glucose Serum Osmolality Lactic Acid Calcium Total Bilirubin AST ALT Alkaline Phosphatase Troponin I Total Protein Albumin Globulin Albumin/Globulin Ratio TSH Urine Color Urine Clarity Urine pH Ur Specific [place] Urine Protein Urine Glucose (UA) Urine Ketones Urine Occult Blood Urine Nitrite Urine Bilirubin Urine Urobilinogen Ur Leukocyte Esterase Urine RBC Urine WBC Ur Squamous Epith Cells Urine Bacteria Urine Mucus Ur Random Sodium Urine Creatinine Urine Urea Nitrogen Phenytoin Acetone Level POC Glucose 473 H* 423 H 402 H 04/26/20 04/26/20 04/26/20 05:45 05:45 05:45 WBC 6.5 RBC 3.25 L Hgb 9.3 L Hct 28.5 L MCV 87.7 MCH 28.6 MCHC 32.6 RDW Std Deviation 46.8 H RDW Coeff of Meng 14.6 Plt Count 90 L MPV 11.7 Immature Gran % (Auto) 0.300 Neut % (Auto) 78.5 H Lymph % (Auto) 9.6 L [place] % (Auto) 10.2 H Eos % (Auto) 1.1 Baso % (Auto) 0.3 Absolute Neuts (auto) 5.1 Absolute Lymphs (auto) 0.62 L Nucleated RBC % 0 Differential Comment SCANNED PT INR APTT Specimen Type Sample Site pH Bicarbonate Actual Total CO2 Base Excess O2 Saturation O2 % ABG pCO2 ABG pO2 Gianfranco Test Respiration Rate O2 Delivery Device Vent Mode Tidal Volume POC PEEP Sodium 136 Potassium 3.6 Chloride 104 Carbon Dioxide 24.0 Anion Gap 8 BUN 47 H Creatinine 2.50 H Estim Creat Clear Calc 12.41 Est GFR (MDRD) Af Amer 24 L Est GFR (MDRD) Non-Af 20 L BUN/Creatinine Ratio 18.8 Glucose 341 H Serum Osmolality Lactic Acid Calcium 8.4 L Total Bilirubin 0.90 AST 38 H ALT 31 Alkaline Phosphatase 138 H Troponin I Total Protein 6.4 Albumin 3.0 L Globulin 3.4 Albumin/Globulin Ratio 0.9 TSH Urine Color Urine Clarity Urine pH Ur Specific [place] Urine Protein Urine Glucose (UA) Urine Ketones Urine Occult Blood Urine Nitrite Urine Bilirubin Urine Urobilinogen Ur Leukocyte Esterase Urine RBC Urine WBC Ur Squamous Epith Cells Urine Bacteria Urine Mucus Ur Random Sodium Urine Creatinine Urine Urea Nitrogen Phenytoin 15.8 Acetone Level POC Glucose 04/26/20 04/26/20 04/26/20 05:45 05:56 06:25 WBC RBC Hgb Hct MCV MCH MCHC RDW Std Deviation RDW Coeff of Meng Plt Count MPV Immature Gran % (Auto) Neut % (Auto) Lymph % (Auto) [place] % (Auto) Eos % (Auto) Baso % (Auto) Absolute Neuts (auto) Absolute Lymphs (auto) Nucleated RBC % Differential Comment PT INR APTT Specimen Type Sample Site pH Bicarbonate Actual Total CO2 Base Excess O2 Saturation O2 % ABG pCO2 ABG pO2 Gianfranco Test Respiration Rate O2 Delivery Device Vent Mode Tidal Volume POC PEEP Sodium Potassium Chloride Carbon Dioxide Anion Gap BUN Creatinine Estim Creat Clear Calc Est GFR (MDRD) Af Amer Est GFR (MDRD) Non-Af BUN/Creatinine Ratio Glucose Serum Osmolality Lactic Acid 2.2 H* Calcium Total Bilirubin AST ALT Alkaline Phosphatase Troponin I Total Protein Albumin Globulin Albumin/Globulin Ratio TSH 2.04 Urine Color Urine Clarity Urine pH Ur Specific [place] Urine Protein Urine Glucose (UA) Urine Ketones Urine Occult Blood Urine Nitrite Urine Bilirubin Urine Urobilinogen Ur Leukocyte Esterase Urine RBC Urine WBC Ur Squamous Epith Cells Urine Bacteria Urine Mucus Ur Random Sodium Urine Creatinine Urine Urea Nitrogen Phenytoin Acetone Level POC Glucose 328 H 04/26/20 04/26/20 04/26/20 07:00 08:02 09:08 WBC RBC Hgb Hct MCV MCH MCHC RDW Std Deviation RDW Coeff of Meng Plt Count MPV Immature Gran % (Auto) Neut % (Auto) Lymph % (Auto) [place] % (Auto) Eos % (Auto) Baso % (Auto) Absolute Neuts (auto) Absolute Lymphs (auto) Nucleated RBC % Differential Comment PT INR APTT Specimen Type Sample Site pH Bicarbonate Actual Total CO2 Base Excess O2 Saturation O2 % ABG pCO2 ABG pO2 Gianfranco Test Respiration Rate O2 Delivery Device Vent Mode Tidal Volume POC PEEP Sodium Potassium Chloride Carbon Dioxide Anion Gap BUN Creatinine Estim Creat Clear Calc Est GFR (MDRD) Af Amer Est GFR (MDRD) Non-Af BUN/Creatinine Ratio Glucose Serum Osmolality Lactic Acid Calcium Total Bilirubin AST ALT Alkaline Phosphatase Troponin I Total Protein Albumin Globulin Albumin/Globulin Ratio TSH Urine Color Urine Clarity Urine pH Ur Specific [place] Urine Protein Urine Glucose (UA) Urine Ketones Urine Occult Blood Urine Nitrite Urine Bilirubin Urine Urobilinogen Ur Leukocyte Esterase Urine RBC Urine WBC Ur Squamous Epith Cells Urine Bacteria Urine Mucus Ur Random Sodium Urine Creatinine Urine Urea Nitrogen Phenytoin Acetone Level POC Glucose 285 H 290 H 237 H 04/26/20 04/26/20 04/26/20 10:14 11:01 12:04 WBC RBC Hgb Hct MCV MCH MCHC RDW Std Deviation RDW Coeff of Meng Plt Count MPV Immature Gran % (Auto) Neut % (Auto) Lymph % (Auto) [place] % (Auto) Eos % (Auto) Baso % (Auto) Absolute Neuts (auto) Absolute Lymphs (auto) Nucleated RBC % Differential Comment PT INR APTT Specimen Type Sample Site pH Bicarbonate Actual Total CO2 Base Excess O2 Saturation O2 % ABG pCO2 ABG pO2 Gianfranco Test Respiration Rate O2 Delivery Device Vent Mode Tidal Volume POC PEEP Sodium Potassium Chloride Carbon Dioxide Anion Gap BUN Creatinine Estim Creat Clear Calc Est GFR (MDRD) Af Amer Est GFR (MDRD) Non-Af BUN/Creatinine Ratio Glucose Serum Osmolality Lactic Acid Calcium Total Bilirubin AST ALT Alkaline Phosphatase Troponin I Total Protein Albumin Globulin Albumin/Globulin Ratio TSH Urine Color Urine Clarity Urine pH Ur Specific [place] Urine Protein Urine Glucose (UA) Urine Ketones Urine Occult Blood Urine Nitrite Urine Bilirubin Urine Urobilinogen Ur Leukocyte Esterase Urine RBC Urine WBC Ur Squamous Epith Cells Urine Bacteria Urine Mucus Ur Random Sodium Urine Creatinine Urine Urea Nitrogen Phenytoin Acetone Level POC Glucose 227 H 217 H 218 H 04/26/20 04/26/20 04/26/20 13:12 15:17 17:22 WBC RBC Hgb Hct MCV MCH MCHC RDW Std Deviation RDW Coeff of Meng Plt Count MPV Immature Gran % (Auto) Neut % (Auto) Lymph % (Auto) [place] % (Auto) Eos % (Auto) Baso % (Auto) Absolute Neuts (auto) Absolute Lymphs (auto) Nucleated RBC % Differential Comment PT INR APTT Specimen Type Sample Site pH Bicarbonate Actual Total CO2 Base Excess O2 Saturation O2 % ABG pCO2 ABG pO2 Gianfranco Test Respiration Rate O2 Delivery Device Vent Mode Tidal Volume POC PEEP Sodium Potassium Chloride Carbon Dioxide Anion Gap BUN Creatinine Estim Creat Clear Calc Est GFR (MDRD) Af Amer Est GFR (MDRD) Non-Af BUN/Creatinine Ratio Glucose Serum Osmolality Lactic Acid Calcium Total Bilirubin AST ALT Alkaline Phosphatase Troponin I Total Protein Albumin Globulin Albumin/Globulin Ratio TSH Urine Color Urine Clarity Urine pH Ur Specific [place] Urine Protein Urine Glucose (UA) Urine Ketones Urine Occult Blood Urine Nitrite Urine Bilirubin Urine Urobilinogen Ur Leukocyte Esterase Urine RBC Urine WBC Ur Squamous Epith Cells Urine Bacteria Urine Mucus Ur Random Sodium Urine Creatinine Urine Urea Nitrogen Phenytoin Acetone Level POC Glucose 176 H 160 H 123 H 04/26/20 04/26/20 04/27/20 19:18 20:55 00:07 WBC RBC Hgb Hct MCV MCH MCHC RDW Std Deviation RDW Coeff of Meng Plt Count MPV Immature Gran % (Auto) Neut % (Auto) Lymph % (Auto) [place] % (Auto) Eos % (Auto) Baso % (Auto) Absolute Neuts (auto) Absolute Lymphs (auto) Nucleated RBC % Differential Comment PT INR APTT Specimen Type Sample Site pH Bicarbonate Actual Total CO2 Base Excess O2 Saturation O2 % ABG pCO2 ABG pO2 Gianfranco Test Respiration Rate O2 Delivery Device Vent Mode Tidal Volume POC PEEP Sodium Potassium Chloride Carbon Dioxide Anion Gap BUN Creatinine Estim Creat Clear Calc Est GFR (MDRD) Af Amer Est GFR (MDRD) Non-Af BUN/Creatinine Ratio Glucose Serum Osmolality Lactic Acid Calcium Total Bilirubin AST ALT Alkaline Phosphatase Troponin I Total Protein Albumin Globulin Albumin/Globulin Ratio TSH Urine Color Urine Clarity Urine pH Ur Specific [place] Urine Protein Urine Glucose (UA) Urine Ketones Urine Occult Blood Urine Nitrite Urine Bilirubin Urine Urobilinogen Ur Leukocyte Esterase Urine RBC Urine WBC Ur Squamous Epith Cells Urine Bacteria Urine Mucus Ur Random Sodium Urine Creatinine Urine Urea Nitrogen Phenytoin Acetone Level POC Glucose 99 114 H 188 H 04/27/20 04/27/20 04/27/20 04:15 04:15 05:46 WBC 5.6 RBC 3.27 L Hgb 9.5 L Hct 28.6 L MCV 87.5 MCH 29.1 MCHC 33.2 RDW Std Deviation 48.5 H RDW Coeff of Meng 15.1 H Plt Count 78 L MPV 12.3 H Immature Gran % (Auto) 0.400 Neut % (Auto) 69.9 Lymph % (Auto) 14.6 L [place] % (Auto) 10.7 H Eos % (Auto) 3.7 Baso % (Auto) 0.7 Absolute Neuts (auto) 3.9 Absolute Lymphs (auto) 0.82 L Nucleated RBC % 0 Differential Comment PT INR APTT Specimen Type Sample Site pH Bicarbonate Actual Total CO2 Base Excess O2 Saturation O2 % ABG pCO2 ABG pO2 Gianfranco Test Respiration Rate O2 Delivery Device Vent Mode Tidal Volume POC PEEP Sodium 139 Potassium 3.6 Chloride 108 H Carbon Dioxide 24.0 Anion Gap 7 BUN 42 H Creatinine 2.08 H Estim Creat Clear Calc 14.92 Est GFR (MDRD) Af Amer 29 L Est GFR (MDRD) Non-Af 24 L BUN/Creatinine Ratio 20.2 H Glucose 251 H Serum Osmolality Lactic Acid Calcium 8.2 L Total Bilirubin 1.30 H AST 53 H ALT 34 Alkaline Phosphatase 121 H Troponin I Total Protein 5.8 L Albumin 2.5 L Globulin 3.3 Albumin/Globulin Ratio 0.8 L TSH Urine Color Urine Clarity Urine pH Ur Specific [place] Urine Protein Urine Glucose (UA) Urine Ketones Urine Occult Blood Urine Nitrite Urine Bilirubin Urine Urobilinogen Ur Leukocyte Esterase Urine RBC Urine WBC Ur Squamous Epith Cells Urine Bacteria Urine Mucus Ur Random Sodium Urine Creatinine Urine Urea Nitrogen Phenytoin Acetone Level POC Glucose 237 H Microbiology 04/26/20 07:10 Sputum, Induced/Lukens Gram Stain - Final Medical Necessity - Tobacco Use Smoking Status: Never smoker Assessment/Plan All Active Problems (Last Reviewed 04/26/20 @ 03:[address] Jin Chance MD) Status epilepticus (Acute) RECOMMENDATIONS: 1. Initiate spontaneous breathing trial. Be sure to check ABG and leak before extubation 2. Empiric antimicrobials pending culture data 3. Hold sedating medications 4. Continue antiepileptics as ordered. 5. Avoid all sedating medications. 6. Continue seizure precautions with as needed Ativan IMPRESSIONS: 1. Encephalopathy/status epilepticus Unclear precipitating etiology for new onset seizures. EEG did not show seizure activity, but did show background slowing without sedation indicating possible postictal state. Patient is now following commands. 2. Acute respiratory failure The patient was intubated in the emergency department for airway protection in the setting of #1. Ventilator requirements are minimal. There was concern for possible aspiration at the time of intubation. There was some reported vocal cord edema, so leak will need to be checked. Patient is currently on a spontaneous breathing trial. We will check an ABG at the end of the spontaneous breathing trial to ensure adequate ventilation given decreased mental status previously. 3. Acute on chronic kidney disease Improving. Baseline appears to be approximately 1.8. Likely prerenal in etiology, as creatinine has improved with volume expansion. Continue to monitor urine output for now. No current indication for renal replacement therapy. 4. Hyperglycemia The patient has a known history of diabetes mellitus and was significantly hyperglycemic at presentation. Blood glucose levels have improved on a continuous insulin infusion. There is no evidence of DKA. Patient's blood sugars appear to be well controlled on current regimen 5. Heart failure with preserved ejection fraction/pulmonary hypertension/valvular heart disease status post TAVR Continue outpatient medical management. 6. Advanced age/diabetes mellitus/hypertension/hypothyroidism Complicates care, management, recovery and prognosis. Check TSH and continue home medications as indicated. TIME: 33 minutes of critical care time, independent of procedures, was spent addressing the patient's encephalopathy, status epilepticus, acute respiratory failure, acute on chronic kidney disease, hyperglycemia, diastolic heart failure, review of all data and collaboration with the care team. (5:20 AM to 6:20 AM) [id number] Critical care first hour
[2020-04-27 08:01] LABS: Allen Test Positive; Base Excess -1 mmol/L (-2 to +2); Bicarbonate 23.4 mmol/L (22-26); Blood Gas Specimen Type ART; FI02 21; Mode CPAP/PS; O2 Delivery Device CPAP; PEEP 5; PO2 86 mmHG (75-100); PS 5; SITE R Radial; SO2 97 % (95-99); Total Carbon Dioxide 25 mmol/L; pCO2 34.5 mmHg (35-45); pH 7.44 (7.35-7.45)
[2020-04-27] MEDS: Chlorhexidine 15 ML PO ×2 (08:57→20:54)
[2020-04-27] MEDS: Heparin Injection (Vial) 5,000 UNIT/ML VIAL 5000 UNIT SC (08:58)
[2020-04-27] MEDS: Aspirin 81 MG TAB.CHEW GT (08:58)
[2020-04-27] MEDS: Lansoprazole 15 MG Capsule.DR 30 MG GT (08:59)
[2020-04-27] MEDS: Clopidogrel Bisulfate 75 MG Tablet GT (08:59)
[2020-04-27] MEDS: Levothyroxine 100 MCG Tablet GT (08:59)
--- NOTE | 2020-04-27 10:21 | PCM.PN.HOSP ---
Patient Problems: Active and Suspected Problems (Last Reviewed 04/26/20 @ 03:[address] Jin Chance MD) Status epilepticus (Acute) Subjective: Currently on spontaneous breathing trial. Sedation is off. She does respond to voice though is little bit tired. Vitals/I&O's: Vital Signs Temp Pulse Resp BP Pulse Ox 99.1 F 90 18 139/37 H 98 04/27/20 10:00 04/27/20 10:00 04/27/20 10:00 04/27/20 10:00 04/27/20 10:00 Oxygen Delivery Method Mechanical Ventilator Weight: 126 lb 12.253 oz Body Mass Index (BMI) 24.3 Finger Stick Blood Glucose 285 Intake and Output for Last 24 Hours 04/25/20 04/26/20 04/27/20 23:59 23:59 23:59 Intake Total 1681.87 / 1843.87 420 / 420 Output Total 1370 / 1470 500 / 500 Balance 311.87 / 373.87 -80 / -80 General: Alert, Cooperative, No apparent distress HEENT: Atraumatic, PERRLA, EOMI, Normocephalic Oral: Moist Mucosa Neck: Supple, No JVD Lungs: Clear to auscultation, Normal air movement, No rhonchi, No wheeze, No rales Cardiovascular: Regular rate, Regular Rhythm, Normal S1, Normal S2, No murmurs Abdomen: Soft, Non Tender, Non-Distended, No Hepato-splenomegaly Extremities: Capillary Refill Less than 3 Seconds, Edema Skin: No rashes, No breakdown Neurological: Neuro grossly intact, Sensory exam intact to light touch and pain Psych/Mental Status: Appropriate Microbiology Past 72 Hours 04/26/20 07:10 Sputum, Induced/Lukens Gram Stain - Final Laboratory Results 04/26/20 09:08: POC Glucose 237 H 04/26/20 10:14: POC Glucose 227 H 04/26/20 11:01: POC Glucose 217 H 04/26/20 12:04: POC Glucose 218 H 04/26/20 13:12: POC Glucose 176 H 04/26/20 15:17: POC Glucose 160 H 04/26/20 17:22: POC Glucose 123 H 04/26/20 19:18: POC Glucose 99 04/26/20 20:55: POC Glucose 114 H 04/27/20 00:07: POC Glucose 188 H 04/27/20 04:15: WBC 5.6, RBC 3.27 L, Hgb 9.5 L, Hct 28.6 L, MCV 87.5, MCH 29.1, MCHC 33.2, RDW Std Deviation 48.5 H, RDW Coeff of Meng 15.1 H, Plt Count 78 L, MPV 12.3 H, Immature Gran % (Auto) 0.400, Neut % (Auto) 69.9, Lymph % (Auto) 14.6 L, [place] % (Auto) 10.7 H, Eos % (Auto) 3.7, Baso % (Auto) 0.7, Absolute Neuts (auto) 3.9, Absolute Lymphs (auto) 0.82 L, Nucleated RBC % 0 04/27/20 04:15: Sodium 139, Potassium 3.6, Chloride 108 H, Carbon Dioxide 24.0, Anion Gap 7, BUN 42 H, Creatinine 2.08 H, Estim Creat Clear Calc 14.92, Est GFR (MDRD) Af Amer 29 L, Est GFR (MDRD) Non-Af 24 L, BUN/Creatinine Ratio 20.2 H, Glucose 251 H, Calcium 8.2 L, Total Bilirubin 1.30 H, AST 53 H, ALT 34, Alkaline Phosphatase 121 H, Total Protein 5.8 L, Albumin 2.5 L, Globulin 3.3, Albumin/Globulin Ratio 0.8 L 04/27/20 05:46: POC Glucose 237 H 04/27/20 07:54: Specimen Type ART, Sample Site R Radial, pH 7.44, Bicarbonate Actual 23.4, Total CO2 25, Base Excess -1, O2 Saturation 97, O2 % 21, ABG pCO2 34.5 L, ABG pO2 86, Gianfranco Test Positive, O2 Delivery Device CPAP, Vent Mode CPAP/PS, POC PEEP 5, POC Pressure Suppt 5 Current Medications Acetaminophen (Acetaminophen 650 Mg Suppository) 650 mg RECTAL Q4H PRN PRN PRN Reason: Pain Score 1-10/Temp > 100.7 F Aspirin (Aspirin 81 Mg Tab.Chew) 81 mg GT DAILY [facility] Last Admin: 04/27/20 08:58 Dose: 81 mg Documented by: Atorvastatin Calcium (Atorvastatin Calcium 20 Mg Tablet) 20 mg GT QHS [facility] Last Admin: 04/26/20 20:13 Dose: 20 mg Documented by: Chlorhexidine Gluconate (Chlorhexidine 15 Ml) 15 ml PO BID [facility] Last Admin: 04/27/20 08:57 Dose: 15 ml Documented by: Clopidogrel Bisulfate (Clopidogrel Bisulfate 75 Mg Tablet) 75 mg GT DAILY [facility] Last Admin: 04/27/20 08:59 Dose: 75 mg Documented by: Dextrose (Dextrose 50%-Water 25 Gm/50 Ml Disp.Syrin) 0 gm IV X1 PRN; Protocol PRN Reason: Hypoglycemia Protocol Glucagon (Glucagon 1 Mg/Ml Syringe) 1 mg IM .X1 PRN PRN Reason: Hypoglycemia Sodium Chloride () 250 mls @ 15 mls/hr IV .[id number] PRN PRN Reason: Saline Flush Sodium Chloride () 250 mls @ 15 mls/hr IV .[id number] PRN PRN Reason: Additional IVPB Infusion Piperacillin Sod/Tazobactam (Sod 3.375 gm/ Sodium Chloride) 50 mls @ 12.5 mls/hr IV Q12 [facility] Last Admin: 04/27/20 08:59 Dose: 12.5 mls/hr Documented by: Enteral Nutritional Formula (Vital Af 1.2 Alberto Liquid) 1,000 mls @ 50 mls/hr GT .Q20H [facility] Last Admin: 04/27/20 05:42 Dose: Not Given Documented by: Insulin Human Lispro (Insulin Lispro 100 Unit/Ml Insuln.Pen) 0 unit SC Q6 [facility]; Protocol Last Admin: 04/27/20 05:53 Dose: 3 units Documented by: Lansoprazole (Lansoprazole 15 Mg Capsule.) 30 mg GT DAILY [facility] Last Admin: 04/27/20 08:59 Dose: 30 mg Documented by: Levothyroxine Sodium (Levothyroxine 100 Mcg Tablet) 100 mcg GT DAILY [facility] Last Admin: 04/27/20 08:59 Dose: 100 mcg Documented by: Lorazepam (Lorazepam 2 Mg/Ml Syringe) 2 mg IV PRN PRN PRN Reason: SEIZURES Ondansetron HCl (Ondansetron 4 Mg/2 Ml Vial) 4 mg IV Q8H PRN PRN PRN Reason: NAUSEA/VOMITING Phenytoin Sodium (Phenytoin Na 100 Mg/2 Ml Vial) 100 mg IV Q8 [facility] Last Admin: 12/07/20 05:43 Dose: 100 mg Documented by: Sodium Chloride (0.9% Saline Lock 10 Ml Syringe) 10 - 40 ml IV UD PRN PRN Reason: SALINE FLUSH Last Admin: 04/27/20 08:47 Dose: 10 ml Documented by: STROKE Vital Signs/Narrative: Vital Signs Temp Pulse Resp BP Pulse Ox 04/27/20 10:00 99.1 F 90 18 139/37 H 98 04/27/20 09:00 99.0 F 87 16 150/39 H 98 04/27/20 08:00 99.0 F 72 18 145/49 H 98 04/27/20 07:00 99.0 F 83 23 H 129/34 H 100 04/27/20 06:44 83 12 91 Medical Necessity - Tobacco Use Smoking Status: Never smoker Assessment/Plan All Active Problems (Last Reviewed 04/26/20 @ 03:[address] Jin Chance MD) Status epilepticus (Acute) 1. Status epilepticus with encephalopathy likely secondary to her seizures -As to the etiology of her new onset seizures. -EEG did not show any she is seizure activity -At around 2 AM or 4 AM today she became much more alert. Sedation has been completely taken off and she is doing well on the vent -CT of the brain was unremarkable -Continue with Dilantin -She was intubated for airway protection but she is doing well without sedation currently, she is on Zosyn as there is a concern for possible aspiration upon intubation, will continue until culture data comes back negative 2. KELLY on CKD 3 -Creatinine on admission was 2.94 down to 2.08 today -Baseline creatinine is around 1.5 -Continue with IV fluids -Nephrology is on board 3. DM 2 -On admission her blood sugar was elevated to 623 -Her insulin drip has been discontinued and she has just on sliding scale currently -We will hold her oral hypoglycemics 4. Cirrhosis -Stable, not a significant amount of ascites currently -We will hold her Lasix and Aldactone secondary to her KELLY 5. Chronic diastolic CHF/HTN/HLD -Blood pressures are stable -We will hold her Lasix and her losartan secondary to her KELLY -If she is extubated and taking p.o. can restart her metoprolol -Continue with Lipitor 6. GERD -Stable -Continue with EPI 7. Hypothyroidism -Stable -Continue with Synthroid DVT: Heparin Inpatient E&M: [id number] Subs Hosp L2
--- NOTE | 2020-04-27 11:10 | NURSING ---
Patient extubated today at 10:25 with RT and this RN. Patient on 2L nasal cannula.O2sat 100%. Patient alert x2. Family updated over the phone by RN and Dr. Alonzo. All questions answered. Patient spoke with daughter via phone also. Vital signs WNL, no pain per patient. Will continue to monitor in ICU s/p extubation.
--- NOTE | 2020-04-27 11:15 | CASEMGMT ---
RN CM Assessment Note Introduced role of CM to patient's daughter. Demographics, PCP verified. The patient lives with her who has alzheimer's and is his main caregiver. Daughter states she and her siblings will be available to stay with them when patient comes home, and they are currently looking after their father while pt is in the hospital. Pt had home care through [facility] after her interventional cardiology procedure in February 2020. Presentation: seizure Diagnosis: Status epilepticus PCP: Dr. Clemens Specialists: Dr. Maxwell, nephrology; Dr. Hodges, cardiology; Dr. Anaya, hematology; Dr. Davis, interventional cardiology @ [facility] Insurance: [facility] Preferred Pharmacy: [facility] Prescription Benefit: yes LNOK: . Daughter is also DPOA and will be person to contact. Living Arrangements: Lives in two story home with first floor set up. Per daughter Farida, patient is independent with ADL and IADL's. Daughters will be able to stay with patient on dc and assist with her needs and her 's. Tranportation: family drives patient DME: uses walker, shower chair. no oxygen use HHC: [facility] [place] PH: FX: -call to HHC. Patient is active with SN,PT and can resume on discharge. Clinical and resume HHC order faxed to the Intake Dept. SNF: no Patient DC Goals: Home DC Plan:anticipate Home on discharge. Resume HHC on discharge. CM available for discharge planning coordination. Contact CM for any concerns/needs that may arise. Hunter SHUKLA RN ACM
--- NOTE | 2020-04-27 11:25 | CON.PCM_ITS ---
Consultation - Renal 04/27/20 PCP/ Referring MD: Requesting physician: [] Primary care physician: Dr. 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 She has a hx of Acute on CKD due to contrast nephropathy s/p heart cath and TAVR at [facility] in March 09, 2020. She was admitted to ICU on 04/26/20 for seizure like activity s/p intubation. She is currently extubated. She is responding appropriately. Denied chest pain, shortness of breath. She does not recall details of what happened at home. No prior history of seizures. Noted tremors at home. She presented with creatinine of 2.9 on 04/25 improved to baseline creatinine of 2.0 today after diuretics and ARB discontinued. Urine output good. She is on spironolactone, lasix at home for history of CHF, severe fluid overload that has improved significantly following TAVR. She has a history of hyponatremia due to volume expansion in the past. Sodium normal today at 139, improved from 130 on admit.[] - Allergies Allergies: Allergies No Known Allergies Allergy (Verified 04/03/20 08:15) - Current Medications Current Medications: Current Medications Acetaminophen (Acetaminophen 650 Mg Suppository) 650 mg RECTAL Q4H PRN PRN PRN Reason: Pain Score 1-10/Temp > 100.7 F Aspirin (Aspirin 81 Mg Tab.Chew) 81 mg GT DAILY [facility] Last Admin: 04/27/20 08:58 Dose: 81 mg Documented by: Atorvastatin Calcium (Atorvastatin Calcium 20 Mg Tablet) 20 mg GT QHS [facility] Last Admin: 04/26/20 20:13 Dose: 20 mg Documented by: Chlorhexidine Gluconate (Chlorhexidine 15 Ml) 15 ml PO BID [facility] Last Admin: 04/27/20 08:57 Dose: 15 ml Documented by: Clopidogrel Bisulfate (Clopidogrel Bisulfate 75 Mg Tablet) 75 mg GT DAILY [facility] Last Admin: 04/27/20 08:59 Dose: 75 mg Documented by: Dextrose (Dextrose 50%-Water 25 Gm/50 Ml Disp.Syrin) 0 gm IV X1 PRN; Protocol PRN Reason: Hypoglycemia Protocol Glucagon (Glucagon 1 Mg/Ml Syringe) 1 mg IM .X1 PRN PRN Reason: Hypoglycemia Sodium Chloride () 250 mls @ 15 mls/hr IV .[id number] PRN PRN Reason: Saline Flush Sodium Chloride () 250 mls @ 15 mls/hr IV .[id number] PRN PRN Reason: Additional IVPB Infusion Piperacillin Sod/Tazobactam (Sod 3.375 gm/ Sodium Chloride) 50 mls @ 12.5 mls/hr IV Q12 [facility] Last Admin: 04/27/20 08:59 Dose: 12.5 mls/hr Documented by: Enteral Nutritional Formula (Vital Af 1.2 Alberto Liquid) 1,000 mls @ 50 mls/hr GT .Q20H [facility] Last Admin: 04/27/20 05:42 Dose: Not Given Documented by: Insulin Human Lispro (Insulin Lispro 100 Unit/Ml Insuln.Pen) 0 unit SC Q6 [facility]; Protocol Last Admin: 04/27/20 11:20 Dose: 2 units Documented by: Lansoprazole (Lansoprazole 15 Mg Capsule.) 30 mg GT DAILY [facility] Last Admin: 04/27/20 08:59 Dose: 30 mg Documented by: Levothyroxine Sodium (Levothyroxine 100 Mcg Tablet) 100 mcg GT DAILY [facility] Last Admin: 04/27/20 08:59 Dose: 100 mcg Documented by: Lorazepam (Lorazepam 2 Mg/Ml Syringe) 2 mg IV PRN PRN PRN Reason: SEIZURES Ondansetron HCl (Ondansetron 4 Mg/2 Ml Vial) 4 mg IV Q8H PRN PRN PRN Reason: NAUSEA/VOMITING Phenytoin Sodium (Phenytoin Na 100 Mg/2 Ml Vial) 100 mg IV Q8 [facility] Last Admin: 04/27/20 05:43 Dose: 100 mg Documented by: Sodium Chloride (0.9% Saline Lock 10 Ml Syringe) 10 - 40 ml IV UD PRN PRN Reason: SALINE FLUSH Last Admin: 04/27/20 08:47 Dose: 10 ml Documented by: - Past Medical History Past Medical History (Chronic Problems): Chronic Problems (Last Reviewed 04/26/20 @ 03:[address] Jin Chance MD) Lower extremity edema (Chronic) Ascites (Chronic) Chronic diastolic (congestive) heart failure (Chronic) Nonrheumatic aortic (valve) stenosis (Chronic) History of aortic valve replacement with bioprosthetic valve (Chronic 03/09/20) TAVR w/ Medtronic Evolut Pro bioprosthetic valve 23 mm 03/09/2020 Nonrheumatic mitral valve stenosis with insufficiency (Chronic) Left bundle branch block (LBBB) (Chronic) post-op TAVR transient LBBB w/ 1 degree AV block Cirrhosis of liver with ascites (Chronic) Secondary pulmonary arterial hypertension (Chronic) Essential hypertension (Chronic) Hyperlipidemia (Chronic) Chronic renal disease, stage 3, moderately decreased glomerular filtration rate (GFR) between 30-59 mL/min/1.73 square meter (Chronic) Thrombocytopenia (Chronic) Iron deficiency anemia (Chronic) Anemia of chronic renal failure, stage 3 (moderate) (Chronic) - Social History Smoking Status: Never smoker - Family History Maternal Family History: Family History (Last Reviewed 04/26/20 @ 03:[address] Jin Chance MD) Brother Myocardial infarction, Onset Age: 50 Father Myocardial infarction, Onset Age: 60 Review of Systems Constitutional: Reports: Weakness - chronic. Denies: Anorexia, Chills, Fever Cardiovascular: Reports: Edema. Denies: Chest Pain Respiratory: Denies: Cough, Shortness of Breath Gastrointestinal: Denies: Nausea, Vomiting Genitourinary: Denies: Dysuria Skin: Denies: Rash Neurological: Reports: Tremor, Seizures Psychiatric: Denies: Anxiety, Depression Hematologic/ Lymphatic: Reports: Anemia Patient Problems: Active and Suspected Problems (Last Reviewed 04/26/20 @ 03:[address] Jin Chance MD) Status epilepticus (Acute) - Physical Exam Vitals/I&O's: Vital Signs Temp Pulse Resp BP Pulse Ox 99.1 F 85 18 113/55 L 100 04/27/20 10:00 04/27/20 10:47 04/27/20 10:47 04/27/20 10:47 04/27/20 10:47 Oxygen Flow Rate (L/min) 2 Oxygen Delivery Method Nasal Cannula Weight: 57.5 kg Body Mass Index (BMI) 24.3 Finger Stick Blood Glucose 285 Intake and Output for Last 24 Hours 04/25/20 04/26/20 04/27/20 23:59 23:59 23:59 Intake Total 1681.87 / 1843.87 420 / 420 Output Total 1370 / 1470 600 / 600 Balance 311.87 / 373.87 -180 / -180 General: Alert, Oriented x3, Cooperative, No apparent distress, - - weak, debilitated, recently extubated this morning Oral: Dry Mucosa Neck: Supple Lungs: Rhonchi Cardiovascular: Regular rate, Murmur, No rub noted Abdomen: Bowel Sounds Present, Soft, Non Tender, Non-Distended Extremities: Edema - mild, sig improved from baseline Neurological: - - no tremor Psych/Mental Status: Appropriate, Alert and oriented to time, place, person, mood and affect Microbiology Past 72 Hours 04/26/20 13:15 Sputum, Induced/Lukens Respiratory Culture - Preliminary Proteus sp. 04/26/20 07:10 Sputum, Induced/Lukens Gram Stain - Final 04/26/20 07:10 Sputum, Induced/Lukens Respiratory Culture - Preliminary Proteus sp. 04/25/20 23:35 Urine Catheter - Catheter Urine Culture - Preliminary Culture exhibits no growth. Laboratory Results 04/26/20 09:08: POC Glucose 237 H 04/26/20 12:04: POC Glucose 218 H 04/26/20 13:12: POC Glucose 176 H 04/26/20 15:17: POC Glucose 160 H 04/26/20 17:22: POC Glucose 123 H 04/26/20 19:18: POC Glucose 99 04/26/20 20:55: POC Glucose 114 H 04/27/20 00:07: POC Glucose 188 H 04/27/20 04:15: WBC 5.6, RBC 3.27 L, Hgb 9.5 L, Hct 28.6 L, MCV 87.5, MCH 29.1, MCHC 33.2, RDW Std Deviation 48.5 H, RDW Coeff of Meng 15.1 H, Plt Count 78 L, MPV 12.3 H, Immature Gran % (Auto) 0.400, Neut % (Auto) 69.9, Lymph % (Auto) 14.6 L, [place] % (Auto) 10.7 H, Eos % (Auto) 3.7, Baso % (Auto) 0.7, Absolute Neuts (auto) 3.9, Absolute Lymphs (auto) 0.82 L, Nucleated RBC % 0 04/27/20 04:15: Sodium 139, Potassium 3.6, Chloride 108 H, Carbon Dioxide 24.0, Anion Gap 7, BUN 42 H, Creatinine 2.08 H, Estim Creat Clear Calc 14.92, Est GFR (MDRD) Af Amer 29 L, Est GFR (MDRD) Non-Af 24 L, BUN/Creatinine Ratio 20.2 H, Glucose 251 H, Calcium 8.2 L, Total Bilirubin 1.30 H, AST 53 H, ALT 34, Alkaline Phosphatase 121 H, Total Protein 5.8 L, Albumin 2.5 L, Globulin 3.3, Albumin/Globulin Ratio 0.8 L 04/27/20 05:46: POC Glucose 237 H 04/27/20 07:54: Specimen Type ART, Sample Site R Radial, pH 7.44, Bicarbonate Actual 23.4, Total CO2 25, Base Excess -1, O2 Saturation 97, O2 % 21, ABG pCO2 34.5 L, ABG pO2 86, Gianfranco Test Positive, O2 Delivery Device CPAP, Vent Mode CPAP/PS, POC PEEP 5, POC Pressure Suppt 5 Current Medications Acetaminophen (Acetaminophen 650 Mg Suppository) 650 mg RECTAL Q4H PRN PRN PRN Reason: Pain Score 1-10/Temp > 100.7 F Aspirin (Aspirin 81 Mg Tab.Chew) 81 mg GT DAILY [facility] Last Admin: 04/27/20 08:58 Dose: 81 mg Documented by: Atorvastatin Calcium (Atorvastatin Calcium 20 Mg Tablet) 20 mg GT QHS [facility] Last Admin: 04/26/20 20:13 Dose: 20 mg Documented by: Chlorhexidine Gluconate (Chlorhexidine 15 Ml) 15 ml PO BID [facility] Last Admin: 04/27/20 08:57 Dose: 15 ml Documented by: Clopidogrel Bisulfate (Clopidogrel Bisulfate 75 Mg Tablet) 75 mg GT DAILY [facility] Last Admin: 04/27/20 08:59 Dose: 75 mg Documented by: Dextrose (Dextrose 50%-Water 25 Gm/50 Ml Disp.Syrin) 0 gm IV X1 PRN; Protocol PRN Reason: Hypoglycemia Protocol Glucagon (Glucagon 1 Mg/Ml Syringe) 1 mg IM .X1 PRN PRN Reason: Hypoglycemia Sodium Chloride () 250 mls @ 15 mls/hr IV .[id number] PRN PRN Reason: Saline Flush Sodium Chloride () 250 mls @ 15 mls/hr IV .[id number] PRN PRN Reason: Additional IVPB Infusion Piperacillin Sod/Tazobactam (Sod 3.375 gm/ Sodium Chloride) 50 mls @ 12.5 mls/hr IV Q12 [facility] Last Admin: 04/27/20 08:59 Dose: 12.5 mls/hr Documented by: Enteral Nutritional Formula (Vital Af 1.2 Alberto Liquid) 1,000 mls @ 50 mls/hr GT .Q20H [facility] Last Admin: 04/27/20 05:42 Dose: Not Given Documented by: Insulin Human Lispro (Insulin Lispro 100 Unit/Ml Insuln.Pen) 0 unit SC Q6 [facility]; Protocol Last Admin: 04/27/20 11:20 Dose: 2 units Documented by: Lansoprazole (Lansoprazole 15 Mg Capsule.) 30 mg GT DAILY [facility] Last Admin: 04/27/20 08:59 Dose: 30 mg Documented by: Levothyroxine Sodium (Levothyroxine 100 Mcg Tablet) 100 mcg GT DAILY [facility] Last Admin: 04/27/20 08:59 Dose: 100 mcg Documented by: Lorazepam (Lorazepam 2 Mg/Ml Syringe) 2 mg IV PRN PRN PRN Reason: SEIZURES Ondansetron HCl (Ondansetron 4 Mg/2 Ml Vial) 4 mg IV Q8H PRN PRN PRN Reason: NAUSEA/VOMITING Phenytoin Sodium (Phenytoin Na 100 Mg/2 Ml Vial) 100 mg IV Q8 [facility] Last Admin: 04/27/20 05:43 Dose: 100 mg Documented by: Sodium Chloride (0.9% Saline Lock 10 Ml Syringe) 10 - 40 ml IV UD PRN PRN Reason: SALINE FLUSH Last Admin: 04/27/20 08:47 Dose: 10 ml Documented by: Assessment/Plan All Active Problems (Last Reviewed 04/26/20 @ 03:[address] Jin Chance MD) Status epilepticus (Acute) 1. Acute on CKD stage 4 due to prerenal event, baseline creatinine 1.7-2.0 due to underlying DMN. Creatinine 2.9 on admit improved to 2.0 after diuretics, ARB discontinued. UOP good. Continue to hold diuretics for now. Avoid iv contrast, nephrotoxins. 2. Status epilepticus 3. Acute resp failure s/p extubation today 4. DM2 elevated sugars, primary service mgmt 5. HTN stable 6. Aortic stenosis s/p TAVR 03/09/20 7. CHF volume status stable. 8. Hyponatremia with elevated sugars pseudohyponatremia. Hx low sodium from volume expansion. Volume status stable. 9. UTI with proteus on renal dose zosyn 10. Thrombocytopenia, monitor. primary service mgmt
[2020-04-27 11:31] LABS: Bedside Glucose 220 mg/dL (70-110)
[2020-04-27 22:06] LABS: Bedside Glucose 130 mg/dL (70-110)
[2020-04-28] VITALS (20 sets, daily range): BP systolic 104–171; BP diastolic 24–56; PULSE 63–115; RESP 12–21; TEMP 36.1–36.8; O2SAT 98–100
[2020-04-28 00:26] LABS: Bedside Glucose 120 mg/dL (70-110)
--- NOTE | 2020-04-28 04:56 | NURSING ---
pt having some periods of po dropping down to 6os and then 02 reappilied at 2lnc
[2020-04-28 05:40] LABS: Bedside Glucose 171 mg/dL (70-110)
[2020-04-28] MEDS: Insulin Lispro 100 UNIT/ML INSULN.PEN SC ×2 (05:40→12:30)
[2020-04-28] MEDS: Phenytoin Na 100 MG/2 ML Vial IV ×2 (05:40→14:30)
[2020-04-28] MEDS: 0.9% Saline Lock 10 ML Syringe IV (05:40)
[2020-04-28 05:46] LABS: Anion Gap 4 (5-15); BUN 37 mg/dL (7-18); BUN/Creat Ratio 20.3 RATIO (10-20); Calcium,Total 8.5 mg/dL (8.5-10.1); Chloride 110 mmol/L (98-107); Creatinine, Serum 1.82 mg/dL (0.55-1.02); EST Glomerular Filtration Rate 28 mL/min (>60); Est Glom Filt Rate - Afr Amer 34 mL/min (>60); Estimated Creatinine Clearance 17.05 ml/min; Glucose 169 mg/dL (74-106); Potassium 3.6 mmol/L (3.5-5.1); Sodium Level 142 mmol/L (136-145)
[2020-04-28 05:49] LABS: Absolute Neutrophil Count 2.9 X10^3/uL (2.0-7.7); Basophil# 0.06 X10^3/uL; Basophil% 1.2 % (0-1); Eosinophil# 0.39 X10^3/uL; Eosinophils% 8.1 % (0-5); Hematocrit 34.2 % (37-47); Hemoglobin 10.6 g/dL (12.0-15.0); Lymphocyte % 14.5 % (19-41); Mean Corpuscular Hgb 28.3 pg (27.0-32.0); Mean Corpuscular Volume 91.2 fL (81-99); Mean Platelet Vol. 12.3 fl (6.2-12.0); Monocyte# 0.75 X10^3/uL; Monocyte% 15.6 % (0-10); NRBC Flagged by Analyzer 0 % (0-5); Neutrophil # 2.91 X10^3/uL (2.7-7.7); Neutrophil % 60.4 % (47-70); POSITIVE COUNT YES; Platelet Count 87 K/mm3 (150-450); RBC Distribution Width CV 15.3 % (11.6-14.6); RBC Distribution Width SD 50.9 fl (35.1-43.9); Red Blood Count 3.75 M/mm3 (4.2-5.4); White Blood Count 4.8 K/mm3 (4.4-11.0)
--- NOTE | 2020-04-28 07:50 | PN_ITS ---
Subjective: Patient did well overnight. No acute issues were reported. No seizure activity has been noted. Patient did require minimal nasal cannula oxygen while sleeping. Patient is not reporting any pain or shortness of breath this morning. General: Alert, Oriented x3, Cooperative, No apparent distress, - - Thin build. No conversational dyspnea. HEENT: Atraumatic, PERRLA, EOMI, Normocephalic, - - No scleral icterus or injection noted Oral: No Gingival or Mucosal Lesions/ Ulcerations, Dry Mucosa Neck: Supple, No JVD, No Nodes, Trachea Midline Lungs: Clear to auscultation, Normal air movement, No rhonchi, No wheeze, No ra les Cardiovascular: Regular rate, Regular Rhythm, Normal S1, Normal S2, Murmur - Grade 3 out of 6 systolic ejection murmur at the right sternal border, No rub noted, No Gallop Abdomen: Bowel Sounds Present, Soft, Non Tender, Non-Distended Extremities: No clubbing, No cyanosis, Edema - Trace lower extremity Skin: - - No change compared to previous Musculoskeletal: No Tenderness to Palpation of Joints or Extremities Lymphatic: No Cervical, Supraclavicular, or Inguinal Adenopathy Neurological: Cranial nerves II-XII grossly intact, Neuro grossly intact, Motor Exam 5/5 strength throughout Psych/Mental Status: Alert and oriented to time, place, person, mood and affect Vital Signs Temp Pulse Resp BP Pulse Ox 36.3 C L 64 16 151/36 H 100 04/28/20 07:00 04/28/20 07:00 04/28/20 07:00 04/28/20 07:00 04/28/20 07:00 Oxygen Flow Rate (L/min) 2 Oxygen Delivery Method Nasal Cannula Weight: 57.8 kg Body Mass Index (BMI) 24.3 Finger Stick Blood Glucose 285 Intake and Output for Last 24 Hours 04/26/20 04/27/20 04/28/20 23:59 23:59 23:59 Intake Total 1681.87 / 1843.87 470 / 470 50 / 50 Output Total 1370 / 1470 1000 / 1350 650 / 650 Balance 311.87 / 373.87 -530 / -880 -600 / -600 Labs (Last 48 Hours) 04/26/20 04/26/20 04/26/20 08:02 09:08 10:14 WBC RBC Hgb Hct MCV MCH MCHC RDW Std Deviation RDW Coeff of Meng Plt Count MPV Immature Gran % (Auto) Neut % (Auto) Lymph % (Auto) Brooke % (Auto) Eos % (Auto) Baso % (Auto) Absolute Neuts (auto) Absolute Lymphs (auto) Nucleated RBC % Specimen Type Sample Site pH Bicarbonate Actual Total CO2 Base Excess O2 Saturation O2 % ABG pCO2 ABG pO2 Gianfranco Test O2 Delivery Device Vent Mode POC PEEP POC Pressure Suppt Sodium Potassium Chloride Carbon Dioxide Anion Gap BUN Creatinine Estim Creat Clear Calc Est GFR (MDRD) Af Amer Est GFR (MDRD) Non-Af BUN/Creatinine Ratio Glucose Calcium Total Bilirubin AST ALT Alkaline Phosphatase Total Protein Albumin Globulin Albumin/Globulin Ratio POC Glucose 290 H 237 H 227 H 04/26/20 04/26/20 04/26/20 11:01 12:04 13:12 WBC RBC Hgb Hct MCV MCH MCHC RDW Std Deviation RDW Coeff of Meng Plt Count MPV Immature Gran % (Auto) Neut % (Auto) Lymph % (Auto) Brooke % (Auto) Eos % (Auto) Baso % (Auto) Absolute Neuts (auto) Absolute Lymphs (auto) Nucleated RBC % Specimen Type Sample Site pH Bicarbonate Actual Total CO2 Base Excess O2 Saturation O2 % ABG pCO2 ABG pO2 Gianfranco Test O2 Delivery Device Vent Mode POC PEEP POC Pressure Suppt Sodium Potassium Chloride Carbon Dioxide Anion Gap BUN Creatinine Estim Creat Clear Calc Est GFR (MDRD) Af Amer Est GFR (MDRD) Non-Af BUN/Creatinine Ratio Glucose Calcium Total Bilirubin AST ALT Alkaline Phosphatase Total Protein Albumin Globulin Albumin/Globulin Ratio POC Glucose 217 H 218 H 176 H 04/26/20 04/26/20 04/26/20 15:17 17:22 19:18 WBC RBC Hgb Hct MCV MCH MCHC RDW Std Deviation RDW Coeff of Meng Plt Count MPV Immature Gran % (Auto) Neut % (Auto) Lymph % (Auto) Brooke % (Auto) Eos % (Auto) Baso % (Auto) Absolute Neuts (auto) Absolute Lymphs (auto) Nucleated RBC % Specimen Type Sample Site pH Bicarbonate Actual Total CO2 Base Excess O2 Saturation O2 % ABG pCO2 ABG pO2 Gianfranco Test O2 Delivery Device Vent Mode POC PEEP POC Pressure Suppt Sodium Potassium Chloride Carbon Dioxide Anion Gap BUN Creatinine Estim Creat Clear Calc Est GFR (MDRD) Af Amer Est GFR (MDRD) Non-Af BUN/Creatinine Ratio Glucose Calcium Total Bilirubin AST ALT Alkaline Phosphatase Total Protein Albumin Globulin Albumin/Globulin Ratio POC Glucose 160 H 123 H 99 04/26/20 04/27/20 04/27/20 20:55 00:07 04:15 WBC 5.6 RBC 3.27 L Hgb 9.5 L Hct 28.6 L MCV 87.5 MCH 29.1 MCHC 33.2 RDW Std Deviation 48.5 H RDW Coeff of Meng 15.1 H Plt Count 78 L MPV 12.3 H Immature Gran % (Auto) 0.400 Neut % (Auto) 69.9 Lymph % (Auto) 14.6 L Brooke % (Auto) 10.7 H Eos % (Auto) 3.7 Baso % (Auto) 0.7 Absolute Neuts (auto) 3.9 Absolute Lymphs (auto) 0.82 L Nucleated RBC % 0 Specimen Type Sample Site pH Bicarbonate Actual Total CO2 Base Excess O2 Saturation O2 % ABG pCO2 ABG pO2 Gianfranco Test O2 Delivery Device Vent Mode POC PEEP POC Pressure Suppt Sodium Potassium Chloride Carbon Dioxide Anion Gap BUN Creatinine Estim Creat Clear Calc Est GFR (MDRD) Af Amer Est GFR (MDRD) Non-Af BUN/Creatinine Ratio Glucose Calcium Total Bilirubin AST ALT Alkaline Phosphatase Total Protein Albumin Globulin Albumin/Globulin Ratio POC Glucose 114 H 188 H 04/27/20 04/27/20 04/27/20 04:15 05:46 07:54 WBC RBC Hgb Hct MCV MCH MCHC RDW Std Deviation RDW Coeff of Meng Plt Count MPV Immature Gran % (Auto) Neut % (Auto) Lymph % (Auto) Brooke % (Auto) Eos % (Auto) Baso % (Auto) Absolute Neuts (auto) Absolute Lymphs (auto) Nucleated RBC % Specimen Type ART Sample Site R Radial pH 7.44 Bicarbonate Actual 23.4 Total CO2 25 Base Excess -1 O2 Saturation 97 O2 % 21 ABG pCO2 34.5 L ABG pO2 86 Gianfranco Test Positive O2 Delivery Device CPAP Vent Mode CPAP/PS POC PEEP 5 POC Pressure Suppt 5 Sodium 139 Potassium 3.6 Chloride 108 H Carbon Dioxide 24.0 Anion Gap 7 BUN 42 H Creatinine 2.08 H Estim Creat Clear Calc 14.92 Est GFR (MDRD) Af Amer 29 L Est GFR (MDRD) Non-Af 24 L BUN/Creatinine Ratio 20.2 H Glucose 251 H Calcium 8.2 L Total Bilirubin 1.30 H AST 53 H ALT 34 Alkaline Phosphatase 121 H Total Protein 5.8 L Albumin 2.5 L Globulin 3.3 Albumin/Globulin Ratio 0.8 L POC Glucose 237 H 04/27/20 04/27/20 04/28/20 11:18 22:02 00:23 WBC RBC Hgb Hct MCV MCH MCHC RDW Std Deviation RDW Coeff of Meng Plt Count MPV Immature Gran % (Auto) Neut % (Auto) Lymph % (Auto) Brooke % (Auto) Eos % (Auto) Baso % (Auto) Absolute Neuts (auto) Absolute Lymphs (auto) Nucleated RBC % Specimen Type Sample Site pH Bicarbonate Actual Total CO2 Base Excess O2 Saturation O2 % ABG pCO2 ABG pO2 Gianfranco Test O2 Delivery Device Vent Mode POC PEEP POC Pressure Suppt Sodium Potassium Chloride Carbon Dioxide Anion Gap BUN Creatinine Estim Creat Clear Calc Est GFR (MDRD) Af Amer Est GFR (MDRD) Non-Af BUN/Creatinine Ratio Glucose Calcium Total Bilirubin AST ALT Alkaline Phosphatase Total Protein Albumin Globulin Albumin/Globulin Ratio POC Glucose 220 H 130 H 120 H 04/28/20 04/28/20 04/28/20 03:20 03:20 05:36 WBC 4.8 RBC 3.75 L Hgb 10.6 L Hct 34.2 L MCV 91.2 MCH 28.3 MCHC 31.0 L D RDW Std Deviation 50.9 H RDW Coeff of Meng 15.3 H Plt Count 87 L MPV 12.3 H Immature Gran % (Auto) 0.200 Neut % (Auto) 60.4 Lymph % (Auto) 14.5 L Brooke % (Auto) 15.6 H Eos % (Auto) 8.1 H Baso % (Auto) 1.2 H Absolute Neuts (auto) 2.9 Absolute Lymphs (auto) 0.70 L Nucleated RBC % 0 Specimen Type Sample Site pH Bicarbonate Actual Total CO2 Base Excess O2 Saturation O2 % ABG pCO2 ABG pO2 Gianfranco Test O2 Delivery Device Vent Mode POC PEEP POC Pressure Suppt Sodium 142 Potassium 3.6 Chloride 110 H Carbon Dioxide 28.0 Anion Gap 4 L BUN 37 H Creatinine 1.82 H Estim Creat Clear Calc 17.05 Est GFR (MDRD) Af Amer 34 L Est GFR (MDRD) Non-Af 28 L BUN/Creatinine Ratio 20.3 H Glucose 169 H Calcium 8.5 Total Bilirubin AST ALT Alkaline Phosphatase Total Protein Albumin Globulin Albumin/Globulin Ratio POC Glucose 171 H Microbiology 04/26/20 07:00 Blood Culture (Wb) - Anticubital Right Blood Culture - Preliminary No growth in 48 hours. 04/26/20 13:15 Sputum, Induced/Lukens Gram Stain - Final 04/26/20 13:15 Sputum, Induced/Lukens Respiratory Culture - Preliminary Proteus sp. 04/26/20 07:10 Sputum, Induced/Lukens Gram Stain - Final 04/26/20 07:10 Sputum, Induced/Lukens Respiratory Culture - Preliminary Proteus sp. 04/25/20 23:35 Urine Catheter - Catheter Urine Culture - Preliminary Culture exhibits no growth. Medical Necessity - Tobacco Use Smoking Status: Never smoker Assessment/Plan All Active Problems (Last Reviewed 04/26/20 @ 03:[address] Jin Chance MD) Status epilepticus (Acute) RECOMMENDATIONS: 1. Continue antiepileptic drugs 2. Narrow antibiotic spectrum once culture data available 3. Increase activity as tolerated 4. Outpatient follow-up with neurology 5. Okay to leave the intensive care unit from my perspective 6. Hemodynamically stable on room air. Will sign off from a critical care perspective IMPRESSIONS: 1. Encephalopathy/status epilepticus Unclear precipitating etiology for new onset seizures. EEG did not show seizure activity, but did show background slowing without sedation indicating possible postictal state. Patient appears to be back to baseline at this time. Likely okay to leave the intensive care unit. 2. Acute respiratory failure Resolved. The patient was intubated in the emergency department for airway protection in the setting of #1. Ventilator requirements are minimal. There was concern for possible aspiration at the time of intubation. No stridor has been noted on exam. 3. Acute on chronic kidney disease Resolved. Baseline appears to be approximately 1.8. Likely prerenal in etiology, as creatinine has improved with volume expansion. Continue to monitor urine output for now. No current indication for renal replacement therapy. 4. Hyperglycemia The patient has a known history of diabetes mellitus and was significantly hyperglycemic at presentation. Blood glucose levels have improved on a continuous insulin infusion. There is no evidence of DKA. Patient's blood sugars appear to be well controlled on current regimen 5. Heart failure with preserved ejection fraction/pulmonary hypertension/valvular heart disease status post TAVR Continue outpatient medical management. 6. Advanced age/diabetes mellitus/hypertension/hypothyroidism Complicates care, management, recovery and prognosis. Check TSH and continue home medications as indicated. Inpatient E&M: [id number] [facility] L3
[2020-04-28] MEDS: Levothyroxine 100 MCG Tablet GT (09:12)
[2020-04-28] MEDS: Clopidogrel Bisulfate 75 MG Tablet GT (09:12)
[2020-04-28] MEDS: Lansoprazole 15 MG Capsule.DR 30 MG GT (09:12)
[2020-04-28] MEDS: Aspirin 81 MG TAB.CHEW GT (09:12)
[2020-04-28] MEDS: Chlorhexidine 15 ML PO (09:13)
--- NOTE | 2020-04-28 10:56 | PN.RENAL_ITS ---
Patient Problems: Active and Suspected Problems (Last Reviewed 04/26/20 @ 03:[address] Jin Chnace MD) Status epilepticus (Acute) Subjective: oxygenation stable, no recent seizure activity. Complains of cough without SOB. Creatinine improved with good UOP. - Physical Exam Vitals/I&O's: Vital Signs Temp Pulse Resp BP Pulse Ox 97.4 F L 77 18 150/38 H 100 04/28/20 10:00 04/28/20 10:00 04/28/20 10:00 04/28/20 10:00 04/28/20 10:00 Oxygen Flow Rate (L/min) 2 Oxygen Delivery Method Nasal Cannula Weight: 57.8 kg Body Mass Index (BMI) 24.3 Finger Stick Blood Glucose 285 Intake and Output for Last 24 Hours 04/26/20 04/27/20 04/28/20 23:59 23:59 23:59 Intake Total 1681.87 / 1843.87 470 / 470 80 / 80 Output Total 1370 / 1470 1000 / 1350 680 / 680 Balance 311.87 / 373.87 -530 / -880 -600 / -600 General: Alert, Oriented x3, Cooperative, No apparent distress, - - debilitated Lungs: Rhonchi Cardiovascular: Regular rate Abdomen: Bowel Sounds Present, Soft, Non Tender, Non-Distended Extremities: No edema Microbiology Past 72 Hours 04/26/20 13:15 Sputum, Induced/Lukens Gram Stain - Final 04/26/20 13:15 Sputum, Induced/Lukens Respiratory Culture - Final Proteus sp. 04/26/20 07:10 Sputum, Induced/Lukens Gram Stain - Final 04/26/20 07:10 Sputum, Induced/Lukens Respiratory Culture - Final Proteus mirabilis 04/25/20 23:35 Urine Catheter - Catheter Urine Culture - Final Culture exhibits no growth. 04/26/20 07:00 Blood Culture (Wb) - Anticubital Right Blood Culture - Preliminary No growth in 48 hours. Laboratory Results 04/27/20 11:18: POC Glucose 220 H 04/27/20 22:02: POC Glucose 130 H 04/28/20 00:23: POC Glucose 120 H 04/28/20 03:20: WBC 4.8, RBC 3.75 L, Hgb 10.6 L, Hct 34.2 L, MCV 91.2, MCH 28.3, MCHC 31.0 L D, RDW Std Deviation 50.9 H, RDW Coeff of Meng 15.3 H, Plt Count 87 L , MPV 12.3 H, Immature Gran % (Auto) 0.200, Neut % (Auto) 60.4, Lymph % (Auto) 1 4.5 L, Caroline % (Auto) 15.6 H, Eos % (Auto) 8.1 H, Baso % (Auto) 1.2 H, Absolute Neuts (auto) 2.9, Absolute Lymphs (auto) 0.70 L, Nucleated RBC % 0 04/28/20 03:20: Sodium 142, Potassium 3.6, Chloride 110 H, Carbon Dioxide 28.0, Anion Gap 4 L, BUN 37 H, Creatinine 1.82 H, Estim Creat Clear Calc 17.05, Est GFR (MDRD) Af Amer 34 L, Est GFR (MDRD) Non-Af 28 L, BUN/Creatinine Ratio 20.3 H , Glucose 169 H, Calcium 8.5 04/28/20 05:36: POC Glucose 171 H Current Medications Acetaminophen (Acetaminophen 650 Mg Suppository) 650 mg RECTAL Q4H PRN PRN PRN Reason: Pain Score 1-10/Temp > 100.7 F Aspirin (Aspirin 81 Mg Tab.Chew) 81 mg GT DAILY [facility] Last Admin: 04/28/20 09:12 Dose: 81 mg Documented by: Atorvastatin Calcium (Atorvastatin Calcium 20 Mg Tablet) 20 mg GT QHS [facility] Last Admin: 04/27/20 20:55 Dose: Not Given Documented by: Chlorhexidine Gluconate (Chlorhexidine 15 Ml) 15 ml PO BID [facility] Last Admin: 04/28/20 09:13 Dose: 15 ml Documented by: Clopidogrel Bisulfate (Clopidogrel Bisulfate 75 Mg Tablet) 75 mg GT DAILY [facility] Last Admin: 04/28/20 09:12 Dose: 75 mg Documented by: Dextrose (Dextrose 50%-Water 25 Gm/50 Ml Disp.Syrin) 0 gm IV X1 PRN; Protocol PRN Reason: Hypoglycemia Protocol Glucagon (Glucagon 1 Mg/Ml Syringe) 1 mg IM .X1 PRN PRN Reason: Hypoglycemia Sodium Chloride () 250 mls @ 15 mls/hr IV .[id number] PRN PRN Reason: Saline Flush Sodium Chloride () 250 mls @ 15 mls/hr IV .[id number] PRN PRN Reason: Additional IVPB Infusion Piperacillin Sod/Tazobactam (Sod 3.375 gm/ Sodium Chloride) 50 mls @ 12.5 mls/hr IV Q12 [facility] Last Admin: 04/28/20 09:13 Dose: 12.5 mls/hr Documented by: Enteral Nutritional Formula (Vital Af 1.2 Alberto Liquid) 1,000 mls @ 50 mls/hr GT .Q20H [facility] Last Admin: 04/28/20 00:36 Dose: Not Given Documented by: Insulin Human Lispro (Insulin Lispro 100 Unit/Ml Insuln.Pen) 0 unit SC Q6 [facility]; Protocol Last Admin: 04/28/20 05:40 Dose: 1 units Documented by: Levothyroxine Sodium (Levothyroxine 100 Mcg Tablet) 100 mcg GT DAILY [facility] Last Admin: 04/28/20 09:12 Dose: 100 mcg Documented by: Lorazepam (Lorazepam 2 Mg/Ml Syringe) 2 mg IV PRN PRN PRN Reason: SEIZURES Ondansetron HCl (Ondansetron 4 Mg/2 Ml Vial) 4 mg IV Q8H PRN PRN PRN Reason: NAUSEA/VOMITING Pantoprazole Sodium (Pantoprazole Sodium 40 Mg Tablet) 40 mg PO DAILY [facility] Phenytoin Sodium (Phenytoin Na 100 Mg/2 Ml Vial) 100 mg IV Q8 [facility] Last Admin: 04/28/20 05:40 Dose: 100 mg Documented by: Sodium Chloride (0.9% Saline Lock 10 Ml Syringe) 10 - 40 ml IV UD PRN PRN Reason: SALINE FLUSH Last Admin: 04/28/20 05:40 Dose: 20 ml Documented by: Medical Necessity - Tobacco Use Smoking Status: Never smoker Assessment/Plan All Active Problems (Last Reviewed 04/26/20 @ 03:[address] Jin Chance MD) Status epilepticus (Acute) 1. Acute on CKD stage 4 due to prerenal event, baseline creatinine 1.7-2.0 due to underlying DMN. Creatinine 2.9 on admit improved to 1.8 today off diuretics, ARB. UOP good. Continue to hold diuretics 2. Status epilepticus 3. Acute resp failure s/p extubation 4. DM2 elevated sugars, primary service mgmt 5. HTN stable 6. Aortic stenosis s/p TAVR 03/09/20 7. CHF volume status stable. Hold diuretics
--- NOTE | 2020-04-28 11:20 | PCM.PN.HOSP ---
Patient Problems: Active and Suspected Problems (Last Reviewed 04/26/20 @ 03:[address] Jin Chance MD) Status epilepticus (Acute) Subjective: Extubated yesterday afternoon and doing well. No issues overnight. Vitals/I&O's: Vital Signs Temp Pulse Resp BP Pulse Ox 97.4 F L 77 18 150/38 H 100 04/28/20 10:00 04/28/20 10:00 04/28/20 10:00 04/28/20 10:00 04/28/20 10:00 Oxygen Flow Rate (L/min) 2 Oxygen Delivery Method Nasal Cannula Weight: 127 lb 6.835 oz Body Mass Index (BMI) 24.3 Finger Stick Blood Glucose 285 Intake and Output for Last 24 Hours 04/26/20 04/27/20 04/28/20 23:59 23:59 23:59 Intake Total 1681.87 / 1843.87 470 / 470 80 / 80 Output Total 1370 / 1470 1000 / 1350 680 / 680 Balance 311.87 / 373.87 -530 / -880 -600 / -600 General: Alert, Oriented x3, Cooperative, No apparent distress HEENT: Atraumatic, PERRLA, EOMI, Normocephalic Oral: Moist Mucosa Neck: Supple, No JVD Lungs: Clear to auscultation, Normal air movement, No rhonchi, No wheeze, No rales Cardiovascular: Regular rate, Regular Rhythm, Normal S1, Normal S2, No murmurs Abdomen: Soft, Non Tender, Non-Distended, No Hepato-splenomegaly Extremities: No edema, Capillary Refill Less than 3 Seconds Skin: No rashes, No breakdown Neurological: Neuro grossly intact, Sensory exam intact to light touch and pain Psych/Mental Status: Normal Affect, Appropriate Microbiology Past 72 Hours 04/26/20 13:15 Sputum, Induced/Lukens Gram Stain - Final 04/26/20 13:15 Sputum, Induced/Lukens Respiratory Culture - Final Proteus sp. 04/26/20 07:10 Sputum, Induced/Lukens Gram Stain - Final 04/26/20 07:10 Sputum, Induced/Lukens Respiratory Culture - Final Proteus mirabilis 04/25/20 23:35 Urine Catheter - Catheter Urine Culture - Final Culture exhibits no growth. 12/06/20 07:00 Blood Culture (Wb) - Anticubital Right Blood Culture - Preliminary No growth in 48 hours. Laboratory Results 04/27/20 11:18: POC Glucose 220 H 04/27/20 22:02: POC Glucose 130 H 04/28/20 00:23: POC Glucose 120 H 04/28/20 03:20: WBC 4.8, RBC 3.75 L, Hgb 10.6 L, Hct 34.2 L, MCV 91.2, MCH 28.3, MCHC 31.0 L D, RDW Std Deviation 50.9 H, RDW Coeff of Meng 15.3 H, Plt Count 87 L, MPV 12.3 H, Immature Gran % (Auto) 0.200, Neut % (Auto) 60.4, Lymph % (Auto) 14.5 L, [place] % (Auto) 15.6 H, Eos % (Auto) 8.1 H, Baso % (Auto) 1.2 H, Absolute Neuts (auto) 2.9, Absolute Lymphs (auto) 0.70 L, Nucleated RBC % 0 04/28/20 03:20: Sodium 142, Potassium 3.6, Chloride 110 H, Carbon Dioxide 28.0, Anion Gap 4 L, BUN 37 H, Creatinine 1.82 H, Estim Creat Clear Calc 17.05, Est GFR (MDRD) Af Amer 34 L, Est GFR (MDRD) Non-Af 28 L, BUN/Creatinine Ratio 20.3 H, Glucose 169 H, Calcium 8.5 04/28/20 05:36: POC Glucose 171 H Current Medications Acetaminophen (Acetaminophen 650 Mg Suppository) 650 mg RECTAL Q4H PRN PRN PRN Reason: Pain Score 1-10/Temp > 100.7 F Aspirin (Aspirin 81 Mg Tab.Chew) 81 mg GT DAILY [facility] Last Admin: 04/28/20 09:12 Dose: 81 mg Documented by: Atorvastatin Calcium (Atorvastatin Calcium 20 Mg Tablet) 20 mg GT QHS [facility] Last Admin: 04/27/20 20:55 Dose: Not Given Documented by: Chlorhexidine Gluconate (Chlorhexidine 15 Ml) 15 ml PO BID [facility] Last Admin: 04/28/20 09:13 Dose: 15 ml Documented by: Clopidogrel Bisulfate (Clopidogrel Bisulfate 75 Mg Tablet) 75 mg GT DAILY [facility] Last Admin: 04/28/20 09:12 Dose: 75 mg Documented by: Dextrose (Dextrose 50%-Water 25 Gm/50 Ml Disp.Syrin) 0 gm IV X1 PRN; Protocol PRN Reason: Hypoglycemia Protocol Glucagon (Glucagon 1 Mg/Ml Syringe) 1 mg IM .X1 PRN PRN Reason: Hypoglycemia Sodium Chloride () 250 mls @ 15 mls/hr IV .[id number] PRN PRN Reason: Saline Flush Sodium Chloride () 250 mls @ 15 mls/hr IV .[id number] PRN PRN Reason: Additional IVPB Infusion Piperacillin Sod/Tazobactam (Sod 3.375 gm/ Sodium Chloride) 50 mls @ 12.5 mls/hr IV Q12 [facility] Last Admin: 04/28/20 09:13 Dose: 12.5 mls/hr Documented by: Enteral Nutritional Formula (Vital Af 1.2 Alberto Liquid) 1,000 mls @ 50 mls/hr GT .Q20H [facility] Last Admin: 04/28/20 00:36 Dose: Not Given Documented by: Insulin Human Lispro (Insulin Lispro 100 Unit/Ml Insuln.Pen) 0 unit SC Q6 [facility]; Protocol Last Admin: 04/28/20 05:40 Dose: 1 units Documented by: Levothyroxine Sodium (Levothyroxine 100 Mcg Tablet) 100 mcg GT DAILY [facility] Last Admin: 04/28/20 09:12 Dose: 100 mcg Documented by: Lorazepam (Lorazepam 2 Mg/Ml Syringe) 2 mg IV PRN PRN PRN Reason: SEIZURES Ondansetron HCl (Ondansetron 4 Mg/2 Ml Vial) 4 mg IV Q8H PRN PRN PRN Reason: NAUSEA/VOMITING Pantoprazole Sodium (Pantoprazole Sodium 40 Mg Tablet) 40 mg PO DAILY [facility] Phenytoin Sodium (Phenytoin Na 100 Mg/2 Ml Vial) 100 mg IV Q8 [facility] Last Admin: 04/28/20 05:40 Dose: 100 mg Documented by: Sodium Chloride (0.9% Saline Lock 10 Ml Syringe) 10 - 40 ml IV UD PRN PRN Reason: SALINE FLUSH Last Admin: 04/28/20 05:40 Dose: 20 ml Documented by: STROKE Vital Signs/Narrative: Vital Signs Temp Pulse Resp BP Pulse Ox 04/28/20 10:00 97.4 F L 77 18 150/38 H 100 04/28/20 09:00 97.4 F L 71 12 135/33 H 100 04/28/20 08:01 74 04/28/20 08:00 97.4 F L 77 13 117/36 L 100 Medical Necessity - Tobacco Use Smoking Status: Never smoker Assessment/Plan All Active Problems (Last Reviewed 04/26/20 @ 03:[address] Jin Chance MD) Status epilepticus (Acute) 1. Status epilepticus with encephalopathy likely secondary to her seizures -As to the etiology of her new onset seizures. -EEG did not show any she is seizure activity, will obtain an MRI of her brain -She was extubated yesterday afternoon and has been doing well off the vent -CT of the brain was unremarkable -Continue with Dilantin but make it p.o. 100 mg 3 times daily -Sputum culture with Proteus, continue with Zosyn and transition to Augmentin on discharge 2. KELLY on CKD 3 -Creatinine on admission was 2.94 down to 1.82 today -Baseline creatinine is around 1.5 -Continue with IV fluids -Nephrology is on board 3. DM 2 -On admission her blood sugar was elevated to 623 -Her insulin drip has been discontinued and she has just on sliding scale currently -We will hold her oral hypoglycemics 4. Cirrhosis -Stable, not a significant amount of ascites currently -We will hold her Lasix and Aldactone secondary to her KELLY 5. Chronic diastolic CHF/HTN/HLD -Blood pressures are stable -We will hold her Lasix and her losartan secondary to her KELLY -If she is extubated and taking p.o. can restart her metoprolol -Continue with Lipitor 6. GERD -Stable -Continue with EPI 7. Hypothyroidism -Stable -Continue with Synthroid DVT: Heparin Inpatient E&M: [id number] Subs Hosp L2
--- NOTE | 2020-04-28 17:44 | NURSING ---
Patient transfered out to PCU room 115. Vital signs WNL, 2l nasal cannula. Family updated. Phone report given to PCU nurse.
--- NOTE | 2020-04-28 18:04 | MRI_ITS ---
STUDY: MRI BRAIN WITHOUT CONTRAST REASON FOR EXAM: Female, 85 years old. New seizure onset, speech changes TECHNIQUE: Standardized multiplanar fat and water weighted pulse sequences were obtained. COMPARISON: CT of the brain 04/26/2020 FINDINGS: Mild atrophy and minor periventricular white matter hyperintensity... Tiny punctate high signal lesion in the left external capsule consistent with old lacunar infarct Normal bilateral basal ganglia. Normal thalami. There is no extra-axial fluid accumulation. Normal flow voids within the major intracranial circulation suggesting patency by spin echo criteria. Partial empty sella deformity. Normal, infundibular stalk, optic chiasm and hypothalamus. Normal tectal plate and pineal gland. Normal midbrain, melissa and medulla. Mild diffuse cerebellar atrophy.. Normal basal cisterns. Normal bilateral temporal bones. Normal bilateral internal auditory canals. Postsurgical changes of the orbits.. Normal visualized paranasal sinuses. Normal calvarium and skull base. Normal visualized soft tissue structures. Normal visualized upper cervical spine. MRI/Brain without Contrast IMPRESSION: Mild cerebral and cerebellar atrophy. 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 No significant periventricular white matter ischemic changes or evidence for acute infarct Electronically Signed: Felix Gallego MD at 20:01 EST , Service support ,
[2020-04-28] MEDS: Atorvastatin Calcium 20 MG Tablet GT (22:51)
[2020-04-28] MEDS: Phenytoin Na 100 MG Capsule PO (22:51)
[2020-04-29] VITALS (11 sets, daily range): BP systolic 131–156; BP diastolic 42–67; PULSE 70–99; RESP 14–18; TEMP 36.3–37.3; O2SAT 96–100
[2020-04-29] MEDS: Insulin Lispro 100 UNIT/ML INSULN.PEN SC ×4 (00:59→16:42)
[2020-04-29 01:06] LABS: Bedside Glucose 264 mg/dL (70-110)
[2020-04-29] MEDS: Phenytoin Na 100 MG Capsule PO ×3 (05:27→21:36)
[2020-04-29 06:38] LABS: Absolute Lymphocyte Count 0.55 X10^3/uL (0.83-4.51); Absolute Neutrophil Count 3.6 X10^3/uL (2.0-7.7); Basophil# 0.03 X10^3/uL; Basophil% 0.6 % (0-1); Eosinophil# 0.31 X10^3/uL; Hematocrit 31.8 % (37-47); Hemoglobin 9.9 g/dL (12.0-15.0); Lymphocyte # 0.55 X10^3/ul (4.0); Lymphocyte % 10.7 % (19-41); Mean Corp Hgb Conc 31.1 g/dL (32-36); Mean Corpuscular Hgb 28.3 pg (27.0-32.0); Mean Corpuscular Volume 90.9 fL (81-99); Mean Platelet Vol. 11.4 fl (6.2-12.0); Monocyte# 0.67 X10^3/uL; NRBC Flagged by Analyzer 0 % (0-5); Neutrophil # 3.57 X10^3/uL (2.7-7.7); Neutrophil % 69.3 % (47-70); POSITIVE DIFFERENTIAL YES; Platelet Count 105 K/mm3 (150-450); RBC Distribution Width CV 15.1 % (11.6-14.6); RBC Distribution Width SD 50.3 fl (35.1-43.9); White Blood Count 5.2 K/mm3 (4.4-11.0)
[2020-04-29 06:47] LABS: Differential Indicated SCAN CRITERIA MET
[2020-04-29 06:50] LABS: Bedside Glucose 206 mg/dL (70-110)
[2020-04-29 07:12] LABS: ALB/GLOB Ratio 0.7 RATIO (0.9-2.4); AST(SGOT) 29 U/L (15-37); Alanine Aminotransfer ALT/SGPT 30 U/L (13-56); Albumin, Serum 2.6 g/dL (3.2-5.0); Alkaline Phosphatase 127 U/L (45-117); Anion Gap 7 (5-15); BUN 38 mg/dL (7-18); BUN/Creat Ratio 22.5 RATIO (10-20); Calcium,Total 8.4 mg/dL (8.5-10.1); Chloride 110 mmol/L (98-107); Creatinine, Serum 1.69 mg/dL (0.55-1.02); EST Glomerular Filtration Rate 31 mL/min (>60); Est Glom Filt Rate - Afr Amer 37 mL/min (>60); Estimated Creatinine Clearance 18.36 ml/min; Globulin 3.6 g/dL (2.2-4.2); Glucose 205 mg/dL (74-106); Potassium 3.8 mmol/L (3.5-5.1); Protein, Total 6.2 g/dL (6.4-8.2); Sodium Level 142 mmol/L (136-145)
[2020-04-29 07:19] LABS: Differential Comment SCANNED
[2020-04-29] MEDS: Metoprolol(XL)Succ 25 MG Tablet PO (10:43)
[2020-04-29] MEDS: Pantoprazole Sodium 40 MG Tablet PO (10:43)
[2020-04-29] MEDS: Levothyroxine 100 MCG Tablet GT (10:43)
[2020-04-29] MEDS: Clopidogrel Bisulfate 75 MG Tablet GT (10:43)
[2020-04-29] MEDS: amLODIPine 10 MG Tablet PO (10:43)
[2020-04-29] MEDS: Aspirin 81 MG TAB.CHEW GT (10:43)
--- NOTE | 2020-04-29 12:00 | PN.RENAL_ITS ---
Patient Problems: Active and Suspected Problems (Last Reviewed 04/26/20 @ 03:[address] Jin Chance MD) Status epilepticus (Acute) Subjective: transferred to PCU. No seizure activity past 24hrs. BP stable. Responding appropriately, slow to respond, debilitated. - Physical Exam Vitals/I&O's: Vital Signs Temp Pulse Resp BP Pulse Ox 99.2 F H 84 18 131/49 H 98 04/29/20 10:30 04/29/20 11:00 04/29/20 10:30 04/29/20 10:43 04/29/20 10:30 Oxygen Flow Rate (L/min) 2 Oxygen Delivery Method Room Air Weight: 58 kg Body Mass Index (BMI) 24.3 Finger Stick Blood Glucose 285 Intake and Output for Last 24 Hours 04/27/20 04/28/20 04/29/20 23:59 23:59 23:59 Intake Total 470 / 470 508.13 / 508.13 161.87 / 161.87 Output Total 1000 / 1350 1130 / 1130 150 / 150 Balance -530 / -880 -621.87 / -621.87 11.87 / 11.87 General: Alert, Oriented x3, - - weak, frail Oral: Dry Mucosa Lungs: Clear to auscultation Cardiovascular: Regular rate Abdomen: Bowel Sounds Present, Soft, Non Tender, Non-Distended Extremities: No edema Psych/Mental Status: Alert and oriented to time, place, person, mood and affect Microbiology Past 72 Hours 04/26/20 13:15 Sputum, Induced/Lukens Gram Stain - Final 04/26/20 13:15 Sputum, Induced/Lukens Respiratory Culture - Final Proteus sp. 04/26/20 07:10 Sputum, Induced/Lukens Gram Stain - Final 04/26/20 07:10 Sputum, Induced/Lukens Respiratory Culture - Final Proteus mirabilis 04/25/20 23:35 Urine Catheter - Catheter Urine Culture - Final Culture exhibits no growth. 04/26/20 07:00 Blood Culture (Wb) - Anticubital Right Blood Culture - Preliminary No growth in 48 hours. Laboratory Results 04/29/20 00:59: POC Glucose 264 H 04/29/20 05:20: WBC 5.2, RBC 3.50 L, Hgb 9.9 L, Hct 31.8 L, MCV 90.9, MCH 28.3, MCHC 31.1 L, RDW Std Deviation 50.3 H, RDW Coeff of Meng 15.1 H, Plt Count 105 L, MPV 11.4, Immature Gran % (Auto) 0.400, Neut % (Auto) 69.3, Lymph % (Auto) 10.7 L, [place] % (Auto) 13.0 H, Eos % (Auto) 6.0 H, Baso % (Auto) 0.6, Absolute Neuts (auto) 3.6, Absolute Lymphs (auto) 0.55 L, Nucleated RBC % 0, Differential Comment SCANNED 04/29/20 05:20: Sodium 142, Potassium 3.8, Chloride 110 H, Carbon Dioxide 25.0, Anion Gap 7, BUN 38 H, Creatinine 1.69 H, Estim Creat Clear Calc 18.36, Est GFR (MDRD) Af Amer 37 L, Est GFR (MDRD) Non-Af 31 L, BUN/Creatinine Ratio 22.5 H, Glucose 205 H, Calcium 8.4 L, Total Bilirubin 1.20 H, AST 29, ALT 30, Alkaline Phosphatase 127 H, Total Protein 6.2 L, Albumin 2.6 L, Globulin 3.6, Albumin/Globulin Ratio 0.7 L 04/29/20 05:31: POC Glucose 206 H Current Medications Acetaminophen (Acetaminophen 650 Mg Suppository) 650 mg RECTAL Q4H PRN PRN PRN Reason: Pain Score 1-10/Temp > 100.7 F Amlodipine Besylate (Amlodipine 10 Mg Tablet) 10 mg PO DAILY [facility] Last Admin: 04/29/20 10:43 Dose: 10 mg Documented by: Aspirin (Aspirin 81 Mg Tab.Chew) 81 mg GT DAILY [facility] Last Admin: 04/29/20 10:43 Dose: 81 mg Documented by: Atorvastatin Calcium (Atorvastatin Calcium 20 Mg Tablet) 20 mg GT QHS [facility] Last Admin: 04/28/20 22:51 Dose: 20 mg Documented by: Chlorhexidine Gluconate (Chlorhexidine 15 Ml) 15 ml PO BID [facility] Last Admin: 04/29/20 10:39 Dose: Not Given Documented by: Clopidogrel Bisulfate (Clopidogrel Bisulfate 75 Mg Tablet) 75 mg GT DAILY [facility] Last Admin: 04/29/20 10:43 Dose: 75 mg Documented by: Dextrose (Dextrose 50%-Water 25 Gm/50 Ml Disp.Syrin) 0 gm IV X1 PRN; Protocol PRN Reason: Hypoglycemia Protocol Glucagon (Glucagon 1 Mg/Ml Syringe) 1 mg IM .X1 PRN PRN Reason: Hypoglycemia Sodium Chloride () 250 mls @ 15 mls/hr IV .[id number] PRN PRN Reason: Saline Flush Sodium Chloride () 250 mls @ 15 mls/hr IV .[id number] PRN PRN Reason: Additional IVPB Infusion Piperacillin Sod/Tazobactam (Sod 3.375 gm/ Sodium Chloride) 50 mls @ 12.5 mls/hr IV Q12 [facility] Last Admin: 04/29/20 10:44 Dose: 12.5 mls/hr Documented by: Enteral Nutritional Formula (Vital Af 1.2 Alberto Liquid) 1,000 mls @ 50 mls/hr GT .Q20H [facility] Last Admin: 04/28/20 23:19 Dose: Not Given Documented by: Insulin Human Lispro (Insulin Lispro 100 Unit/Ml Insuln.Pen) 0 unit SC Q6 [facility]; Protocol Last Admin: 04/29/20 05:31 Dose: 2 units Documented by: Levothyroxine Sodium (Levothyroxine 100 Mcg Tablet) 100 mcg GT DAILY [facility] Last Admin: 04/29/20 10:43 Dose: 100 mcg Documented by: Lorazepam (Lorazepam 2 Mg/Ml Syringe) 2 mg IV PRN PRN PRN Reason: SEIZURES Metoprolol Succinate (Metoprolol(Xl)Succ 25 Mg Tablet) 25 mg PO DAILY [facility] Last Admin: 04/29/20 10:43 Dose: 25 mg Documented by: Ondansetron HCl (Ondansetron 4 Mg/2 Ml Vial) 4 mg IV Q8H PRN PRN PRN Reason: NAUSEA/VOMITING Pantoprazole Sodium (Pantoprazole Sodium 40 Mg Tablet) 40 mg PO DAILY [facility] Last Admin: 04/29/20 10:43 Dose: 40 mg Documented by: Phenytoin Sodium (Phenytoin Na 100 Mg Capsule) 100 mg PO TID [facility] Last Admin: 04/29/20 05:27 Dose: 100 mg Documented by: Sodium Chloride (0.9% Saline Lock 10 Ml Syringe) 10 - 40 ml IV UD PRN PRN Reason: SALINE FLUSH Last Admin: 04/28/20 05:40 Dose: 20 ml Documented by: Medical Necessity - Tobacco Use Smoking Status: Never smoker Assessment/Plan All Active Problems (Last Reviewed 04/26/20 @ 03:[address] Jin Chance MD) Status epilepticus (Acute) 1. Acute on CKD stage 4 due to prerenal event, renal fxn improved to 1.69, at baseline 2. Status epilepticus 3. Acute resp failure s/p extubation 4. DM2 elevated sugars, primary service mgmt 5. HTN stable 6. Aortic stenosis s/p TAVR 03/09/20 7. CHF volume status stable. Hold diuretics 8. debility, add protein supplement
[2020-04-29 12:26] LABS: Bedside Glucose 372 mg/dL (70-110)
--- NOTE | 2020-04-29 13:50 | NURSING ---
Addendum entered by Carrie Fallon 04/29/20 13:56: Farida stated if possible they would prefer patient to go to TCU if therapy is needed. Original Note: Updated provided to daughter, Farida
[2020-04-29 16:50] LABS: Bedside Glucose 352 mg/dL (70-110)
--- NOTE | 2020-04-29 21:31 | PCM.PN.HOSP ---
Patient Problems: Active and Suspected Problems (Last Reviewed 04/26/20 @ 03:[address] Jin Chance MD) Status epilepticus (Acute) Subjective: Much more alert today. Still very weak and shaky. Vitals/I&O's: Vital Signs Temp Pulse Resp BP Pulse Ox 97.4 F L 70 14 156/67 H 99 04/29/20 16:35 04/29/20 16:35 04/29/20 16:35 04/29/20 16:35 04/29/20 16:45 Oxygen Flow Rate (L/min) 2 Oxygen Delivery Method Room Air Weight: 127 lb 13.89 oz Body Mass Index (BMI) 24.3 Finger Stick Blood Glucose 285 Intake and Output for Last 24 Hours 04/27/20 04/28/20 04/29/20 23:59 23:59 23:59 Intake Total 470 / 470 508.13 / 508.13 661.87 / 661.87 Output Total 1000 / 1350 1130 / 1130 300 / 300 Balance -530 / -880 -621.87 / -621.87 361.87 / 361.87 General: Alert, Oriented x3, Cooperative, No apparent distress HEENT: Atraumatic, PERRLA, EOMI, Normocephalic Oral: Moist Mucosa Neck: Supple, No JVD Lungs: Clear to auscultation, Normal air movement, No rhonchi, No wheeze, No rales Cardiovascular: Regular rate, Regular Rhythm, Normal S1, Normal S2, No murmurs Abdomen: Soft, Non Tender, Non-Distended, No Hepato-splenomegaly Extremities: No edema, Capillary Refill Less than 3 Seconds Skin: No rashes, No breakdown Neurological: Neuro grossly intact, Sensory exam intact to light touch and pain Psych/Mental Status: Normal Affect, Appropriate Microbiology Past 72 Hours 04/26/20 13:15 Sputum, Induced/Lukens Gram Stain - Final 04/26/20 13:15 Sputum, Induced/Lukens Respiratory Culture - Final Proteus sp. 04/26/20 07:10 Sputum, Induced/Lukens Gram Stain - Final 04/26/20 07:10 Sputum, Induced/Lukens Respiratory Culture - Final Proteus mirabilis 04/25/20 23:35 Urine Catheter - Catheter Urine Culture - Final Culture exhibits no growth. 04/26/20 07:00 Blood Culture (Wb) - Anticubital Right Blood Culture - Preliminary No growth in 48 hours. Laboratory Results 04/29/20 00:59: POC Glucose 264 H 04/29/20 05:20: WBC 5.2, RBC 3.50 L, Hgb 9.9 L, Hct 31.8 L, MCV 90.9, MCH 28.3, MCHC 31.1 L, RDW Std Deviation 50.3 H, RDW Coeff of Meng 15.1 H, Plt Count 105 L, MPV 11.4, Immature Gran % (Auto) 0.400, Neut % (Auto) 69.3, Lymph % (Auto) 10.7 L, [place] % (Auto) 13.0 H, Eos % (Auto) 6.0 H, Baso % (Auto) 0.6, Absolute Neuts (auto) 3.6, Absolute Lymphs (auto) 0.55 L, Nucleated RBC % 0, Differential Comment SCANNED 04/29/20 05:20: Sodium 142, Potassium 3.8, Chloride 110 H, Carbon Dioxide 25.0, Anion Gap 7, BUN 38 H, Creatinine 1.69 H, Estim Creat Clear Calc 18.36, Est GFR (MDRD) Af Amer 37 L, Est GFR (MDRD) Non-Af 31 L, BUN/Creatinine Ratio 22.5 H, Glucose 205 H, Calcium 8.4 L, Total Bilirubin 1.20 H, AST 29, ALT 30, Alkaline Phosphatase 127 H, Total Protein 6.2 L, Albumin 2.6 L, Globulin 3.6, Albumin/Globulin Ratio 0.7 L 04/29/20 05:31: POC Glucose 206 H 04/29/20 12:20: POC Glucose 372 H 04/29/20 16:41: POC Glucose 352 H Current Medications Acetaminophen (Acetaminophen 650 Mg Suppository) 650 mg RECTAL Q4H PRN PRN PRN Reason: Pain Score 1-10/Temp > 100.7 F Amlodipine Besylate (Amlodipine 10 Mg Tablet) 10 mg PO DAILY [facility] Last Admin: 04/29/20 10:43 Dose: 10 mg Documented by: Aspirin (Aspirin 81 Mg Tab.Chew) 81 mg GT DAILY [facility] Last Admin: 04/29/20 10:43 Dose: 81 mg Documented by: Atorvastatin Calcium (Atorvastatin Calcium 20 Mg Tablet) 20 mg GT QHS [facility] Last Admin: 04/28/20 22:51 Dose: 20 mg Documented by: Chlorhexidine Gluconate (Chlorhexidine 15 Ml) 15 ml PO BID [facility] Last Admin: 04/29/20 16:42 Dose: Not Given Documented by: Clopidogrel Bisulfate (Clopidogrel Bisulfate 75 Mg Tablet) 75 mg GT DAILY [facility] Last Admin: 04/29/20 10:43 Dose: 75 mg Documented by: Dextrose (Dextrose 50%-Water 25 Gm/50 Ml Disp.Syrin) 0 gm IV X1 PRN; Protocol PRN Reason: Hypoglycemia Protocol Glucagon (Glucagon 1 Mg/Ml Syringe) 1 mg IM .X1 PRN PRN Reason: Hypoglycemia Sodium Chloride () 250 mls @ 15 mls/hr IV .[id number] PRN PRN Reason: Saline Flush Sodium Chloride () 250 mls @ 15 mls/hr IV .[id number] PRN PRN Reason: Additional IVPB Infusion Piperacillin Sod/Tazobactam (Sod 3.375 gm/ Sodium Chloride) 50 mls @ 12.5 mls/hr IV Q12 [facility] Last Infusion: 04/29/20 16:44 Dose: Infused Documented by: Insulin Human Lispro (Insulin Lispro 100 Unit/Ml Insuln.Pen) 0 unit SC Q6 [facility]; Protocol Last Admin: 04/29/20 16:42 Dose: 6 units Documented by: Levothyroxine Sodium (Levothyroxine 100 Mcg Tablet) 100 mcg GT DAILY [facility] Last Admin: 04/29/20 10:43 Dose: 100 mcg Documented by: Lorazepam (Lorazepam 2 Mg/Ml Syringe) 2 mg IV PRN PRN PRN Reason: SEIZURES Metoprolol Succinate (Metoprolol(Xl)Succ 25 Mg Tablet) 25 mg PO DAILY [facility] Last Admin: 04/29/20 10:43 Dose: 25 mg Documented by: Nutritional Formula (Lactose Free) (Glucerna Shake 120 Ml Liquid) 120 ml PO BID [facility] Ondansetron HCl (Ondansetron 4 Mg/2 Ml Vial) 4 mg IV Q8H PRN PRN PRN Reason: NAUSEA/VOMITING Pantoprazole Sodium (Pantoprazole Sodium 40 Mg Tablet) 40 mg PO DAILY [facility] Last Admin: 04/29/20 10:43 Dose: 40 mg Documented by: Phenytoin Sodium (Phenytoin Na 100 Mg Capsule) 100 mg PO TID [facility] Last Admin: 04/29/20 13:30 Dose: 100 mg Documented by: Sodium Chloride (0.9% Saline Lock 10 Ml Syringe) 10 - 40 ml IV UD PRN PRN Reason: SALINE FLUSH Last Admin: 04/28/20 05:40 Dose: 20 ml Documented by: Medical Necessity - Tobacco Use Smoking Status: Never smoker Assessment/Plan All Active Problems (Last Reviewed 04/26/20 @ 03:[address] Jin Chance MD) Status epilepticus (Acute) 1. Status epilepticus with encephalopathy likely secondary to her seizures -As to the etiology of her new onset seizures. -EEG did not show any she is seizure activity, will obtain an MRI of her brain -She was extubated yesterday afternoon and has been doing well off the vent -CT of the brain was unremarkable -Continue with Dilantin but make it p.o. 100 mg 3 times daily -Sputum culture with Proteus, continue with Zosyn and transition to Augmentin on discharge 2. KELLY on CKD 3 -Creatinine on admission was 2.94 down to 1.69 today -Baseline creatinine is around 1.5 -Continue with IV fluids -Nephrology is on board 3. DM 2 -On admission her blood sugar was elevated to 623 -Her insulin drip has been discontinued and she has just on sliding scale, will make adjustments to her insulin as necessary -We will hold her oral hypoglycemics 4. Cirrhosis -Stable, not a significant amount of ascites currently -We will hold her Lasix and Aldactone secondary to her KELLY 5. Chronic diastolic CHF/HTN/HLD -Blood pressures are stable -We will hold her Lasix and her losartan secondary to her KELLY -Continue with her metoprolol -Continue with Lipitor 6. GERD -Stable -Continue with EPI 7. Hypothyroidism -Stable -Continue with Synthroid DVT: Heparin Inpatient E&M: [id number] Subs Hosp L2
[2020-04-29] MEDS: Atorvastatin Calcium 20 MG Tablet GT (21:37)
[2020-04-29] MEDS: Glucerna Shake 120 ML LIQUID PO (21:44)
[2020-04-29 23:06] LABS: Bedside Glucose 242 mg/dL (70-110)
[2020-04-30] VITALS (8 sets, daily range): BP systolic 126–159; BP diastolic 41–61; PULSE 62–74; RESP 16; TEMP 36.4–37; O2SAT 96–100
[2020-04-30] MEDS: Insulin Lispro 100 UNIT/ML INSULN.PEN SC ×3 (00:48→17:15)
[2020-04-30 00:56] LABS: Bedside Glucose 231 mg/dL (70-110)
[2020-04-30] MEDS: Phenytoin Na 100 MG Capsule PO ×2 (05:35→13:49)
[2020-04-30 06:34] LABS: Absolute Lymphocyte Count 0.69 X10^3/uL (0.83-4.51); Absolute Neutrophil Count 2.6 X10^3/uL (2.0-7.7); Basophil# 0.03 X10^3/uL; Basophil% 0.7 % (0-1); Eosinophil# 0.45 X10^3/uL; Eosinophils% 10.3 % (0-5); Hematocrit 32.8 % (37-47); Hemoglobin 10.4 g/dL (12.0-15.0); Lymphocyte # 0.69 X10^3/ul (4.0); Lymphocyte % 15.7 % (19-41); Mean Corp Hgb Conc 31.7 g/dL (32-36); Mean Corpuscular Hgb 28.5 pg (27.0-32.0); Mean Corpuscular Volume 89.9 fL (81-99); Mean Platelet Vol. 10.8 fl (6.2-12.0); Monocyte# 0.63 X10^3/uL; Monocyte% 14.4 % (0-10); NRBC Flagged by Analyzer 0 % (0-5); Neutrophil # 2.58 X10^3/uL (2.7-7.7); Neutrophil % 58.7 % (47-70); Platelet Count 118 K/mm3 (150-450); RBC Distribution Width CV 14.7 % (11.6-14.6); RBC Distribution Width SD 48.6 fl (35.1-43.9); Red Blood Count 3.65 M/mm3 (4.2-5.4); White Blood Count 4.4 K/mm3 (4.4-11.0)
[2020-04-30 06:45] LABS: Bedside Glucose 143 mg/dL (70-110)
[2020-04-30 07:03] LABS: Anion Gap 4 (5-15); BUN 39 mg/dL (7-18); BUN/Creat Ratio 23.1 RATIO (10-20); Calcium,Total 8.5 mg/dL (8.5-10.1); Chloride 107 mmol/L (98-107); Creatinine, Serum 1.69 mg/dL (0.55-1.02); EST Glomerular Filtration Rate 31 mL/min (>60); Est Glom Filt Rate - Afr Amer 37 mL/min (>60); Estimated Creatinine Clearance 18.36 ml/min; Glucose 134 mg/dL (74-106); Potassium 4.1 mmol/L (3.5-5.1); Sodium Level 138 mmol/L (136-145)
[2020-04-30 08:21] LABS: Hemoglobin A1c 8.7 % (3.8-5.6)
[2020-04-30] MEDS: Clopidogrel Bisulfate 75 MG Tablet GT (09:21)
[2020-04-30] MEDS: Aspirin 81 MG TAB.CHEW GT (09:21)
[2020-04-30] MEDS: Metoprolol(XL)Succ 25 MG Tablet PO (09:21)
[2020-04-30] MEDS: amLODIPine 10 MG Tablet PO (09:22)
[2020-04-30] MEDS: Levothyroxine 100 MCG Tablet GT (09:22)
[2020-04-30] MEDS: Pantoprazole Sodium 40 MG Tablet PO (09:22)
--- NOTE | 2020-04-30 12:46 | CASEMGMT ---
RIN spoke with patient and she agrees to go to TCU. RIN spoke with Linda in TCU and they will have a bed for patient. RIN notified patient. SW also called patient's daughter, Farida and notified her. Plan: [facility] TCU under skilled level of care. Emani DUNN
--- NOTE | 2020-04-30 13:58 | CASEMGMT ---
Call to Anita at [facility] to notify that pt will be going to TCU at discharge, voices understanding. Berny HENRY CM
--- NOTE | 2020-04-30 14:02 | PCM.PN.REN ---
Patient Problems: Active and Suspected Problems (Last Reviewed 04/26/20 @ 03:[address] Jin Chance MD) Status epilepticus (Acute) Subjective: more awake, responding appropriately. Still debilitated, going to TCU for rehab. - Physical Exam Vitals/I&O's: Vital Signs Temp Pulse Resp BP Pulse Ox 98.6 F 62 16 141/41 H 98 04/30/20 10:16 04/30/20 10:16 04/30/20 10:16 04/30/20 10:16 04/30/20 10:16 Oxygen Flow Rate (L/min) 2 Oxygen Delivery Method Room Air Weight: 58 kg Body Mass Index (BMI) 24.3 Finger Stick Blood Glucose 285 Intake and Output for Last 24 Hours 04/28/20 04/29/20 04/30/20 23:59 23:59 23:59 Intake Total 508.13 / 508.13 661.87 / 901.87 610 / 610 Output Total 1130 / 1130 300 / 650 825 / 825 Balance -621.87 / -621.87 361.87 / 251.87 -215 / -215 General: Alert, Oriented x3 Lungs: Clear to auscultation Cardiovascular: Regular rate Extremities: No edema Psych/Mental Status: Normal Affect, Appropriate, Alert and oriented to time, place, person, mood and affect Microbiology Past 72 Hours 04/30/20 Unknown Mucosa - Nasopharyngeal SARS-CoV-2 Antigen (Rapid) - Final 04/26/20 13:15 Sputum, Induced/Lukens Gram Stain - Final 04/26/20 13:15 Sputum, Induced/Lukens Respiratory Culture - Final Proteus sp. 04/26/20 07:10 Sputum, Induced/Lukens Gram Stain - Final 04/26/20 07:10 Sputum, Induced/Lukens Respiratory Culture - Final Proteus mirabilis 04/25/20 23:35 Urine Catheter - Catheter Urine Culture - Final Culture exhibits no growth. 04/26/20 07:00 Blood Culture (Wb) - Anticubital Right Blood Culture - Preliminary No growth in 48 hours. Laboratory Results 04/29/20 16:41: POC Glucose 352 H 04/29/20 22:01: POC Glucose 242 H 04/30/20 00:47: POC Glucose 231 H 04/30/20 05:33: POC Glucose 143 H 04/30/20 06:00: WBC 4.4, RBC 3.65 L, Hgb 10.4 L, Hct 32.8 L, MCV 89.9, MCH 28.5, MCHC 31.7 L, RDW Std Deviation 48.6 H, RDW Coeff of Meng 14.7 H, Plt Count 118 L, MPV 10.8, Immature Gran % (Auto) 0.200, Neut % (Auto) 58.7, Lymph % (Auto) 15.7 L, [place] % (Auto) 14.4 H, Eos % (Auto) 10.3 H, Baso % (Auto) 0.7, Absolute Neuts (auto) 2.6, Absolute Lymphs (auto) 0.69 L, Nucleated RBC % 0 04/30/20 06:00: Sodium 138, Potassium 4.1, Chloride 107, Carbon Dioxide 27.0, Anion Gap 4 L, BUN 39 H, Creatinine 1.69 H, Estim Creat Clear Calc 18.36, Est GFR (MDRD) Af Amer 37 L, Est GFR (MDRD) Non-Af 31 L, BUN/Creatinine Ratio 23.1 H, Glucose 134 H, Calcium 8.5 04/30/20 06:00: Hemoglobin A1c 8.7 H Current Medications Acetaminophen (Acetaminophen 650 Mg Suppository) 650 mg RECTAL Q4H PRN PRN PRN Reason: Pain Score 1-10/Temp > 100.7 F Amlodipine Besylate (Amlodipine 10 Mg Tablet) 10 mg PO DAILY [facility] Last Admin: 04/30/20 09:22 Dose: 10 mg Documented by: Aspirin (Aspirin 81 Mg Tab.Chew) 81 mg GT DAILY [facility] Last Admin: 04/30/20 09:21 Dose: 81 mg Documented by: Atorvastatin Calcium (Atorvastatin Calcium 20 Mg Tablet) 20 mg GT QHS [facility] Last Admin: 04/29/20 21:37 Dose: 20 mg Documented by: Chlorhexidine Gluconate (Chlorhexidine 15 Ml) 15 ml PO BID [facility] Last Admin: 04/30/20 09:21 Dose: Not Given Documented by: Clopidogrel Bisulfate (Clopidogrel Bisulfate 75 Mg Tablet) 75 mg GT DAILY [facility] Last Admin: 04/30/20 09:21 Dose: 75 mg Documented by: Dextrose (Dextrose 50%-Water 25 Gm/50 Ml Disp.Syrin) 0 gm IV X1 PRN; Protocol PRN Reason: Hypoglycemia Protocol Glucagon (Glucagon 1 Mg/Ml Syringe) 1 mg IM .X1 PRN PRN Reason: Hypoglycemia Sodium Chloride () 250 mls @ 15 mls/hr IV .[id number] PRN PRN Reason: Saline Flush Sodium Chloride () 250 mls @ 15 mls/hr IV .[id number] PRN PRN Reason: Additional IVPB Infusion Piperacillin Sod/Tazobactam (Sod 3.375 gm/ Sodium Chloride) 50 mls @ 12.5 mls/hr IV Q12 [facility] Last Admin: 04/30/20 09:16 Dose: 12.5 mls/hr Documented by: Insulin Glargine (Insulin Glargine 100 Units/Ml Pen) 10 units SC QHS [facility] Last Admin: 04/29/20 22:02 Dose: 10 u Documented by: Insulin Human Lispro (Insulin Lispro 100 Unit/Ml Insuln.Pen) 0 unit SC Q6 [facility]; Protocol Last Admin: 04/30/20 11:51 Dose: 4 units Documented by: Levothyroxine Sodium (Levothyroxine 100 Mcg Tablet) 100 mcg GT DAILY [facility] Last Admin: 04/30/20 09:22 Dose: 100 mcg Documented by: Lorazepam (Lorazepam 2 Mg/Ml Syringe) 2 mg IV PRN PRN PRN Reason: SEIZURES Metoprolol Succinate (Metoprolol(Xl)Succ 25 Mg Tablet) 25 mg PO DAILY [facility] Last Admin: 04/30/20 09:21 Dose: 25 mg Documented by: Nutritional Formula (Lactose Free) (Glucerna Shake 120 Ml Liquid) 120 ml PO BID [facility] Last Admin: 04/30/20 09:21 Dose: Not Given Documented by: Ondansetron HCl (Ondansetron 4 Mg/2 Ml Vial) 4 mg IV Q8H PRN PRN PRN Reason: NAUSEA/VOMITING Pantoprazole Sodium (Pantoprazole Sodium 40 Mg Tablet) 40 mg PO DAILY [facility] Last Admin: 04/30/20 09:22 Dose: 40 mg Documented by: Phenytoin Sodium (Phenytoin Na 100 Mg Capsule) 100 mg PO TID [facility] Last Admin: 04/30/20 13:49 Dose: 100 mg Documented by: Sodium Chloride (0.9% Saline Lock 10 Ml Syringe) 10 - 40 ml IV UD PRN PRN Reason: SALINE FLUSH Last Admin: 04/28/20 05:40 Dose: 20 ml Documented by: Medical Necessity - Tobacco Use Smoking Status: Never smoker Assessment/Plan All Active Problems (Last Reviewed 04/26/20 @ 03:[address] Jin Chance MD) Status epilepticus (Acute) 1. Acute on CKD stage 4 due to prerenal event, renal fxn improved to 1.69, at baseline 2. Status epilepticus, no recurrent events on dilantin 3. Acute resp failure s/p extubation 4. DM2 elevated sugars, primary service mgmt 5. HTN stable 6. Aortic stenosis s/p TAVR 03/09/20 7. CHF volume status stable. Hold diuretics 8. debility, add protein supplement. Transfer to TCU for rehab
--- NOTE | 2020-04-30 14:58 | CASEMGMT ---
Linda with TCU asked about an injection that patient gets every 2 weeks. It is very expensive and she will not be able to get it while in TCU. SW called patient's daughter Farida and let her know. She said she will call Dr Rojas's office and let them know. Emani CARLOS MSW
--- NOTE | 2020-04-30 14:59 | TREXTCAR_ITS ---
- Diet 04/28/20 18:04 Diet: Cardiac - Heart Healthy Is pt able to select menu?: No - Routine Orders/Code Status Routine Lab Work: BMP Code Status: Full Code - Therapies Physical Therapy: Eval and Treat Occupational Therapy: Eval and Treat - Allergies/Procedures Done in Hospital Allergies/Adverse Reactions: Allergies No Known Allergies Allergy (Verified 04/03/20 08:15) Procedures: None - Type of Care/Length of Stay Estimated LOS: Convalescent Care Less Than 30 days Type of Care Needed: Skilled Rehab Potential: Good Prognosis: Good - Additional Orders/Day of Discharge Day of Discharge: 04/30/20 - Dietary and Speech Recommendations Dietitian Recommendations/Changes: When medically able, rec ARNULFO to 1500 jerica Cardiac/low sodium w/ fluid restriction as indicated - consistency per [employer] - Follow Up Care Primary Care Physician: Aleksandar Clemens Chi, MD [Primary Care Provider] - Please follow up with your Primary Care Physician in: 3-5 days
--- NOTE | 2020-04-30 15:00 | PCM.DC.SUM ---
Discharge Date and Diagnosis - Problem List Patient Problems: Active and Suspected Problems (Last Reviewed 04/26/20 @ 03:[address] Jin Chance MD) Status epilepticus (Acute) Date of Admission: 04/26/20 Date of Discharge: 04/30/20 - Primary Discharge Diagnosis Acute Problems: Active Problems (Last Reviewed 04/26/20 @ 03:[address] Jin Chance MD) Status epilepticus (Acute) - Secondary Discharge Diagnosis Chronic Problems: Chronic Problems (Last Reviewed 04/26/20 @ 03:[address] Jin Chance MD) Lower extremity edema (Chronic) Ascites (Chronic) Chronic diastolic (congestive) heart failure (Chronic) Nonrheumatic aortic (valve) stenosis (Chronic) History of aortic valve replacement with bioprosthetic valve (Chronic 03/09/20) TAVR w/ Medtronic Evolut Pro bioprosthetic valve 23 mm 03/09/2020 Nonrheumatic mitral valve stenosis with insufficiency (Chronic) Left bundle branch block (LBBB) (Chronic) post-op TAVR transient LBBB w/ 1 degree AV block Cirrhosis of liver with ascites (Chronic) Secondary pulmonary arterial hypertension (Chronic) Essential hypertension (Chronic) Hyperlipidemia (Chronic) Chronic renal disease, stage 3, moderately decreased glomerular filtration rate (GFR) between 30-59 mL/min/1.73 square meter (Chronic) Thrombocytopenia (Chronic) Iron deficiency anemia (Chronic) Anemia of chronic renal failure, stage 3 (moderate) (Chronic) Hospital Course and Treatment Imaging Results: Clinical Impression(s) from Imaging Studies Chest X-Ray 04/25/20 00:18 IMPRESSION: No acute cardiac pulmonary disease. Lines and tubes as described. Recommend pulling back the endotracheal tube approximately 2.5 cm. Electronically Signed: Anu Liu MD at 0:43 EST , Service support , Brain CT 04/26/20 00:05 IMPRESSION: Chronic changes as described otherwise normal unenhanced CT scan of the brain. Electronically Signed: Anu Liu MD at 0:35 EST , Service support , ADDENDUM: 04/26/20 0042 IMPRESSION: Chronic changes as described otherwise normal unenhanced CT scan of the brain. N.B. : The above information has been verbally conveyed by Anu Liu MD to Felix Hopkins MD, on 04/26/2020 00:36:01 (ET). Electronically Signed: Anu Liu MD at 0:35 EST , Service support , Brain MRI 04/28/20 18:04 IMPRESSION: Mild cerebral and cerebellar atrophy. 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 No significant periventricular white matter ischemic changes or evidence for acute infarct Electronically Signed: Felix Gallego MD at 20:01 EST , Service support , Consults: Nephrology ICU Neurology Operations: None Procedures: Electroencephalogram, Intubation Summary of Care Provided: Per HPI: The patient is a 85 year old F with a significant history of cirrhosis; diabetes mellitus; TVAR; hypertension; and hypothyroidism who presented to emergency department with seizures. Her symptoms started few hours before presentation. Patient was at home with her who has dementia. Reportedly patient began to act weird and shouted. Her called daughter who lives across the street. When daughter go to her parents home patient realized that patient was mumbling and she was seizing. As times went on patient became less responsive. Her daughter denies that patient had bowel or bladder incontinence. Daughter denies any biting of tongue. Squad gave patient Versed without any response. Patient was actively seizing when she got emergency department. She received multiple doses of Ativan. She was subsequently intubated. Hospital Course: 1. Status epilepticus with encephalopathy likely secondary to her seizures with acute respiratory failure necessitating intubation -As to the etiology of her new onset seizures. -EEG did not show any she is seizure activity, will obtain an MRI of her brain -She was extubated yesterday afternoon and has been doing well off the vent -CT of the brain was unremarkable -Continue with Dilantin but make it p.o. 100 mg 3 times daily -Sputum culture with Proteus, continue with Zosyn and transition to Augmentin on discharge to complete 6 more days was noted to possible pneumonia on x-ray -Discussed with her the plan for discharge to the transitional care unit today. She expressed understanding the benefits of going to a retirement facility would like to go today. 2. KELLY on CKD 3 -Creatinine on admission was 2.94 down to 1.69 today -Baseline creatinine is around 1.5 -Continue with IV fluids -Nephrology is on board 3. DM 2 -On admission her blood sugar was elevated to 623 -Her insulin drip has been discontinued and she has just on sliding scale, will make adjustments to her insulin as necessary -We will hold her oral hypoglycemics 4. Cirrhosis -Stable, not a significant amount of ascites currently -We will hold her Lasix and Aldactone secondary to her KELLY -Her kidney function is back to baseline however would continue to hold the diuretics and monitor renal function as well as ascites. Restart when deemed appropriate 5. Chronic diastolic CHF/HTN/HLD -Blood pressures are stable -We held her Lasix and her losartan secondary to her KELLY, can resume losartan on discharge to help control blood pressure -Continue with her metoprolol -Continue with Lipitor 6. GERD -Stable -Continue with EPI 7. Hypothyroidism -Stable -Continue with Synthroid Patient Problems: Active and Suspected Problems (Last Reviewed 04/26/20 @ 03:[address] Jin Chance MD) Status epilepticus (Acute) - Physical Exam Vitals/I&O's: Vital Signs Temp Pulse Resp BP Pulse Ox 97.6 F L 74 16 126/41 H 100 04/30/20 14:57 04/30/20 14:57 04/30/20 14:57 04/30/20 14:57 04/30/20 14:57 Oxygen Flow Rate (L/min) 2 Oxygen Delivery Method Room Air Weight: 127 lb 13.89 oz Body Mass Index (BMI) 24.3 Finger Stick Blood Glucose 285 Intake and Output for Last 24 Hours 04/28/20 04/29/20 04/30/20 23:59 23:59 23:59 Intake Total 508.13 / 508.13 661.87 / 901.87 660 / 660 Output Total 1130 / 1130 300 / 650 825 / 825 Balance -621.87 / -621.87 361.87 / 251.87 -165 / -165 General: Alert, Oriented x3, Cooperative, No apparent distress HEENT: Atraumatic, PERRLA, EOMI, Normocephalic Oral: Moist Mucosa Neck: Supple, No JVD Lungs: Clear to auscultation, Normal air movement, No rhonchi, No wheeze, No rales Cardiovascular: Regular rate, Regular Rhythm, Normal S1, Normal S2, No murmurs Abdomen: Soft, Non Tender, Non-Distended, No Hepato-splenomegaly Extremities: No edema, Capillary Refill Less than 3 Seconds Skin: No rashes, No breakdown Neurological: Neuro grossly intact, Sensory exam intact to light touch and pain Psych/Mental Status: Normal Affect, Appropriate Microbiology Past 72 Hours 04/30/20 Unknown Mucosa - Nasopharyngeal SARS-CoV-2 Antigen (Rapid) - Final 04/26/20 13:15 Sputum, Induced/Lukens Gram Stain - Final 04/26/20 13:15 Sputum, Induced/Lukens Respiratory Culture - Final Proteus sp. 04/26/20 07:10 Sputum, Induced/Lukens Gram Stain - Final 04/26/20 07:10 Sputum, Induced/Lukens Respiratory Culture - Final Proteus mirabilis 04/25/20 23:35 Urine Catheter - Catheter Urine Culture - Final Culture exhibits no growth. 04/26/20 07:00 Blood Culture (Wb) - Anticubital Right Blood Culture - Preliminary No growth in 48 hours. Laboratory Results 04/29/20 16:41: POC Glucose 352 H 04/29/20 22:01: POC Glucose 242 H 04/30/20 00:47: POC Glucose 231 H 04/30/20 05:33: POC Glucose 143 H 04/30/20 06:00: WBC 4.4, RBC 3.65 L, Hgb 10.4 L, Hct 32.8 L, MCV 89.9, MCH 28.5, MCHC 31.7 L, RDW Std Deviation 48.6 H, RDW Coeff of Meng 14.7 H, Plt Count 118 L, MPV 10.8, Immature Gran % (Auto) 0.200, Neut % (Auto) 58.7, Lymph % (Auto) 15.7 L, [place] % (Auto) 14.4 H, Eos % (Auto) 10.3 H, Baso % (Auto) 0.7, Absolute Neuts (auto) 2.6, Absolute Lymphs (auto) 0.69 L, Nucleated RBC % 0 04/30/20 06:00: Sodium 138, Potassium 4.1, Chloride 107, Carbon Dioxide 27.0, Anion Gap 4 L, BUN 39 H, Creatinine 1.69 H, Estim Creat Clear Calc 18.36, Est GFR (MDRD) Af Amer 37 L, Est GFR (MDRD) Non-Af 31 L, BUN/Creatinine Ratio 23.1 H, Glucose 134 H, Calcium 8.5 04/30/20 06:00: Hemoglobin A1c 8.7 H Current Medications Acetaminophen (Acetaminophen 650 Mg Suppository) 650 mg RECTAL Q4H PRN PRN PRN Reason: Pain Score 1-10/Temp > 100.7 F Amlodipine Besylate (Amlodipine 10 Mg Tablet) 10 mg PO DAILY [facility] Last Admin: 04/30/20 09:22 Dose: 10 mg Documented by: Aspirin (Aspirin 81 Mg Tab.Chew) 81 mg GT DAILY [facility] Last Admin: 04/30/20 09:21 Dose: 81 mg Documented by: Atorvastatin Calcium (Atorvastatin Calcium 20 Mg Tablet) 20 mg GT QHS [facility] Last Admin: 04/29/20 21:37 Dose: 20 mg Documented by: Chlorhexidine Gluconate (Chlorhexidine 15 Ml) 15 ml PO BID [facility] Last Admin: 04/30/20 09:21 Dose: Not Given Documented by: Clopidogrel Bisulfate (Clopidogrel Bisulfate 75 Mg Tablet) 75 mg GT DAILY [facility] Last Admin: 04/30/20 09:21 Dose: 75 mg Documented by: Dextrose (Dextrose 50%-Water 25 Gm/50 Ml Disp.Syrin) 0 gm IV X1 PRN; Protocol PRN Reason: Hypoglycemia Protocol Glucagon (Glucagon 1 Mg/Ml Syringe) 1 mg IM .X1 PRN PRN Reason: Hypoglycemia Sodium Chloride () 250 mls @ 15 mls/hr IV .[id number] PRN PRN Reason: Saline Flush Sodium Chloride () 250 mls @ 15 mls/hr IV .[id number] PRN PRN Reason: Additional IVPB Infusion Piperacillin Sod/Tazobactam (Sod 3.375 gm/ Sodium Chloride) 50 mls @ 12.5 mls/hr IV Q12 [facility] Last Infusion: 04/30/20 14:18 Dose: Infused Documented by: Insulin Glargine (Insulin Glargine 100 Units/Ml Pen) 10 units SC QHS [facility] Last Admin: 04/29/20 22:02 Dose: 10 u Documented by: Insulin Human Lispro (Insulin Lispro 100 Unit/Ml Insuln.Pen) 0 unit SC Q6 [facility]; Protocol Last Admin: 04/30/20 11:51 Dose: 4 units Documented by: Levothyroxine Sodium (Levothyroxine 100 Mcg Tablet) 100 mcg GT DAILY [facility] Last Admin: 04/30/20 09:22 Dose: 100 mcg Documented by: Lorazepam (Lorazepam 2 Mg/Ml Syringe) 2 mg IV PRN PRN PRN Reason: SEIZURES Metoprolol Succinate (Metoprolol(Xl)Succ 25 Mg Tablet) 25 mg PO DAILY [facility] Last Admin: 04/30/20 09:21 Dose: 25 mg Documented by: Nutritional Formula (Lactose Free) (Glucerna Shake 120 Ml Liquid) 120 ml PO BID [facility] Last Admin: 04/30/20 09:21 Dose: Not Given Documented by: Ondansetron HCl (Ondansetron 4 Mg/2 Ml Vial) 4 mg IV Q8H PRN PRN PRN Reason: NAUSEA/VOMITING Pantoprazole Sodium (Pantoprazole Sodium 40 Mg Tablet) 40 mg PO DAILY [facility] Last Admin: 04/30/20 09:22 Dose: 40 mg Documented by: Phenytoin Sodium (Phenytoin Na 100 Mg Capsule) 100 mg PO TID [facility] Last Admin: 04/30/20 13:49 Dose: 100 mg Documented by: Sodium Chloride (0.9% Saline Lock 10 Ml Syringe) 10 - 40 ml IV UD PRN PRN Reason: SALINE FLUSH Last Admin: 04/28/20 05:40 Dose: 20 ml Documented by: Home Medications: Medications to take at Discharge Aspirin [Ecotrin] 81 mg PO DAILY 09/10/13 Atorvastatin Calcium [Lipitor] 20 mg PO QHS 09/10/13 cholecalciferol (vitamin D3) 25 mcg (1,000 unit) tablet 25 mcg PO DAILY 11/05/19 glimepiride 1 mg tablet 1 mg PO BID tab 11/05/19 losartan 50 mg tablet 50 mg PO DAILY #90 tab 11/06/19 Levothyroxine [Synthroid] 100 mcg PO DAILY 01/09/20 clopidogrel 75 mg tablet 75 mg PO DAILY 03/16/20 metoprolol succinate 25 mg tablet,extended release 24 hr 25 mg PO DAILY 03/16/20 spironolactone 100 mg tablet 100 mg PO DAILY 03/16/20 Pantoprazole Sodium 40 mg PO DAILY 03/18/20 amlodipine 10 mg tablet 10 mg PO DAILY #90 tab 03/31/20 epoetin franklin 20,000 unit/2 mL injection solution 15,000 unit SC .Q3Hdfia ml 04/02/20 furosemide 40 mg tablet 40 mg PO DAILY #90 tab 04/03/20 Amoxicillin/Potassium Clav [Augmentin 875-125 Tablet] 1 ea PO BID #12 tab 04/30/20 Insulin Glargine [Lantus SoloStar Pen] 10 units SC QHS pen 04/30/20 Insulin Lispro [Humalog KwikPen] See Protocol SC Q6 insuln.pen 04/30/20 Phenytoin Na [Dilantin] 100 mg PO TID cap 04/30/20 Following Prescriptions Were Given to Patient: Amoxicillin/Potassium Clav [Augmentin 875-125 Tablet] 1 ea PO BID #12 tab Primary Care Physician: Aleksandar Clemens Chi, MD [Primary Care Provider] - Please follow up with your Primary Care Physician in: 3-5 days Disposition: [facility] facility Minutes spent on discharge:: 35 Patient Condition:: Stable Medical Necessity - Tobacco Use Smoking Status: Never smoker Meaningful Use Info Meaningful Use Diagnoses (Choose all that apply): None applicable Inpatient E&M: 95459 Disch Hosp
[2020-04-30 16:36] LABS: Bedside Glucose 297 mg/dL (70-110)
[2020-04-30 17:20] LABS: Bedside Glucose 367 mg/dL (70-110)
== END 2020-04-30 18:15 | disposition skilled nursing facility (03) | DRG 100 ==
LOC: ED 04-26 00:08 → ICU 04-26 02:16 → PCU 04-28 17:50
PROVIDERS: Internal Medicine; Internal Medicine Critical Care Medicine; Admitting Provider Hospitalist; Emergency Provider Emergency Medicine; PCP Family Medicine Geriatric Medicine; Visit Provider Family Medicine
DX: G40.901 Epilepsy, unspecified, not intractable, with status epilepticus (principal); J96.00 Acute respiratory failure, unspecified whether with hypoxia or hypercapnia; J69.0 Pneumonitis due to inhalation of food and vomit; G93.40 Encephalopathy, unspecified; N17.9 Acute kidney failure, unspecified; R18.8 Other ascites; I13.0 Hypertensive heart and chronic kidney disease with heart failure and stage 1 through stage 4 chronic kidney disease, or unspecified chronic kidney disease; I50.32 Chronic diastolic (congestive) heart failure; E87.1 Hypo-osmolality and hyponatremia; N18.4 Chronic kidney disease, stage 4 (severe); E11.22 Type 2 diabetes mellitus with diabetic chronic kidney disease; E11.65 Type 2 diabetes mellitus with hyperglycemia; K74.60 Unspecified cirrhosis of liver; E78.5 Hyperlipidemia, unspecified; K21.9 Gastro-esophageal reflux disease without esophagitis; E03.9 Hypothyroidism, unspecified; Z79.02 Long term (current) use of antithrombotics/antiplatelets; Z79.4 Long term (current) use of insulin; Z95.3 Presence of xenogenic heart valve; Z79.899 Other long term (current) drug therapy; E86.0 Dehydration; B96.4 Proteus (mirabilis) (morganii) as the cause of diseases classified elsewhere; D69.6 Thrombocytopenia, unspecified; R53.81 Other malaise
CPT/HCPCS: 31500; 31720; 36415; 36600; 51702; 70450; 70551; 71045; 80048; 80053; 80185; 81001; 82009; 82570; 82803; 82962; 83036; 83605; 83930; 84300; 84443; 84484; 84540; 85025; 85610; 85730; 87040; 87070; 87086; 87186; 87205; 87426; 93005; 94002; 94003; 95819; 97162; 97166; 97802; 99251; 99285; J7030; A4216; G0463; J0330

== ENCOUNTER 2020-04-30 19:03 | Inpatient (IN) | payer MEDICARE, OTHER, SELFPAY ==
[2020-04-26 08:41] VITALS: BMI 24.3
[2020-04-30 19:19] VITALS: PULSE 74; RESP 16; O2SAT 99; BMI 24.8; BMI 24.9
[2020-04-30 19:46] VITALS: BP 146/51; PULSE 77; RESP 16; TEMP 36.1; O2SAT 99
--- NOTE | 2020-04-30 20:32 | HP.PCM_ITS ---
Problem List (1) Debility Status: Acute (2) Unresponsive Status: Acute (3) Seizure disorder Status: Acute (4) Proteus pneumonia Status: Acute (5) Diabetes mellitus Status: Chronic (6) Chronic kidney disease Status: Chronic (7) Acute kidney injury Status: Acute (8) Aortic stenosis Status: Chronic (9) Cirrhosis of liver Status: Chronic (10) Hypertension Status: Chronic (11) GERD (gastroesophageal reflux disease) Status: Chronic (12) Hypothyroidism Status: Chronic (13) Status epilepticus Status: Acute (14) Ascites Status: Chronic (15) Chronic diastolic (congestive) heart failure Status: Chronic (16) Hyperlipidemia Status: Chronic (17) Iron deficiency anemia Status: Chronic History of Present Illness Date of Admission: 04/30/20 Chief Complaint: Here for rehabilitation, strengthening, prior to discharge home with . 04/25/20 The patient is a 85 year old Female with below past medical history presented to [facility] Emergency Department with unresponsiven ess, acute seizure. 04/25/20 Chest X-ray negative. 04/25/20 EKG normal sinus rhythm, cannot rule out anterior infarct, age undetermined. 04/26/20 CT brain chronic involutional changes of brain. Acting abnormal, ,then active seizure, seizing for 1 hour. Sodium 130, Glucose 623, BUN 50, Cr 2.94. UA normal, Troponin normal. Squad gave Versed without effect, then Ativan x 3 given for seizures, continued to seize. Patient intubated. Insulin drip for hyperglycemia, Normal saline 2 liters IV given. IV Dilantin for seizure. 04/26/20 Admit to ICU. Dilantin for seizures. Protonix for GI prophylaxis. Hold Lasix, Hold Aldactone, consult Nephrology for acute kidney injury. 04/26/20 EEG showed diffuse bihemispheric cerebral dysfunction. NO seizures present. 04/28/20 MRI brain showed mild cerebral, cerebellar atrophy. 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 04/28/20 Patient extubated. Dilantin 100MG PO TID for seizure disorder. Proteus pneumonia treated with Zosyn, transitioned to Augmentin to finish course. Acute kidney injury improved from Cr 2.94 to Cr 1.64, Baseline 1.5. Sliding scale insulin for hyperglycemia, sulfonylurea on hold. 04/30/20 Admit to TCU with debility, here for rehabilitation, strengthening, prior to discharge home with . Past Medical History Past Medical History (Chronic Problems): Chronic Problems (Last Reviewed 04/26/20 @ 03:[address] Jin Chance MD) Diabetes mellitus (Chronic) Chronic kidney disease (Chronic) Aortic stenosis (Chronic) Cirrhosis of liver (Chronic) Hypertension (Chronic) GERD (gastroesophageal reflux disease) (Chronic) Hypothyroidism (Chronic) Lower extremity edema (Chronic) Ascites (Chronic) Chronic diastolic (congestive) heart failure (Chronic) Nonrheumatic aortic (valve) stenosis (Chronic) History of aortic valve replacement with bioprosthetic valve (Chronic 03/09/20) TAVR w/ Medtronic Evolut Pro bioprosthetic valve 23 mm 03/09/2020 Nonrheumatic mitral valve stenosis with insufficiency (Chronic) Left bundle branch block (LBBB) (Chronic) post-op TAVR transient LBBB w/ 1 degree AV block Cirrhosis of liver with ascites (Chronic) Secondary pulmonary arterial hypertension (Chronic) Essential hypertension (Chronic) Hyperlipidemia (Chronic) Chronic renal disease, stage 3, moderately decreased glomerular filtration rate (GFR) between 30-59 mL/min/1.73 square meter (Chronic) Thrombocytopenia (Chronic) Iron deficiency anemia (Chronic) Anemia of chronic renal failure, stage 3 (moderate) (Chronic) Medical History: Medical History (Last Reviewed 04/26/20 @ 03:[address] Jin Chance MD) Lower extremity edema (Chronic) R60.0 Ascites (Chronic) R18.8 Chronic diastolic (congestive) heart failure (Chronic) I50.32 Nonrheumatic aortic (valve) stenosis (Chronic) I35.0 Nonrheumatic mitral valve stenosis with insufficiency (Chronic) I34.2, I34.0 Left bundle branch block (LBBB) (Chronic) I44.7 post-op TAVR transient LBBB w/ 1 degree AV block Cirrhosis of liver with ascites (Chronic) K74.60, R18.8 Secondary pulmonary arterial hypertension (Chronic) I27.21 Essential hypertension (Chronic) I10 Hyperlipidemia (Chronic) E78.5 Chronic renal disease, stage 3, moderately decreased glomerular filtration rate (GFR) between 30-59 mL/min/1.73 square meter (Chronic) N18.3 Thrombocytopenia (Chronic) D69.6 Iron deficiency anemia (Chronic) D50.9 Anemia of chronic renal failure, stage 3 (moderate) (Chronic) N18.3, D63.1 Anemia D64.9 Hypothyroid E03.9 TRACY (iron deficiency anemia) D50.9 Non-rheumatic tricuspid valve insufficiency I36.1 Type 2 diabetes mellitus without complication E11.9 Basal cell carcinoma C44.Dec NECK Cataracts, bilateral H26.9 Pleural effusion J90 Pleural effusion, left J90 Traumatic open wound of right lower leg with delayed healing S81.801D Allergies No Known Allergies Allergy (Verified 04/03/20 08:15) Home Medications: Ambulatory Orders Medication Instructions Recorded Aspirin [Ecotrin] 81 mg PO DAILY 09/10/13 Atorvastatin Calcium [Lipitor] 20 mg PO QHS 09/10/13 cholecalciferol (vitamin D3) 25 25 mcg PO DAILY 11/05/19 mcg (1,000 unit) tablet glimepiride 1 mg tablet 1 mg PO BID tab 11/05/19 Levothyroxine [Synthroid] 100 mcg PO DAILY 01/09/20 clopidogrel 75 mg tablet 75 mg PO DAILY 03/16/20 metoprolol succinate 25 mg 25 mg PO DAILY 03/16/20 tablet,extended release 24 hr spironolactone 100 mg tablet 100 mg PO DAILY 03/16/20 Pantoprazole Sodium 40 mg PO DAILY 03/18/20 epoetin franklin 20,000 unit/2 mL 15,000 unit SC .[id number] ml 04/02/20 injection solution Amlodipine Besylate [Norvasc] 10 mg PO DAILY 04/30/20 Amoxicillin/Potassium Clav 1 ea PO BID 04/30/20 [Augmentin 875-125 Tablet] Furosemide 40 mg PO DAILY 04/30/20 Insulin Glargine [Lantus SoloStar 10 units SC QHS 04/30/20 Pen] Insulin Lispro [Humalog KwikPen] See Protocol SC Q6 04/30/20 Losartan Potassium [Cozaar] 50 mg PO DAILY 04/30/20 Phenytoin Na [Dilantin] 100 mg PO TID MDD seizures 04/30/20 Surgical History: Surgical History (Last Reviewed 04/26/20 @ 03:[address] Jin Chance MD) History of aortic valve replacement with bioprosthetic valve (Chronic) Onset Date: 03/09/20 Z95.3 TAVR w/ Medtronic Evolut Pro bioprosthetic valve 23 mm 03/09/2020 History of abdominal paracentesis Onset Date: 03/11/20 Z98.890 History of bilateral cataract extraction Z98.41, Z98.42 History of cholecystectomy Z98.890, Z90.49 History of left heart catheterization Onset Date: 11/11/19 Z98.890 Surgical History: cataract - Bilateral., cholecystectomy, - - TAVR, paracentesis, Left heart catherization. Psychiatric History: No pertinent psych hx HEADER DOCK History: No pertinent HEADER DOCK history Lives: Spouse/ Significant Other Smoking Status: Never smoker Tobacco Use: Non-smoker Alcohol: None Drugs: None - *Family History Maternal Family History: Family History (Last Reviewed 04/26/20 @ 03:[address] Jin Chance MD) Brother Myocardial infarction, Onset Age: 50 Father Myocardial infarction, Onset Age: 60 Paternal Family History: Family History (Last Reviewed 04/26/20 @ 03:[address] Jin Chance MD) Brother Myocardial infarction, Onset Age: 50 Father Myocardial infarction, Onset Age: 60 Review of Systems Constitutional: Denies: Chills, Fever, Weight Change HEENT: Denies: Head Aches, Sinus Congestion, Sinus Drainage Cardiovascular: Denies: Chest Pain, Palpitations Respiratory: Denies: Cough, Shortness of breath at rest, Sputum production Gastrointestinal: Denies: Abdominal Pain, Nausea, Vomiting Genitourinary: Denies: Dysuria Musculoskeletal: Denies: Joint Pain, Joint Tenderness Skin: Denies: Rash, Wounds Neurological: Denies: Numbness, Tingling, Focal weakness Psychiatric: Denies: Anxiety, Depression, Homicidal Ideations, Suicidal Ideations Hematologic/ Lymphatic: Denies: Easy Bruising, Easy Bleeding VTE Information - Inpt Only VTE Present on Admission: No VTE Mechan Device Prophylaxis: Knee High MADIHA Hose VTE Pharm Prophylaxis ordered?: No Reason prophylaxis not ordered:: Medical Contraindication Patient Problems: Active and Suspected Problems (Last Reviewed 04/26/20 @ 03:[address] Jin Chance MD) Status epilepticus (Acute) Debility (Acute) Unresponsive (Acute) Seizure disorder (Acute) Proteus pneumonia (Acute) Acute kidney injury (Acute) - Physical Exam Vitals/I&O's: Vital Signs Temp Pulse Resp BP Pulse Ox 97.0 F L 77 16 146/51 H 99 04/30/20 19:46 04/30/20 19:46 04/30/20 19:46 04/30/20 19:46 04/30/20 19:46 Oxygen Delivery Method Room Air Weight: 57.805 kg Body Mass Index (BMI) 24.8 Finger Stick Blood Glucose 285 General: Alert, Oriented x3, Cooperative HEENT: Atraumatic, PERRLA, EOMI, Normocephalic Neck: Supple, No JVD, Negative Carotid Bruits Lungs: Clear to auscultation, Normal air movement Cardiovascular: Regular rate, No murmurs Abdomen: Bowel Sounds Present, Soft, Non Tender Extremities: No edema, Capillary Refill Less than 3 Seconds Skin: No rashes, No breakdown Musculoskeletal: No Tenderness to Palpation of Joints or Extremities Neurological: Cranial nerves II-XII grossly intact Psych/Mental Status: Normal Affect, Appropriate Current Medications Amlodipine Besylate (Amlodipine 10 Mg Tablet) 10 mg PO DAILY [facility] Amoxicillin/Clavulanate Potassium (Amox/Clavulanate 875 Mg Tablet) mg PO BID FERN Stop: 05/07/20 06:01 Aspirin (Aspirin E.C. 81 Mg Tablet) 81 mg PO DAILY [facility] Atorvastatin Calcium (Atorvastatin Calcium 20 Mg Tablet) 20 mg PO QHS [facility] Cholecalciferol (Cholecalciferol (Vit D3) 1,000 Unit (25mcg)) unit PO DAILY [facility] Clopidogrel Bisulfate (Clopidogrel Bisulfate 75 Mg Tablet) 75 mg PO DAILY [facility] Insulin Glargine (Insulin Glargine 100 Units/Ml Pen) 10 units SC QHS [facility] Levothyroxine Sodium (Levothyroxine 100 Mcg Tablet) 100 mcg PO DAILY [facility] Losartan Potassium (Losartan Potassium 50 Mg Tablet) 50 mg PO DAILY [facility] Metoprolol Succinate (Metoprolol(Xl)Succ 25 Mg Tablet) 25 mg PO DAILY [facility] Multi-Ingredient Cream (Mineral Oil/Petrolatum,White Jar) 1 applic TOPICAL FERN; Protocol Non-Formulary Medication (Epoetin Franklin [Epogen]) 15,000 unit SC .[id number] [facility] Pantoprazole Sodium (Pantoprazole Sodium 40 Mg Tablet) 40 mg PO DAILY [facility] Phenytoin Sodium (Phenytoin Na 100 Mg Capsule) 100 mg PO TID [facility] Tuberculin PPD (Tuberculin,Purif.Prot.Deriv. 50 Tu/Ml Vial) 5 tu ID X1 ONE Stop: 05/01/20 10:01 Tuberculin PPD (Tuberculin,Purif.Prot.Deriv. 50 Tu/Ml Vial) 5 tu ID X1 ONE Stop: 05/08/20 10:01 Assessment/Plan All Active Problems (Last Reviewed 04/26/20 @ 03:[address] Jin Chance MD) Status epilepticus (Acute) Debility (Acute) Unresponsive (Acute) Seizure disorder (Acute) Proteus pneumonia (Acute) Acute kidney injury (Acute) 85 year old female with below past medical history hospitalized for status epilepticus, complicated by respiratory failure requiring intubation, acute kidney injury, proteus pneumonia, uncontrolled diabetes mellitus, admitted to TCU with debility, here for rehabilitation, strengthening, prior to discharge h ome with . * Debility - PT/OT. * Pain - Tylenol 1000MG Q6H PRN pain (1-10). * Bowel - Miralax 17GM daily, Senna/colace 1 tablet BID, MOM 30ML daily PRN, Dulcolax 10MG [place] daily PRN. * Adult immunization - Administer Prevnar 13, Pneumovax 23, Fluzone as appropriate. * DVT prophylaxis - Hold, on dual antiplatelet therapy, anemia. * Hypertension - Metoprolol succinate 25MG daily, Losartan 50MG daily, Amlodipine 10MG daily. * Proteus pneumonia - Augmentin 500MG BID thru 05/07/20. * Coronary Artery Disease - Metoprolol succinate 25MG daily, Losartan 50MG daily, Plavix 75MG daily, Aspirin 81MG daily. * Hyperlipidemia - Atorvastatin 20MG QHS. * Diabetes Mellitus II - Lantus 10 units QHS, monitor blood sugars. * Hypothyroidism - Levothyroxine 100MCG daily. * Skin irritation - Eucerin topical QHS. * GERD - Pantoprazole 40MG daily. * Seizure disorder - Dilantin 100MG TID, Dilantin level in AM. * Appetite loss - Mirtazapine 7.5MG QHS.
[2020-04-30 21:40] LABS: Bedside Glucose 250 mg/dL (70-110)
[2020-04-30] MEDS: Atorvastatin Calcium 20 MG Tablet PO (22:21)
[2020-04-30] MEDS: Phenytoin Na 100 MG Capsule PO (22:21)
[2020-04-30] MEDS: Mirtazapine 15 MG Tablet 7.5 MG PO (22:22)
[2020-05-01 05:00] VITALS: BP 148/52; PULSE 72; RESP 20; TEMP 36.8; O2SAT 97
[2020-05-01 05:47] LABS: Absolute Lymphocyte Count 0.85 X10^3/uL (0.83-4.51); Absolute Neutrophil Count 2.9 X10^3/uL (2.0-7.7); Basophil# 0.03 X10^3/uL; Basophil% 0.6 % (0-1); Eosinophil# 0.51 X10^3/uL; Eosinophils% 10.5 % (0-5); Hematocrit 31.1 % (37-47); Hemoglobin 9.9 g/dL (12.0-15.0); Lymphocyte # 0.85 X10^3/ul (4.0); Lymphocyte % 17.5 % (19-41); Mean Corp Hgb Conc 31.8 g/dL (32-36); Mean Corpuscular Hgb 28.6 pg (27.0-32.0); Mean Corpuscular Volume 89.9 fL (81-99); Mean Platelet Vol. 11.4 fl (6.2-12.0); Monocyte# 0.58 X10^3/uL; NRBC Flagged by Analyzer 0 % (0-5); Neutrophil # 2.87 X10^3/uL (2.7-7.7); Neutrophil % 59.2 % (47-70); Platelet Count 129 K/mm3 (150-450); RBC Distribution Width CV 14.6 % (11.6-14.6); RBC Distribution Width SD 48.5 fl (35.1-43.9); Red Blood Count 3.46 M/mm3 (4.2-5.4); White Blood Count 4.9 K/mm3 (4.4-11.0)
[2020-05-01 06:13] LABS: Anion Gap 5 (5-15); BUN 43 mg/dL (7-18); BUN/Creat Ratio 21.5 RATIO (10-20); Calcium,Total 7.9 mg/dL (8.5-10.1); Chloride 105 mmol/L (98-107); EST Glomerular Filtration Rate 25 mL/min (>60); Est Glom Filt Rate - Afr Amer 30 mL/min (>60); Estimated Creatinine Clearance 14.77 ml/min; Glucose 214 mg/dL (74-106); Phenytoin (Dilantin) Level 13.8 mL (10.0-20.0); Potassium 4.2 mmol/L (3.5-5.1); Sodium Level 134 mmol/L (136-145)
[2020-05-01] MEDS: amLODIPine 10 MG Tablet PO (06:21)
[2020-05-01] MEDS: Aspirin E.C. 81 MG Tablet PO (06:21)
[2020-05-01] MEDS: Phenytoin Na 100 MG Capsule PO ×3 (06:21→21:40)
[2020-05-01] MEDS: Losartan Potassium 50 MG Tablet PO (06:21)
[2020-05-01] MEDS: Senna/Docusate Sodium 1 Tablet PO ×2 (06:21→17:40)
[2020-05-01] MEDS: Levothyroxine 100 MCG Tablet PO (06:21)
[2020-05-01] MEDS: Clopidogrel Bisulfate 75 MG Tablet PO (06:21)
[2020-05-01] MEDS: Pantoprazole Sodium 40 MG Tablet PO (06:21)
[2020-05-01 06:22] VITALS: PULSE 72
[2020-05-01] MEDS: Amox/Clavulanate 500 MG Tablet PO ×2 (06:22→17:40)
[2020-05-01] MEDS: Metoprolol(XL)Succ 25 MG Tablet PO (06:22)
[2020-05-01] MEDS: Glucerna Shake 120 ML LIQUID PO ×4 (06:24→21:40)
[2020-05-01 06:31] LABS: Bedside Glucose 226 mg/dL (70-110)
[2020-05-01] MEDS: Tuberculin,Purif.prot.deriv. 50 TU/ML Vial 5 ML ID (10:40)
--- NOTE | 2020-05-01 10:42 | CASEMGMT ---
Addendum entered by Francesca Contreras 05/01/20 10:52: Completed Palliative Care screening tool. Patient scored 4. Discussed Palliative care with pt. Pt agreeable to referral. Will set up at [place]. Original Note: Social Work Discussed code status with pt. Pt confirmed DNR-CC. MOLST form reviewed, communication to , placed in chart. Francesca Contreras, [employer]
[2020-05-01 11:06] LABS: Bedside Glucose 349 mg/dL (70-110)
[2020-05-01] MEDS: Insulin Lispro 100 UNIT/ML INSULN.PEN 7 UNIT SC (12:06)
[2020-05-01 13:59] VITALS: BP 136/57; PULSE 67; RESP 16; TEMP 36.6; O2SAT 99
--- NOTE | 2020-05-01 15:29 | PCM.NTREPORT ---
Nutrition Therapy Report - History Nutrition Services has been consulted to:: Manage nutrient details of diet order Current diet / nutrition support order:: Carbohydrate-controlled/no added salt--nonselect - Anthropometric Measurements Height:: 5 ft Weight:: 57.8 kg Body Mass Index (BMI):: 24.8 - Relevant Labs Relevant Labs:: RBC 3.46 M/mm3 (4.2-5.4) L 05/01/20 05:07 Hgb 9.9 g/dL (12.0-15.0) L 05/01/20 05:07 Hct 31.1 % (37-47) L 05/01/20 05:07 MCHC 31.8 g/dL (32-36) L 05/01/20 05:07 RDW Std Deviation 48.5 fl (35.1-43.9) H 05/01/20 05:07 Plt Count 129 K/mm3 (150-450) L 05/01/20 05:07 Lymph % (Auto) 17.5 % (19-41) L 05/01/20 05:07 [place] % (Auto) 12.0 % (0-10) H 05/01/20 05:07 Eos % (Auto) 10.5 % (0-5) H 05/01/20 05:07 Sodium 134 mmol/L (136-145) L 05/01/20 05:07 BUN 43 mg/dL (7-18) H 05/01/20 05:07 Creatinine 2.00 mg/dL (0.55-1.02) H 05/01/20 05:07 Est GFR (MDRD) Af Amer 30 mL/min (>60) L 05/01/20 05:07 Est GFR (MDRD) Non-Af 25 mL/min (>60) L 05/01/20 05:07 BUN/Creatinine Ratio 21.5 RATIO (10-20) H 05/01/20 05:07 Glucose 214 mg/dL (74-106) H 05/01/20 05:07 Calcium 7.9 mg/dL (8.5-10.1) L 05/01/20 05:07 - Assessment Food / Nutrition-Related History:: Resident with overall fair to good intake at meals since admit to TCU ~50-75% averaged. HgbA1C 8.7% indicates fair to poor glycemic control especially given blood glucose noted 214 and 349--warrants carb-controlled diet restriction. 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 Wt loss reportedly related to valve replacement/recovery. Will continue glucerna shake w/ medpass as ordered. 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 Evidence of Malnutrition Exists:: Yes Severe PCM:: Chronic Illness - Nutrition Intervention Nutrition Prescription:: Estimated nutrition needs for repletion~3962-7705 kcal and ~65-75 gm protein per day. - Food / Nutrient Delivery Interventions Summary of nutrition intervention:: Will continue 120ml glucerna shake 4 times per day with medpass as ordered and offer ensure pudding BID w/ lunch and dinner. Liberalize diet as needed to optimize intake at meals. Nutrition support ordered as / adjusted to:: No nutrition support. Nutrition education provided?: Yes - MNT Monitoring Further MNT monitoring and evaluation required?: Yes MNT Follow-up in:: 7-9 days
[2020-05-01 15:34] VITALS: BMI 24.8
[2020-05-01 16:50] LABS: Bedside Glucose 398 mg/dL (70-110)
--- NOTE | 2020-05-01 17:21 | NURSING ---
Pt Blood Sugar [address] Clemens ordered 17 units x1.
[2020-05-01] MEDS: Insulin Lispro 100 UNIT/ML INSULN.PEN 17 UNIT SC (17:40)
[2020-05-01 18:25] VITALS: PULSE 67; RESP 18; O2SAT 100
[2020-05-01] MEDS: Atorvastatin Calcium 20 MG Tablet PO (21:42)
[2020-05-01] MEDS: Mirtazapine 15 MG Tablet 7.5 MG PO (21:42)
[2020-05-01 22:01] LABS: Bedside Glucose 210 mg/dL (70-110)
[2020-05-02 05:00] VITALS: BP 148/51; PULSE 72; RESP 18; TEMP 36.6; O2SAT 98
[2020-05-02] MEDS: Glucerna Shake 120 ML LIQUID PO ×4 (05:56→21:38)
[2020-05-02 05:57] VITALS: BP 148/51; PULSE 72
[2020-05-02] MEDS: Senna/Docusate Sodium 1 Tablet PO ×2 (05:57→17:02)
[2020-05-02] MEDS: Aspirin E.C. 81 MG Tablet PO (05:57)
[2020-05-02] MEDS: Clopidogrel Bisulfate 75 MG Tablet PO (05:57)
[2020-05-02] MEDS: amLODIPine 10 MG Tablet PO (05:57)
[2020-05-02] MEDS: Losartan Potassium 50 MG Tablet PO (05:57)
[2020-05-02] MEDS: Metoprolol(XL)Succ 25 MG Tablet PO (05:57)
[2020-05-02] MEDS: Amox/Clavulanate 500 MG Tablet PO ×2 (05:57→17:02)
[2020-05-02] MEDS: Pantoprazole Sodium 40 MG Tablet PO (05:57)
[2020-05-02] MEDS: Levothyroxine 100 MCG Tablet PO (05:57)
[2020-05-02] MEDS: Phenytoin Na 100 MG Capsule PO ×3 (05:57→21:38)
[2020-05-02 06:35] LABS: Bedside Glucose 209 mg/dL (70-110)
[2020-05-02] MEDS: Insulin Lispro 100 UNIT/ML INSULN.PEN 7 UNIT SC (08:46)
[2020-05-02 11:25] LABS: Bedside Glucose 255 mg/dL (70-110)
[2020-05-02] MEDS: Insulin Lispro 100 UNIT/ML INSULN.PEN 10 UNIT SC ×2 (12:03→17:05)
--- NOTE | 2020-05-02 13:45 | NURSING ---
UPDATED ON PT. QUESTIONS ASKED AND ANSWERED.
[2020-05-02 16:34] VITALS: BP 127/42; PULSE 67; RESP 16; TEMP 36.5; O2SAT 99
[2020-05-02 17:25] LABS: Bedside Glucose 233 mg/dL (70-110)
[2020-05-02] MEDS: Atorvastatin Calcium 20 MG Tablet PO (21:39)
[2020-05-02] MEDS: Mirtazapine 15 MG Tablet 7.5 MG PO (21:40)
[2020-05-02 22:05] LABS: Bedside Glucose 157 mg/dL (70-110)
[2020-05-03 05:42] VITALS: BP 136/47; PULSE 71
[2020-05-03] MEDS: Senna/Docusate Sodium 1 Tablet PO (05:42)
[2020-05-03] MEDS: Phenytoin Na 100 MG Capsule PO ×3 (05:42→20:45)
[2020-05-03] MEDS: Pantoprazole Sodium 40 MG Tablet PO (05:42)
[2020-05-03] MEDS: Levothyroxine 100 MCG Tablet PO (05:42)
[2020-05-03] MEDS: Losartan Potassium 50 MG Tablet PO (05:42)
[2020-05-03] MEDS: Clopidogrel Bisulfate 75 MG Tablet PO (05:42)
[2020-05-03] MEDS: Metoprolol(XL)Succ 25 MG Tablet PO (05:42)
[2020-05-03] MEDS: amLODIPine 10 MG Tablet PO (05:42)
[2020-05-03] MEDS: Polyethylene Glycol 3350 17 GM PACKET PO (05:42)
[2020-05-03] MEDS: Glucerna Shake 120 ML LIQUID PO ×4 (05:43→20:45)
[2020-05-03 05:48] VITALS: BP 136/47; PULSE 74; RESP 16; TEMP 36.4; O2SAT 96
[2020-05-03 06:26] LABS: Bedside Glucose 106 mg/dL (70-110)
[2020-05-03] MEDS: Aspirin E.C. 81 MG Tablet PO (09:24)
[2020-05-03] MEDS: Amox/Clavulanate 500 MG Tablet PO ×2 (09:24→17:49)
[2020-05-03 09:48] VITALS: PULSE 63; RESP 16; O2SAT 96
[2020-05-03 11:10] LABS: Bedside Glucose 142 mg/dL (70-110)
[2020-05-03] MEDS: Insulin Lispro 100 UNIT/ML INSULN.PEN SC ×2 (12:04→17:49)
[2020-05-03 15:46] VITALS: BP 126/42; PULSE 67; RESP 16; TEMP 36.4; O2SAT 98
[2020-05-03 17:20] LABS: Bedside Glucose 308 mg/dL (70-110)
--- NOTE | 2020-05-03 18:00 | NURSING ---
insulin adjusted d/t low Blood sugars this AM. will continue to monitor.
[2020-05-03] MEDS: Mirtazapine 15 MG Tablet 7.5 MG PO (20:46)
[2020-05-03] MEDS: Atorvastatin Calcium 20 MG Tablet PO (20:46)
[2020-05-03 21:26] LABS: Bedside Glucose 277 mg/dL (70-110)
[2020-05-04 05:00] VITALS: BP 147/50; PULSE 74; RESP 16; TEMP 36.9; O2SAT 97
[2020-05-04 05:31] VITALS: BP 147/50; PULSE 74
[2020-05-04] MEDS: Losartan Potassium 50 MG Tablet PO (05:31)
[2020-05-04] MEDS: Metoprolol(XL)Succ 25 MG Tablet PO (05:31)
[2020-05-04] MEDS: amLODIPine 10 MG Tablet PO (05:31)
[2020-05-04] MEDS: Levothyroxine 100 MCG Tablet PO (05:31)
[2020-05-04] MEDS: Pantoprazole Sodium 40 MG Tablet PO (05:32)
[2020-05-04] MEDS: Clopidogrel Bisulfate 75 MG Tablet PO (05:32)
[2020-05-04] MEDS: Phenytoin Na 100 MG Capsule PO ×3 (05:34→22:33)
[2020-05-04] MEDS: Glucerna Shake 120 ML LIQUID PO ×4 (05:38→22:33)
[2020-05-04 06:26] LABS: Bedside Glucose 273 mg/dL (70-110)
[2020-05-04] MEDS: Aspirin E.C. 81 MG Tablet PO (09:20)
[2020-05-04] MEDS: Amox/Clavulanate 500 MG Tablet PO ×2 (09:20→17:09)
[2020-05-04] MEDS: Insulin Lispro 100 UNIT/ML INSULN.PEN SC (09:21)
[2020-05-04 09:44] LABS: Absolute Lymphocyte Count 0.68 X10^3/uL (0.83-4.51); Absolute Neutrophil Count 3.2 X10^3/uL (2.0-7.7); Basophil# 0.04 X10^3/uL; Basophil% 0.8 % (0-1); Eosinophil# 0.47 X10^3/uL; Eosinophils% 9.4 % (0-5); Hematocrit 31.6 % (37-47); Lymphocyte # 0.68 X10^3/ul (4.0); Lymphocyte % 13.6 % (19-41); Mean Corp Hgb Conc 31.6 g/dL (32-36); Mean Corpuscular Hgb 29.1 pg (27.0-32.0); Mean Corpuscular Volume 91.9 fL (81-99); Mean Platelet Vol. 10.8 fl (6.2-12.0); Monocyte# 0.63 X10^3/uL; Monocyte% 12.6 % (0-10); NRBC Flagged by Analyzer 0 % (0-5); Neutrophil # 3.18 X10^3/uL (2.7-7.7); Neutrophil % 63.4 % (47-70); Platelet Count 131 K/mm3 (150-450); RBC Distribution Width CV 15.4 % (11.6-14.6); RBC Distribution Width SD 51.4 fl (35.1-43.9); Red Blood Count 3.44 M/mm3 (4.2-5.4)
[2020-05-04 10:15] LABS: Ferritin 301 ng/mL (8-252); Iron 66 ug/dL (50-170)
[2020-05-04 11:31] LABS: Bedside Glucose 289 mg/dL (70-110)
--- NOTE | 2020-05-04 11:51 | PHA.CONS_ITS ---
<Elda Sarkar M - Last Filed: 05/04/20 11:51> Progress Note - Pharmacy Subjective: TCU ADMISSION Objective: Allergies No Known Allergies Allergy (Verified 04/03/20 08:15) Current Medications Generic Name Dose Route Start Last Admin Trade Name Freq PRN Reason Stop Dose Admin Acetaminophen 1,000 mg 04/30/20 20:50 Acetaminophen 500 Mg Tablet PO Q6H PRN Pain Score 1-10 Amlodipine Besylate 10 mg 05/01/20 06:00 05/04/20 05:31 Amlodipine 10 Mg Tablet PO 10 mg DAILY [facility] Administration Amoxicillin/Clavulanate Potassium 500 mg 05/03/20 08:00 05/04/20 09:20 Amox/Clavulanate 500 Mg Tablet PO 05/07/20 08:01 500 mg BIDCM [facility] Administration Aspirin 81 mg 05/03/20 08:00 05/04/20 09:20 Aspirin E.C. 81 Mg Tablet PO 81 mg DAILY@0800 [facility] Administration Atorvastatin Calcium 20 mg 04/30/20 22:00 05/03/20 20:46 Atorvastatin Calcium 20 Mg Tablet PO 20 mg QHS [facility] Administration Bisacodyl 10 mg 04/30/20 20:51 Bisacodyl 10 Mg Suppository RECTAL DAILY PRN Constipation Clopidogrel Bisulfate 75 mg 05/01/20 06:00 05/04/20 05:32 Clopidogrel Bisulfate 75 Mg Tablet PO 75 mg DAILY [facility] Administration Emollient Ointment 1 applic 05/03/20 22:00 05/04/20 05:33 Emollient Combination No.72 500 Ml Lotion TOPICAL 1 applicatio 0600,2200 [facility] Administration Protocol Insulin Glargine 25 units 05/04/20 22:00 Insulin Glargine 100 Units/Ml Pen SC QHS [facility] Insulin Human Lispro 7 unit 05/04/20 11:45 Insulin Lispro 100 Unit/Ml Insuln.Pen SC TIDAC [facility] Levothyroxine Sodium 100 mcg 05/01/20 06:00 05/04/20 05:31 Levothyroxine 100 Mcg Tablet PO 100 mcg DAILY [facility] Administration Losartan Potassium 50 mg 05/01/20 06:00 05/04/20 05:31 Losartan Potassium 50 Mg Tablet PO 50 mg DAILY [facility] Administration Magnesium Hydroxide 30 ml 04/30/20 20:51 Magnesium Hydroxide 30 Ml Udc PO DAILY PRN Constipation Metoprolol Succinate 25 mg 05/01/20 06:00 05/04/20 05:31 Metoprolol(Xl)Succ 25 Mg Tablet PO 25 mg DAILY [facility] Administration Mirtazapine 7.5 mg 04/30/20 22:00 05/03/20 20:46 Mirtazapine 15 Mg Tablet PO 7.5 mg QHS [facility] Administration Multi-Ingredient Cream 1 applic 04/30/20 22:00 05/03/20 20:45 Mineral Oil/Petrolatum,White Jar TOPICAL 1 applicatio HS [facility] Administration Protocol Nutritional Formula (Lactose Free) 120 ml 05/01/20 06:00 05/04/20 05:38 Glucerna Shake 120 Ml Liquid PO 120 ml 4X/DAY [facility] Administration Pantoprazole Sodium 40 mg 05/01/20 06:00 05/04/20 05:32 Pantoprazole Sodium 40 Mg Tablet PO 40 mg DAILY [facility] Administration Phenytoin Sodium 100 mg 04/30/20 22:00 05/04/20 05:34 Phenytoin Na 100 Mg Capsule PO 100 mg TID [facility] Administration Polyethylene Glycol 17 gm 05/01/20 06:00 05/04/20 05:33 Polyethylene Glycol 3350 17 Gm Packet PO Not Given DAILY [facility] Senna/Docusate Sodium 1 tablet 05/01/20 06:00 05/04/20 05:34 Senna/Docusate Sodium 1 Tablet PO Not Given BID [facility] Tuberculin PPD 5 tu 05/08/20 10:00 Tuberculin,Purif.Prot.Deriv. 50 Tu/Ml Vial ID 05/08/20 10:01 X1 ONE Problem List (Last Reviewed 04/26/20 @ 03:[address] Jin Chance MD) Status epilepticus (Acute) Debility (Acute) Unresponsive (Acute) Seizure disorder (Acute) Proteus pneumonia (Acute) Diabetes mellitus (Chronic) Chronic kidney disease (Chronic) Acute kidney injury (Acute) Aortic stenosis (Chronic) Cirrhosis of liver (Chronic) Hypertension (Chronic) GERD (gastroesophageal reflux disease) (Chronic) Hypothyroidism (Chronic) Ascites (Chronic) Chronic diastolic (congestive) heart failure (Chronic) Hyperlipidemia (Chronic) Iron deficiency anemia (Chronic) Vital Signs Temp Pulse Resp BP Pulse Ox 98.4 F 74 16 147/50 H 97 05/04/20 05:00 05/04/20 05:31 05/04/20 05:00 12/14/20 05:31 05/04/20 05:00 Oxygen Delivery Method Room Air Weight: 58.786 kg Body Mass Index (BMI) 24.8 Finger Stick Blood Glucose 285 Sodium 134 mmol/L (136-145) L 05/01/20 05:07 Potassium 4.2 mmol/L (3.5-5.1) 05/01/20 05:07 Chloride 105 mmol/L (98-107) 05/01/20 05:07 Carbon Dioxide 24.0 mmol/L (21.0-32.0) 05/01/20 05:07 Anion Gap 5 (5-15) 05/01/20 05:07 BUN 43 mg/dL (7-18) H 05/01/20 05:07 Creatinine 2.00 mg/dL (0.55-1.02) H 05/01/20 05:07 Est GFR (MDRD) Af Amer 30 mL/min (>60) L 05/01/20 05:07 Est GFR (MDRD) Non-Af 25 mL/min (>60) L 05/01/20 05:07 BUN/Creatinine Ratio 21.5 RATIO (10-20) H 05/01/20 05:07 Glucose 214 mg/dL (74-106) H 05/01/20 05:07 Assessment/Plan: 1. Pain: Tylenol 1000mg PO Q6h PRN Pain 1-02/28. Please continue to monitor for increased/decreased S/S pain, PRN medication usage. 2. Pneumonia, secondary to proteus: Augmentin 500mg PO BIDCM thru 05/07. Please continue to monitor for resolution of infection, S/S diarrhea, renal function. 3. Seizure Disorder: Phenytoin 100mg PO TID. Last phenytoin level 05/01 was 13.8 (WNL). Please continue to monitor phenytoin levels as clinically indicated. This is a Beer's Criteria medication, recommended to avoid use unless treatment is for seizure/mood disorders. Please continue to monitor for falls, or impaired motor function, thanks. 4. HTN/CAD: Norvasc 10mg PO Daily, Aspirin 81mg PO Daily, Lipitor 20mg PO QHS, Plavix 75mg PO Daily, Losartan 50mg PO Daily, Toprol XL 25mg PO Daily. Please continue to monitor BP, pulse, S/S bleeding/bruising, electrolytes, lipid panel annually or sooner if clinically indicated. 5. Diabetes Type II: Lantus 25 unit SC QHS, Humalog 7 unit TIDAC. Please continue to monitor BG, A1C, S/S hypoglycemia. 6. Hypothyroidism: Synthroid 100mcg PO daily. Please continue to monitor thyroid function as clinically indicated. 7. GERD: Protonix 40mg PO Daily. Please continue to monitor for S/S GERD exacerbation. Please also encourage nonpharmacologic therapies to help reduce exacerbations as well, thanks. Psychotropic Medications: 8. Appetite Loss: Remeron 7.5mg PO QHS. Please consider a GDR by 10/2020 if clinically indicated, thanks. Unnecessary Medications: None Bowel Regimen: *Miralax 17g PO Daily, Senna/Docusate 1 tab PO BID, Dulcolax 10mg [place] Daily PRN, MOM 30mL PO Daily PRN. Per MAR, pt hasn't had scheduled doses d/t diarrhea, or pt refusal. Please consider changing scheduled medications to PRN if clinically appropriate, thank you. Date of Note:: 05/04/20 - Provider Comments Provider responsibility: Provider responsible to enter orders to implement recommendations <Aleksandar Clemens Chi - Last Filed: 05/04/20 12:20> Progress Note - Pharmacy Subjective: [] Objective: Allergies No Known Allergies Allergy (Verified 04/03/20 08:15) Current Medications Generic Name Dose Route Start Last Admin Trade Name Freq PRN Reason Stop Dose Admin Acetaminophen 1,000 mg 04/30/20 20:50 Acetaminophen 500 Mg Tablet PO Q6H PRN Pain Score 1-10/10 Amlodipine Besylate 10 mg 05/01/20 06:00 05/04/20 05:31 Amlodipine 10 Mg Tablet PO 10 mg DAILY [facility] Administration Amoxicillin/Clavulanate Potassium 500 mg 05/03/20 08:00 05/04/20 09:20 Amox/Clavulanate 500 Mg Tablet PO 05/07/20 08:01 500 mg BIDCM [facility] Administration Aspirin 81 mg 05/03/20 08:00 05/04/20 09:20 Aspirin E.C. 81 Mg Tablet PO 81 mg DAILY@0800 [facility] Administration Atorvastatin Calcium 20 mg 04/30/20 22:00 05/03/20 20:46 Atorvastatin Calcium 20 Mg Tablet PO 20 mg QHS [facility] Administration Bisacodyl 10 mg 04/30/20 20:51 Bisacodyl 10 Mg Suppository RECTAL DAILY PRN Constipation Clopidogrel Bisulfate 75 mg 05/01/20 06:00 05/04/20 05:32 Clopidogrel Bisulfate 75 Mg Tablet PO 75 mg DAILY [facility] Administration Emollient Ointment 1 applic 05/03/20 22:00 05/04/20 05:33 Emollient Combination No.72 500 Ml Lotion TOPICAL 1 applicatio 0600,2200 [facility] Administration Protocol Insulin Glargine 25 units 05/04/20 22:00 Insulin Glargine 100 Units/Ml Pen SC QHS [facility] Insulin Human Lispro 10 unit 05/04/20 16:45 Insulin Lispro 100 Unit/Ml Insuln.Pen SC TIDAC [facility] Levothyroxine Sodium 100 mcg 05/01/20 06:00 05/04/20 05:31 Levothyroxine 100 Mcg Tablet PO 100 mcg DAILY [facility] Administration Losartan Potassium 50 mg 05/01/20 06:00 05/04/20 05:31 Losartan Potassium 50 Mg Tablet PO 50 mg DAILY [facility] Administration Magnesium Hydroxide 30 ml 04/30/20 20:51 Magnesium Hydroxide 30 Ml Udc PO DAILY PRN Constipation Metoprolol Succinate 25 mg 05/01/20 06:00 05/04/20 05:31 Metoprolol(Xl)Succ 25 Mg Tablet PO 25 mg DAILY [facility] Administration Mirtazapine 7.5 mg 04/30/20 22:00 05/03/20 20:46 Mirtazapine 15 Mg Tablet PO 7.5 mg QHS [facility] Administration Multi-Ingredient Cream 1 applic 04/30/20 22:00 05/03/20 20:45 Mineral Oil/Petrolatum,White Jar TOPICAL 1 applicatio HS [facility] Administration Protocol Nutritional Formula (Lactose Free) 120 ml 05/01/20 06:00 05/04/20 12:08 Glucerna Shake 120 Ml Liquid PO 120 ml 4X/DAY [facility] Administration Pantoprazole Sodium 40 mg 05/01/20 06:00 05/04/20 05:32 Pantoprazole Sodium 40 Mg Tablet PO 40 mg DAILY [facility] Administration Phenytoin Sodium 100 mg 04/30/20 22:00 05/04/20 05:34 Phenytoin Na 100 Mg Capsule PO 100 mg TID [facility] Administration Polyethylene Glycol 17 gm 05/01/20 06:00 05/04/20 05:33 Polyethylene Glycol 3350 17 Gm Packet PO Not Given DAILY [facility] Senna/Docusate Sodium 1 tablet 05/01/20 06:00 05/04/20 05:34 Senna/Docusate Sodium 1 Tablet PO Not Given BID [facility] Tuberculin PPD 5 tu 05/08/20 10:00 Tuberculin,Purif.Prot.Deriv. 50 Tu/Ml Vial ID 05/08/20 10:01 X1 ONE Problem List (Last Reviewed 04/26/20 @ 03:[address] Jin Chance MD) Status epilepticus (Acute) Debility (Acute) Unresponsive (Acute) Seizure disorder (Acute) Proteus pneumonia (Acute) Diabetes mellitus (Chronic) Chronic kidney disease (Chronic) Acute kidney injury (Acute) Aortic stenosis (Chronic) Cirrhosis of liver (Chronic) Hypertension (Chronic) GERD (gastroesophageal reflux disease) (Chronic) Hypothyroidism (Chronic) Ascites (Chronic) Chronic diastolic (congestive) heart failure (Chronic) Hyperlipidemia (Chronic) Iron deficiency anemia (Chronic) Vital Signs Temp Pulse Resp BP Pulse Ox 98.4 F 74 16 147/50 H 97 05/04/20 05:00 05/04/20 05:31 05/04/20 05:00 05/04/20 05:31 05/04/20 05:00 Oxygen Delivery Method Room Air Weight: 58.786 kg Body Mass Index (BMI) 24.8 Finger Stick Blood Glucose 285 Sodium 134 mmol/L (136-145) L 05/01/20 05:07 Potassium 4.2 mmol/L (3.5-5.1) 05/01/20 05:07 Chloride 105 mmol/L (98-107) 05/01/20 05:07 Carbon Dioxide 24.0 mmol/L (21.0-32.0) 05/01/20 05:07 Anion Gap 5 (5-15) 05/01/20 05:07 BUN 43 mg/dL (7-18) H 05/01/20 05:07 Creatinine 2.00 mg/dL (0.55-1.02) H 05/01/20 05:07 Est GFR (MDRD) Af Amer 30 mL/min (>60) L 05/01/20 05:07 Est GFR (MDRD) Non-Af 25 mL/min (>60) L 05/01/20 05:07 BUN/Creatinine Ratio 21.5 RATIO (10-20) H 05/01/20 05:07 Glucose 214 mg/dL (74-106) H 05/01/20 05:07 Assessment/Plan: Psychotropic Medications: Unnecessary Medications: Bowel Regimen: - Provider Comments Provider responsibility: Provider responsible to enter orders to implement recommendations Provider Comments to Recommendations by Pharmacy: Agree
[2020-05-04] MEDS: Insulin Lispro 100 UNIT/ML INSULN.PEN 7 UNIT SC (12:07)
--- NOTE | 2020-05-04 13:28 | NURSING ---
Waste Disposal Leakage Tester Note: Facetime call to daughters and . Res animated and smiling. Enjoyed seeing family.
[2020-05-04 15:35] VITALS: BP 150/54; PULSE 71; RESP 18; TEMP 36.4; O2SAT 100
[2020-05-04 16:36] LABS: Bedside Glucose 282 mg/dL (70-110)
--- NOTE | 2020-05-04 16:43 | NURSING ---
Called Auditing Clerk counter supervisor to see if the ensure pudding would have a effect on pt's blood sugar since her blood sugar has been high. Auditing Clerk counter supervisor will take a look and get back to us.
[2020-05-04] MEDS: Insulin Lispro 100 UNIT/ML INSULN.PEN 10 UNIT SC (17:38)
[2020-05-04 21:35] LABS: Bedside Glucose 179 mg/dL (70-110)
[2020-05-04] MEDS: Mirtazapine 15 MG Tablet 7.5 MG PO (22:33)
[2020-05-04] MEDS: Atorvastatin Calcium 20 MG Tablet PO (22:33)
[2020-05-05 05:00] VITALS: BP 155/60; PULSE 71; RESP 18; TEMP 36.4; O2SAT 95
[2020-05-05 05:37] VITALS: BP 155/60; PULSE 71
[2020-05-05] MEDS: Levothyroxine 100 MCG Tablet PO (05:37)
[2020-05-05] MEDS: amLODIPine 10 MG Tablet PO (05:37)
[2020-05-05] MEDS: Metoprolol(XL)Succ 25 MG Tablet PO (05:37)
[2020-05-05] MEDS: Glucerna Shake 120 ML LIQUID PO ×4 (05:37→20:17)
[2020-05-05] MEDS: Phenytoin Na 100 MG Capsule PO ×3 (05:37→20:18)
[2020-05-05] MEDS: Pantoprazole Sodium 40 MG Tablet PO (05:37)
[2020-05-05] MEDS: Clopidogrel Bisulfate 75 MG Tablet PO (05:37)
[2020-05-05] MEDS: Losartan Potassium 50 MG Tablet PO (05:37)
[2020-05-05 05:41] LABS: Bedside Glucose 88 mg/dL (70-110)
--- NOTE | 2020-05-05 07:42 | NURSING ---
Very hard to arouse this AM, found with dried blood on upper lip and rail pad thrown on floor, left side of face was a little puffy, hard to open eyes at first only right would open. Vs- temp 97.6 temporal, HR 71, BP 155/60, O2 95%, pupils equal and reactive. Once washed and prepared for the day she was much more alert and talkative. Oncoming RN aware.
[2020-05-05] MEDS: Amox/Clavulanate 500 MG Tablet PO ×2 (09:00→17:43)
[2020-05-05] MEDS: Aspirin E.C. 81 MG Tablet PO (09:00)
[2020-05-05] MEDS: Insulin Lispro 100 UNIT/ML INSULN.PEN 10 UNIT SC ×3 (09:01→17:42)
[2020-05-05 09:06] LABS: Bedside Glucose 139 mg/dL (70-110)
[2020-05-05 10:00] VITALS: PULSE 67; RESP 16; O2SAT 95
[2020-05-05 11:01] LABS: Bedside Glucose 226 mg/dL (70-110)
[2020-05-05 15:02] VITALS: BP 121/44; PULSE 69; RESP 14; TEMP 36.2; O2SAT 98
[2020-05-05 17:20] LABS: Bedside Glucose 216 mg/dL (70-110)
[2020-05-05] MEDS: Senna/Docusate Sodium 1 Tablet PO (17:43)
[2020-05-05] MEDS: Nystatin Powder 15gm Bottle 1 APPLIC TOPICAL (17:47)
--- NOTE | 2020-05-05 19:10 | ST ---
TC placed to daughter Farida - updated re: current swallow function and need for further assessment under fluoroscopy d/t hx L VF paralysis and recent difficult intubation d/t prolonged seizure. 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
[2020-05-05] MEDS: Atorvastatin Calcium 20 MG Tablet PO (20:18)
[2020-05-05 21:26] LABS: Bedside Glucose 161 mg/dL (70-110)
[2020-05-06 05:36] VITALS: BP 156/52; PULSE 72; RESP 16; TEMP 36.8; O2SAT 97
[2020-05-06] MEDS: Phenytoin Na 100 MG Capsule PO ×3 (05:37→20:20)
[2020-05-06] MEDS: Pantoprazole Sodium 40 MG Tablet PO (05:38)
[2020-05-06] MEDS: Polyethylene Glycol 3350 17 GM PACKET PO (05:38)
[2020-05-06] MEDS: Senna/Docusate Sodium 1 Tablet PO ×2 (05:38→18:02)
[2020-05-06] MEDS: Glucerna Shake 120 ML LIQUID PO ×4 (05:38→20:20)
[2020-05-06] MEDS: Losartan Potassium 50 MG Tablet PO (05:38)
[2020-05-06 05:39] VITALS: BP 156/52; PULSE 72
[2020-05-06] MEDS: Clopidogrel Bisulfate 75 MG Tablet PO (05:39)
[2020-05-06] MEDS: Levothyroxine 100 MCG Tablet PO (05:39)
[2020-05-06] MEDS: amLODIPine 10 MG Tablet PO (05:39)
[2020-05-06] MEDS: Metoprolol(XL)Succ 25 MG Tablet PO (05:39)
[2020-05-06] MEDS: Nystatin Powder 15gm Bottle 1 APPLIC TOPICAL ×2 (05:41→18:06)
[2020-05-06 06:21] LABS: Bedside Glucose 82 mg/dL (70-110)
[2020-05-06] MEDS: Amox/Clavulanate 500 MG Tablet PO ×2 (08:48→18:01)
[2020-05-06] MEDS: Aspirin E.C. 81 MG Tablet PO (08:49)
[2020-05-06 08:55] LABS: Bedside Glucose 179 mg/dL (70-110)
[2020-05-06 10:51] LABS: Bedside Glucose 246 mg/dL (70-110)
[2020-05-06] MEDS: Insulin Lispro 100 UNIT/ML INSULN.PEN 7 UNIT SC ×2 (11:52→18:01)
--- NOTE | 2020-05-06 13:33 | NURSING ---
Second Cutter Note: Facetime call with resident to 2 daughters, and granddaughter. Res animated, conversational. Appreciative of call.
--- NOTE | 2020-05-06 14:13 | NURSING ---
Called pt's and daughter answered updated daughter about her swallow study. Let he know what we don't have the results back yet.
--- NOTE | 2020-05-06 14:38 | CASEMGMT ---
Social Work IDT met with patient and dtr via conference call for Team meeting. Discussed patient's progress in therapy. Pt is min for bed mobility, min-CGA for tx, ambulating 80ft with FWW at CGA. Pt is SBA for toileting, Bree for LE dressing with AE. Provided education on use of AE, using 1-2#wts for exercises. ST reports pt has plan for MBS this date d/t hx of vocal fold paralysis with difficulty intubation. Plan for cognitive eval once MBS is completed. Pt is currently on regular textures/thin liquids, taking small bites/sips, once stip at a time, slow rate of intake, avoid straws, must be alert and seated upright for intake, and remain upright for 30 mins after intake. Pts meds are to be taken one at a time with puree followed by liquid wash. Pt is on a carb controlled, JOSI diet, receiving Glucerna and monitoring blood sugars. Pt is out of isolation 05/15. Explained Medicare benefit. Pt is primary caregiver for and has 2 steps to enter. IDT to ensure safety at [place]. Will continue to follow. Francesca Contreras, SUBMARINE ELEMENT COORDINATOR HARNESS PREPARER
[2020-05-06 14:45] VITALS: BP 114/33; PULSE 66; RESP 16; TEMP 36.2; O2SAT 99
[2020-05-06 14:46] VITALS: BP 127/47; PULSE 65
[2020-05-06 17:00] LABS: Bedside Glucose 260 mg/dL (70-110)
--- NOTE | 2020-05-06 17:46 | SP.MBSS_ITS ---
Modified Barium Swallow - Patient Information Study Date: 05/06/20 Study Time: 12:35 Direct Billable Minutes: 70 Total Minutes procedure & reportin Diagnosis: Dysphagia (R13.12) Referring Physician: Aleksandar Clemens Chi Reason for Referral: The patient is an 85 year old female referred for a modified barium swallow (MBS) study to objectively assess the patients oropharyngeal swallow function under fluoroscopy secondary to reported concerns for PO intake sufficiency at bedside. Medical History: Diabetes mellitus, chronic kidney disease, aortic stenosis, cirrhosis of liver, hypertension, gastroesophageal reflux disease, hypothyroidism, lower extremity edema, ascites, chronic diastolic (congestive) heart failure, nonrheumatic aortic (valve) stenosis, history of aortic valve replacement with bioprosthetic valve, nonrheumatic mitral valve stenosis with insufficiency, left bundle branch block, cirrhosis of liver with ascites, secondary pulmonary arterial hypertension, essential hypertension, hyperlipidemia, stage III chronic renal disease, thrombocytopenia, iron deficiency anemia, stage III anemia of chronic renal failure - Penetration-Aspiration Scale Score Thin liquid - 5 mL tsp.: Result: 1= does not enter airway Thin liquids via cup (single sip - 1): Result: 3= enters airways/above vocal folds/not ejected Thin liquids via cup (single sip - 2): Result: 1= does not enter airway Thin liquids via cup (single sip - 3): Result: 1= does not enter airway Thin liquids via cup (single sip - 4): Result: 2= enter airway/above vocal folds/ejected Pudding via spoon: Result: 1= does not enter airway Regular texture: Result: 1= does not enter airway Thin liquids via straw: Result: 1= does not enter airway Thin liquids via straw (chin tuck -1): Result: 5= enters airways/contacts vocal folds/not ejected Thin liquids via straw (chin tuck -2): Result: 2= enter airway/above vocal folds/ejected Thin liquids via straw (chin tuck -3): Result: 1= does not enter airway Thin liquids via straw (chin tuck -4): Result: 3= enters airways/above vocal folds/not ejected - Oral Phase Labial Seal: No Labial Escape Tongue Control During Bolus Hold: Cohesive bolus between tongue to palatal seal Bolus Preparation/Mastication: Slow prolonged chewing/mashing with complete recollection Bolus Transport/Lingual Motion: Repetitive/disorganized tongue motion Oral Residue: Residue collection on oral structures - Pharyngeal Phase Initiation of Pharyngeal Swallow: Bolus head in valleculae Soft Palate Elevation: No bolus between soft palate and pharyngeal wall Laryngeal Elevation: Partial superior movement thyroid cart/partial apprx aryt- epig petiole Anterior Hyoid Excursion: Partial anterior movement Epiglottic Movement: Partial inversion Laryngeal Vestibule Closure at Height of Swallow: Incomplete; narrow column of air/contrast in laryngeal vestibule Pharyngeal Stripping Wave: Present - diminished Pharyngoesophageal Segment Opening: Parital distension and partial duration; parital obstruction of flow Tongue Base Retraction: Narrow column of contrast between tongue base & post. pharyngeal wall Pharyngeal Residue: Collection of residue within or on pharyngeal structures - Esophageal Phase Esophageal Clearance: Complete clearance - Diagnosis/Impression Diagnosis: Dysphagia (R13.12) Impression: The patient presents with mild to moderate oropharyngeal dysphagia (DSRS: 3; BRS: 2) with intermittent shallow penetration without consistent ejection during trials of thin liquids Her swallow profile was marked by mild oral phase swallow onset delay (2-3 seconds in length) with mildly discoordinated lingual movements (lingual undulations). Reduced hyolaryngeal excursion and duration with inconsistent laryngeal vestibule pressure generated to expel penetrated material. Mild pharyngeal dysmotility with more viscous textures with consolidation predominantly within the vallecula. Somewhat prolonged mastication, though sufficient to facilitate bolus breakdown. Would consider advancement to a soft solid diet if clinically appropriate. Noted cervical osteophyte located at the C-5 C-6 level narrowing the pharyngoesophageal segment; minimal impact on pharyngeal motility or pharyngeal timing. Rather weak cued volitional cough intensity generated to expel penetrated material (dystussia). All deficits appear to be sufficiently managed through bolus rate / volume adjustments, with insufficient effects noted with execution of the chin tuck posture. - Recommendations Comment: DIET TEXTURE RECOMMENDATIONS: mechanical soft textured (IDDSI: 5), thin liquid diet (IDDSI: 0) diet RECOMMENDED COMPENSATORY STRATEGIES: direct supervision, consider cutting tougher textures into bite sized pieces (upon advancement), reduced bolus volume / rate of ingestion, seated upright at 90 degrees during PO intake, remain upright for 30-60 minutes post meal (GERD precaution), medications one at a time with purees. Need for Skilled Speech Therapy Services: Yes Education Completed: 1. Described result of evaluation., 7. Pt requires further education on strategies & risks. - Status Active ST Patient: Active
--- NOTE | 2020-05-06 17:59 | ST ---
[facility] [place] completed this date, with results as follows: RESULTS OF THE EVALUATION: The patient presents with mild to moderate oropharyngeal dysphagia (DSRS: 3; BRS: 2) with intermittent shallow penetration without consistent ejection during trials of thin liquids Her swallow profile was marked by mild oral phase swallow onset delay (2-3 seconds in length) with mildly discoordinated lingual movements (lingual undulations). Reduced hyolaryngeal excursion and duration with inconsistent laryngeal vestibule pressure generated to expel penetrated material. Mild pharyngeal dysmotility with more viscous textures with consolidation predominantly within the vallecula. Somewhat prolonged mastication, though sufficient to facilitate bolus breakdown. Would consider advancement to a soft solid diet if clincially appropriate. Noted cervical osteophyte located at the C-5 C-6 level narrowing the pharyngoesophageal segment; minimal impact on pharyngeal motility or pharyngeal timing. Rather weak cued volitional cough intensity generated to expel penetrated material (dystussia). All deficits appear to be sufficiently managed through bolus rate / volume adjustments, with insufficient effects noted with execution of the chin tuck posture. DIET TEXTURE RECOMMENDATIONS: mechanical soft textured (IDDSI: 5), thin liquid diet (IDDSI: 0) diet RECOMMENDED COMPENSATORY STRATEGIES: direct supervision, consider cutting tougher textures into bite sized pieces (upon advancement), reduced bolus volume / rate of ingestion, seated upright at 90 degrees during PO intake, remain upright for 30-60 minutes post meal (GERD precaution), medications one at a time with purees. Ihsan Egan M.A., TYLOR-STAMP PRESS OPERATOR, CBIS MBSImP Certified, LSVT Certified [facility] Speech-Language Pathology Department Email: [email or web address]
[2020-05-06] MEDS: Atorvastatin Calcium 20 MG Tablet PO (20:20)
[2020-05-06 22:01] LABS: Bedside Glucose 192 mg/dL (70-110)
[2020-05-07 05:14] VITALS: BP 145/45; PULSE 70; RESP 16; TEMP 37.3; O2SAT 95
[2020-05-07] MEDS: Phenytoin Na 100 MG Capsule PO ×3 (05:15→20:44)
[2020-05-07] MEDS: Glucerna Shake 120 ML LIQUID PO ×4 (05:15→20:43)
[2020-05-07 05:16] VITALS: BP 145/45; PULSE 70
[2020-05-07] MEDS: Pantoprazole Sodium 40 MG Tablet PO (05:16)
[2020-05-07] MEDS: amLODIPine 10 MG Tablet PO (05:16)
[2020-05-07] MEDS: Clopidogrel Bisulfate 75 MG Tablet PO (05:16)
[2020-05-07] MEDS: Metoprolol(XL)Succ 25 MG Tablet PO (05:16)
[2020-05-07] MEDS: Losartan Potassium 50 MG Tablet PO (05:16)
[2020-05-07] MEDS: Senna/Docusate Sodium 1 Tablet PO ×2 (05:16→17:22)
[2020-05-07] MEDS: Levothyroxine 100 MCG Tablet PO (05:16)
[2020-05-07] MEDS: Nystatin Powder 15gm Bottle 1 APPLIC TOPICAL ×2 (05:18→17:21)
[2020-05-07 06:26] LABS: Bedside Glucose 129 mg/dL (70-110)
[2020-05-07] MEDS: Amox/Clavulanate 500 MG Tablet PO (08:07)
[2020-05-07] MEDS: Insulin Lispro 100 UNIT/ML INSULN.PEN 7 UNIT SC ×3 (08:07→17:21)
[2020-05-07] MEDS: Aspirin E.C. 81 MG Tablet PO (08:07)
[2020-05-07 11:11] LABS: Bedside Glucose 144 mg/dL (70-110)
[2020-05-07 15:21] VITALS: BP 132/46; PULSE 64; RESP 16; TEMP 35.9; O2SAT 98
[2020-05-07 17:01] LABS: Bedside Glucose 123 mg/dL (70-110)
[2020-05-07] MEDS: Atorvastatin Calcium 20 MG Tablet PO (20:44)
[2020-05-07 22:06] LABS: Bedside Glucose 234 mg/dL (70-110)
[2020-05-08 02:51] VITALS: BP 132/52; PULSE 69; RESP 18; TEMP 36.9; O2SAT 95
[2020-05-08 05:52] VITALS: PULSE 78
[2020-05-08] MEDS: Metoprolol(XL)Succ 25 MG Tablet PO (05:52)
[2020-05-08] MEDS: Losartan Potassium 50 MG Tablet PO (05:52)
[2020-05-08] MEDS: Phenytoin Na 100 MG Capsule PO ×3 (05:52→20:37)
[2020-05-08] MEDS: Glucerna Shake 120 ML LIQUID PO ×4 (05:52→20:36)
[2020-05-08] MEDS: Senna/Docusate Sodium 1 Tablet PO (05:52)
[2020-05-08] MEDS: amLODIPine 10 MG Tablet PO (05:53)
[2020-05-08] MEDS: Nystatin Powder 15gm Bottle 1 APPLIC TOPICAL ×2 (05:53→17:33)
[2020-05-08] MEDS: Clopidogrel Bisulfate 75 MG Tablet PO (05:53)
[2020-05-08] MEDS: Pantoprazole Sodium 40 MG Tablet PO (05:53)
[2020-05-08] MEDS: Levothyroxine 100 MCG Tablet PO (05:53)
[2020-05-08 06:05] LABS: Absolute Lymphocyte Count 1.27 X10^3/uL (0.83-4.51); Absolute Neutrophil Count 2.4 X10^3/uL (2.0-7.7); Basophil# 0.04 X10^3/uL; Basophil% 0.8 % (0-1); Eosinophil# 0.47 X10^3/uL; Eosinophils% 9.8 % (0-5); Hematocrit 31.1 % (37-47); Lymphocyte # 1.27 X10^3/ul (4.0); Lymphocyte % 26.3 % (19-41); Mean Corp Hgb Conc 32.2 g/dL (32-36); Mean Corpuscular Hgb 29.4 pg (27.0-32.0); Mean Corpuscular Volume 91.5 fL (81-99); Mean Platelet Vol. 10.6 fl (6.2-12.0); Monocyte# 0.63 X10^3/uL; Monocyte% 13.1 % (0-10); NRBC Flagged by Analyzer 0 % (0-5); Neutrophil # 2.38 X10^3/uL (2.7-7.7); Neutrophil % 49.4 % (47-70); Platelet Count 157 K/mm3 (150-450); RBC Distribution Width CV 16.5 % (11.6-14.6); RBC Distribution Width SD 54.4 fl (35.1-43.9); White Blood Count 4.8 K/mm3 (4.4-11.0)
[2020-05-08 06:33] LABS: Anion Gap 5 (5-15); BUN 53 mg/dL (7-18); BUN/Creat Ratio 30.5 RATIO (10-20); Calcium,Total 8.4 mg/dL (8.5-10.1); Chloride 108 mmol/L (98-107); Creatinine, Serum 1.74 mg/dL (0.55-1.02); EST Glomerular Filtration Rate 30 mL/min (>60); Est Glom Filt Rate - Afr Amer 36 mL/min (>60); Estimated Creatinine Clearance 16.98 ml/min; Glucose 73 mg/dL (74-106); Potassium 5.7 mmol/L (3.5-5.1); Sodium Level 137 mmol/L (136-145)
[2020-05-08 07:20] LABS: Bedside Glucose 85 mg/dL (70-110)
[2020-05-08] MEDS: Sodium Polystyrene Sulfonate 15 GM/60 ML UDC 30 GM PO (08:41)
[2020-05-08] MEDS: Aspirin E.C. 81 MG Tablet PO (08:41)
[2020-05-08] MEDS: Insulin Lispro 100 UNIT/ML INSULN.PEN 7 UNIT SC ×3 (08:41→17:41)
[2020-05-08] MEDS: Tuberculin,Purif.prot.deriv. 50 TU/ML Vial 5 ML ID (11:20)
[2020-05-08 11:51] LABS: Bedside Glucose 200 mg/dL (70-110)
[2020-05-08 15:05] VITALS: BP 140/41; PULSE 80; RESP 18; TEMP 36.8; O2SAT 95
--- NOTE | 2020-05-08 16:14 | NURSING ---
Resident and spouse notified of staff member testing positive for COVID.
[2020-05-08 17:56] LABS: Bedside Glucose 164 mg/dL (70-110)
[2020-05-08] MEDS: Atorvastatin Calcium 20 MG Tablet PO (20:37)
[2020-05-08 21:40] LABS: Bedside Glucose 291 mg/dL (70-110)
[2020-05-09 06:14] VITALS: BP 114/38; PULSE 62; RESP 16; TEMP 36.3; O2SAT 94
[2020-05-09] MEDS: Phenytoin Na 100 MG Capsule PO ×3 (06:16→21:02)
[2020-05-09 06:17] VITALS: BP 114/38; PULSE 62
[2020-05-09] MEDS: Glucerna Shake 120 ML LIQUID PO ×4 (06:17→21:02)
[2020-05-09] MEDS: Levothyroxine 100 MCG Tablet PO (06:17)
[2020-05-09] MEDS: Pantoprazole Sodium 40 MG Tablet PO (06:17)
[2020-05-09] MEDS: Losartan Potassium 50 MG Tablet PO (06:17)
[2020-05-09] MEDS: amLODIPine 10 MG Tablet PO (06:17)
[2020-05-09] MEDS: Metoprolol(XL)Succ 25 MG Tablet PO (06:17)
[2020-05-09] MEDS: Clopidogrel Bisulfate 75 MG Tablet PO (06:17)
[2020-05-09] MEDS: Nystatin Powder 15gm Bottle 1 APPLIC TOPICAL ×2 (06:20→17:47)
[2020-05-09 06:45] LABS: Bedside Glucose 56 mg/dL (70-110)
[2020-05-09 07:00] LABS: Bedside Glucose 78 mg/dL (70-110)
--- NOTE | 2020-05-09 07:00 | NURSING ---
Pt very lethargic at 0615 when woke up for meds, awakens and answers questions but will not open eyes, blood sugar checked was 54, orange juice w/sugar given, pt able to wake up more and held glass to drink, opens eyes, meds given in pudding and Glucerna given, 15minute recheck was 58, given apple juice w/sugar, pt more awake, recheck was 76. Will continue to monitor, dayshift nurses made aware.
[2020-05-09 07:22] LABS: Anion Gap 5 (5-15); BUN 47 mg/dL (7-18); Calcium,Total 8.7 mg/dL (8.5-10.1); Chloride 106 mmol/L (98-107); Creatinine, Serum 1.68 mg/dL (0.55-1.02); EST Glomerular Filtration Rate 31 mL/min (>60); Est Glom Filt Rate - Afr Amer 37 mL/min (>60); Estimated Creatinine Clearance 17.59 ml/min; Glucose 52 mg/dL (74-106); Potassium 5.1 mmol/L (3.5-5.1); Sodium Level 137 mmol/L (136-145)
[2020-05-09] MEDS: Glucagon 1 MG/ML Syringe IM (08:21)
--- NOTE | 2020-05-09 08:23 | NURSING ---
Addendum entered by Beata Plata 05/09/20 11:21: Pt awake and alert. Was up to the bathroom and is sitting in chair. No c/o of pain or nausea. Pt states feels more shaky today. Will continue to monitor. Addendum entered by Beata Plata 05/09/20 10:06: Pt still hard to arouse and not wanting to wake up. Retook blood sugar 222 BP 165/41 pulse 57. Pt able to answer and Location. Updated Dr. Clemens order for phenytoin levels ordered. Will continue to monitor. Original Note: Pt very lethargic and hard to arouse. Blood sugar was 78 rechecked and was 135. Blood Pressure 130/32 Pulse 68 Spo2 100 RA. Pupils reactive to light. Pt was able to squeeze both hands but unable to open eye. Dr. Clemens made aware and ordered 1 mg of Glucagon IM. Rechecked sugars before administering came up to 15. rechecked BP 135/43 Pulse 56 Spo2 100. Pt able to answer where she is. Will recheck Blood sugar and continue to monitor.
[2020-05-09 08:31] LABS: Bedside Glucose 154 mg/dL (70-110)
[2020-05-09 08:52] VITALS: BP 148/43; PULSE 57; RESP 18
[2020-05-09 08:55] LABS: Bedside Glucose 197 mg/dL (70-110)
[2020-05-09 08:55] LABS: Bedside Glucose 135 mg/dL (70-110)
[2020-05-09 11:01] LABS: Bedside Glucose 222 mg/dL (70-110)
[2020-05-09 11:01] LABS: Bedside Glucose 274 mg/dL (70-110)
[2020-05-09 11:24] LABS: Phenytoin (Dilantin) Level 12.6 mL (10.0-20.0)
[2020-05-09] MEDS: Insulin Lispro 100 UNIT/ML INSULN.PEN SC (12:31)
[2020-05-09 14:10] VITALS: BP 124/62; PULSE 80; RESP 16; TEMP 36.4; O2SAT 98
--- NOTE | 2020-05-09 15:48 | NURSING ---
Called pt's daughter to update. She stated that she would like to be the one notified not her father d/t health reasons.
[2020-05-09 17:30] LABS: Bedside Glucose 351 mg/dL (70-110)
[2020-05-09] MEDS: Insulin Lispro 100 UNIT/ML INSULN.PEN 10 UNIT SC (17:45)
[2020-05-09] MEDS: Atorvastatin Calcium 20 MG Tablet PO (21:02)
[2020-05-09 21:50] LABS: Bedside Glucose 212 mg/dL (70-110)
[2020-05-10 06:30] LABS: Bedside Glucose 74 mg/dL (70-110)
[2020-05-10 06:30] LABS: Bedside Glucose 66 mg/dL (70-110)
[2020-05-10 06:35] VITALS: BP 114/44; PULSE 76; RESP 16; TEMP 36.7; O2SAT 93
[2020-05-10] MEDS: Glucerna Shake 120 ML LIQUID PO ×4 (06:38→20:38)
[2020-05-10 06:39] VITALS: BP 114/44; PULSE 76
[2020-05-10] MEDS: Metoprolol(XL)Succ 25 MG Tablet PO (06:39)
[2020-05-10] MEDS: Phenytoin Na 100 MG Capsule PO ×3 (06:39→20:39)
[2020-05-10] MEDS: Levothyroxine 100 MCG Tablet PO (06:39)
[2020-05-10] MEDS: amLODIPine 10 MG Tablet PO (06:40)
[2020-05-10] MEDS: Pantoprazole Sodium 40 MG Tablet PO (06:40)
[2020-05-10] MEDS: Losartan Potassium 50 MG Tablet PO (06:40)
[2020-05-10] MEDS: Clopidogrel Bisulfate 75 MG Tablet PO (06:40)
[2020-05-10] MEDS: Nystatin Powder 15gm Bottle 1 APPLIC TOPICAL ×2 (06:43→18:00)
[2020-05-10 07:16] LABS: Bedside Glucose 136 mg/dL (70-110)
[2020-05-10] MEDS: Aspirin E.C. 81 MG Tablet PO (08:18)
[2020-05-10 10:56] LABS: Bedside Glucose 240 mg/dL (70-110)
[2020-05-10] MEDS: Acetaminophen 500 MG Tablet 1000 MG PO ×2 (10:58→23:47)
[2020-05-10] MEDS: Insulin Lispro 100 UNIT/ML INSULN.PEN SC ×2 (11:37→17:59)
[2020-05-10 13:47] VITALS: BP 141/51; PULSE 72; RESP 17; TEMP 36.7; O2SAT 95
[2020-05-10] MEDS: Furosemide 40 MG Tablet PO (16:08)
--- NOTE | 2020-05-10 16:21 | NURSING ---
Daily weight has increased 2.7lbs in 24hrs has been gaining a pound a day. Dr Clemens updated order for 40mg lasix po now and 40mg po daily @6:00am.
[2020-05-10 17:45] LABS: Bedside Glucose 226 mg/dL (70-110)
[2020-05-10] MEDS: Senna/Docusate Sodium 1 Tablet PO (17:59)
[2020-05-10] MEDS: Atorvastatin Calcium 20 MG Tablet PO (20:39)
[2020-05-10] MEDS: Menthol/Lanolin/Calamine/Znox 113 GM Tube 1 APPLIC TOPICAL (20:48)
[2020-05-10 21:45] LABS: Bedside Glucose 158 mg/dL (70-110)
[2020-05-11 04:55] VITALS: BP 139/40; PULSE 68; RESP 16; TEMP 36.6; O2SAT 96
[2020-05-11] MEDS: Glucerna Shake 120 ML LIQUID PO ×4 (04:56→20:40)
[2020-05-11] MEDS: Senna/Docusate Sodium 1 Tablet PO (04:57)
[2020-05-11] MEDS: Polyethylene Glycol 3350 17 GM PACKET PO (04:57)
[2020-05-11] MEDS: Furosemide 40 MG Tablet PO (04:57)
[2020-05-11] MEDS: amLODIPine 10 MG Tablet PO (04:57)
[2020-05-11 04:58] VITALS: BP 139/40; PULSE 68
[2020-05-11] MEDS: Levothyroxine 100 MCG Tablet PO (04:58)
[2020-05-11] MEDS: Clopidogrel Bisulfate 75 MG Tablet PO (04:58)
[2020-05-11] MEDS: Metoprolol(XL)Succ 25 MG Tablet PO (04:58)
[2020-05-11] MEDS: Pantoprazole Sodium 40 MG Tablet PO (04:58)
[2020-05-11] MEDS: Losartan Potassium 50 MG Tablet PO (04:58)
[2020-05-11] MEDS: Nystatin Powder 15gm Bottle 1 APPLIC TOPICAL ×2 (05:03→17:25)
[2020-05-11] MEDS: Menthol/Lanolin/Calamine/Znox 113 GM Tube 1 APPLIC TOPICAL ×2 (05:03→20:40)
[2020-05-11] MEDS: Phenytoin Na 100 MG Capsule PO ×3 (05:13→20:40)
[2020-05-11 06:21] LABS: Bedside Glucose 208 mg/dL (70-110)
[2020-05-11] MEDS: Aspirin E.C. 81 MG Tablet PO (07:59)
[2020-05-11] MEDS: Insulin Lispro 100 UNIT/ML INSULN.PEN SC ×3 (07:59→17:25)
[2020-05-11 09:45] VITALS: PULSE 63; RESP 18; O2SAT 97
[2020-05-11 11:01] LABS: Bedside Glucose 146 mg/dL (70-110)
[2020-05-11 14:36] VITALS: BP 135/52; PULSE 62; RESP 15; TEMP 36.3; O2SAT 97
[2020-05-11 17:00] LABS: Bedside Glucose 131 mg/dL (70-110)
[2020-05-11] MEDS: Atorvastatin Calcium 20 MG Tablet PO (20:41)
[2020-05-11 21:51] LABS: Bedside Glucose 225 mg/dL (70-110)
[2020-05-12] MEDS: Acetaminophen 500 MG Tablet 1000 MG PO (02:16)
[2020-05-12 02:20] VITALS: BP 158/61; PULSE 59; RESP 16; TEMP 37; O2SAT 97
--- NOTE | 2020-05-12 02:24 | NURSING ---
C?O not being able to sleep DT itching skin, noted to have several scratched areas on upper legs and back, given snack and tylenol, message left for Dr per pt request for benadryl or claritin
[2020-05-12] MEDS: Polyethylene Glycol 3350 17 GM PACKET PO (05:34)
[2020-05-12] MEDS: Pantoprazole Sodium 40 MG Tablet PO (05:35)
[2020-05-12 05:36] VITALS: BP 158/61; PULSE 59
[2020-05-12] MEDS: Losartan Potassium 50 MG Tablet PO (05:36)
[2020-05-12] MEDS: Nystatin Powder 15gm Bottle 1 APPLIC TOPICAL ×2 (05:36→18:20)
[2020-05-12] MEDS: Phenytoin Na 100 MG Capsule PO ×3 (05:36→21:54)
[2020-05-12] MEDS: Levothyroxine 100 MCG Tablet PO (05:36)
[2020-05-12] MEDS: Furosemide 40 MG Tablet PO ×2 (05:36→12:07)
[2020-05-12] MEDS: Metoprolol(XL)Succ 25 MG Tablet PO (05:36)
[2020-05-12] MEDS: Clopidogrel Bisulfate 75 MG Tablet PO (05:36)
[2020-05-12] MEDS: Senna/Docusate Sodium 1 Tablet PO (05:36)
[2020-05-12] MEDS: amLODIPine 10 MG Tablet PO (05:36)
[2020-05-12] MEDS: Menthol/Lanolin/Calamine/Znox 113 GM Tube 1 APPLIC TOPICAL ×2 (05:37→21:56)
[2020-05-12] MEDS: Glucerna Shake 120 ML LIQUID PO ×4 (05:38→21:49)
[2020-05-12 06:45] LABS: Bedside Glucose 186 mg/dL (70-110)
[2020-05-12] MEDS: Insulin Lispro 100 UNIT/ML INSULN.PEN SC ×3 (08:10→18:17)
[2020-05-12] MEDS: Aspirin E.C. 81 MG Tablet PO (08:10)
--- NOTE | 2020-05-12 08:43 | MDS.RN ---
Information for the mds was obtained from review of the clinical record, interview of resident, staff, and direct observation of resident's care.
[2020-05-12 11:16] LABS: Bedside Glucose 239 mg/dL (70-110)
[2020-05-12 14:52] VITALS: BP 123/41; PULSE 64; RESP 14; TEMP 36.9; O2SAT 97
[2020-05-12 16:45] LABS: Bedside Glucose 183 mg/dL (70-110)
[2020-05-12 21:45] LABS: Bedside Glucose 321 mg/dL (70-110)
[2020-05-12] MEDS: Loratadine 10 MG Tablet PO (21:54)
[2020-05-12] MEDS: Atorvastatin Calcium 20 MG Tablet PO (21:54)
[2020-05-13 04:00] VITALS: BP 152/58; PULSE 66; RESP 16; TEMP 36.8; O2SAT 97
[2020-05-13 05:30] VITALS: BP 152/58; PULSE 66
[2020-05-13] MEDS: Furosemide 40 MG Tablet PO ×2 (05:30→14:39)
[2020-05-13] MEDS: Pantoprazole Sodium 40 MG Tablet PO (05:30)
[2020-05-13] MEDS: Levothyroxine 100 MCG Tablet PO (05:30)
[2020-05-13] MEDS: Menthol/Lanolin/Calamine/Znox 113 GM Tube 1 APPLIC TOPICAL ×2 (05:30→20:33)
[2020-05-13] MEDS: amLODIPine 10 MG Tablet PO (05:30)
[2020-05-13] MEDS: Metoprolol(XL)Succ 25 MG Tablet PO (05:30)
[2020-05-13] MEDS: Phenytoin Na 100 MG Capsule PO ×3 (05:30→20:34)
[2020-05-13] MEDS: Losartan Potassium 50 MG Tablet PO (05:30)
[2020-05-13] MEDS: Clopidogrel Bisulfate 75 MG Tablet PO (05:30)
[2020-05-13] MEDS: Glucerna Shake 120 ML LIQUID PO ×4 (05:30→20:32)
[2020-05-13 06:13] LABS: Anion Gap 6 (5-15); BUN 47 mg/dL (7-18); BUN/Creat Ratio 30.3 RATIO (10-20); Calcium,Total 7.9 mg/dL (8.5-10.1); Chloride 100 mmol/L (98-107); Creatinine, Serum 1.55 mg/dL (0.55-1.02); EST Glomerular Filtration Rate 34 mL/min (>60); Est Glom Filt Rate - Afr Amer 41 mL/min (>60); Estimated Creatinine Clearance 19.06 ml/min; Glucose 120 mg/dL (74-106); Sodium Level 133 mmol/L (136-145)
[2020-05-13 06:26] LABS: Bedside Glucose 116 mg/dL (70-110)
[2020-05-13] MEDS: Nystatin Powder 15gm Bottle 1 APPLIC TOPICAL ×2 (07:19→18:06)
[2020-05-13] MEDS: Aspirin E.C. 81 MG Tablet PO (08:33)
[2020-05-13] MEDS: Insulin Lispro 100 UNIT/ML INSULN.PEN SC ×3 (08:33→18:03)
[2020-05-13 10:36] LABS: Bedside Glucose 219 mg/dL (70-110)
[2020-05-13 11:44] VITALS: PULSE 67; RESP 18; O2SAT 96
[2020-05-13 11:51] LABS: Bedside Glucose 54 mg/dL (70-110)
[2020-05-13 11:51] LABS: Bedside Glucose 50 mg/dL (70-110)
[2020-05-13 14:28] VITALS: BP 131/51; PULSE 63; RESP 15; TEMP 36.4; O2SAT 97
[2020-05-13 16:46] LABS: Bedside Glucose 248 mg/dL (70-110)
[2020-05-13] MEDS: Senna/Docusate Sodium 1 Tablet PO (18:04)
[2020-05-13] MEDS: Loratadine 10 MG Tablet PO (20:34)
[2020-05-13] MEDS: Atorvastatin Calcium 20 MG Tablet PO (20:34)
[2020-05-13 21:46] LABS: Bedside Glucose 197 mg/dL (70-110)
[2020-05-14 05:46] VITALS: BP 155/62; PULSE 71; RESP 16; TEMP 36.9; O2SAT 96
[2020-05-14] MEDS: Phenytoin Na 100 MG Capsule PO ×3 (05:48→20:27)
[2020-05-14] MEDS: Furosemide 40 MG Tablet PO (05:48)
[2020-05-14] MEDS: Glucerna Shake 120 ML LIQUID PO ×4 (05:48→20:27)
[2020-05-14] MEDS: Senna/Docusate Sodium 1 Tablet PO ×2 (05:48→17:17)
[2020-05-14 05:49] VITALS: BP 155/62; PULSE 71
[2020-05-14] MEDS: amLODIPine 10 MG Tablet PO (05:49)
[2020-05-14] MEDS: Levothyroxine 100 MCG Tablet PO (05:49)
[2020-05-14] MEDS: Clopidogrel Bisulfate 75 MG Tablet PO (05:49)
[2020-05-14] MEDS: Losartan Potassium 50 MG Tablet PO (05:49)
[2020-05-14] MEDS: Pantoprazole Sodium 40 MG Tablet PO (05:49)
[2020-05-14] MEDS: Metoprolol(XL)Succ 25 MG Tablet PO (05:49)
[2020-05-14] MEDS: Nystatin Powder 15gm Bottle 1 APPLIC TOPICAL ×2 (05:52→17:19)
[2020-05-14] MEDS: Menthol/Lanolin/Calamine/Znox 113 GM Tube 1 APPLIC TOPICAL ×2 (05:52→20:26)
[2020-05-14 06:20] LABS: Bedside Glucose 100 mg/dL (70-110)
[2020-05-14] MEDS: Insulin Lispro 100 UNIT/ML INSULN.PEN SC ×3 (08:40→17:18)
[2020-05-14] MEDS: Aspirin E.C. 81 MG Tablet PO (08:41)
[2020-05-14 10:51] LABS: Bedside Glucose 227 mg/dL (70-110)
--- NOTE | 2020-05-14 11:13 | PCM.PN.BLA ---
Progress Note Asked to see pt for red legs and possible cellulitis. I examined both legs and she has some erythema but no open areas. The erythema is patchy and starts to resolve when I removed the TEDS. She denies pain. Denies calf tenderness. She has pitting edema of both LE's to just above the knee BL. Lungs - good air exchange and they are CTA. she is not tachypneic and has no conversational dyspnea. HRRR, + systolic MM over the left precordium and into the left axilla, no gallop She has no pitting in the flanks and the abd is soft Echocardiogram done in March 2020 shows a 70% ejection fraction with grade 2 diastolic dysfunction. Right ventricular systolic pressure was mildly elevated. The left atrium is severely dilated. There was moderate mitral valve stenosis and moderate to severe regurgitation. Past medical history is significant for cirrhosis with ascites. She also has stage IIIb chronic renal failure. Sodium has been decreased recently and on 05/13/2020 it was 133. Her weight is up 15 pounds since admission. She is currently on Lasix 40 mg p.o. twice daily. No Aldactone. Not on salt restriction. Potassium on 05/13/2020 was 5.0. PT on 04/25/2020 was within normal limits at 14.8. Total protein and albumin are both low. Medication list was reviewed. She is on an ARB. Impressions 1. 15 lb weight gain due to fluid retention due to cirrhosis and to pulmonary HTN 2. hyperkalemia 3. erythema of the LE's due to venous HTN DC the PO Lasix and start IV Bumex due to low protein state Change the diet to a 2 GM sodium diet Fluid restrict to 1200 cc daily check a BMP in the AM and a MAG daily weights If the K is still elevated tomorrow with hold the ARB Inpatient E&M: 82543 Subs Hosp L2
[2020-05-14] MEDS: Bumetanide 1 MG/4 ML Vial IV ×2 (12:10→17:17)
[2020-05-14] MEDS: 0.9% Saline Lock 10 ML Syringe IV ×2 (12:11→17:19)
--- NOTE | 2020-05-14 12:23 | NURSING ---
Dr Fowler assessed pt BLEs, new order for bumex, fluid restriction, daily wts, labs in AM
[2020-05-14 14:42] VITALS: BP 129/33; PULSE 69; RESP 16; TEMP 36.5; O2SAT 93
[2020-05-14 16:35] LABS: Bedside Glucose 162 mg/dL (70-110)
[2020-05-14] MEDS: Loratadine 10 MG Tablet PO (20:27)
[2020-05-14] MEDS: Atorvastatin Calcium 20 MG Tablet PO (20:27)
[2020-05-14 21:31] LABS: Bedside Glucose 197 mg/dL (70-110)
[2020-05-15 06:12] LABS: Absolute Lymphocyte Count 0.89 X10^3/uL (0.83-4.51); Absolute Neutrophil Count 2.1 X10^3/uL (2.0-7.7); Basophil# 0.05 X10^3/uL; Basophil% 1.2 % (0-1); Eosinophil# 0.32 X10^3/uL; Eosinophils% 7.8 % (0-5); Hematocrit 29.3 % (37-47); Hemoglobin 9.3 g/dL (12.0-15.0); Lymphocyte # 0.89 X10^3/ul (4.0); Lymphocyte % 21.8 % (19-41); Mean Corp Hgb Conc 31.7 g/dL (32-36); Mean Corpuscular Hgb 29.3 pg (27.0-32.0); Mean Corpuscular Volume 92.4 fL (81-99); Mean Platelet Vol. 10.3 fl (6.2-12.0); Monocyte% 17.2 % (0-10); NRBC Flagged by Analyzer 0 % (0-5); Neutrophil # 2.11 X10^3/uL (2.7-7.7); Neutrophil % 51.8 % (47-70); Platelet Count 130 K/mm3 (150-450); RBC Distribution Width CV 18.6 % (11.6-14.6); RBC Distribution Width SD 61.6 fl (35.1-43.9); Red Blood Count 3.17 M/mm3 (4.2-5.4); White Blood Count 4.1 K/mm3 (4.4-11.0)
[2020-05-15 06:19] VITALS: BP 148/38; PULSE 71; RESP 16; TEMP 36.3; O2SAT 93
[2020-05-15 06:26] VITALS: BP 148/38; PULSE 71
[2020-05-15 06:26] LABS: Bedside Glucose 150 mg/dL (70-110)
[2020-05-15] MEDS: Clopidogrel Bisulfate 75 MG Tablet PO (06:26)
[2020-05-15] MEDS: Phenytoin Na 100 MG Capsule PO ×3 (06:26→22:05)
[2020-05-15] MEDS: amLODIPine 10 MG Tablet PO (06:26)
[2020-05-15] MEDS: Losartan Potassium 50 MG Tablet PO (06:26)
[2020-05-15] MEDS: Metoprolol(XL)Succ 25 MG Tablet PO (06:26)
[2020-05-15] MEDS: Polyethylene Glycol 3350 17 GM PACKET PO (06:26)
[2020-05-15] MEDS: Pantoprazole Sodium 40 MG Tablet PO (06:27)
[2020-05-15] MEDS: Senna/Docusate Sodium 1 Tablet PO ×2 (06:27→17:51)
[2020-05-15] MEDS: Levothyroxine 100 MCG Tablet PO (06:27)
[2020-05-15] MEDS: Glucerna Shake 120 ML LIQUID PO ×3 (06:27→22:08)
[2020-05-15] MEDS: Menthol/Lanolin/Calamine/Znox 113 GM Tube 1 APPLIC TOPICAL ×2 (06:28→22:06)
[2020-05-15] MEDS: Nystatin Powder 15gm Bottle 1 APPLIC TOPICAL ×2 (06:28→13:20)
[2020-05-15 06:35] LABS: Anion Gap 5 (5-15); BUN 47 mg/dL (7-18); BUN/Creat Ratio 29.9 RATIO (10-20); Chloride 98 mmol/L (98-107); Creatinine, Serum 1.57 mg/dL (0.55-1.02); EST Glomerular Filtration Rate 33 mL/min (>60); Est Glom Filt Rate - Afr Amer 40 mL/min (>60); Estimated Creatinine Clearance 18.82 ml/min; Glucose 139 mg/dL (74-106); Magnesium 1.8 mg/dL (1.6-2.6); Potassium 4.8 mmol/L (3.5-5.1); Sodium Level 130 mmol/L (136-145)
--- NOTE | 2020-05-15 07:15 | NURSING ---
Kevin lower legs red with scratches noted, pt states does not know how it happened, denies itching
[2020-05-15 07:25] LABS: Phosphorus 3.7 mg/dL (2.5-4.9)
[2020-05-15] MEDS: Aspirin E.C. 81 MG Tablet PO (08:04)
[2020-05-15] MEDS: Insulin Lispro 100 UNIT/ML INSULN.PEN SC ×3 (08:04→17:49)
--- NOTE | 2020-05-15 08:54 | PCM.PN.BLA ---
Progress Note Afebrile VSS Maintaining appropriate oxygen saturation on RA Oral intake is poor Discussed with nursing - no problems that need addressed Medication list reviewed. She was converted from PO Lasix BID yesterday to Bumex 1 mg BID IV. I&O are not accurate. Pt is incontinent of urine. Daily weight has not been recorded yet. All lab was personally reviewed. White blood cell count is low at 4.1 today. White blood cell differential shows that she has increased eosinophils at 7.8%. Hemoglobin is 9.3, down from 10 on 05/08/2020. Platelets are low at 130,000 and she is known to have chronically low platelets. 130,000 is stable. Sodium today is 130, down from 133 on 05/13/2020. Potassium is 4.8. The BUN is 47 with a creatinine of 1.57. Phosphorus is normal at 3.7 and the magnesium is normal at 1.8. She is alert and appropriate Lungs are CTA the peripheral edema is better today and she notices it too no calf tenderness. No asterixis Impressions 1. peripheral edema due to cirrhosis/fluid retention. 18 lb weight gain since admission. Can not use Aldactone due to hyperkalemia. Transitioned to IV Bumex yesterday and the edema is improving. 2. hyponatremia due to diuretics likely Insert a Hodges catheter for accurate I&O's in this patient with CRF who we are diuresing for a 18 lb weight gain since admission to the TCU. BMP in the AM and an Albumin Check a Dilantin level in the AM Continue Bumex order salt tabs 1 GM BID STROKE Vital Signs/Narrative: Vital Signs Temp Pulse Resp BP Pulse Ox 05/15/20 06:26 71 148/38 H 05/15/20 06:19 97.3 F L 71 16 148/38 H 93 Inpatient E&M: 28012 Subs Hosp L2
[2020-05-15] MEDS: 0.9% Saline Lock 10 ML Syringe IV ×2 (10:52→17:51)
[2020-05-15] MEDS: Bumetanide 1 MG/4 ML Vial IV ×2 (10:52→17:50)
[2020-05-15 11:45] LABS: Bedside Glucose 226 mg/dL (70-110)
[2020-05-15 15:01] VITALS: BP 116/48; PULSE 70; RESP 14; TEMP 36.1; O2SAT 97
[2020-05-15 16:46] LABS: Bedside Glucose 235 mg/dL (70-110)
[2020-05-15] MEDS: Sodium Chloride 1 GM Tablet PO (17:55)
[2020-05-15 21:51] LABS: Bedside Glucose 239 mg/dL (70-110)
[2020-05-15] MEDS: Loratadine 10 MG Tablet PO (22:07)
[2020-05-15] MEDS: Atorvastatin Calcium 20 MG Tablet PO (22:10)
[2020-05-16 06:02] VITALS: BP 150/49; PULSE 70; RESP 15; TEMP 36.6; O2SAT 95
[2020-05-16] MEDS: Phenytoin Na 100 MG Capsule PO ×3 (06:04→21:04)
[2020-05-16] MEDS: Menthol/Lanolin/Calamine/Znox 113 GM Tube 1 APPLIC TOPICAL ×2 (06:04→21:08)
[2020-05-16] MEDS: Sodium Chloride 1 GM Tablet PO ×2 (06:04→17:46)
[2020-05-16 06:05] VITALS: BP 150/49; PULSE 70
[2020-05-16] MEDS: Clopidogrel Bisulfate 75 MG Tablet PO (06:05)
[2020-05-16] MEDS: Losartan Potassium 50 MG Tablet PO (06:05)
[2020-05-16] MEDS: Pantoprazole Sodium 40 MG Tablet PO (06:05)
[2020-05-16] MEDS: Metoprolol(XL)Succ 25 MG Tablet PO (06:05)
[2020-05-16] MEDS: Nystatin Powder 15gm Bottle 1 APPLIC TOPICAL ×2 (06:05→17:46)
[2020-05-16] MEDS: Senna/Docusate Sodium 1 Tablet PO ×2 (06:05→17:46)
[2020-05-16] MEDS: amLODIPine 10 MG Tablet PO (06:05)
[2020-05-16] MEDS: Levothyroxine 100 MCG Tablet PO (06:05)
[2020-05-16] MEDS: Polyethylene Glycol 3350 17 GM PACKET PO (06:06)
[2020-05-16] MEDS: Glucerna Shake 120 ML LIQUID PO ×4 (06:07→21:07)
[2020-05-16 06:21] LABS: Bedside Glucose 128 mg/dL (70-110)
[2020-05-16 06:59] LABS: Anion Gap 6 (5-15); BUN 48 mg/dL (7-18); BUN/Creat Ratio 28.6 RATIO (10-20); Calcium,Total 7.8 mg/dL (8.5-10.1); Chloride 98 mmol/L (98-107); Creatinine, Serum 1.68 mg/dL (0.55-1.02); EST Glomerular Filtration Rate 31 mL/min (>60); Est Glom Filt Rate - Afr Amer 37 mL/min (>60); Estimated Creatinine Clearance 17.59 ml/min; Glucose 124 mg/dL (74-106); Potassium 4.4 mmol/L (3.5-5.1); Sodium Level 132 mmol/L (136-145)
[2020-05-16 07:00] LABS: Phenytoin (Dilantin) Level 11.5 mL (10.0-20.0)
[2020-05-16 08:07] LABS: Albumin, Serum 2.4 g/dL (3.2-5.0)
[2020-05-16] MEDS: Insulin Lispro 100 UNIT/ML INSULN.PEN SC ×2 (08:27→12:08)
[2020-05-16] MEDS: Aspirin E.C. 81 MG Tablet PO (08:28)
[2020-05-16 11:46] LABS: Bedside Glucose 198 mg/dL (70-110)
[2020-05-16] MEDS: Spironolactone 25 MG Tablet PO (12:09)
[2020-05-16] MEDS: 0.9% Saline Lock 10 ML Syringe IV (14:25)
--- NOTE | 2020-05-16 14:51 | PCM.PN.BLA ---
Progress Note Afebrile VSS Maintaining appropriate oxygen saturation on room air. Weight today is 142 pounds and 3 ounces, down from 145 pounds and 3 ounces on 05/14/2020. Weight at presentation to transitional care unit was 127 pounds and 7 ounces. Blood sugar record was reviewed. All lab was personally reviewed. The sodium is 132 and the potassium was 4.4. BUN is 48 and the creatinine is 1.68. 1.68 is within her baseline. Ammonia today is 72. Albumin is 2.4. Calcium corrected for hypoalbuminemia is 9.2. Eosinophilia is improving. Denies leg cramps, denies SOB and she has no cough. No asterixis, she is able to participate in conversation and is appropriate. She is able to follow instructions from therapists She does not appear to be in any distress Lungs - CTA with good air exchange H - no gallop abd no pitting in the flanks but it is distended. The pitting edema of the LE's is improving. Impressions 1. cirrhosis with weight gain and increased lower extremity edema. 2. asymptomatic hyperammonemia 3. Hyponatremia 4. CRF stage 3 B 5. Chronic thrombocytopenia-likely secondary to cirrhosis 6. Normochromic normocytic anemia with an increased RDW 7. Diabetes mellitus type 2 Change the Bumex to 1 mg PO BID add Spironolactone 25 mg daily now that the potassium is now ......watch the potassium closely check a BMP and a mag in the AM. daily weights urinary output not accurate due to incontinence Inpatient E&M: 37974 Subs Hosp L2
[2020-05-16 16:00] VITALS: BP 127/38; PULSE 62; RESP 16; TEMP 36.8; O2SAT 96
[2020-05-16 16:51] LABS: Bedside Glucose 182 mg/dL (70-110)
[2020-05-16] MEDS: Insulin Lispro 100 UNIT/ML INSULN.PEN 6 UNIT SC (17:45)
[2020-05-16] MEDS: Bumetanide 0.5 MG Tablet 1 MG PO (17:45)
[2020-05-16 21:00] VITALS: BP 141/37; PULSE 66; RESP 18; TEMP 36.8; O2SAT 95
[2020-05-16] MEDS: Atorvastatin Calcium 20 MG Tablet PO (21:03)
[2020-05-16] MEDS: Loratadine 10 MG Tablet PO (21:03)
[2020-05-16 21:16] LABS: Bedside Glucose 149 mg/dL (70-110)
[2020-05-17 04:00] VITALS: BP 146/34; PULSE 69; RESP 16; TEMP 36.8; O2SAT 95
[2020-05-17 06:10] LABS: Anion Gap 7 (5-15); BUN 48 mg/dL (7-18); BUN/Creat Ratio 29.3 RATIO (10-20); Calcium,Total 7.8 mg/dL (8.5-10.1); Chloride 99 mmol/L (98-107); Creatinine, Serum 1.64 mg/dL (0.55-1.02); EST Glomerular Filtration Rate 32 mL/min (>60); Est Glom Filt Rate - Afr Amer 38 mL/min (>60); Estimated Creatinine Clearance 18.01 ml/min; Glucose 84 mg/dL (74-106); Magnesium 1.7 mg/dL (1.6-2.6); Potassium 4.7 mmol/L (3.5-5.1); Sodium Level 133 mmol/L (136-145)
[2020-05-17 06:26] LABS: Bedside Glucose 90 mg/dL (70-110)
[2020-05-17] MEDS: Menthol/Lanolin/Calamine/Znox 113 GM Tube 1 APPLIC TOPICAL ×2 (07:03→21:00)
[2020-05-17] MEDS: Glucerna Shake 120 ML LIQUID PO ×4 (07:03→21:00)
[2020-05-17] MEDS: amLODIPine 10 MG Tablet PO (07:04)
[2020-05-17] MEDS: Spironolactone 25 MG Tablet PO (07:04)
[2020-05-17] MEDS: Pantoprazole Sodium 40 MG Tablet PO (07:04)
[2020-05-17] MEDS: Phenytoin Na 100 MG Capsule PO ×3 (07:04→21:00)
[2020-05-17] MEDS: Clopidogrel Bisulfate 75 MG Tablet PO (07:04)
[2020-05-17] MEDS: Levothyroxine 100 MCG Tablet PO (07:04)
[2020-05-17] MEDS: Losartan Potassium 50 MG Tablet PO (07:04)
[2020-05-17] MEDS: Senna/Docusate Sodium 1 Tablet PO ×2 (07:04→17:39)
[2020-05-17 07:05] VITALS: BP 146/34; PULSE 68
[2020-05-17] MEDS: Metoprolol(XL)Succ 25 MG Tablet PO (07:05)
[2020-05-17] MEDS: Sodium Chloride 1 GM Tablet PO ×2 (07:05→17:40)
[2020-05-17] MEDS: Bumetanide 0.5 MG Tablet 1 MG PO ×2 (07:05→17:39)
[2020-05-17] MEDS: Nystatin Powder 15gm Bottle 1 APPLIC TOPICAL ×2 (07:07→17:41)
[2020-05-17] MEDS: Polyethylene Glycol 3350 17 GM PACKET PO (07:08)
[2020-05-17] MEDS: Insulin Lispro 100 UNIT/ML INSULN.PEN 8 UNIT SC (07:12)
[2020-05-17] MEDS: Aspirin E.C. 81 MG Tablet PO (09:25)
--- NOTE | 2020-05-17 09:43 | PCM.PN.BLA ---
Progress Note Afebrile VSS Maintaining appropriate oxygen saturation on RA Oral intake is poor Good diuresis yesterday.... Fluid balance yesterday was -845 and overnight she was -1100. Daily weight is not recorded. Discussed with nursing - no problems that need addressed Medication list reviewed. She is now on PO Bumex and aldactone 25 mg BID. she is ordered 1,000 mg of Tylenol every 6 hours PRN for pain but, she has cirrhosis so will change the Tylenol to 650 mg Q8H PRN fever> 100.9F to prevent further liver damage. She is on dual antiplatelet agents? Cath in October 2019 showed moderate disease in the left anterior descending artery and severe aortic stenosis. She had a TAVR bar at [facility] on 03/09/2020. Post TAVR the EF was 76%. There is a note from Dr. Hodges in the EMR from 04/03/20 and he says that she will continue ASA indefinitely and the Clopidogrel for 3 months. BBS record was reviewed: Adjustments in the insulin regimen were made yesterday. The FBS was 90 today. The HS BS was 149. No blood sugars > 200 yesterday and no hypoglycemia. All lab was personally reviewed: Sodium is 133, up from 132 yesterday and 130 on 05/15/2020 Creatinine is 1.64 today and stable. BUN is 48. Potassium is 4.7....up from 4.4 on 05/16/20. Mag is 1.7 today PT was WNL earlier in the admission. She is sitting in the recliner in no distress, she is pleasant and responds appropriately to questions No asterixis Lungs - loud coarse crackles in the bases, no wheezing. Heart RRR, no change in the MM, + S4 gallop The edema in the legs is much better......still with mild pitting of the distal LE's. No edema in the flanks. Abd is distended and she has an umbilical hernia which is easily reducible, BS's are present and she has no pain with palpation Impressions 1. 18 lb weight gain since admission to TCU due to excess fluid. Fluid accumulation likely related to cirrhosis, pulmonary HTN and chronic diastolic CHF. Good diuresis with Bumex and Aldactone. 2. Cirrhosis - etiology? Cardiac cirrhosis due to severe and MR? 3. hx of severe with TAVR in February 2020 4. CAD on cath in October of 2019 - moderate disease in the LAD 5. DM II 6. CRF stage IIIb 7. Pulmonary HTN with a PA systolic estimated at 65 8. chronic anemia - transferrin saturation is > 20% so not really iron deficient. Required 2 units of PRBC's in the hospital.....GI loss due to dual antiplatelet agents? 9. hyperammonemia - asymtomatic so I do not want to start Lactulose........will limit any [employer] depressant medications 10. hyponatremia - likely due to sodium loss from diuretics + cirrhosis. Sodium is stable with Salt tabs BID and she is having good urine OP with Bumex and Aldactone 11. seizure disorder - on Phenytoin. Phenytoin level corrected for hypoalbuminemia recently 15.1. No seizures. 12. Chronic diastolic congestive heart failure 13. Mild aortic stenosis 14. Mild pulmonary hypertension 15. Hemoccult + stool Change the Tylenol dosing and give for Fever only and no for pain......to prevent further liver damage in this pt with cirrhosis. Will order Oxycodone 2.5 mg Q 8H PRN for pain 4-10. For mild pain will try re-positioning and topical creams and Lidocaine. DC the ARB....would rather use Aldactone to help with anasarca rather than and ARB since both cause potassium retention. Discuss with nursing why this pt has 2 IV's of NS at 15 cc/hr when we are trying to diureses her? DC the Loratadine since she is elderly and has an elevated ammonia and Loratadine increases confusion and has adverse anti-cholinergic SE Add a mag supplement to keep the Mag around 2 Continue ASA and Plavix for now and talk with Dr. Hodges about discontinuing the Plavix since the stool is heme +. Continue the Protonix Decrease the Lantus to 8 units Q HS Recheck BMP, CBC and a mag on Monday. Continue to monitor the potassium closely Will follow up with post DC - STROKE Vital Signs/Narrative: Vital Signs Pulse BP 05/17/20 07:05 68 146/34 H Inpatient E&M: 11577 Subs Hosp L2
[2020-05-17 10:00] VITALS: PULSE 69; RESP 18; O2SAT 92
[2020-05-17 11:40] LABS: Bedside Glucose 239 mg/dL (70-110)
[2020-05-17] MEDS: Insulin Lispro 100 UNIT/ML INSULN.PEN 6 UNIT SC ×2 (11:54→17:38)
[2020-05-17 15:45] VITALS: BP 128/44; PULSE 66; RESP 16; TEMP 36.6; O2SAT 96
[2020-05-17 16:40] LABS: Bedside Glucose 132 mg/dL (70-110)
[2020-05-17] MEDS: Atorvastatin Calcium 20 MG Tablet PO (21:00)
[2020-05-17 21:11] LABS: Bedside Glucose 207 mg/dL (70-110)
[2020-05-18 04:00] VITALS: BP 150/45; PULSE 68; RESP 16; TEMP 37.1; O2SAT 68
[2020-05-18] MEDS: Glucerna Shake 120 ML LIQUID PO ×4 (05:42→20:05)
[2020-05-18 05:43] VITALS: BP 150/45; PULSE 68
[2020-05-18] MEDS: Metoprolol(XL)Succ 25 MG Tablet PO (05:43)
[2020-05-18] MEDS: Sodium Chloride 1 GM Tablet PO ×2 (05:43→17:55)
[2020-05-18] MEDS: Bumetanide 0.5 MG Tablet 1 MG PO ×2 (05:44→17:54)
[2020-05-18] MEDS: Senna/Docusate Sodium 1 Tablet PO ×2 (05:44→17:54)
[2020-05-18] MEDS: Spironolactone 25 MG Tablet PO (05:44)
[2020-05-18] MEDS: Pantoprazole Sodium 40 MG Tablet PO (05:44)
[2020-05-18] MEDS: amLODIPine 10 MG Tablet PO (05:44)
[2020-05-18] MEDS: Magnesium Chloride 64 MG Delay Rel.Tablet 128 MG PO (05:44)
[2020-05-18] MEDS: Phenytoin Na 100 MG Capsule PO ×3 (05:44→20:01)
[2020-05-18] MEDS: Clopidogrel Bisulfate 75 MG Tablet PO (05:44)
[2020-05-18] MEDS: Levothyroxine 100 MCG Tablet PO (05:45)
[2020-05-18] MEDS: Polyethylene Glycol 3350 17 GM PACKET PO (05:45)
[2020-05-18] MEDS: Menthol/Lanolin/Calamine/Znox 113 GM Tube 1 APPLIC TOPICAL ×2 (05:45→20:02)
[2020-05-18] MEDS: Nystatin Powder 15gm Bottle 1 APPLIC TOPICAL ×2 (05:46→17:59)
[2020-05-18] MEDS: Insulin Lispro 100 UNIT/ML INSULN.PEN 8 UNIT SC (05:55)
[2020-05-18 06:41] LABS: Bedside Glucose 109 mg/dL (70-110)
[2020-05-18] MEDS: Aspirin E.C. 81 MG Tablet PO (09:03)
[2020-05-18 11:10] LABS: Bedside Glucose 186 mg/dL (70-110)
[2020-05-18] MEDS: Insulin Lispro 100 UNIT/ML INSULN.PEN 6 UNIT SC ×2 (11:46→17:54)
[2020-05-18 14:25] VITALS: BP 155/53; PULSE 61; RESP 18; TEMP 36.6; O2SAT 97
[2020-05-18 16:21] LABS: Bedside Glucose 164 mg/dL (70-110)
--- NOTE | 2020-05-18 16:44 | CASEMGMT ---
Social Work Spoke with dtr about DC plans for pt. IDT, pt and dtr agreeable to DC 05/22. Requesting to restart services with [facility]. Referral made for PT/OT/ST/SN. No DME needs. Referred to Palliative Care. Dtr to transport. Plan: DC home with family 05/22, [facility] PT/OT/ST/SN Francesca Contreras, SHAUN NEWTONW
--- NOTE | 2020-05-18 19:55 | PCM.DC ---
- Discharge Diagnoses Current Active Problems: Current Active and Chronic Problems (Last Reviewed 05/04/20 @ 14:24 by Anita Mcmillan) Status epilepticus (Acute) Debility (Acute) Unresponsive (Acute) Seizure disorder (Acute) Proteus pneumonia (Acute) Diabetes mellitus (Chronic) Chronic kidney disease (Chronic) Acute kidney injury (Acute) Aortic stenosis (Chronic) Cirrhosis of liver (Chronic) Hypertension (Chronic) GERD (gastroesophageal reflux disease) (Chronic) Hypothyroidism (Chronic) Ascites (Chronic) Chronic diastolic (congestive) heart failure (Chronic) Hyperlipidemia (Chronic) Iron deficiency anemia (Chronic) You will use the following diet at home:: No restrictions, Regular Your food should be the consistency of: Soft (bite-sized & easy to chew/swallow) Your liquids should be the consistency of: Regular/Thin Discharge Activity: Return to Normal Activity, May Shower, Use Walker Weight Bearing Status: Weight bearing as tolerated Call your doctor if you observe: Fever of 101 or Higher, Inability to urinate, Inability to have a bowel movement, Shortness of breath, Chest pain, Uncontrolled pain Allergies/Adverse Reactions: Allergies No Known Allergies Allergy (Verified 05/04/20 14:24) Medications to take at Discharge Aspirin [Ecotrin] 81 mg PO DAILY 09/10/13 Atorvastatin Calcium [Lipitor] 20 mg PO QHS 09/10/13 Levothyroxine [Synthroid] 100 mcg PO DAILY 01/09/20 clopidogrel 75 mg tablet 75 mg PO DAILY 03/16/20 metoprolol succinate 25 mg tablet,extended release 24 hr 25 mg PO DAILY 03/16/20 Pantoprazole Sodium 40 mg PO DAILY 03/18/20 epoetin franklin 20,000 unit/2 mL injection solution 15,000 unit SC .[id number] ml 04/02/20 Amlodipine Besylate [Norvasc] 10 mg PO DAILY 04/30/20 Emollient Combination No.72 [Eucerin Intensive Repair] 1 applic TOPICAL BID 05/04/20 Acetaminophen [Tylenol Tablet] 650 mg PO Q8H PRN tablet 05/18/20 Bumetanide [Bumex] 1 mg PO BID #60 tab 05/18/20 Emollient Combination No.72 [Eucerin Intensive Repair] 1 applic TOPICAL 0600,2200 lotion 05/18/20 Insulin Glargine [Lantus SoloStar Pen] 8 units SC QHS #1 pen 05/18/20 Insulin Lispro [Humalog KwikPen] 6 unit SC 1200,1700 #1 insuln.pen 05/18/20 Insulin Lispro [Humalog KwikPen] 8 unit SC DAILY #1 insuln.pen 05/18/20 Menthol/Lanolin/Calamine/Znox [Calmoseptine Ointment] 1 applic TOPICAL 0600,2200 tube 05/18/20 Nystatin Powder [Mycostatin Powder] 1 applic TOPICAL BID bottle 05/18/20 Phenytoin Na [Dilantin] 100 mg PO TID #90 cap MDD seizures 05/18/20 The following prescriptions were given: Bumetanide [Bumex] 1 mg PO BID #60 tab Transmission Status: Pending to [facility] Phenytoin Na [Dilantin] 100 mg PO TID #90 cap MDD seizures Transmission Status: Pending to [facility] Insulin Lispro [Humalog KwikPen] 8 unit SC DAILY #1 insuln.pen Transmission Status: Pending to [facility] Insulin Lispro [Humalog KwikPen] 6 unit SC 1200,1700 #1 insuln.pen Transmission Status: Pending to [facility] Insulin Glargine [Lantus SoloStar Pen] 8 units SC QHS #1 pen Transmission Status: Pending to [facility] Primary Care Physician: Aleksandar Clemens Chi, MD [Primary Care Provider] - Please follow up with your Primary Care Physician in: 1 week. Test Results: Test results from this visit will be discussed in further detail at your follow-up appointment, if applicable. Please Follow Up With: Regina Rendon MD When: 1 week. Proposed Discharge Date: 05/22/20
--- NOTE | 2020-05-18 19:58 | DS.PCM_ITS ---
Discharge Date and Diagnosis - Problem List Patient Problems: Active and Suspected Problems (Last Reviewed 05/04/20 @ 14:24 by Anita Mcmillan) Status epilepticus (Acute) Debility (Acute) Unresponsive (Acute) Seizure disorder (Acute) Proteus pneumonia (Acute) Acute kidney injury (Acute) Date of Admission: 04/30/20 Date of Discharge: 05/22/20 - Primary Discharge Diagnosis Acute Problems: Active Problems (Last Reviewed 05/04/20 @ 14:24 by Anita Mcmillan) Status epilepticus (Acute) Debility (Acute) Unresponsive (Acute) Seizure disorder (Acute) Proteus pneumonia (Acute) Acute kidney injury (Acute) - Secondary Discharge Diagnosis Chronic Problems: Chronic Problems (Last Reviewed 05/04/20 @ 14:24 by Anita Mcmillan) Diabetes mellitus (Chronic) Chronic kidney disease (Chronic) Aortic stenosis (Chronic) Cirrhosis of liver (Chronic) Hypertension (Chronic) GERD (gastroesophageal reflux disease) (Chronic) Hypothyroidism (Chronic) Lower extremity edema (Chronic) Ascites (Chronic) Chronic diastolic (congestive) heart failure (Chronic) Nonrheumatic aortic (valve) stenosis (Chronic) History of aortic valve replacement with bioprosthetic valve (Chronic 03/09/20) TAVR w/ Medtronic Evolut Pro bioprosthetic valve 23 mm 03/09/2020 Nonrheumatic mitral valve stenosis with insufficiency (Chronic) Left bundle branch block (LBBB) (Chronic) post-op TAVR transient LBBB w/ 1 degree AV block Cirrhosis of liver with ascites (Chronic) Secondary pulmonary arterial hypertension (Chronic) Essential hypertension (Chronic) Hyperlipidemia (Chronic) Chronic renal disease, stage 3, moderately decreased glomerular filtration rate (GFR) between 30-59 mL/min/1.73 square meter (Chronic) Thrombocytopenia (Chronic) Iron deficiency anemia (Chronic) Anemia of chronic renal failure, stage 3 (moderate) (Chronic) Hospital Course and Treatment Imaging Results: 05/01/20 15:21 Diet: Carbohydrate Controlled Food consistency:: Soft & Bite Sized Liquid Consistency:: Regular/Thin Is pt able to select menu?: No Fluid restriction:: 1250 mL Diet Comments: CLOSE SUPERVISION, Meds 1x w/puree, NO STRAWS....2 GM Sodium diet Labs (Last 48 Hours) 12/26/20 12/27/20 12/27/20 21:09 05:25 06:14 Sodium 133 L Potassium 4.7 Chloride 99 Carbon Dioxide 27.0 Anion Gap 7 BUN 48 H Creatinine 1.64 H Estim Creat Clear Calc 18.01 Est GFR (MDRD) Af Amer 38 L Est GFR (MDRD) Non-Af 32 L BUN/Creatinine Ratio 29.3 H Glucose 84 Calcium 7.8 L Magnesium 1.7 POC Glucose 149 H 90 05/17/20 05/17/20 05/17/20 11:33 16:30 20:59 Sodium Potassium Chloride Carbon Dioxide Anion Gap BUN Creatinine Estim Creat Clear Calc Est GFR (MDRD) Af Amer Est GFR (MDRD) Non-Af BUN/Creatinine Ratio Glucose Calcium Magnesium POC Glucose 239 H 132 H 207 H 05/18/20 05/18/20 05/18/20 05:56 11:05 16:18 Sodium Potassium Chloride Carbon Dioxide Anion Gap BUN Creatinine Estim Creat Clear Calc Est GFR (MDRD) Af Amer Est GFR (MDRD) Non-Af BUN/Creatinine Ratio Glucose Calcium Magnesium POC Glucose 109 186 H 164 H Microbiology 05/18/20 12:20 Nasal Secretion SARS-CoV-2 Antigen (Rapid) - Final Operations: None Procedures: None Summary of Care Provided: The patient is a 85 year old Female with below past medical history hospitalized for status epilepticus, complicated by respiratory failure requiring intubation, acute kidney injury, proteus pneumonia, uncontrolled diabetes mellitus, admitted to TCU with debility, here for rehabilitation, strengthening, prior to discharge home with . Discharge home with family, [facility] PT/OT/ST/SN. Patient Problems: Active and Suspected Problems (Last Reviewed 05/04/20 @ 14:24 by Anita Mcmillan) Status epilepticus (Acute) Debility (Acute) Unresponsive (Acute) Seizure disorder (Acute) Proteus pneumonia (Acute) Acute kidney injury (Acute) - Physical Exam Vitals/I&O's: Vital Signs Temp Pulse Resp BP Pulse Ox 97.8 F 61 18 155/53 H 97 05/18/20 14:25 05/18/20 14:25 05/18/20 14:25 05/18/20 14:25 05/18/20 14:25 Oxygen Delivery Method Room Air Weight: 63.56 kg Body Mass Index (BMI) 24.8 Finger Stick Blood Glucose 285 Intake and Output for Last 24 Hours 05/16/20 05/17/20 05/18/20 23:59 23:59 23:59 Intake Total 880 / 880 830 / 830 480 / 480 Output Total 1725 / 1725 2225 / 2225 2350 / 2350 Balance -845 / -845 -1395 / -1395 -1870 / -1870 Microbiology Past 72 Hours 05/18/20 12:20 Nasal Secretion SARS-CoV-2 Antigen (Rapid) - Final Laboratory Results 05/17/20 20:59: POC Glucose 207 H 05/18/20 05:56: POC Glucose 109 05/18/20 11:05: POC Glucose 186 H 05/18/20 16:18: POC Glucose 164 H Current Medications Acetaminophen (Acetaminophen 325 Mg Tablet) 650 mg PO Q8H PRN PRN Reason: Fever greater than 100.9 ?F Amlodipine Besylate (Amlodipine 10 Mg Tablet) 10 mg PO DAILY [facility] Last Admin: 05/18/20 05:44 Dose: 10 mg Documented by: Aspirin (Aspirin E.C. 81 Mg Tablet) 81 mg PO DAILY@0800 [facility] Last Admin: 05/18/20 09:03 Dose: 81 mg Documented by: Atorvastatin Calcium (Atorvastatin Calcium 20 Mg Tablet) 20 mg PO QHS [facility] Last Admin: 05/17/20 21:00 Dose: 20 mg Documented by: Bisacodyl (Bisacodyl 10 Mg Suppository) 10 mg RECTAL DAILY PRN PRN Reason: Constipation Bumetanide (Bumetanide 0.5 Mg Tablet) 1 mg PO BID [facility] Last Admin: 05/18/20 17:54 Dose: 1 mg Documented by: Calamine/Phenol (Menthol/Lanolin/Calamine/Znox 113 Gm Tube) 1 applic TOPICAL 0600,2200 [facility]; Protocol Last Admin: 05/18/20 05:45 Dose: 1 applic Documented by: Clopidogrel Bisulfate (Clopidogrel Bisulfate 75 Mg Tablet) 75 mg PO DAILY [facility] Last Admin: 05/18/20 05:44 Dose: 75 mg Documented by: Emollient Ointment (Emollient Combination No.72 500 Ml Lotion) 1 applic TOPICAL 0600,2200 [facility]; Protocol Last Admin: 05/18/20 05:45 Dose: 1 applicatio Documented by: Insulin Glargine (Insulin Glargine 100 Units/Ml Pen) 8 units SC QHS [facility] Last Admin: 05/18/20 05:57 Dose: 8 units Documented by: Insulin Human Lispro (Insulin Lispro 100 Unit/Ml Insuln.Pen) 6 unit SC 1200,1700 [facility] Last Admin: 05/18/20 17:54 Dose: 6 u Documented by: Insulin Human Lispro (Insulin Lispro 100 Unit/Ml Insuln.Pen) 8 unit SC DAILY [facility] Last Admin: 05/18/20 05:55 Dose: 8 u Documented by: Levothyroxine Sodium (Levothyroxine 100 Mcg Tablet) 100 mcg PO DAILY [facility] Last Admin: 05/18/20 05:45 Dose: 100 mcg Documented by: Magnesium Chloride (Magnesium Chloride 64 Mg Delay Rel.Tablet) 128 mg PO DAILY [facility] Last Admin: 05/18/20 05:44 Dose: 128 mg Documented by: Magnesium Hydroxide (Magnesium Hydroxide 30 Ml Udc) 30 ml PO DAILY PRN PRN Reason: Constipation Metoprolol Succinate (Metoprolol(Xl)Succ 25 Mg Tablet) 25 mg PO DAILY [facility] Last Admin: 05/18/20 05:43 Dose: 25 mg Documented by: Nutritional Formula (Lactose Free) (Glucerna Shake 120 Ml Liquid) 120 ml PO 4X /DAY [facility] Last Admin: 05/18/20 17:53 Dose: 120 ml Documented by: Nystatin (Nystatin Powder 15gm Bottle) 1 applic TOPICAL BID [facility]; Protocol Last Admin: 05/18/20 17:59 Dose: 1 applicatio Documented by: Oxycodone HCl (Oxycodone 5 Mg Tablet) 2.5 mg PO Q8H PRN PRN PRN Reason: Pain Score 4-10 Pantoprazole Sodium (Pantoprazole Sodium 40 Mg Tablet) 40 mg PO DAILY [facility] Last Admin: 05/18/20 05:44 Dose: 40 mg Documented by: Phenytoin Sodium (Phenytoin Na 100 Mg Capsule) 100 mg PO TID [facility] Last Admin: 05/18/20 13:54 Dose: 100 mg Documented by: Polyethylene Glycol (Polyethylene Glycol 3350 17 Gm Packet) 17 gm PO DAILY [facility] Last Admin: 05/18/20 05:45 Dose: 17 gm Documented by: Senna/Docusate Sodium (Senna/Docusate Sodium 1 Tablet) 1 tablet PO BID [facility] Last Admin: 05/18/20 17:54 Dose: 1 tablet Documented by: Sodium Chloride (0.9% Saline Lock 10 Ml Syringe) 10 - 40 ml IV UD PRN PRN Reason: SALINE FLUSH Last Admin: 05/16/20 14:25 Dose: 10 ml Documented by: Sodium Chloride (Sodium Chloride 1 Gm Tablet) 1 gm PO BID [facility] Last Admin: 05/18/20 17:55 Dose: 1 gm Documented by: Spironolactone (Spironolactone 25 Mg Tablet) 25 mg PO DAILY [facility] Last Admin: 05/18/20 05:44 Dose: 25 mg Documented by: Discharge Diet: No Restrictions Discharge Activity: Return to Normal Activity, May Shower, Use Walker Weight Bearing Status: Weight bearing as tolerated Call your doctor if you observe: Fever of 101 or Higher, Inability to urinate, Inability to have a bowel movement, Shortness of breath, Chest pain, Uncontrolled pain Home Medications: Medications to take at Discharge Aspirin [Ecotrin] 81 mg PO DAILY 09/10/13 Atorvastatin Calcium [Lipitor] 20 mg PO QHS 09/10/13 Levothyroxine [Synthroid] 100 mcg PO DAILY 01/09/20 clopidogrel 75 mg tablet 75 mg PO DAILY 03/16/20 metoprolol succinate 25 mg tablet,extended release 24 hr 25 mg PO DAILY 03/16/20 Pantoprazole Sodium 40 mg PO DAILY 03/18/20 epoetin franklin 20,000 unit/2 mL injection solution 15,000 unit SC .[id number] ml 04/02/20 Amlodipine Besylate [Norvasc] 10 mg PO DAILY 04/30/20 Emollient Combination No.72 [Eucerin Intensive Repair] 1 applic TOPICAL BID 05/04/20 Acetaminophen [Tylenol Tablet] 650 mg PO Q8H PRN tablet 05/18/20 Bumetanide [Bumex] 1 mg PO BID #60 tab 05/18/20 Emollient Combination No.72 [Eucerin Intensive Repair] 1 applic TOPICAL 0600,2200 lotion 05/18/20 Insulin Glargine [Lantus SoloStar Pen] 8 units SC QHS #1 pen 05/18/20 Insulin Lispro [Humalog KwikPen] 6 unit SC 1200,1700 #1 insuln.pen 05/18/20 Insulin Lispro [Humalog KwikPen] 8 unit SC DAILY #1 insuln.pen 05/18/20 Menthol/Lanolin/Calamine/Znox [Calmoseptine Ointment] 1 applic TOPICAL 0600,2200 tube 05/18/20 Nystatin Powder [Mycostatin Powder] 1 applic TOPICAL BID bottle 05/18/20 Phenytoin Na [Dilantin] 100 mg PO TID #90 cap MDD seizures 05/18/20 Following Prescriptions Were Given to Patient: Bumetanide [Bumex] 1 mg PO BID #60 tab Transmission Status: Pending to [facility] Phenytoin Na [Dilantin] 100 mg PO TID #90 cap MDD seizures Transmission Status: Pending to [facility] Insulin Lispro [Humalog KwikPen] 8 unit SC DAILY #1 insuln.pen Transmission Status: Pending to [facility] Insulin Lispro [Humalog KwikPen] 6 unit SC 1200,1700 #1 insuln.pen Transmission Status: Pending to [facility] Insulin Glargine [Lantus SoloStar Pen] 8 units SC QHS #1 pen Transmission Status: Pending to [facility] Primary Care Physician: Aleksandar Clemens Chi, MD [Primary Care Provider] - Please follow up with your Primary Care Physician in: 1 week. Please Follow Up With: Regina Rendon MD When: 1 week. Disposition: Home with Home Health Minutes spent on discharge:: 35 Patient Condition:: Stable Medical Necessity - Tobacco Use Smoking Status: Never smoker Tobacco Use: Non-smoker Meaningful Use Info Meaningful Use Diagnoses (Choose all that apply): None applicable
[2020-05-18] MEDS: Atorvastatin Calcium 20 MG Tablet PO (20:04)
[2020-05-18 21:26] LABS: Bedside Glucose 182 mg/dL (70-110)
[2020-05-19 05:35] VITALS: BP 142/50; PULSE 67; RESP 17; TEMP 37.1; O2SAT 97
[2020-05-19] MEDS: Magnesium Chloride 64 MG Delay Rel.Tablet 128 MG PO (05:38)
[2020-05-19] MEDS: Polyethylene Glycol 3350 17 GM PACKET PO (05:38)
[2020-05-19 05:39] VITALS: BP 142/50; PULSE 67
[2020-05-19] MEDS: amLODIPine 10 MG Tablet PO (05:39)
[2020-05-19] MEDS: Clopidogrel Bisulfate 75 MG Tablet PO (05:39)
[2020-05-19] MEDS: Pantoprazole Sodium 40 MG Tablet PO (05:39)
[2020-05-19] MEDS: Sodium Chloride 1 GM Tablet PO ×2 (05:39→17:09)
[2020-05-19] MEDS: Metoprolol(XL)Succ 25 MG Tablet PO (05:39)
[2020-05-19] MEDS: Bumetanide 0.5 MG Tablet 1 MG PO ×2 (05:39→17:08)
[2020-05-19] MEDS: Levothyroxine 100 MCG Tablet PO (05:39)
[2020-05-19] MEDS: Phenytoin Na 100 MG Capsule PO ×3 (05:39→21:24)
[2020-05-19] MEDS: Senna/Docusate Sodium 1 Tablet PO (05:39)
[2020-05-19] MEDS: Spironolactone 25 MG Tablet PO (05:40)
[2020-05-19] MEDS: Menthol/Lanolin/Calamine/Znox 113 GM Tube 1 APPLIC TOPICAL ×2 (05:40→21:24)
[2020-05-19] MEDS: Nystatin Powder 15gm Bottle 1 APPLIC TOPICAL ×2 (05:41→17:10)
[2020-05-19] MEDS: Glucerna Shake 120 ML LIQUID PO ×4 (05:41→21:24)
[2020-05-19 05:46] LABS: Hemoglobin 8.8 g/dL (12.0-15.0); Mean Corp Hgb Conc 31.4 g/dL (32-36); Mean Corpuscular Hgb 29.5 pg (27.0-32.0); Platelet Count 127 K/mm3 (150-450); RBC Distribution Width CV 18.6 % (11.6-14.6); RBC Distribution Width SD 62.7 fl (35.1-43.9); Red Blood Count 2.98 M/mm3 (4.2-5.4); White Blood Count 4.3 K/mm3 (4.4-11.0)
[2020-05-19 06:15] LABS: Anion Gap 3 (5-15); BUN 51 mg/dL (7-18); BUN/Creat Ratio 31.9 RATIO (10-20); Calcium,Total 7.7 mg/dL (8.5-10.1); Chloride 100 mmol/L (98-107); EST Glomerular Filtration Rate 33 mL/min (>60); Est Glom Filt Rate - Afr Amer 39 mL/min (>60); Estimated Creatinine Clearance 18.46 ml/min; Glucose 141 mg/dL (74-106); Magnesium 1.9 mg/dL (1.6-2.6); Potassium 5.2 mmol/L (3.5-5.1); Sodium Level 132 mmol/L (136-145)
[2020-05-19 06:30] LABS: Bedside Glucose 162 mg/dL (70-110)
[2020-05-19] MEDS: Insulin Lispro 100 UNIT/ML INSULN.PEN 8 UNIT SC (07:36)
[2020-05-19] MEDS: Aspirin E.C. 81 MG Tablet PO (07:37)
[2020-05-19] MEDS: Sodium Polystyrene Sulfonate 15 GM/60 ML UDC PO (08:34)
--- NOTE | 2020-05-19 08:45 | NURSING ---
payne removed at this time. pt tolerated well. empty 400cc yellow urine from bag. pleasant & cooperative. potassium 5.2 today, kayexalate given per order. recheck BMP in AM.
[2020-05-19 10:00] VITALS: PULSE 53; RESP 18; O2SAT 97
[2020-05-19 11:01] LABS: Bedside Glucose 195 mg/dL (70-110)
[2020-05-19] MEDS: Insulin Lispro 100 UNIT/ML INSULN.PEN 6 UNIT SC ×2 (11:52→17:09)
[2020-05-19 13:36] VITALS: BP 122/41; PULSE 58; RESP 14; TEMP 36.3; O2SAT 97
--- NOTE | 2020-05-19 15:01 | NURSING ---
Resident and family updated on COVID status on unit.
[2020-05-19 17:05] LABS: Bedside Glucose 131 mg/dL (70-110)
[2020-05-19 21:15] LABS: Bedside Glucose 236 mg/dL (70-110)
[2020-05-19] MEDS: Atorvastatin Calcium 20 MG Tablet PO (21:25)
--- NOTE | 2020-05-19 23:35 | NURSING ---
05/18/2020 made aware by nursing staff that lantus that is schedule for pm dosing was scanned in am, medication was not given. humalog insulin that was due was given but not scanned. lantus insulin pen was scanned unintentionally instead
[2020-05-20 05:32] VITALS: BP 136/36; PULSE 68; RESP 16; TEMP 37.1; O2SAT 94
[2020-05-20 05:37] VITALS: BP 136/36; PULSE 68
[2020-05-20] MEDS: Magnesium Chloride 64 MG Delay Rel.Tablet 128 MG PO (05:37)
[2020-05-20] MEDS: Bumetanide 0.5 MG Tablet 1 MG PO ×2 (05:37→17:55)
[2020-05-20] MEDS: Pantoprazole Sodium 40 MG Tablet PO (05:37)
[2020-05-20] MEDS: amLODIPine 10 MG Tablet PO (05:37)
[2020-05-20] MEDS: Levothyroxine 100 MCG Tablet PO (05:37)
[2020-05-20] MEDS: Phenytoin Na 100 MG Capsule PO ×3 (05:37→21:42)
[2020-05-20] MEDS: Senna/Docusate Sodium 1 Tablet PO ×2 (05:37→17:55)
[2020-05-20] MEDS: Sodium Chloride 1 GM Tablet PO ×2 (05:37→17:55)
[2020-05-20] MEDS: Metoprolol(XL)Succ 25 MG Tablet PO (05:37)
[2020-05-20] MEDS: Menthol/Lanolin/Calamine/Znox 113 GM Tube 1 APPLIC TOPICAL ×2 (05:38→21:48)
[2020-05-20] MEDS: Nystatin Powder 15gm Bottle 1 APPLIC TOPICAL ×2 (05:39→17:55)
[2020-05-20] MEDS: Polyethylene Glycol 3350 17 GM PACKET PO (05:39)
[2020-05-20] MEDS: Glucerna Shake 120 ML LIQUID PO ×4 (05:44→21:42)
[2020-05-20 06:25] LABS: Bedside Glucose 112 mg/dL (70-110)
[2020-05-20 06:29] LABS: Anion Gap 5 (5-15); BUN 55 mg/dL (7-18); BUN/Creat Ratio 34.6 RATIO (10-20); Calcium,Total 7.9 mg/dL (8.5-10.1); Chloride 102 mmol/L (98-107); Creatinine, Serum 1.59 mg/dL (0.55-1.02); EST Glomerular Filtration Rate 33 mL/min (>60); Est Glom Filt Rate - Afr Amer 40 mL/min (>60); Estimated Creatinine Clearance 18.58 ml/min; Glucose 95 mg/dL (74-106); Potassium 4.4 mmol/L (3.5-5.1); Sodium Level 136 mmol/L (136-145)
[2020-05-20] MEDS: Insulin Lispro 100 UNIT/ML INSULN.PEN 8 UNIT SC (08:12)
[2020-05-20] MEDS: Aspirin E.C. 81 MG Tablet PO (08:12)
[2020-05-20 11:15] LABS: Bedside Glucose 202 mg/dL (70-110)
[2020-05-20] MEDS: Insulin Lispro 100 UNIT/ML INSULN.PEN 6 UNIT SC ×2 (12:23→17:56)
[2020-05-20 14:06] VITALS: BP 144/43; PULSE 67; RESP 16; TEMP 37.1; O2SAT 97
--- NOTE | 2020-05-20 16:01 | NURSING ---
Bladder scanned for 690 while pt sitting up in chair. Cathed pt and only 25ml removed from bladder. Re-scanned for 91 while lying in bed. Patient's abdomen remains distended and hard palpable area can be felt near the bladder. The scan appears to be picking up reading from other location and not the bladder.
[2020-05-20 16:41] LABS: Bedside Glucose 166 mg/dL (70-110)
--- NOTE | 2020-05-20 18:02 | NURSING ---
pt educated on self administration of insulin. pt able to self administer evening insulin using proper technique. Message left for denitrator to provide further education. pt will need lots of repetition to feel comfortable completing this task at home.
[2020-05-20 21:35] LABS: Bedside Glucose 218 mg/dL (70-110)
[2020-05-20] MEDS: Atorvastatin Calcium 20 MG Tablet PO (21:42)
[2020-05-21 04:00] VITALS: BP 139/43; PULSE 68; RESP 16; TEMP 36.8; O2SAT 94
[2020-05-21] MEDS: Magnesium Chloride 64 MG Delay Rel.Tablet 128 MG PO (05:14)
[2020-05-21] MEDS: Phenytoin Na 100 MG Capsule PO ×3 (05:14→22:27)
[2020-05-21] MEDS: Sodium Chloride 1 GM Tablet PO ×2 (05:14→18:00)
[2020-05-21 05:15] VITALS: BP 139/43; PULSE 68
[2020-05-21] MEDS: Bumetanide 0.5 MG Tablet 1 MG PO ×2 (05:15→18:00)
[2020-05-21] MEDS: Metoprolol(XL)Succ 25 MG Tablet PO (05:15)
[2020-05-21] MEDS: Levothyroxine 100 MCG Tablet PO (05:15)
[2020-05-21] MEDS: Senna/Docusate Sodium 1 Tablet PO (05:15)
[2020-05-21] MEDS: Polyethylene Glycol 3350 17 GM PACKET PO (05:16)
[2020-05-21] MEDS: Pantoprazole Sodium 40 MG Tablet PO (05:17)
[2020-05-21] MEDS: amLODIPine 10 MG Tablet PO (05:17)
[2020-05-21] MEDS: Glucerna Shake 120 ML LIQUID PO ×4 (05:20→22:29)
[2020-05-21] MEDS: Menthol/Lanolin/Calamine/Znox 113 GM Tube 1 APPLIC TOPICAL ×2 (05:27→22:28)
[2020-05-21] MEDS: Nystatin Powder 15gm Bottle 1 APPLIC TOPICAL ×2 (05:27→18:01)
[2020-05-21 05:35] LABS: Hematocrit 28.8 % (37-47); Hemoglobin 9.1 g/dL (12.0-15.0)
[2020-05-21 06:36] LABS: Bedside Glucose 153 mg/dL (70-110)
[2020-05-21] MEDS: Aspirin E.C. 81 MG Tablet PO (08:31)
[2020-05-21] MEDS: Insulin Lispro 100 UNIT/ML INSULN.PEN 8 UNIT SC (08:31)
[2020-05-21 10:00] VITALS: PULSE 67; RESP 18; O2SAT 96
--- NOTE | 2020-05-21 10:32 | CASEMGMT ---
Social Work PHQ-9 and BIMS completed for MDS assessment. Francesca Contreras, [place] PILOT DIRECTOR COMMUNICATIONS
[2020-05-21 11:16] LABS: Bedside Glucose 187 mg/dL (70-110)
[2020-05-21] MEDS: Insulin Lispro 100 UNIT/ML INSULN.PEN 6 UNIT SC ×2 (11:56→17:59)
--- NOTE | 2020-05-21 12:02 | NURSING ---
Educated Pt on how to administer insulin. Pt demonstrated understanding on how to administer.
--- NOTE | 2020-05-21 13:12 | MDS.RN ---
Pain interview for BROWN 05/22/20 completed.
[2020-05-21 15:29] VITALS: BP 137/49; PULSE 65; RESP 16; TEMP 36.2; O2SAT 97
--- NOTE | 2020-05-21 16:01 | NURSING ---
Update provided to family.
[2020-05-21 16:16] LABS: Bedside Glucose 187 mg/dL (70-110)
--- NOTE | 2020-05-21 18:06 | NURSING ---
Pt Demonstrated administering Insulin to self.
[2020-05-21 21:31] LABS: Bedside Glucose 269 mg/dL (70-110)
[2020-05-21] MEDS: Atorvastatin Calcium 20 MG Tablet PO (22:26)
--- NOTE | 2020-05-21 22:30 | NURSING ---
Pt gave herself her own insulin with little instruction.
[2020-05-22 06:11] LABS: Bedside Glucose 118 mg/dL (70-110)
[2020-05-22 06:14] VITALS: PULSE 68
[2020-05-22] MEDS: Metoprolol(XL)Succ 25 MG Tablet PO (06:14)
[2020-05-22 06:19] LABS: Absolute Lymphocyte Count 0.84 X10^3/uL (0.83-4.51); Absolute Neutrophil Count 1.9 X10^3/uL (2.0-7.7); Basophil# 0.04 X10^3/uL; Basophil% 1.1 % (0-1); Eosinophil# 0.29 X10^3/uL; Eosinophils% 7.9 % (0-5); Hematocrit 29.4 % (37-47); Hemoglobin 9.3 g/dL (12.0-15.0); Lymphocyte # 0.84 X10^3/ul (4.0); Lymphocyte % 22.9 % (19-41); Mean Corp Hgb Conc 31.6 g/dL (32-36); Mean Corpuscular Hgb 30.1 pg (27.0-32.0); Mean Corpuscular Volume 95.1 fL (81-99); Mean Platelet Vol. 10.8 fl (6.2-12.0); Monocyte# 0.64 X10^3/uL; Monocyte% 17.4 % (0-10); NRBC Flagged by Analyzer 0 % (0-5); Neutrophil # 1.85 X10^3/uL (2.7-7.7); Neutrophil % 50.4 % (47-70); Platelet Count 130 K/mm3 (150-450); RBC Distribution Width CV 18.2 % (11.6-14.6); RBC Distribution Width SD 62.7 fl (35.1-43.9); Red Blood Count 3.09 M/mm3 (4.2-5.4); White Blood Count 3.7 K/mm3 (4.4-11.0)
[2020-05-22] MEDS: Phenytoin Na 100 MG Capsule PO (06:20)
[2020-05-22] MEDS: amLODIPine 10 MG Tablet PO (06:20)
[2020-05-22] MEDS: Sodium Chloride 1 GM Tablet PO (06:20)
[2020-05-22] MEDS: Bumetanide 0.5 MG Tablet 1 MG PO (06:20)
[2020-05-22] MEDS: Magnesium Chloride 64 MG Delay Rel.Tablet 128 MG PO (06:20)
[2020-05-22] MEDS: Senna/Docusate Sodium 1 Tablet PO (06:20)
[2020-05-22] MEDS: Levothyroxine 100 MCG Tablet PO (06:20)
[2020-05-22] MEDS: Pantoprazole Sodium 40 MG Tablet PO (06:20)
[2020-05-22] MEDS: Menthol/Lanolin/Calamine/Znox 113 GM Tube 1 APPLIC TOPICAL (06:21)
[2020-05-22] MEDS: Nystatin Powder 15gm Bottle 1 APPLIC TOPICAL (06:24)
[2020-05-22] MEDS: Polyethylene Glycol 3350 17 GM PACKET PO (06:24)
[2020-05-22 06:26] VITALS: BP 143/46; PULSE 68; RESP 16; TEMP 37.2; O2SAT 95
[2020-05-22 06:38] LABS: Anion Gap 7 (5-15); BUN 61 mg/dL (7-18); BUN/Creat Ratio 38.9 RATIO (10-20); Chloride 102 mmol/L (98-107); Creatinine, Serum 1.57 mg/dL (0.55-1.02); EST Glomerular Filtration Rate 33 mL/min (>60); Est Glom Filt Rate - Afr Amer 40 mL/min (>60); Estimated Creatinine Clearance 18.82 ml/min; Glucose 121 mg/dL (74-106); Potassium 4.3 mmol/L (3.5-5.1); Sodium Level 139 mmol/L (136-145)
[2020-05-22] MEDS: Aspirin E.C. 81 MG Tablet PO (08:21)
[2020-05-22] MEDS: Insulin Lispro 100 UNIT/ML INSULN.PEN 8 UNIT SC (08:22)
[2020-05-22 10:00] VITALS: RESP 18
[2020-05-22 10:13] VITALS: BP 142/51; PULSE 67; RESP 18; TEMP 36.8; O2SAT 95
[2020-05-22 10:48] VITALS: BP 142/51; PULSE 81; RESP 18; TEMP 36.8; O2SAT 95
== END 2020-05-22 10:30 | disposition home health service (06) | DRG 100 ==
PROVIDERS: Internal Medicine; Internal Medicine Hematology & Oncology; Admitting Provider Family Medicine Geriatric Medicine; PCP Family Medicine Geriatric Medicine; Visit Provider Family Medicine Geriatric Medicine
DX: G40.901 Epilepsy, unspecified, not intractable, with status epilepticus (principal); J15.6 Pneumonia due to other Gram-negative bacteria; I50.32 Chronic diastolic (congestive) heart failure; I13.0 Hypertensive heart and chronic kidney disease with heart failure and stage 1 through stage 4 chronic kidney disease, or unspecified chronic kidney disease; R18.8 Other ascites; E87.1 Hypo-osmolality and hyponatremia; I25.10 Atherosclerotic heart disease of native coronary artery without angina pectoris; E11.22 Type 2 diabetes mellitus with diabetic chronic kidney disease; E03.9 Hypothyroidism, unspecified; E78.5 Hyperlipidemia, unspecified; K21.9 Gastro-esophageal reflux disease without esophagitis; D50.9 Iron deficiency anemia, unspecified; K74.60 Unspecified cirrhosis of liver; N18.32 Chronic kidney disease, stage 3b; Z95.3 Presence of xenogenic heart valve; D63.1 Anemia in chronic kidney disease; D69.6 Thrombocytopenia, unspecified
CPT/HCPCS: 36415; 74230; 80048; 80185; 82040; 82140; 82728; 82962; 83540; 83735; 84100; 85014; 85018; 85025; 85027; 87426; 87635; 92507; 92526; 92610; 92611; 97110; 97116; 97163; 97166; 97530; 97535; 97802; A4216; J1610; U0003

== ENCOUNTER → 2020-05-28 11:55 | Outpatient (CLI) | payer MEDICARE, OTHER, SELFPAY ==
[2020-05-04 15:06] VITALS: BMI 25.3
[2020-05-28 13:12] LABS: Albumin, Serum 2.8 g/dL (3.2-5.0); BUN 44 mg/dL (7-18); BUN/Creat Ratio 28.2 RATIO (10-20); Calcium,Total 8.3 mg/dL (8.5-10.1); Chloride 100 mmol/L (98-107); Creatinine, Serum 1.56 mg/dL (0.55-1.02); EST Glomerular Filtration Rate 34 mL/min (>60); Est Glom Filt Rate - Afr Amer 41 mL/min (>60); Glucose 104 mg/dL (74-106); Phosphorus 3.1 mg/dL (2.5-4.9); Potassium 4.3 mmol/L (3.5-5.1); Sodium Level 135 mmol/L (136-145)
== END ==
PROVIDERS: Internal Medicine Nephrology; PCP Family Medicine Geriatric Medicine; Visit Provider Family Medicine Geriatric Medicine
DX: N18.4 Chronic kidney disease, stage 4 (severe) (principal)
CPT/HCPCS: 36415; 80069

== ENCOUNTER 2020-06-12 13:58 | Outpatient (RCR) | payer MEDICARE, OTHER, SELFPAY ==
[2020-06-01 15:17] VITALS: BMI 26.4
== END 2020-06-12 23:59 ==
LOC: IMMUN 13:58
PROVIDERS: PCP Family Medicine Geriatric Medicine; Visit Provider Family Medicine
DX: Z23 Encounter for immunization (principal)
CPT/HCPCS: 0011A; 0012A; 91301

== ENCOUNTER → 2020-07-15 15:27 | Outpatient (CLI) | payer MEDICARE, OTHER, SELFPAY ==
[2020-07-07 08:15] VITALS: BMI 24.8
[2020-07-15 17:46] LABS: Hematocrit 33.9 % (37-47); Hemoglobin 10.7 g/dL (12.0-15.0); Mean Corp Hgb Conc 31.6 g/dL (32-36); Mean Corpuscular Hgb 31.5 pg (27.0-32.0); Mean Corpuscular Volume 99.7 fL (81-99); Mean Platelet Vol. 10.8 fl (6.2-12.0); Platelet Count 131 K/mm3 (150-450); RBC Distribution Width CV 14.4 % (11.6-14.6); RBC Distribution Width SD 52.9 fl (35.1-43.9); White Blood Count 4.3 K/mm3 (4.4-11.0)
[2020-07-15 18:06] LABS: International Normalized Ratio 1.1
[2020-07-15 18:07] LABS: Partial Thromboplast Time 31.9 Seconds (24.1-36.2)
[2020-07-15 18:44] LABS: ALB/GLOB Ratio 0.8 RATIO (0.9-2.4); AST(SGOT) 130 U/L (15-37); Alanine Aminotransfer ALT/SGPT 149 U/L (13-56); Alkaline Phosphatase 375 U/L (45-117); Anion Gap 6 (5-15); BUN 47 mg/dL (7-18); BUN/Creat Ratio 32.9 RATIO (10-20); Calcium,Total 8.6 mg/dL (8.5-10.1); Chloride 96 mmol/L (98-107); Creatinine, Serum 1.43 mg/dL (0.55-1.02); EST Glomerular Filtration Rate 37 mL/min (>60); Est Glom Filt Rate - Afr Amer 45 mL/min (>60); Glucose 283 mg/dL (74-106); Phosphorus 3.6 mg/dL (2.5-4.9); Potassium 4.2 mmol/L (3.5-5.1); Sodium Level 133 mmol/L (136-145)
[2020-07-16 09:17] LABS: Hepatitis B Surface Antigen Non-Reactive (Nonreactive); Hepatitis C Antibody Non-Reactive (Nonreactive)
[2020-07-17 10:03] LABS: AFP, Tumor Marker < 0.9 ng/mL (0.0-8.3)
== END ==
PROVIDERS: PCP Family Medicine Geriatric Medicine; Referring Provider Internal Medicine Nephrology; Visit Provider Internal Medicine Nephrology
DX: K74.60 Unspecified cirrhosis of liver (principal); I35.0 Nonrheumatic aortic (valve) stenosis
CPT/HCPCS: 36415; 80053; 82105; 84100; 85027; 85610; 85730; 86803; 87340

== ENCOUNTER → 2020-09-23 13:52 | Outpatient (CLI) | payer MEDICARE, OTHER, SELFPAY ==
[2020-09-21 10:21] VITALS: BMI 24.9
[2020-09-23 16:52] LABS: Absolute Lymphocyte Count 0.65 X10^3/uL (0.83-4.51); Absolute Neutrophil Count 3.9 X10^3/uL (2.0-7.7); Basophil# 0.02 X10^3/uL; Basophil% 0.4 % (0-1); Eosinophil# 0.16 X10^3/uL; Eosinophils% 3.1 % (0-5); Hematocrit 30.2 % (37-47); Hemoglobin 9.4 g/dL (12.0-15.0); Lymphocyte # 0.65 X10^3/ul (0.83-4.51); Lymphocyte % 12.7 % (19-41); Mean Corp Hgb Conc 31.1 g/dL (32-36); Mean Corpuscular Hgb 29.7 pg (27.0-32.0); Mean Corpuscular Volume 95.6 fL (81-99); Mean Platelet Vol. 11.8 fl (6.2-12.0); Monocyte# 0.42 X10^3/uL; Monocyte% 8.2 % (0-10); NRBC Flagged by Analyzer 0 % (0-5); Neutrophil # 3.87 X10^3/uL (2.7-7.7); Neutrophil % 75.4 % (47-70); Platelet Count 121 K/mm3 (150-450); RBC Distribution Width CV 14.6 % (11.6-14.6); RBC Distribution Width SD 50.5 fl (35.1-43.9); Red Blood Count 3.16 M/mm3 (4.2-5.4); White Blood Count 5.1 K/mm3 (4.4-11.0)
[2020-09-23 17:43] LABS: AST(SGOT) 80 U/L (15-37); Alanine Aminotransfer ALT/SGPT 87 U/L (13-56); Albumin, Serum 3.1 g/dL (3.2-5.0); Alkaline Phosphatase 261 U/L (45-117); Anion Gap 7 (5-15); BUN 69 mg/dL (7-18); BUN/Creat Ratio 37.9 RATIO (10-20); Calcium,Total 8.3 mg/dL (8.5-10.1); Chloride 95 mmol/L (98-107); Creatinine, Serum 1.82 mg/dL (0.55-1.02); EST Glomerular Filtration Rate 28 mL/min (>60); Est Glom Filt Rate - Afr Amer 34 mL/min (>60); Globulin 3.2 g/dL (2.2-4.2); Glucose 465 mg/dL (74-106); Potassium 4.4 mmol/L (3.5-5.1); Protein, Total 6.3 g/dL (6.4-8.2); Sodium Level 132 mmol/L (136-145); Thyroid Stim Hormone (TSH) 2.04 uIU/mL (0.358-3.74)
== END ==
PROVIDERS: PCP Family Medicine Geriatric Medicine; Visit Provider Family Medicine Geriatric Medicine
DX: E11.9 Type 2 diabetes mellitus without complications (principal); E55.9 Vitamin D deficiency, unspecified; I10 Essential (primary) hypertension
CPT/HCPCS: 36415; 80053; 82306; 84443; 85025

== ENCOUNTER → 2020-10-22 13:17 | Outpatient (CLI) | payer MEDICARE, OTHER, SELFPAY ==
[2020-09-21 10:21] VITALS: BMI 24.9
[2020-10-21 13:05] VITALS: BMI 25.0
[2020-10-22 14:54] LABS: ALB/GLOB Ratio 0.8 RATIO (0.9-2.4); AST(SGOT) 72 U/L (15-37); Alanine Aminotransfer ALT/SGPT 87 U/L (13-56); Albumin, Serum 3.2 g/dL (3.2-5.0); Alkaline Phosphatase 252 U/L (45-117); Anion Gap 4 (5-15); BUN 44 mg/dL (7-18); BUN/Creat Ratio 30.3 RATIO (10-20); Calcium,Total 8.6 mg/dL (8.5-10.1); Chloride 97 mmol/L (98-107); Creatinine, Serum 1.45 mg/dL (0.55-1.02); EST Glomerular Filtration Rate 36 mL/min (>60); Est Glom Filt Rate - Afr Amer 44 mL/min (>60); Globulin 3.8 g/dL (2.2-4.2); Glucose 163 mg/dL (74-106); Potassium 4.1 mmol/L (3.5-5.1); Sodium Level 136 mmol/L (136-145)
== END ==
PROVIDERS: PCP Family Medicine Geriatric Medicine; Referring Provider Family Medicine Geriatric Medicine; Visit Provider Family Medicine Geriatric Medicine
DX: R74.8 Abnormal levels of other serum enzymes (principal)
CPT/HCPCS: 36415; 80053

== ENCOUNTER → 2020-11-25 10:29 | Outpatient (CLI) | payer MEDICARE, OTHER, SELFPAY ==
[2020-11-19 13:06] VITALS: BMI 25.8
[2020-11-25 11:15] LABS: Urine Sodium 72 mmol/L (Not Establ.)
[2020-11-25 11:16] LABS: Anion Gap 7 (5-15); BUN 42 mg/dL (7-18); BUN/Creat Ratio 24.9 RATIO (10-20); Calcium,Total 8.5 mg/dL (8.5-10.1); Chloride 95 mmol/L (98-107); Creatinine, Serum 1.69 mg/dL (0.55-1.02); EST Glomerular Filtration Rate 31 mL/min (>60); Est Glom Filt Rate - Afr Amer 37 mL/min (>60); Glucose 228 mg/dL (74-106); Sodium Level 133 mmol/L (136-145)
== END ==
PROVIDERS: PCP Family Medicine Geriatric Medicine; Visit Provider Internal Medicine Nephrology
DX: E87.1 Hypo-osmolality and hyponatremia (principal)
CPT/HCPCS: 36415; 80048; 84300

== ENCOUNTER → 2020-12-14 09:28 | Outpatient (CLI) | payer MEDICARE, OTHER, SELFPAY ==
[2020-12-03 13:08] VITALS: BMI 26.0
[2020-12-14 10:23] LABS: Absolute Neutrophil Count 1.8 X10^3/uL (2.0-7.7); Basophil# 0.02 X10^3/uL; Basophil% 0.6 % (0-1); Eosinophil# 0.27 X10^3/uL; Eosinophils% 8.3 % (0-5); Hematocrit 36.1 % (37-47); Hemoglobin 11.4 g/dL (12.0-15.0); Lymphocyte % 21.5 % (19-41); Mean Corp Hgb Conc 31.6 g/dL (32-36); Mean Corpuscular Hgb 28.8 pg (27.0-32.0); Mean Corpuscular Volume 91.2 fL (81-99); Mean Platelet Vol. 10.2 fl (6.2-12.0); Monocyte# 0.44 X10^3/uL; Monocyte% 13.5 % (0-10); NRBC Flagged by Analyzer 0 % (0-5); Neutrophil # 1.81 X10^3/uL (2.7-7.7); Neutrophil % 55.8 % (47-70); Platelet Count 122 K/mm3 (150-450); RBC Distribution Width CV 17.2 % (11.6-14.6); RBC Distribution Width SD 57.4 fl (35.1-43.9); Red Blood Count 3.96 M/mm3 (4.2-5.4); White Blood Count 3.3 K/mm3 (4.4-11.0)
[2020-12-14 10:58] LABS: Phenytoin (Dilantin) Level 13.9 mL (10.0-20.0); Vitamin B12 586 pg/mL (211-911)
[2020-12-14 11:21] LABS: AST(SGOT) 39 U/L (15-37); Alanine Aminotransfer ALT/SGPT 42 U/L (13-56); Albumin, Serum 3.3 g/dL (3.2-5.0); Alkaline Phosphatase 172 U/L (45-117); Anion Gap 4 (5-15); BUN 43 mg/dL (7-18); BUN/Creat Ratio 30.9 RATIO (10-20); Calcium,Total 8.4 mg/dL (8.5-10.1); Chloride 98 mmol/L (98-107); Creatinine, Serum 1.39 mg/dL (0.55-1.02); EST Glomerular Filtration Rate 38 mL/min (>60); Est Glom Filt Rate - Afr Amer 46 mL/min (>60); Globulin 3.3 g/dL (2.2-4.2); Glucose 78 mg/dL (74-106); Protein, Total 6.6 g/dL (6.4-8.2); Sodium Level 133 mmol/L (136-145); Thyroid Stim Hormone (TSH) 2.33 uIU/mL (0.358-3.74)
== END ==
PROVIDERS: Internal Medicine Hematology & Oncology; PCP Family Medicine Geriatric Medicine; Referring Provider Psychiatry & Neurology Neurology; Visit Provider Psychiatry & Neurology Neurology
DX: G40.901 Epilepsy, unspecified, not intractable, with status epilepticus (principal); I67.9 Cerebrovascular disease, unspecified; E78.5 Hyperlipidemia, unspecified; D50.0 Iron deficiency anemia secondary to blood loss (chronic)
CPT/HCPCS: 36415; 80053; 80185; 82607; 82746; 84443; 85025

== ENCOUNTER → 2021-01-08 12:55 | Outpatient (CLI) | payer MEDICARE, OTHER, SELFPAY ==
[2020-12-17 12:49] VITALS: BMI 25.4
--- NOTE | 2021-01-08 12:57 | CDU_ITS ---
Reason For Study: BILAT BRUIT Rt. Velocities/BP Lt. Velocities/BP Prox CCA 65.1/10.3 cm/sec. Prox CCA 126.7/23.1 cm/sec. Mid CCA 95.1/14.2 cm/sec. Mid CCA 113.7/25.6 cm/sec. Dist CCA 69.0/12.9 cm/sec. Dist CCA 111.1/20.5 cm/sec. Prox ICA 321.9/34.8 cm/sec. Prox ICA 332.0/37.5 cm/sec. Mid ICA 336.6/35.0 cm/sec. Mid ICA 243.8/19.1 cm/sec. Dist ICA 269.1/39.3 cm/sec. Dist ICA 157.1/26.6 cm/sec. Rt. ICA/CCA = 4.9. Lt. ICA/CCA = 3.0. Prox ECA 391.9/24.9 cm/sec. Prox ECA 356/9/18.1 cm/sec. Rt. Vert. 91.1/8.3 cm/sec. Lt. Vert. 101.1/0 cm/sec. Right Extracranial There is intimal thickening but no significant atherosclerotic plaque noted in the right common carotid artery. There is heterogeneous, irregular atherosclerotic plaque noted in the right internal carotid artery. There is heterogeneous, irregular atherosclerotic plaque noted in the right external carotid artery. Antegrade flow is noted in the right vertebral artery. There is heterogeneous, irregular atherosclerotic plaque noted in the left bulb. Acoustic shadowing. Left Extracranial There is homogeneous, smooth atherosclerotic plaque noted in the left common carotid artery. There is heterogeneous, irregular atherosclerotic plaque noted in the left internal carotid artery. There is heterogeneous, irregular atherosclerotic plaque noted in the left external carotid artery. Antegrade flow is noted in the left vertebral artery. There is heterogeneous, irregular atherosclerotic plaque noted in the left bulb. Acoustic shadowing. Procedure Carotid Duplex [id number]. Exam performed in department. Left >70% stenosis preliminary results message - 3:[address] Romero's [place] office. VL/Carotid Duplex Ultrasound Interpretation Summary Irregular calcific plaque with shadowing within the right carotid bulb and prox imal internal carotid artery with greater than 70% stenosis right internal carotid artery Greater than 50% stenosis right external carotid artery Irregular calcific plaque left carotid bulb and proximal internal carotid arter y with greater than 70% stenosis of the left internal carotid artery Greater than 50% stenosis left external carotid artery Patent and antegrade vertebrals bilaterally Ordering Physician: Fredrick Romero Referring Physician: Fredrick Romero Performed By: Chelly Castillo, GILA, RVT
== END ==
PROVIDERS: PCP Family Medicine Geriatric Medicine; Referring Provider Psychiatry & Neurology Neurology; Visit Provider Psychiatry & Neurology Neurology
DX: I65.23 Occlusion and stenosis of bilateral carotid arteries (principal)
CPT/HCPCS: 93880

== ENCOUNTER → 2021-01-13 13:14 | Outpatient (CLI) | payer MEDICARE, OTHER, SELFPAY ==
[2021-01-13 17:13] LABS: Absolute Lymphocyte Count 0.67 X10^3/uL (0.83-4.51); Absolute Neutrophil Count 2.7 X10^3/uL (2.0-7.7); Basophil# 0.02 X10^3/uL; Basophil% 0.5 % (0-1); Eosinophil# 0.18 X10^3/uL; Eosinophils% 4.3 % (0-5); Hematocrit 32.2 % (37-47); Hemoglobin 10.2 g/dL (12.0-15.0); Lymphocyte # 0.67 X10^3/ul (0.83-4.51); Lymphocyte % 16.2 % (19-41); Mean Corp Hgb Conc 31.7 g/dL (32-36); Mean Corpuscular Hgb 29.4 pg (27.0-32.0); Mean Corpuscular Volume 92.8 fL (81-99); Mean Platelet Vol. 10.3 fl (6.2-12.0); Monocyte# 0.55 X10^3/uL; Monocyte% 13.3 % (0-10); NRBC Flagged by Analyzer 0 % (0-5); Neutrophil % 65.2 % (47-70); Platelet Count 171 K/mm3 (150-450); RBC Distribution Width CV 17.1 % (11.6-14.6); RBC Distribution Width SD 56.4 fl (35.1-43.9); Red Blood Count 3.47 M/mm3 (4.2-5.4); White Blood Count 4.1 K/mm3 (4.4-11.0)
[2021-01-13 17:23] LABS: Vitamin D,25 Hydroxy 38.4 ng/mL
[2021-01-13 17:29] LABS: AST(SGOT) 29 U/L (15-37); Alanine Aminotransfer ALT/SGPT 46 U/L (13-56); Albumin, Serum 3.4 g/dL (3.2-5.0); Alkaline Phosphatase 194 U/L (45-117); Anion Gap 7 (5-15); BUN 37 mg/dL (7-18); BUN/Creat Ratio 25.9 RATIO (10-20); Calcium,Total 8.1 mg/dL (8.5-10.1); Chloride 92 mmol/L (98-107); Creatinine, Serum 1.43 mg/dL (0.55-1.02); EST Glomerular Filtration Rate 37 mL/min (>60); Est Glom Filt Rate - Afr Amer 45 mL/min (>60); Globulin 3.3 g/dL (2.2-4.2); Glucose 223 mg/dL (74-106); Potassium 3.8 mmol/L (3.5-5.1); Protein, Total 6.7 g/dL (6.4-8.2); Sodium Level 130 mmol/L (136-145); Thyroid Stim Hormone (TSH) 3.94 uIU/mL (0.358-3.74)
== END ==
PROVIDERS: PCP Family Medicine Geriatric Medicine; Visit Provider Family Medicine Geriatric Medicine
DX: E11.9 Type 2 diabetes mellitus without complications (principal); E55.9 Vitamin D deficiency, unspecified; I10 Essential (primary) hypertension
CPT/HCPCS: 36415; 80053; 82306; 84443; 85025

== ENCOUNTER 2021-02-15 12:37 | Day surgery (SDC) | payer MEDICARE, OTHER, SELFPAY ==
[2021-02-15] VITALS (7 sets, daily range): BP systolic 158–169; BP diastolic 42–72; PULSE 72–75; RESP 16–106; TEMP 36.1–37.3; O2SAT 93–98; BMI 26.4
--- NOTE | 2021-02-15 13:10 | HP.PCM_ITS ---
History and Physical Date of Admission: 02/15/21 Date of Service: 02/08/21 Intake Vital Signs 02/08/21 13:05 Height 5 ft Weight: 140 lb BMI 27.3 BP 161/53 H Blood Pressure Location Rt brachial Position Sitting Respiration 16 Intake Visit Reasons: EGD, ANEMIA Chief Complaint: Anemia Senior Grant Writer Required: No Is patient in pain?: No Allergies No Known Allergies Allergy (Verified 02/08/21 13:07) Medications aspirin 81 mg PO DAILY 09/10/13 [History Confirmed 02/08/21] clopidogrel 75 mg tablet 75 mg PO DAILY 03/16/20 [History Confirmed 02/08/21] pantoprazole 40 mg PO DAILY 03/18/20 [History Confirmed 02/08/21] amlodipine 10 mg PO DAILY 04/30/20 [History Confirmed 02/08/21] insulin glargine 25 unit SQ QHS #1 insuln.pen 05/20/20 [Rx Confirmed 02/08/21] acetaminophen 650 mg PO Q8H PRN 06/01/20 [History Confirmed 02/08/21] ascorbic acid (vitamin C) 250 mg PO DAILY 06/29/20 [History Confirmed 02/08/21] cholecalciferol (vitamin D3) 1,000 unit PO DAILY 06/29/20 [History Confirmed 02/08/21] ferrous gluconate 65 mg PO DAILY 06/29/20 [History Confirmed 02/08/21] bumetanide 1 mg tablet 1 mg PO BID tab 07/07/20 [History Confirmed 02/08/21] metoprolol succinate 25 mg tablet,extended release 24 hr 25 mg PO DAILY #90 tab 07/17/20 [Rx Confirmed 02/08/21] phenytoin sodium extended 100 mg capsule 100 mg PO TID #90 cap 12/03/20 [Rx Confirmed 02/08/21] epoetin franklin-epbx 2,000 unit/mL injection solution 2,000 unit SUBCUT ONCE 01/04/21 [History Confirmed 02/08/21] hydralazine 50 mg tablet 50 mg PO TID #90 tab 01/04/21 [Rx Confirmed 02/08/21] levothyroxine 100 mcg tablet 100 mcg PO DAILY 01/21/21 [History Confirmed 02/08/21] [facility] Medical History (Updated 02/09/21 @ 13:[address] Lucy Pryor MD) Anemia Anemia of chronic renal failure, stage 3 (moderate) Basal cell carcinoma Cataracts, bilateral Chronic diastolic (congestive) heart failure Chronic renal disease, stage 3, moderately decreased glomerular filtration rate (GFR) between 30-59 mL/min/1.73 square meter Cirrhosis of liver with ascites Debility Diabetes mellitus Essential hypertension GERD (gastroesophageal reflux disease) Hyperlipidemia Hypothyroid Hypothyroidism TRACY (iron deficiency anemia) Iron deficiency anemia Left bundle branch block (LBBB) Lower extremity edema Non-rheumatic tricuspid valve insufficiency Nonrheumatic aortic (valve) stenosis Nonrheumatic mitral valve stenosis with insufficiency Pleural effusion Pleural effusion, left Proteus pneumonia Secondary pulmonary arterial hypertension Seizure Seizure disorder Status epilepticus Thrombocytopenia Traumatic open wound of right lower leg with delayed healing Type 2 diabetes mellitus without complication Unresponsive Surgical History History of abdominal paracentesis (03/11/20) History of aortic valve replacement with bioprosthetic valve (03/09/20) History of bilateral cataract extraction History of cholecystectomy History of left heart catheterization (11/11/19) Family History Brother Myocardial infarction, Onset Age: 50 Father Myocardial infarction, Onset Age: 60 Social History household members: spouse housing: house Smoking Status: Never smoker second hand exposure: No alcohol intake: never substance use type: does not use diet: low salt well-balanced diet: daily or most days caffeine: Yes Type: coffee Number of servings: 2 eating out: rarely or never what type of physical activity do you participate in: walking duration: < 15 minutes/day kvng/jehovah's witness: Jain seatbelt use: always HPI HPI HPI: MERCEDES SORTO, is a 85 F who presents to the office today for EGD and colonoscopy due to anemia. This has been a chronic issue as patient did have previous EGD and colonoscopy in March 2017 for the same reason. Patient did have some gastritis and grade 1 esophageal varices at that time along with proximal benign rectal polyp. Patient does have past medical history for cirrhosis as well which her ascites has been well controlled and last time she needed a paracentesis was in 2019. Patient states she has had some dark stools with the iron but currently they are lewis now. Patient's hemoglobin in December was 10.2 and it dropped to 7.9 in early January currently it is 8.4 after some IV iron. Patient denies seeing any obvious blood. Patient does have a bioprosthetic valve and is on Plavix and aspirin. ROS General General: No weight change, appetite, fatigue, colon cancer or breast cancer HEENT HEENT: No difficulty swallowing, eye injury, eye surgery, swollen glands or hoarseness Endo Endocrine: Yes diabetes mellitus; No thyroid disease, thyroid cancer, Hair loss, heat intolerance or cold intolerance Skin Skin: No rash or changing moles Breast Breast: No left breast lump, right breast lump, nipple discharge, breast pain, abnormal mammogram, abnormal US or breast enlargement Musc Musculoskeletal: No back problems, arthritis, rheumatoid arthritis, gout or joint pain Cardio Cardiovascular: Yes murmur, heart disease and high blood pressure; No pacemaker, atrial fibrillation, heart attack, heart stent, palpitations, shortness of breat with exertion or chest pain Psych Psychiatric: No depression, anxiety or hearing voices Resp Respiratory: No shortness of breath, No sleep apnea, No cough, No COPD, No asthma, No emphysema and No wheezing Gastro Gastrointestinal: No abdominal pain, No nausea or vomiting, No diarrhea, No constipation, No blood in stool, No acid reflux, No hemorrhoids, No ulcers, No gallbladder problem and No black,tarry stools Ayaan Hematologic: Yes blood thinners, No blood disorders, No bleeding, Yes anemia and No blood clots Neuro Neurologic: No abnormal speech Exam Const General: cooperative, healthy appearing, comfortable and no acute distress Neck Neck: normal visual inspection Resp Effort & Inspection: normal respiratory effort Cardio Rate: regular rate GI Inspection: non-distended Palpation: soft, no guarding and nontender Skin General: no rashes or lesions noted Neuro General: patient oriented x3 Psych Affect: normal affect COVID (Procedure Consent) Procedure Criteria Procedure Criteria: Yes Elective The surgeon/proceduralist and patient have discussed in detail the risk of exposure to and/or potential harm posed by the COVID-19 virus with having a surgery/procedure at this time versus the risk of delaying the surgery/procedure. It is not possible to know either the risk of delaying the surgery or procedure or chance of getting an infection with perfect accuracy, but a joint decision was made between the patient and the surgeon/proceduralist to proceed at this time with the scheduled surgery/procedure as indicated on the consent form. Assessment and Plan Assessment and Plan (1) Anemia: Status: Chronic Qualifiers: Anemia type: due to chronic kidney disease Chronic kidney disease sta ge: stage 3 (moderate) Plan - Dr. Lucy Pryor MD: I have discussed the above with the patient. I have offered the patient EGD and colonoscopy for evaluation. I have explained the risks/benefits of the procedure and described the procedure. I have discussed the risks with the patient, including but not limited to: infection, bleeding, perforation of the GI tract requiring emergency surgery, inability to complete the procedure, injury to any internal organs, complications of anesthesia, etc. - the patient understands and agrees to proceed. I have answered all the patient's questions to the patient's satisfaction and the patient has no further questions. The patient has been given instructions for the colon cleansing preparation. 2 days of clears, magnesium citrate the first day then MiraLAX Dulcolax second day. Lucy Pryor M.D. Pager: [phone] [facility] [address] [place] [address], [address] [place] [address] Office: [phone] Plan Details Other Orders: Orders: Colonoscopy 02/08/21 EGD 02/08/21 Coding Level of Care Code Off vis,est,level 3 Diagnoses Anemia D64.9 Anemia type: due to chronic kidney disease Chronic kidney disease stage: stage 3 (moderate) 02/09/21 1346<Electronically signed by Lucy Pryor MD>Date Lucy Pryor MD
[2021-02-15] MEDS: Lactated Ringers 1,000 ML 100 ML IV (13:25)
[2021-02-15 13:31] LABS: Bedside Glucose 76 mg/dL (70-110)
--- NOTE | 2021-02-15 13:45 | EGD_PTH ---
PATIENT: MERCEDES SORTO LOC: EN U#:[id number] AGE/SX: 85/F ROOM: RE02/15/[address]: Dr. Lucy Pryor MD : 1935 BED: DIS: 02/15/2021 SPEC #: [id number] RECD: 02/15/21 14:45 STATUS: IRA REAlfred #: [id number] JOSE RAFAEL: 02/15/21 13:[address]: Lucy Pryor DEPT: SURGICAL PATHOLOGY RECD BY: Madisyn Quinonez ENTERED: 02/16/21 08:44 SP TYPE: EGD BIOPSY OTHR DR: Dr. Aleksandar Clemens MD Tissues: Gastric mucous membrane Procedures: Surgery Specimen Level IV HEADER OPERATION: Colonoscopy, EGD ([facility] [place]) PRE-OP DIAGNOSIS: Anemia TISSUE SUBMITTED: Antral biopsy for H. pylori and pathology MICROSCOPIC DIAGNOSIS Antral biopsy: Moderate gastritis. See microscopic description and comment. SJ:whitney 02/17/2021 COMMENT The results of immunohistochemistry for Helicobacter pylori will be reported separately ([id number]). MICROSCOPIC DESCRIPTION Slides are reviewed. The specimen shows fragments of gastric mucosa with chronic inflammatory cell infiltrates in the lamina propria consisting of lymphocytes and plasma cells, consistent with moderate chronic gastritis. GROSS DESCRIPTION Received in fixative is one container labeled with the patient's name and designated antral biopsy. The specimen consists of two irregular fragments of light lewis soft tissue that in aggregate measure 0.5 x 0.2 x 0.1 cm. The specimen is totally submitted in one cassette. / AM:whitney 02/16/21 TC:3 CPT: 72833
--- NOTE | 2021-02-15 13:45 | IMM_PTH ---
PATIENT: MERCEDES SORTO LOC: EN U#:[id number] AGE/SX: 85/F ROOM: RE02/15/[address]: Dr. Lucy Pryor MD : 1935 BED: DIS: 02/15/2021 SPEC #: [id number] RECD: 02/16/21 10:24 STATUS: IRA REQ #: [id number] JOSE RAFAEL: 02/15/21 13:[address]: Lucy Pryor DEPT: IMMUNOHISTOCHEMISTRY RECD BY: Dorothy Doss ENTERED: 02/16/21 10:25 SP TYPE: IMMUNO OTHR DR: Dr. Aleksandar Clemens MD Tissues: Stomach, NOS Procedures: H Pylori (initial) PHYSICIAN & INSTITUTION [place] [id number] SPECIMEN INFORMATION: Tissue Source: Antral biopsy Clinical Info: Anemia Specimen Number: [id number] CPT code: 66830 METHODOLOGY: Deparaffinized sections of prefer/formalin-fixed tissue or PAP/DQ stained slides are incubated with monoclonal/polyclonal antibodies/oligonucleotide probes. Localization is made via biotin free immunoperoxidase method. Appropriate controls are performed and reacted as expected. Results on target cell population are indicated in the following table: RESULTS: ANTIBODY / CLONE RESULT H Pylori (polyclonal) negative These tests were developed and their performance characteristics determined by [facility]. They may not have been cleared or approved by the U.S. Food and Drug Administration. The FDA has determined that such clearance or approval is not necessary. INTERPRETATION: Antral biopsy: Negative for Helicobacter pylori organisms. SJ:whitney 02/17/2021
--- NOTE | 2021-02-15 14:43 | OP.COLON_ITS ---
Patient Name: Traci Sorto Procedure Date: 02/15/2021 2:13 PM Date of : 1935 Age: 85 Procedure: Colonoscopy Indications: Iron deficiency anemia Providers: Lucy Pryor MD Medicines: Monitored Anesthesia Care Patient Profile: This is an 85 year old female. Last Colonoscopy: 2016. Complications: No immediate complications. Procedure: Pre-Anesthesia Assessment: - Prior to the procedure, a History and Physical was performed, and patient medications and allergies were reviewed. The patient's tolerance of previous anesthesia was also reviewed. The risks and benefits of the procedure and the sedation options and risks were discussed with the patient. All questions were answered, and informed consent was obtained. Prior Anticoagulants: The patient has taken Plavix (clopidogrel), last dose was 5 days prior to procedure. ASA Grade Assessment: Per anesthesia. After reviewing the risks and benefits, the patient was deemed in satisfactory condition to undergo the procedure. After I obtained informed consent, the scope was passed under direct vision. Throughout the procedure, the patient's blood pressure, pulse, and oxygen saturations were monitored continuously. The Colonoscope was introduced through the anus and advanced to the cecum, identified by the appendiceal orifice, ileocecal valve and palpation. The colonoscopy was performed without difficulty. The patient tolerated the procedure well. The quality of the bowel preparation was good. Scope In: 2:15:20 PM Scope Withdrawal Time 0 hours 9 minutes 11 seconds Scope Out: 2:33:08 PM Total Procedure Duration Time 0 hours 17 minutes 48 seconds Findings: Hemorrhoids were found on perianal exam. Non-bleeding external and internal hemorrhoids were found. The hemorrhoids were Grade I (internal hemorrhoids that do not prolapse). Multiple small and large-mouthed diverticula were found in the sigmoid colon and descending colon. The exam was otherwise without abnormality. Impression: - Hemorrhoids found on perianal exam. - Non-bleeding external and internal hemorrhoids. - Diverticulosis in the sigmoid colon and in the descending colon. - The examination was otherwise normal. - No specimens collected. Recommendation: - Discharge patient to home. - High fiber diet. - Continue present medications. - No repeat colonoscopy due to current age (66 years or older). Procedure Code(s): --- Professional --- 02771, Colonoscopy, flexible; diagnostic, including collection of specimen(s) by brushing or washing, when performed (separate procedure) Diagnosis Code(s): --- Professional --- K64.0, First degree hemorrhoids D50.9, Iron deficiency anemia, unspecified K57.30, Diverticulosis of large intestine without perforation or abscess without bleeding CPT copyright 2017 [employer]. All rights reserved. The codes documented in this report are preliminary and upon dietetics professor review may be revised to meet current compliance requirements. MD Lucy Taveras MD 02/15/2021 2:42:38 PM This report has been signed electronically. Number of Addenda: 0 Note Initiated On: 02/15/2021 2:13 PM
--- NOTE | 2021-02-15 14:44 | OP.CCLET_ITS ---
02/15/2021 Aleksandar Clemens MD [address] [place] [address] Re : Colonoscopy procedure for Traci Sorto Dear Dr. Clemens This procedure was performed on Monday, February 15, 2021. My impressions and recommendations are as follows: Impressions : - Hemorrhoids found on perianal exam. - Non-bleeding external and internal hemorrhoids. - Diverticulosis in the sigmoid colon and in the descending colon. - The examination was otherwise normal. - No specimens collected. Recommendations : - Discharge patient to home. - High fiber diet. - Continue present medications. - No repeat colonoscopy due to current age (66 years or older). My findings are described in the full procedure note, which is enclosed. If I can be of further assistance, please feel free to contact me at Doctor phone number(s): , Work: . Sincerely, MD Lucy Taveras MD 02/15/2021 2:42:38 PM This report has been signed electronically.
--- NOTE | 2021-02-15 14:49 | OP.CCLET_ITS ---
02/15/2021 Aleksandar Clemens MD [address] [place] [address] Re : Upper GI endoscopy procedure for Traci Sorto Dear Dr. Clemens This procedure was performed on Monday, February 15, 2021. My impressions and recommendations are as follows: Impressions : - Z-line irregular, 35 cm from the incisors. - Non-bleeding grade II esophageal varices. - Erythematous mucosa in the antrum. Biopsied. - Normal. Recommendations : - Await pathology results. - Discharge patient to home. - Resume previous diet. - Use sucralfate tablets 1 gram PO QID. - Continue present medications. My findings are described in the full procedure note, which is enclosed. If I can be of further assistance, please feel free to contact me at Doctor phone number(s): , Work: . Sincerely, MD Lucy Taveras MD 02/15/2021 2:49:02 PM This report has been signed electronically.
--- NOTE | 2021-02-15 14:49 | OP.EGD_ITS ---
Patient Name: Traci Sorto Procedure Date: 02/15/2021 1:57 PM Date of : 1935 Age: 85 Procedure: Upper GI endoscopy Indications: Iron deficiency anemia Providers: Lucy Pryor MD Medicines: Monitored Anesthesia Care Patient Profile: This is an 85 year old female. Complications: No immediate complications. Procedure: Pre-Anesthesia Assessment: - Prior to the procedure, a History and Physical was performed, and patient medications and allergies were reviewed. The patient's tolerance of previous anesthesia was also reviewed. The risks and benefits of the procedure and the sedation options and risks were discussed with the patient. All questions were answered, and informed consent was obtained. Prior Anticoagulants: The patient has taken Plavix (clopidogrel), last dose was 5 days prior to procedure. ASA Grade Assessment: Per anesthesia. After reviewing the risks and benefits, the patient was deemed in satisfactory condition to undergo the procedure. After obtaining informed consent, the endoscope was passed under direct vision. Throughout the procedure, the patient's blood pressure, pulse, and oxygen saturations were monitored continuously. The Endoscope was introduced through the mouth, and advanced to the second part of duodenum. The upper GI endoscopy was accomplished without difficulty. The patient tolerated the procedure well. Scope In: 2:07:07 PM Scope Out: 2:12:29 PM Total Procedure Duration Time 0 hours 5 minutes 22 seconds Findings: The Z-line was irregular and was found 35 cm from the incisors. Two columns of grade II varices were found in the lower third of the esophagus, 35 cm from the incisors. No stigmata of recent bleeding were evident. [Prior Treatment]. Moderately erythematous mucosa without bleeding was found in the gastric antrum. Biopsies were taken with a cold forceps for histology. Biopsies were taken with a cold forceps for Helicobacter pylori testing. The in the duodenum was normal. Impression: - Z-line irregular, 35 cm from the incisors. - Non-bleeding grade II esophageal varices. - Erythematous mucosa in the antrum. Biopsied. - Normal. Recommendation: - Await pathology results. - Discharge patient to home. - Resume previous diet. - Use sucralfate tablets 1 gram PO QID. - Continue present medications. Procedure Code(s): --- Professional --- 33008, Esophagogastroduodenoscopy, flexible, transoral; with biopsy, single or multiple Diagnosis Code(s): --- Professional --- K22.8, Other specified diseases of esophagus I85.00, Esophageal varices without bleeding K31.89, Other diseases of stomach and duodenum D50.9, Iron deficiency anemia, unspecified CPT copyright 2017 [employer]. All rights reserved. The codes documented in this report are preliminary and upon senior case manager review may be revised to meet current compliance requirements. MD Lucy Taveras MD 02/15/2021 2:49:02 PM This report has been signed electronically. Number of Addenda: 0 Note Initiated On: 02/15/2021 1:57 PM
== END 2021-02-15 15:34 | disposition home or self-care (01) ==
LOC: EN 12:40 → AC 12:41
PROVIDERS: PCP Family Medicine Geriatric Medicine; Referring Provider Family Medicine Geriatric Medicine; Visit Provider Surgery
PROC: 0DJD8ZZ Inspection of Lower Intestinal Tract, Via Natural or Artificial Opening Endoscopic (ICD-10-PCS; CPT 45378; principal; 2021-02-15 13:40)
DX: I85.00 Esophageal varices without bleeding (principal); K29.70 Gastritis, unspecified, without bleeding; K64.0 First degree hemorrhoids; K57.30 Diverticulosis of large intestine without perforation or abscess without bleeding; D50.9 Iron deficiency anemia, unspecified; K21.9 Gastro-esophageal reflux disease without esophagitis; I13.0 Hypertensive heart and chronic kidney disease with heart failure and stage 1 through stage 4 chronic kidney disease, or unspecified chronic kidney disease; E11.22 Type 2 diabetes mellitus with diabetic chronic kidney disease; I50.32 Chronic diastolic (congestive) heart failure; N18.30 Chronic kidney disease, stage 3 unspecified; D63.1 Anemia in chronic kidney disease; E78.5 Hyperlipidemia, unspecified; E03.9 Hypothyroidism, unspecified; Z79.4 Long term (current) use of insulin; Z79.02 Long term (current) use of antithrombotics/antiplatelets; Z95.2 Presence of prosthetic heart valve; Z79.899 Other long term (current) drug therapy
CPT/HCPCS: 43239; 45378; 82962; 88305; 88342; J7120; J2405

== ENCOUNTER → 2021-03-25 12:33 | Outpatient (CLI) | payer MEDICARE, OTHER, SELFPAY | PROVIDERS: PCP Family Medicine Geriatric Medicine; Referring Provider Family Medicine Geriatric Medicine; Visit Provider Family Medicine Geriatric Medicine | DX: U07.1 COVID-19 (principal) | CPT/HCPCS: 87635; C9803; U0005; U0003 ==

== ENCOUNTER 2021-03-27 12:11 | Outpatient (CLI) | payer MEDICARE, OTHER, SELFPAY ==
[2021-03-27 12:35] VITALS: BP 171/46; PULSE 73; RESP 16; TEMP 36.6; O2SAT 97; BMI 26.4
[2021-03-27] MEDS: 0.9% Saline Lock 10 ML Syringe IV (13:02)
[2021-03-27 13:30] VITALS: BP 156/71; PULSE 76; RESP 16; TEMP 36.6; O2SAT 95
[2021-03-27 14:29] VITALS: BP 1752/50; PULSE 72; RESP 16; TEMP 36.6; O2SAT 97
== END 2021-03-27 14:31 | disposition home or self-care (01) ==
LOC: MS3OUT 12:11 → MS3 12:12
PROVIDERS: PCP Family Medicine Geriatric Medicine; Visit Provider Nurse Practitioner Adult Health
DX: Z23 Encounter for immunization (principal); U07.1 COVID-19
CPT/HCPCS: J7050; M0245; Q0245; A4216

== ENCOUNTER 2021-07-09 14:22 | Outpatient (CLI) | payer MEDICARE, OTHER, SELFPAY ==
[2021-07-09 17:59] LABS: Anion Gap 7 (5-15); BUN 38 mg/dL (7-18); BUN/Creat Ratio 23.3 RATIO (10-20); Calcium,Total 8.1 mg/dL (8.5-10.1); Chloride 98 mmol/L (98-107); Creatinine, Serum 1.63 mg/dL (0.55-1.02); EST Glomerular Filtration Rate 32 mL/min (>60); Est Glom Filt Rate - Afr Amer 38 mL/min (>60); Glucose 78 mg/dL (74-106); Magnesium 2.6 mg/dL (1.6-2.6); Potassium 3.6 mmol/L (3.5-5.1); Sodium Level 133 mmol/L (136-145)
== END 2021-07-09 23:59 | disposition home or self-care (01) ==
LOC: MTLAB 14:26
PROVIDERS: PCP Family Medicine Geriatric Medicine; Referring Provider Internal Medicine Gastroenterology; Visit Provider Internal Medicine Gastroenterology
DX: K74.60 Unspecified cirrhosis of liver (principal)
CPT/HCPCS: 36415; 80048; 83735

== ENCOUNTER 2021-07-14 08:49 | Outpatient (CLI) | payer MEDICARE, OTHER, SELFPAY ==
--- NOTE | 2021-07-14 08:58 | US_ITS ---
STUDY: ABDOMINAL ULTRASOUND - RIGHT UPPER QUADRANT REASON FOR VISIT: Female, 86 years old CIRRHOSIS/ASCITES TECHNIQUE: Ultrasound evaluation of the right upper quadrant was performed with real-time and static cole-scale imaging. TECHNICAL QUALITY: Adequate. COMPARISON: Comparison is made with prior study dated 03/27/2020. FINDINGS: Liver: The liver measures 12.9 cm. There is a heterogeneous echogenicity of the liver. The bile ducts are within normal limits. There is hepatic color flow. The direction of portal flow is hepatopetal. There is no demonstrated mass lesion. Gallbladder: The patient is status post cholecystectomy. Common Bile Duct (C.B.D.): The common bile duct measures 5.3 mm. Pancreas: Normal size of the head, body and tail of the pancreas. There is normal echogenicity of the pancreas. There is no demonstrated pancreatic mass or cyst. Right Kidney: Normal size of the right kidney. The right kidney measures 11.4 cm x 5.9cm x 5.4 cm. Normal renal cortex. The right cortex measures 1.3 cm. There is a 1.1 cm x 1.1 cm x 1 cm renal cysts. There is no right hydronephrosis. Small amount of the fluid surrounding the liver. US/Abdomen Limited IMPRESSION: Heterogeneous appearance of the liver parenchyma. Small amount of perihepatic fluid. Electronically Signed: Larry Abraham MD at 11:07 EST ,
[2021-07-14 16:56] LABS: Absolute Lymphocyte Count 0.46 X10^3/uL (0.83-4.51); Absolute Neutrophil Count 2.8 X10^3/uL (2.0-7.7); Basophil# 0.02 X10^3/uL; Basophil% 0.5 % (0-1); Eosinophil# 0.17 X10^3/uL; Eosinophils% 4.3 % (0-5); Hematocrit 37.9 % (37-47); Hemoglobin 12.2 g/dL (12.0-15.0); Lymphocyte # 0.46 X10^3/ul (0.83-4.51); Lymphocyte % 11.5 % (19-41); Mean Corp Hgb Conc 32.2 g/dL (32-36); Mean Corpuscular Hgb 28.7 pg (27.0-32.0); Mean Corpuscular Volume 89.2 fL (81-99); Mean Platelet Vol. 10.3 fl (6.2-12.0); Monocyte# 0.51 X10^3/uL; Monocyte% 12.8 % (0-10); NRBC Flagged by Analyzer 0 % (0-5); Neutrophil # 2.81 X10^3/uL (2.7-7.7); Neutrophil % 70.4 % (47-70); POSITIVE DIFFERENTIAL YES; Platelet Count 136 K/mm3 (150-450); RBC Distribution Width CV 18.4 % (11.6-14.6); RBC Distribution Width SD 59.9 fl (35.1-43.9); Red Blood Count 4.25 M/mm3 (4.2-5.4)
[2021-07-14 17:00] LABS: Differential Indicated SCAN CRITERIA MET
[2021-07-14 17:11] LABS: Vitamin D,25 Hydroxy 42.3 ng/mL
[2021-07-14 17:23] LABS: Differential Comment SCANNED
[2021-07-14 17:25] LABS: ALB/GLOB Ratio 0.6 RATIO (0.9-2.4); AST(SGOT) 28 U/L (15-37); Alanine Aminotransfer ALT/SGPT 30 U/L (13-56); Albumin, Serum 2.9 g/dL (3.2-5.0); Alkaline Phosphatase 168 U/L (45-117); Anion Gap 8 (5-15); BUN 39 mg/dL (7-18); BUN/Creat Ratio 23.9 RATIO (10-20); Calcium,Total 7.9 mg/dL (8.5-10.1); Chloride 98 mmol/L (98-107); Creatinine, Serum 1.63 mg/dL (0.55-1.02); EST Glomerular Filtration Rate 32 mL/min (>60); Est Glom Filt Rate - Afr Amer 38 mL/min (>60); Globulin 4.7 g/dL (2.2-4.2); Glucose 191 mg/dL (74-106); Phosphorus 2.6 mg/dL (2.5-4.9); Potassium 3.3 mmol/L (3.5-5.1); Protein, Total 7.6 g/dL (6.4-8.2); Sodium Level 134 mmol/L (136-145); Thyroid Stim Hormone (TSH) 4.96 uIU/mL (0.358-3.74)
[2021-07-15 11:24] LABS: PTHIN 119.5 pg/mL (18.4-80.1)
[2021-07-15 15:04] LABS: Pathologist Review Reviewed
== END 2021-07-14 23:59 | disposition home or self-care (01) ==
PROVIDERS: PCP Family Medicine Geriatric Medicine; Referring Provider Internal Medicine Gastroenterology; Visit Provider Internal Medicine Gastroenterology
DX: E11.9 Type 2 diabetes mellitus without complications (principal); K74.60 Unspecified cirrhosis of liver; E55.9 Vitamin D deficiency, unspecified; I10 Essential (primary) hypertension; R18.8 Other ascites
CPT/HCPCS: 36415; 76705; 80053; 82306; 83970; 84100; 84443; 85025

== ENCOUNTER 2021-07-21 11:01 | Outpatient (CLI) | payer MEDICARE, OTHER, SELFPAY ==
[2021-07-21 12:12] LABS: Albumin, Serum 2.7 g/dL (3.2-5.0); BUN 41 mg/dL (7-18); BUN/Creat Ratio 28.7 RATIO (10-20); Chloride 99 mmol/L (98-107); Creatinine, Serum 1.43 mg/dL (0.55-1.02); EST Glomerular Filtration Rate 37 mL/min (>60); Est Glom Filt Rate - Afr Amer 45 mL/min (>60); Glucose 162 mg/dL (74-106); Phosphorus 2.9 mg/dL (2.5-4.9); Potassium 3.8 mmol/L (3.5-5.1); Sodium Level 132 mmol/L (136-145)
== END 2021-07-21 23:59 | disposition home or self-care (01) ==
PROVIDERS: PCP Family Medicine Geriatric Medicine; Visit Provider Internal Medicine Nephrology
DX: N18.4 Chronic kidney disease, stage 4 (severe) (principal)
CPT/HCPCS: 36415; 80069

== ENCOUNTER 2021-10-03 14:11 | Emergency (ER) | payer MEDICARE, OTHER, SELFPAY ==
[2021-10-03 14:12] VITALS: BP 163/47; PULSE 88; RESP 18; TEMP 37; O2SAT 98; BMI 24.2
[2021-10-03 14:23] VITALS: BP 166/54; PULSE 90; RESP 16
--- NOTE | 2021-10-03 14:30 | CT_ITS ---
STUDY: CT BRAIN WITHOUT CONTRAST REASON FOR EXAM: Female, 86 years old. Trauma, headache RADIATION DOSAGE (If Supplied By Facility): CTDIvol = ( 44.99 ) mGy, DLP = ( 745.49 ) mGycm TECHNIQUE: Transaxial CT imaging of the brain was performed without administration of intravenous contrast material. Individualized dose optimization techniques were used for this CT. COMPARISON: 04/26/2020 FINDINGS: Moderate left frontal scalp hematoma. Normal calvarium. Normal size ventricles and extra-axial spaces for the patient''s age. Normal white matter tracts of the cerebral hemispheres. There are small punctate calcifications of the basal ganglia which are seen in the aging brain as a normal variant. Normal brainstem. Normal cerebellum. There is no intracranial hemorrhage. There are no findings of an acute ischemic infarction. Normal visualized paranasal sinuses. CT/Brain/Head without Contrast IMPRESSION: Moderate left frontal scalp hematoma. No intracranial hemorrhage. Electronically Signed: Deandre Anderson MD at 15:16 EDT ,
--- NOTE | 2021-10-03 14:30 | CT_ITS ---
STUDY: CT CERVICAL SPINE WITHOUT CONTRAST REASON FOR EXAM: Female, 86 years old. trauma, neck pain RADIATION DOSAGE (If Supplied By Facility): CTDIvol = ( 11.83 ) mGy, DLP = ( 206.08 ) mGycm TECHNIQUE: High resolution transaxial imaging was performed without contrast material. Sagittal and coronal images were reconstructed. Individualized dose optimization techniques were used for this CT. COMPARISON: None FINDINGS: Normal craniovertebral junction. There is hypertrophy of the transverse ligament of the atlas with mild posterior displacement of the superior and inferior longitudinal fibers of the cruciform ligament, producing minimal ventral thecal sac flattening, but without cervical cord impingement. There are mild degenerative changes in the anterior atlantoaxial articulation. Normal odontoid process. Normal cervical lordosis. Normal vertebral bodies and posterior osseous elements. C2-3: Normal endplates. Normal disc height and morphology. Normal central canal and intervertebral neuroforamina. C3-4: Normal endplates. Normal disc height and morphology. Normal central canal and intervertebral neuroforamina. C4-5: Mild broad disc osteophyte complex and bilateral uncovertebral hypertrophy produces mild spinal stenosis and mild bilateral neural foraminal stenosis. C5-6: Mild broad disc osteophyte complex and bilateral vertebral hypertrophy produces mild spinal stenosis and mild bilateral neural foraminal stenosis. C6-7: Mild broad disc osteophyte complex and bilateral vertebral hypertrophy produces mild spinal stenosis and mild bilateral neural foraminal stenosis. C7-T1: Normal endplates. Normal disc height and morphology. Normal central canal and intervertebral neuroforamina. Normal visualized soft tissue structures. CT/Spine Cervical without Contras IMPRESSION: No acute fracture or subluxation. Electronically Signed: Deandre Anderson MD at 15:42 EDT ,
--- NOTE | 2021-10-03 14:32 | EDS_ITS ---
HPI History of Present Illness Chief Complaint: Head Injury Narrative Narrative: Patient presents with her daughter because of fall with head injury that she sustained just prior to arrival. She was outside planting peace, using her walker, and it tipped. She fell forward striking her left forehead. She denies any neck pain or loss of consciousness, no other injury. She does not take blood thinners except for baby aspirin. She denies any headache or other injury. She is unsure of her last tetanus immunization. [facility] Medical History Anemia Anemia of chronic renal failure, stage 3 (moderate) Basal cell carcinoma Cancer Cardiology follow-up encounter Cataracts, bilateral Chronic cough Chronic diastolic (congestive) heart failure Chronic renal disease, stage 3, moderately decreased glomerular filtration rate (GFR) between 30-59 mL/min/1.73 square meter Cirrhosis of liver with ascites Debility Diabetes mellitus Easy bruising Essential hypertension Gastric reflux GERD (gastroesophageal reflux disease) High cholesterol History of echocardiogram History of edema History of renal disease Hoarseness Hyperlipidemia Hypertension Hypothyroid Hypothyroidism TRACY (iron deficiency anemia) Insulin dependent diabetes mellitus Iron deficiency anemia due to chronic blood loss Left bundle branch block (LBBB) Lower extremity edema Non-rheumatic tricuspid valve insufficiency Non-smoker Nonrheumatic aortic (valve) stenosis Nonrheumatic mitral valve stenosis with insufficiency Pleural effusion Pleural effusion, left Proteus pneumonia Secondary pulmonary arterial hypertension Seizure Seizure disorder Seizures Status epilepticus Thrombocytopenia Thyroid disease Traumatic open wound of right lower leg with delayed healing Type 2 diabetes mellitus without complication Unresponsive Walker as ambulation aid Wears glasses Home Medications aspirin 81 mg PO DAILY 09/10/13 [History Last Taken 04/30/20 09:21] acetaminophen 650 mg PO Q8H PRN 06/01/20 [History Last Taken Unknown] ascorbic acid (vitamin C) 250 mg PO DAILY 06/29/20 [History Last Taken Unknown] cholecalciferol (vitamin D3) 1,000 unit PO DAILY 06/29/20 [History Last Taken Unknown] bumetanide 1 mg tablet 1 mg PO BID tab 07/07/20 [History Last Taken Unknown] phenytoin sodium extended 100 mg capsule 100 mg PO TID #90 cap 12/03/20 [Rx Last Taken 02/15/21 08:45] epoetin franklin-epbx 2,000 unit/mL injection solution 2,000 unit SUBCUT .Q 2 WEEKS 01/04/21 [History Last Taken Unknown] levothyroxine 100 mcg tablet 112 mcg PO DAILY 01/21/21 [History Last Taken 02/15/21 08:45] pantoprazole 40 mg PO DAILY #0 tab 02/15/21 [Rx Last Taken 02/15/21 08:45] sucralfate 1 g PO TID #42 tab 02/15/21 [Rx Last Taken Unknown] insulin glargine [Basaglar KwikPen U-100 Insulin] 20 unit SUBCUT QHS 03/27/21 [History Last Taken Unknown] amlodipine 10 mg tablet 10 mg PO DAILY #90 tab 04/13/21 [Rx Last Taken Unknown] hydralazine 100 mg tablet 100 mg PO TID #90 tab 05/12/21 [Rx Last Taken Unknown] ferrous sulfate 325 mg (65 mg iron) tablet 325 mg PO DAILY 05/26/21 [History Last Taken Unknown] metoprolol succinate 25 mg tablet,extended release 24 hr 25 mg PO DAILY #90 tab 07/13/21 [Rx Last Taken Unknown] spironolactone 50 mg tablet 50 mg PO DAILY 08/11/21 [History Last Taken Unknown] Allergy/AdvReac Type Severity Reaction Status Date / Time No Known Allergies Allergy Verified 10/03/21 14:13 Family History Brother Myocardial infarction, Onset Age: 50 Father Myocardial infarction, Onset Age: 60 Surgical History History of abdominal paracentesis (03/11/20) History of aortic valve replacement with bioprosthetic valve (03/09/20) History of bilateral cataract extraction History of cholecystectomy History of left heart catheterization (11/11/19) Hx of colonoscopy Social History household members: spouse housing: house Smoking Status: Never smoker second hand exposure: No alcohol intake: never substance use type: does not use diet: low salt well-balanced diet: daily or most days caffeine: Yes Type: coffee Number of servings: 2 eating out: rarely or never what type of physical activity do you participate in: walking duration: < 15 minutes/day kvng/shinto: Taoism seatbelt use: always ROS ROS ED ROS Narrative Constitutional: No fever, no chills. HEENT: No sore throat. No neck pain. No loss of vision. No rhinorrhea. Left forehead hematoma with skin avulsion. Cardiovascular: No chest pain. No palpitations. No pedal edema. Respiratory: No cough, no shortness of breath. Abdominal: No abdominal pain. No nausea. No vomiting. Genitourinary: No dysuria. No hematuria. Musculoskeletal: No myalgias. No arthralgias. Neurologic: No headaches. No dizziness. No lightheadedness. Skin: No rash. No change in color. Psychiatric: No depression. No anxiety. EXAM Physical Exam Narrative Exam Narrative: Afebrile. Vital signs noted. HEENT: Normocephalic. Positive hematoma left forehead with noted skin avulsion, no active bleeding. PERRL, EOMI. Neck soft and supple. No point tenderness or step off. Cardiovascular: Regular rate and rhythm. No murmurs, rubs, or gallops appreciated. Respiratory: No tachypnea. Lungs clear to auscultation bilaterally. Gastrointestinal: Abdomen soft, nontender, with normoactive bowel sounds. No rebound or guarding. Neurological: Awake. Alert. Oriented x3. Nonfocal, nonlateralizing. Able to raise arms above head without difficulty. Skin: No rash. Normal color. No pallor. Musculoskeletal: No pedal edema. Full range of motion extremities. Const Vital Signs: 10/03/21 14:12 10/03/21 14:17 10/03/21 14:23 Temperature 98.6 F Temperature Source Temporal Pulse Rate 88 90 Respiratory Rate 18 16 Respiratory Effort Normal Respiratory Depth Normal Respiratory Pattern Normal Blood Pressure 163/47 H 166/54 H Blood Pressure Mean 85 91 Pulse Ox 98 Oxygen Delivery Method Room Air Room Air MDM MDM MDM Narrative Medical decision making narrative: Her wound will be cleansed. She will be given an Adacel immunization intramuscularly. I will obtain CT imaging of the brain and of the C-spine. Her CT imaging shows no evidence of intracranial hemorrhage, there is a moderate left frontal scalp hematoma. CT of the cervical spine shows no acute fracture or subluxation. Upon repeat examination, she feels well and would like to be discharged. Her skin avulsion will heal by secondary intent. It was dressed accordingly. I feel she be discharged safely home with follow-up. Return instructions to the emergency department were reviewed. Disposition is discharged home in stable condition. Radiography Diagnostic Testing: Clinical Impression(s) from Imaging Studies Brain CT 10/03/21 14:30 IMPRESSION: Moderate left frontal scalp hematoma. No intracranial hemorrhage. Electronically Signed: Deandre Anderson MD at 15:16 EDT , Cervical Spine CT 10/03/21 14:30 IMPRESSION: No acute fracture or subluxation. Electronically Signed: Deandre Anderson MD at 15:42 EDT , Discharge Plan Triage Chief Complaint: Head Injury ED Provider: Crhis Escalona Dx/Rx/DC Orders Clinical Impression: Fall from standing, Traumatic hematoma of forehead, Avulsion of skin of face, Cdneykzlib-radgjsntk-dyythak (DPT) vaccination administered at current visit Instructions: ED Facial Contusion, ED Head Injury (Adult), ED Skin Avulsion Prescriptions: No Action bumetanide 1 mg tablet 1 mg PO BID RF: 0 Retacrit 2,000 unit/mL solution 2,000 unit subcut .Q 2 WEEKS RF: 0 phenytoin sodium extended 100 mg capsule 100 mg PO TID Qty: 90 RF: 2 ferrous sulfate [iron] 325 mg (65 mg iron) tablet 325 mg PO DAILY RF: 0 spironolactone [Aldactone] 50 mg tablet 50 mg PO DAILY RF: 0 aspirin 81 MG tablet,delayed release (DR/EC) 81 mg PO DAILY RF: 0 acetaminophen 325 MG tablet 650 mg PO Q8H PRN (Reason: Pain 1-10 Or Fever) RF: 0 ascorbic acid (vitamin C) 250 MG tablet 250 mg PO DAILY RF: 0 cholecalciferol (vitamin D3) 1,000 UNIT tablet 1,000 unit PO DAILY RF: 0 levothyroxine 100 mcg tablet 112 mcg PO DAILY RF: 0 sucralfate 1 gram tablet 1 g PO TID Qty: 42 RF: 0 pantoprazole 40 MG tablet,delayed release (DR/EC) 40 mg PO DAILY Qty: 0 RF: 0 Basaglar KwikPen U-100 Insulin 100 unit/mL (3 mL) insulin pen 20 unit SUBCUT QHS RF: 0 amlodipine 10 mg tablet 10 mg PO DAILY Qty: 90 RF: 3 hydralazine 100 mg tablet 100 mg PO TID Qty: 90 RF: 11 metoprolol succinate [Toprol XL] 25 mg tablet extended release 24 hr 25 mg PO DAILY Qty: 90 RF: 3 Primary Care Provider: Aleksandar Clemens Chi Referrals: Aleksandar Clemens Chi, MD [Primary Care Provider] - 3-5 Days if not improving Disposition Disposition: Home, Self Care
[2021-10-03] MEDS: Diphth,Pertuss(Acell),Tet Vac 0.5 ML Vial IM (15:34)
[2021-10-03 16:15] VITALS: BP 171/64; PULSE 103; RESP 19
== END 2021-10-03 16:28 | disposition home or self-care (01) ==
PROVIDERS: Emergency Provider Emergency Medicine; PCP Family Medicine Geriatric Medicine; Visit Provider Emergency Medicine
DX: S00.03XA Contusion of scalp, initial encounter (principal); I13.0 Hypertensive heart and chronic kidney disease with heart failure and stage 1 through stage 4 chronic kidney disease, or unspecified chronic kidney disease; I50.32 Chronic diastolic (congestive) heart failure; I27.21 Secondary pulmonary arterial hypertension; E11.22 Type 2 diabetes mellitus with diabetic chronic kidney disease; Z79.4 Long term (current) use of insulin; N18.30 Chronic kidney disease, stage 3 unspecified; E78.5 Hyperlipidemia, unspecified; Z79.899 Other long term (current) drug therapy; Z79.82 Long term (current) use of aspirin; Z79.890 Hormone replacement therapy; Y93.H2 Activity, gardening and landscaping; Y99.9 Unspecified external cause status; W19.XXXA Unspecified fall, initial encounter; Y92.89 Other specified places as the place of occurrence of the external cause; D63.1 Anemia in chronic kidney disease; K21.9 Gastro-esophageal reflux disease without esophagitis; E03.9 Hypothyroidism, unspecified; D50.0 Iron deficiency anemia secondary to blood loss (chronic); S01.80XA Unspecified open wound of other part of head, initial encounter; Z23 Encounter for immunization
CPT/HCPCS: 70450; 72125; 90471; 90715; 99282

== ENCOUNTER → 2021-10-06 | Outpatient (CLI) | payer MEDICARE, OTHER, SELFPAY ==
[2021-10-06 12:36] LABS: Absolute Lymphocyte Count 0.54 X10^3/uL (0.83-4.51); Absolute Neutrophil Count 2.8 X10^3/uL (2.0-7.7); Basophil# 0.02 X10^3/uL; Basophil% 0.5 % (0-1); Eosinophil# 0.31 X10^3/uL; Eosinophils% 7.1 % (0-5); Hematocrit 35.1 % (37-47); Hemoglobin 11.2 g/dL (12.0-15.0); Lymphocyte # 0.54 X10^3/ul (0.83-4.51); Lymphocyte % 12.4 % (19-41); Mean Corp Hgb Conc 31.9 g/dL (32-36); Mean Corpuscular Hgb 28.9 pg (27.0-32.0); Mean Corpuscular Volume 90.5 fL (81-99); Mean Platelet Vol. 10.6 fl (6.2-12.0); Monocyte# 0.63 X10^3/uL; Monocyte% 14.4 % (0-10); NRBC Flagged by Analyzer 0 % (0-5); Neutrophil # 2.83 X10^3/uL (2.7-7.7); Neutrophil % 64.7 % (47-70); POSITIVE DIFFERENTIAL YES; Platelet Count 127 K/mm3 (150-450); RBC Distribution Width CV 17.4 % (11.6-14.6); RBC Distribution Width SD 56.7 fl (35.1-43.9); Red Blood Count 3.88 M/mm3 (4.2-5.4); White Blood Count 4.4 K/mm3 (4.4-11.0)
[2021-10-06 12:38] LABS: Differential Indicated SCAN CRITERIA MET
[2021-10-06 13:03] LABS: Vitamin D,25 Hydroxy 43.5 ng/mL
[2021-10-06 13:05] LABS: ALB/GLOB Ratio 0.7 RATIO (0.9-2.4); AST(SGOT) 23 U/L (15-37); Alanine Aminotransfer ALT/SGPT 33 U/L (13-56); Albumin, Serum 3.2 g/dL (3.2-5.0); Alkaline Phosphatase 156 U/L (45-117); Anion Gap 7 (5-15); BUN 54 mg/dL (7-18); BUN/Creat Ratio 32.5 RATIO (10-20); Calcium,Total 8.3 mg/dL (8.5-10.1); Chloride 98 mmol/L (98-107); Creatinine, Serum 1.66 mg/dL (0.55-1.02); EST Glomerular Filtration Rate 31 mL/min (>60); Est Glom Filt Rate - Afr Amer 38 mL/min (>60); Globulin 4.5 g/dL (2.2-4.2); Glucose 212 mg/dL (74-106); Potassium 3.5 mmol/L (3.5-5.1); Protein, Total 7.7 g/dL (6.4-8.2); Sodium Level 132 mmol/L (136-145)
== END | disposition home or self-care (01) ==
LOC: POLAB3 12:05
PROVIDERS: PCP Family Medicine Geriatric Medicine; Visit Provider Family Medicine Geriatric Medicine
DX: I10 Essential (primary) hypertension (principal); E55.9 Vitamin D deficiency, unspecified
CPT/HCPCS: 36415; 80053; 82306; 84443; 85025

== ENCOUNTER → 2022-01-18 | Outpatient (CLI) | payer MEDICARE, OTHER, SELFPAY ==
[2022-01-18 12:05] LABS: Absolute Lymphocyte Count 0.33 X10^3/uL (0.83-4.51); Absolute Neutrophil Count 2.3 X10^3/uL (2.0-7.7); Basophil# 0.02 X10^3/uL; Basophil% 0.6 % (0-1); Eosinophils% 6.1 % (0-5); Hematocrit 34.7 % (37-47); Hemoglobin 11.1 g/dL (12.0-15.0); Lymphocyte # 0.33 X10^3/ul (0.83-4.51); Lymphocyte % 10.1 % (19-41); Mean Corpuscular Hgb 28.5 pg (27.0-32.0); Mean Corpuscular Volume 89.2 fL (81-99); Mean Platelet Vol. 11.4 fl (6.2-12.0); Monocyte# 0.45 X10^3/uL; Monocyte% 13.8 % (0-10); NRBC Flagged by Analyzer 0 % (0-5); Neutrophil # 2.26 X10^3/uL (2.7-7.7); Neutrophil % 69.1 % (47-70); POSITIVE COUNT YES; POSITIVE DIFFERENTIAL YES; Platelet Count 64 K/mm3 (150-450); RBC Distribution Width CV 18.5 % (11.6-14.6); Red Blood Count 3.89 M/mm3 (4.2-5.4); White Blood Count 3.3 K/mm3 (4.4-11.0)
[2022-01-18 12:07] LABS: Differential Indicated SCAN CRITERIA MET
[2022-01-18 12:19] LABS: Vitamin D,25 Hydroxy 40.5 ng/mL
[2022-01-18 12:25] LABS: ALB/GLOB Ratio 0.6 RATIO (0.9-2.4); AST(SGOT) 36 U/L (15-37); Alanine Aminotransfer ALT/SGPT 28 U/L (13-56); Albumin, Serum 2.6 g/dL (3.2-5.0); Alkaline Phosphatase 135 U/L (45-117); Anion Gap 7 (5-15); BUN 49 mg/dL (7-18); BUN/Creat Ratio 27.4 RATIO (10-20); Calcium,Total 7.7 mg/dL (8.5-10.1); Chloride 96 mmol/L (98-107); Creatinine, Serum 1.79 mg/dL (0.55-1.02); EST Glomerular Filtration Rate 29 mL/min (>60); Est Glom Filt Rate - Afr Amer 35 mL/min (>60); Globulin 4.5 g/dL (2.2-4.2); Glucose 243 mg/dL (74-106); Potassium 4.2 mmol/L (3.5-5.1); Protein, Total 7.1 g/dL (6.4-8.2); Sodium Level 131 mmol/L (136-145); Thyroid Stim Hormone (TSH) 3.37 uIU/mL (0.358-3.74)
[2022-01-18 13:05] LABS: Differential Comment SCANNED
[2022-01-19 13:50] LABS: Pathologist Review Reviewed
== END | disposition home or self-care (01) ==
LOC: POLAB3 10:46
PROVIDERS: PCP Family Medicine Geriatric Medicine; Visit Provider Family Medicine Geriatric Medicine
DX: I10 Essential (primary) hypertension (principal); E11.9 Type 2 diabetes mellitus without complications; E55.9 Vitamin D deficiency, unspecified
CPT/HCPCS: 36415; 80053; 82306; 84443; 85025

== ENCOUNTER → 2022-05-05 | Outpatient (CLI) | payer MEDICARE, OTHER, SELFPAY ==
--- NOTE | 2022-05-05 11:46 | US_ITS ---
PROCEDURE: Ultrasound guided paracentesis. DATE OF EXAMINATION: 05/05/2022.. INDICATION: Female, 87 years old. Ascites. PHYSICIAN: Larry Abraham M.D. TECHNIQUE: The risks, benefits, and alternatives to the procedure were explained to the patient. The specific risks of bleeding, infection, and damage to bowel were detailed and accepted. Witnessed informed consent was obtained. The abdomen was ultrasonographically surveyed. An appropriate pocket of fluid was identified at the right lower quadrant. The skin were cleaned and prepped in the usual sterile fashion. Using ultrasound guidance, the peritoneal cavity was accessed with a 5-Bengali paracentesis needle/catheter system. The trocar was removed. A total of 8110 ml of lyla-colored fluid were removed from the peritoneal cavity. The catheter was removed and a sterile dressing was applied. The procedure was well tolerated. US/Paracentesis with US IMPRESSION: Ultrasound guided paracentesis. Electronically Signed: Larry Abraham MD at 8:01 EST ,
[2022-05-05 12:09] VITALS: BP 145/38; BP 153/46; BP 163/54; PULSE 62; PULSE 64; PULSE 66; RESP 12; RESP 16; RESP 18; TEMP 36.8; O2SAT 94; O2SAT 95; O2SAT 96; O2SAT 97
[2022-05-05] MEDS: Lidocaine 1% (20 ml mdv) 20 ML Vial (12:10)
== END | disposition home or self-care (01) ==
LOC: US 11:45
PROVIDERS: PCP Family Medicine Geriatric Medicine; Referring Provider Internal Medicine Gastroenterology; Visit Provider Internal Medicine Gastroenterology
DX: K74.60 Unspecified cirrhosis of liver (principal); R18.8 Other ascites
CPT/HCPCS: 49083

== ENCOUNTER 2022-05-18 20:00 | Emergency (ER) | payer MEDICARE, OTHER, SELFPAY ==
[2022-05-18 20:02] VITALS: BP 121/34; PULSE 89; RESP 18; TEMP 36.7; O2SAT 98; BMI 20.2
[2022-05-18 20:35] LABS: Bedside Glucose 377 mg/dL (74-106)
[2022-05-18 21:38] LABS: Absolute Lymphocyte Count 0.21 X10^3/uL (0.83-4.51); Absolute Neutrophil Count 4.1 X10^3/uL (2.0-7.7); Basophil# 0.02 X10^3/uL; Basophil% 0.4 % (0-1); Eosinophil# 0.02 X10^3/uL; Eosinophils% 0.4 % (0-5); Hematocrit 27.5 % (37-47); Hemoglobin 9.1 g/dL (12.0-15.0); Lymphocyte # 0.21 X10^3/ul (0.83-4.51); Lymphocyte % 4.5 % (19-41); Mean Corp Hgb Conc 33.1 g/dL (32-36); Mean Corpuscular Hgb 29.7 pg (27.0-32.0); Mean Corpuscular Volume 89.9 fL (81-99); Mean Platelet Vol. 9.5 fl (6.2-12.0); Monocyte# 0.38 X10^3/uL; Monocyte% 8.1 % (0-10); NRBC Flagged by Analyzer 0 % (0-5); Neutrophil # 4.05 X10^3/uL (2.7-7.7); Neutrophil % 86.2 % (47-70); POSITIVE DIFFERENTIAL YES; Platelet Count 163 K/mm3 (150-450); RBC Distribution Width CV 17.9 % (11.6-14.6); RBC Distribution Width SD 58.6 fl (35.1-43.9); Red Blood Count 3.06 M/mm3 (4.2-5.4); White Blood Count 4.7 K/mm3 (4.4-11.0)
[2022-05-18 21:53] LABS: Anion Gap 8 (5-15); BUN 95 mg/dL (7-18); BUN/Creat Ratio 40.4 RATIO (10-20); Calcium,Total 7.6 mg/dL (8.5-10.1); Chloride 96 mmol/L (98-107); Creatinine, Serum 2.35 mg/dL (0.55-1.02); EST Glomerular Filtration Rate 21 mL/min (>60); Est Glom Filt Rate - Afr Amer 25 mL/min (>60); Estimated Creatinine Clearance 12.11 ml/min; Glucose 381 mg/dL (74-106); Potassium 4.8 mmol/L (3.5-5.1); Sodium Level 129 mmol/L (136-145)
[2022-05-18 21:56] LABS: Differential Indicated SCAN CRITERIA MET
[2022-05-18 22:10] LABS: Differential Comment SCANNED
[2022-05-18 22:25] VITALS: BP 142/45; PULSE 67; RESP 16; O2SAT 99
--- NOTE | 2022-05-18 22:27 | EDS_ITS ---
HPI History of Present Illness Chief Complaint: Hyperglycemia Narrative Narrative: 87-year-old female presents with her daughter because of elevated blood sugar reading. She has past medical history of diabetes and liver cirrhosis. She had a paracentesis performed today where they state that she took off 8 L from her abdomen. She was feeling weak today, so her daughter checked her blood sugar and it was elevated above 380. They state that she was on insulin for the last 2 years but her primary care provider took her off insulin since her blood sugars were running too low. They state that she is not on any other medication for her diabetes. She denies any fevers or chills. No nausea or vomiting. No abdominal pain. No other symptoms. [facility] Medical History Anemia of chronic renal failure, stage 3 (moderate) Basal cell carcinoma Bilateral carotid bruits Cancer Cardiology follow-up encounter Cataracts, bilateral Chronic cough Chronic diastolic (congestive) heart failure Chronic renal disease, stage 3, moderately decreased glomerular filtration rate (GFR) between 30-59 mL/min/1.73 square meter Cirrhosis of liver with ascites COVID-19 (03/26/21) Debility Diabetes mellitus Easy bruising Essential hypertension Gastric reflux GERD (gastroesophageal reflux disease) History of renal disease History of transcatheter aortic valve replacement (TAVR) (03/09/20) Hoarseness Hyperlipidemia Hypertension Hypothyroid Hypothyroidism TRACY (iron deficiency anemia) Insulin dependent diabetes mellitus Iron deficiency anemia due to chronic blood loss Left bundle branch block (LBBB) Lower extremity edema Non-rheumatic tricuspid valve insufficiency Non-smoker Nonrheumatic aortic (valve) stenosis Nonrheumatic mitral valve stenosis with insufficiency Pleural effusion Pleural effusion, left Proteus pneumonia Secondary pulmonary arterial hypertension Seizure Seizure disorder Seizures Status epilepticus Thrombocytopenia Thyroid disease Traumatic open wound of right lower leg with delayed healing Type 2 diabetes mellitus without complication Unresponsive Walker as ambulation aid Wears glasses Home Medications acetaminophen 325 mg tablet 650 mg PO Q8H PRN Pain 1-10 Or Fever 06/01/20 [History Last Taken Unknown] cholecalciferol (vitamin D3) 25 mcg (1,000 unit) tablet 1,000 unit PO DAILY 06/29/20 [History Last Taken Unknown] bumetanide 1 mg tablet 1 mg PO BID 07/07/20 [History Last Taken Unknown] phenytoin sodium extended 100 mg capsule 100 mg PO TID #90 caps 12/03/20 [Rx Last Taken 02/15/21 08:45] epoetin franklin-epbx 2,000 unit/mL injection solution (Retacrit) 2,000 unit subcut .Q 2 WEEKS 01/04/21 [History Last Taken Unknown] pantoprazole 40 mg tablet,delayed release 40 mg PO DAILY Check with primary doctor #0 tabs 02/15/21 [Rx Last Taken 02/15/21 08:45] ferrous sulfate 325 mg (65 mg iron) tablet (iron) 325 mg PO DAILY 05/26/21 [History Last Taken Unknown] metoprolol succinate 25 mg tablet,extended release 24 hr (Toprol XL) 25 mg PO DAILY #90 tabs 07/13/21 [Rx Last Taken Unknown] spironolactone 50 mg tablet (Aldactone) 50 mg PO DAILY 08/11/21 [History Last Taken Unknown] levothyroxine 100 mcg tablet 125 mcg PO DAILY THYROID 10/19/21 [History Last Taken Unknown] amoxicillin 500 mg capsule 500 mg PO .COMPLEX 01/14/22 [History Last Taken Unknown] ascorbic acid (vitamin C) 125 mg chewable tablet 125 mg PO DAILY 02/08/22 [History Last Taken Unknown] aspirin 81 mg tablet,delayed release 81 mg PO Q OTHER DAY heart 02/08/22 [History Last Taken Unknown] amlodipine 10 mg tablet 10 mg PO DAILY Check with primary doctor #90 tabs 04/08/22 [Rx Last Taken Unknown] hydralazine 100 mg tablet 100 mg PO TID #90 tabs 04/08/22 [Rx Last Taken Unknown] Allergy/AdvReac Type Severity Reaction Status Date / Time No Known Allergies Allergy Verified 05/18/22 20:06 Family History Brother Myocardial infarction, Onset Age: 50 Father Myocardial infarction, Onset Age: 60 Surgical History History of abdominal paracentesis (03/11/20) History of bilateral cataract extraction History of cholecystectomy History of left heart catheterization (11/11/19) Hx of colonoscopy Social History household members: spouse housing: house Smoking Status: Never smoker second hand exposure: No alcohol intake: never substance use type: does not use diet: low salt well-balanced diet: daily or most days caffeine: Yes Type: coffee Number of servings: 2 eating out: rarely or never what type of physical activity do you participate in: walking duration: < 15 minutes/day kvng/zoroastrian: Samaritan seatbelt use: always ROS ROS ED ROS Narrative Constitutional: No fever, no chills. Generalized weakness. HEENT: No sore throat. No neck pain. No loss of vision. No rhinorrhea. Cardiovascular: No chest pain. No palpitations. No pedal edema. Respiratory: No cough, no shortness of breath. Abdominal: No abdominal pain. No nausea. No vomiting. No diarrhea. Genitourinary: No dysuria. No hematuria. Musculoskeletal: No myalgias. No arthralgias. Neurologic: No headaches. No dizziness. No lightheadedness. Skin: No rash. No change in color. Psychiatric: No depression. No anxiety. EXAM Physical Exam Narrative Exam Narrative: Afebrile. Vital signs noted. HEENT: Normocephalic. Atraumatic. PERRL, EOMI. Neck soft and supple. No point tenderness or step off. Cardiovascular: Regular rate and rhythm. No murmurs, rubs, or gallops appreciated. Respiratory: No tachypnea. Lungs clear to auscultation bilaterally. Gastrointestinal: Abdomen soft, nontender, with normoactive bowel sounds. No rebound or guarding. Neurological: Awake. Alert. Nonfocal, nonlateralizing. Skin: No rash. Normal color. No pallor. Musculoskeletal: No pedal edema. Full range of motion extremities. Const Vital Signs: 05/18/22 20:02 05/18/22 22:25 05/18/22 22:31 Temperature 98.0 F Temperature Source Temporal Pulse Rate 89 67 Respiratory Rate 18 16 Respiratory Effort Normal Non-Labored Blood Pressure 121/34 H 142/45 H Blood Pressure Mean 63 77 Pulse Ox 98 99 Oxygen Delivery Method Room Air Room Air MDM MDM MDM Narrative Medical decision making narrative: RN protocol labs were obtained. She has normal white count of 4.7, hemoglobin stable at 9.1, hematocrit 27.5. Platelet count of 163 and normal. Electrolyte panel shows mild dehydration with sodium at 129 and chloride 96. I am reluctant to give her a fluid bolus as she has liver failure and they recently removed 8 L of fluid off her abdomen. Her glucose is elevated at 381, however she has a normal anion gap of 8. I do not feel that she is doing diabetic ketoacidosis. In review of her medications, she is not on an oral hypoglycemic. I do feel that she may need to be started on metformin and continually check her blood sugars and follow-up with her primary care physician. In discussion with the patient and her daughter, they do not want her to receive IV fluids for her sodium of 129 and chloride of 96 as she recently had a lot of fluid removed from her abdomen. Regarding her elevated blood sugar, they prefer to speak with their physician tomorrow to see if she needs to be started on oral medication versus restarting a low-dose of her insulin. As she is not in diabetic ketoacidosis with a normal anion gap of 8, I feel she be discharged safely home with follow-up for tighter blood glucose control managed by her primary care physician. Return instructions to the emergency department were reviewed. Disposition is discharged home in stable condition. Lab Data Attestation: I reviewed the patient's lab results. Labs: Laboratory Results - last 24 hr 05/18/22 05/18/22 05/18/22 20:14 21:22 21:22 WBC 4.7 RBC 3.06 L Hgb 9.1 L Hct 27.5 L MCV 89.9 MCH 29.7 MCHC 33.1 RDW Std Deviation 58.6 H RDW Coeff of Meng 17.9 H Plt Count 163 MPV 9.5 Immature Gran % (Auto) 0.400 Neut % (Auto) 86.2 H Lymph % (Auto) 4.5 L [place] % (Auto) 8.1 Eos % (Auto) 0.4 Baso % (Auto) 0.4 Absolute Neuts (auto) 4.1 Absolute Lymphs (auto) 0.21 L Nucleated RBC % 0 Differential Comment SCANNED Sodium 129 L Potassium 4.8 Chloride 96 L Carbon Dioxide 25.0 Anion Gap 8 BUN 95 H Creatinine 2.35 H Estim Creat Clear Calc 12.11 Est GFR (MDRD) Af Amer 25 L Est GFR (MDRD) Non-Af 21 L BUN/Creatinine Ratio 40.4 H Glucose 381 H Calcium 7.6 L POC Glucose 377 H Discharge Plan Triage Chief Complaint: Hyperglycemia ED Provider: Chris Escalona Dx/Rx/DC Orders Clinical Impression: Hyperglycemia, Generalized weakness Instructions: ED Diabetic Hyperglycemia Prescriptions: No Action bumetanide 1 mg tablet 1 mg PO BID Label Comments: Take 1 Tablet orally twice per day for 90 days Retacrit 2,000 unit/mL solution 2,000 unit subcut .Q 2 WEEKS Label Comments: Varying dose phenytoin sodium extended 100 mg capsule 100 mg PO TID Qty: 90 2RF ferrous sulfate [iron] 325 mg (65 mg iron) tablet 325 mg PO DAILY spironolactone [Aldactone] 50 mg tablet 50 mg PO DAILY ascorbic acid (vitamin C) 125 mg tablet,chewable 125 mg PO DAILY aspirin 81 mg tablet,delayed release (DR/EC) 81 mg PO Q OTHER DAY acetaminophen 325 MG tablet 650 mg PO Q8H PRN (Reason: Pain 1-10 Or Fever) cholecalciferol (vitamin D3) 1,000 UNIT tablet 1,000 unit PO DAILY levothyroxine 100 mcg tablet 125 mcg PO DAILY Rx Instructions: 112MCG 1 TAB DAILY pantoprazole 40 MG tablet,delayed release (DR/EC) 40 mg PO DAILY Qty: 0 0RF Rx Instructions: take at night due to levothyroxine in AM metoprolol succinate [Toprol XL] 25 mg tablet extended release 24 hr 25 mg PO DAILY Qty: 90 3RF amoxicillin 500 mg capsule 500 mg PO .COMPLEX Rx Instructions: 500 mg orally 4 hours prior to dental appt; amlodipine 10 mg tablet 10 mg PO DAILY Qty: 90 3RF hydralazine 100 mg tablet 100 mg PO TID Qty: 90 11RF Primary Care Provider: Aleksandar Clemens Chi Referrals: Aleksandar Clemens Chi, MD [Primary Care Provider] - 1 Day Disposition Disposition: Home, Self Care
[2022-05-18 23:50] VITALS: BP 134/52; PULSE 107; RESP 16; O2SAT 99
== END 2022-05-18 23:59 | disposition home or self-care (01) ==
PROVIDERS: Emergency Provider Emergency Medicine; PCP Family Medicine Geriatric Medicine; Visit Provider Emergency Medicine
DX: E11.65 Type 2 diabetes mellitus with hyperglycemia (principal); K72.90 Hepatic failure, unspecified without coma; K74.60 Unspecified cirrhosis of liver; I13.0 Hypertensive heart and chronic kidney disease with heart failure and stage 1 through stage 4 chronic kidney disease, or unspecified chronic kidney disease; I50.32 Chronic diastolic (congestive) heart failure; E11.22 Type 2 diabetes mellitus with diabetic chronic kidney disease; N18.30 Chronic kidney disease, stage 3 unspecified; Z79.84 Long term (current) use of oral hypoglycemic drugs; E78.5 Hyperlipidemia, unspecified; R18.8 Other ascites; R53.1 Weakness
CPT/HCPCS: 49083; 80048; 82962; 85025; 99282; A4216

== ENCOUNTER → 2022-05-18 | Outpatient (CLI) | payer MEDICARE, OTHER, SELFPAY ==
--- NOTE | 2022-05-18 13:35 | US_ITS ---
PROCEDURE: Ultrasound guided paracentesis. DATE OF EXAMINATION: 05/18/2022. INDICATION: Female, 87 years old. Ascites. PHYSICIAN: Ac Flowers DO TECHNIQUE: The risks, benefits, and alternatives to the procedure were explained to the patient. The specific risks of bleeding, infection, and damage to bowel were detailed and accepted. Witnessed informed consent was obtained. The abdomen was ultrasonographically surveyed. An appropriate pocket of fluid was identified at the left lower quadrant. The skin were cleaned and prepped in the usual sterile fashion. Using ultrasound guidance, the peritoneal cavity was accessed with a 5-Swedish paracentesis needle/catheter system. The trocar was removed. A total of 8050 ml of clear straw-colored ascites fluid was removed from the peritoneal cavity. The catheter was removed and a sterile dressing was applied. The procedure was well tolerated. The patient was discharged in stable condition. US/Paracentesis with US IMPRESSION: Ultrasound guided therapeutic paracentesis. Electronically Signed: Ac Flowers, at 15:19 EST ,
[2022-05-18 13:52] VITALS: BP 121/38; BP 123/30; BP 125/57; PULSE 60; PULSE 63; PULSE 65; RESP 16; RESP 18; O2SAT 100; O2SAT 98; O2SAT 99
[2022-05-18] MEDS: Lidocaine 1% (20 ml mdv) 20 ML Vial INFILT (13:55)
== END | disposition home or self-care (01) ==
LOC: US 13:33
PROVIDERS: PCP Family Medicine Geriatric Medicine; Referring Provider Internal Medicine Gastroenterology; Visit Provider Internal Medicine Gastroenterology
DX: K74.60 Unspecified cirrhosis of liver (principal); R18.8 Other ascites
CPT/HCPCS: 49083

== ENCOUNTER → 2022-05-19 | Outpatient (CLI) | payer MEDICARE, OTHER, SELFPAY ==
[2022-05-19 13:55] LABS: Anion Gap 5 (5-15); BUN 100 mg/dL (7-18); BUN/Creat Ratio 44.2 RATIO (10-20); Calcium,Total 7.8 mg/dL (8.5-10.1); Chloride 96 mmol/L (98-107); Creatinine, Serum 2.26 mg/dL (0.55-1.02); EST Glomerular Filtration Rate 22 mL/min (>60); Est Glom Filt Rate - Afr Amer 26 mL/min (>60); Glucose 278 mg/dL (74-106); Potassium 4.8 mmol/L (3.5-5.1); Sodium Level 128 mmol/L (136-145)
== END | disposition home or self-care (01) ==
LOC: LAB 12:31
PROVIDERS: PCP Family Medicine Geriatric Medicine; Visit Provider Family Medicine Geriatric Medicine
DX: E87.1 Hypo-osmolality and hyponatremia (principal)
CPT/HCPCS: 36415; 80048

== ENCOUNTER → 2022-05-26 | Outpatient (CLI) | payer MEDICARE, OTHER, SELFPAY ==
[2022-05-26] MEDS: 0.9% NaCl Peripheral Flush Adult/Peds IV (11:48)
[2022-05-26] MEDS: 0.9% NaCl IVPB Med Flush (250 mL) 15 ML IV (11:48)
[2022-05-26] MEDS: Albumin Human 25% (100 mL) 25 GM/100 ML BAG IV ×2 (11:49→13:14)
[2022-05-26 11:55] VITALS: BP 134/36; PULSE 65; RESP 16; TEMP 37.2; O2SAT 96
[2022-05-26 15:24] VITALS: BP 116/35; PULSE 63; RESP 16; TEMP 37.2; O2SAT 99
== END | disposition home or self-care (01) ==
LOC: MEDOUTP 11:23
PROVIDERS: PCP Family Medicine Geriatric Medicine; Referring Provider Family Medicine Geriatric Medicine; Visit Provider Family Medicine Geriatric Medicine
DX: R18.8 Other ascites (principal)
CPT/HCPCS: 96365; 96366; J7050; P9046; A4216; P9047

== ENCOUNTER → 2022-05-30 | Outpatient (CLI) | payer MEDICARE, OTHER, SELFPAY ==
--- NOTE | 2022-05-30 12:04 | US_ITS ---
PROCEDURE: Ultrasound guided paracentesis. DATE OF EXAMINATION: 05/30/2022. INDICATION: Female, 87 years old. Ascites. PHYSICIAN: Larry Abraham M.D. TECHNIQUE: The risks, benefits, and alternatives to the procedure were explained to the patient. The specific risks of bleeding, infection, and damage to bowel were detailed and accepted. Witnessed informed consent was obtained. The abdomen was ultrasonographically surveyed. An appropriate pocket of fluid was identified at the left lower quadrant. The skin were cleaned and prepped in the usual sterile fashion. Using ultrasound guidance, the peritoneal cavity was accessed with a 5-German paracentesis needle/catheter system. The trocar was removed. A total of 6000 ml of lyla-colored fluid were removed from the peritoneal cavity. The catheter was removed and a sterile dressing was applied. The procedure was well tolerated. US/Paracentesis with US IMPRESSION: Ultrasound guided paracentesis. Electronically Signed: Larry Abraham MD at 14:21 EST ,
[2022-05-30 12:18] VITALS: BP 103/37; BP 118/43; BP 127/37; BP 128/35; PULSE 64; PULSE 65; PULSE 66; RESP 18; TEMP 36.8; O2SAT 100; O2SAT 99
[2022-05-30] MEDS: Lidocaine 1% (20 ml mdv) 20 ML Vial INFILT (12:25)
[2022-05-30] MEDS: 0.9% Saline Lock 10 ML Syringe IV (13:00)
[2022-05-30 13:13] VITALS: BP 125/47; PULSE 65; RESP 18; TEMP 35.9; O2SAT 100
[2022-05-30] MEDS: Albumin Human 25% (50 mL) 12.5 GM/50 ML IV.SOLN IV (13:21)
[2022-05-30 14:19] VITALS: BP 119/31; PULSE 68; RESP 16; TEMP 36.4; O2SAT 97
== END | disposition home or self-care (01) ==
LOC: US 12:02
PROVIDERS: PCP Family Medicine Geriatric Medicine; Visit Provider Internal Medicine Gastroenterology
DX: R18.8 Other ascites (principal); K74.60 Unspecified cirrhosis of liver
CPT/HCPCS: 96365; 49083; J7050; P9047

== ENCOUNTER → 2022-06-06 | Outpatient (CLI) | payer MEDICARE, OTHER, SELFPAY ==
--- NOTE | 2022-06-06 10:25 | US_ITS ---
PROCEDURE: Ultrasound guided paracentesis. DATE OF EXAMINATION: 06/06/2022. INDICATION: Female, 87 years old. Ascites. PHYSICIAN: Larry Abraham M.D. TECHNIQUE: The risks, benefits, and alternatives to the procedure were explained to the patient. The specific risks of bleeding, infection, and damage to bowel were detailed and accepted. Witnessed informed consent was obtained. The abdomen was ultrasonographically surveyed. An appropriate pocket of fluid was identified at the left lower quadrant. The skin were cleaned and prepped in the usual sterile fashion. Using ultrasound guidance, the peritoneal cavity was accessed with a 5-Greenlandic paracentesis needle/catheter system. The trocar was removed. A total of 3250 ml of lyla-colored fluid were removed from the peritoneal cavity. The catheter was removed and a sterile dressing was applied. The procedure was well tolerated. US/Paracentesis with US IMPRESSION: Ultrasound guided paracentesis. Electronically Signed: Larry Abraham MD at 12:06 EST ,
[2022-06-06 10:50] VITALS: BP 139/42; BP 141/43; BP 145/41; BP 157/43; PULSE 62; PULSE 65; RESP 16; TEMP 36.8; O2SAT 97; O2SAT 98; O2SAT 99
[2022-06-06] MEDS: Lidocaine 2% (20 ml mdv) 20 ML Vial INFILT (10:55)
== END | disposition home or self-care (01) ==
PROVIDERS: PCP Family Medicine Geriatric Medicine; Referring Provider Internal Medicine Gastroenterology; Visit Provider Internal Medicine Gastroenterology
DX: R18.8 Other ascites (principal)
CPT/HCPCS: 49083; A4216

== ENCOUNTER → 2022-06-25 | Outpatient (CLI) | payer MEDICARE, OTHER, SELFPAY ==
--- NOTE | 2022-06-25 10:15 | US_ITS ---
INDICATION: cirrhosis of the the liver with ascites EXAMINATION: Ultrasound US Abdomen Complete TECHNIQUE: Rogers-scale and color Doppler imaging was performed of the abdomen. COMPARISON: Ultrasound 07/14/2021 FINDINGS: LIVER: Increased echotexture.. No focal hepatic lesion. No intrahepatic biliary ductal dilatation. There is no free fluid. GALLBLADDER AND BILIARY TREE: Status post cholecystectomy. The proximal common bile duct measures 5.7 mm, which is within normal limits for the patient''s age. SONOGRAPHIC GAMINO''S SIGN: Negative. PANCREAS: Mildly increased echogenicity and heterogeneity likely representing fatty involutional change. No pancreatic ductal dilatation. SPLEEN: 12.8 cm x 6.1 x 5.4 cm consistent with splenomegaly. Homogeneous. KIDNEYS: There is no hydronephrosis. No shadowing calculus, focal lesion, or perinephric collection is demonstrated. The right kidney demonstrates a 1.3 x 1.2 x 1.4 cm cortical cyst. This is seen in the mid pole and is exophytic. Right kidney measures 10.4 x 3.8 x 5.2 cm with cortical thickness of 1.1 cm. Left kidney 9.2 x 4.1 x 4.8 cm cortical thickness 1.4 cm. VESSELS: Submitted longitudinal images of the intra-abdominal aorta demonstrate no gross abnormalities and are unremarkable. The IVC is patent. The distal abdominal aorta and distal IVC are obscured due to overlying bowel gas. Moderate ascites is noted. US/Abdomen Complete IMPRESSION: Stable findings. Heterogeneous hyperechoic liver suggestive of fatty infiltration possibly cirrhosis. Status post cholecystectomy. Splenomegaly. Moderate ascites. Simple cyst right kidney 1.3 x 1.2 x 1.4 cm. Electronically Signed: Braydon Lim MD, ADITI at 13:08 EST ,
== END | disposition home or self-care (01) ==
LOC: US 10:13
PROVIDERS: PCP Family Medicine Geriatric Medicine; Referring Provider Nurse Practitioner Family; Visit Provider Nurse Practitioner Family
DX: K74.60 Unspecified cirrhosis of liver (principal)
CPT/HCPCS: 76700

== ENCOUNTER → 2022-07-19 | Outpatient (CLI) | payer MEDICARE, OTHER, SELFPAY ==
[2022-07-19 13:22] LABS: Absolute Lymphocyte Count 0.34 X10^3/uL (0.83-4.51); Absolute Neutrophil Count 2.9 X10^3/uL (2.0-7.7); Basophil# 0.02 X10^3/uL; Basophil% 0.5 % (0-1); Eosinophil# 0.07 X10^3/uL; Eosinophils% 1.9 % (0-5); Hemoglobin 12.5 g/dL (12.0-15.0); Lymphocyte # 0.34 X10^3/ul (0.83-4.51); Lymphocyte % 9.1 % (19-41); Mean Corp Hgb Conc 30.5 g/dL (32-36); Mean Corpuscular Hgb 27.8 pg (27.0-32.0); Mean Corpuscular Volume 91.3 fL (81-99); Mean Platelet Vol. 9.7 fl (6.2-12.0); Monocyte# 0.36 X10^3/uL; Monocyte% 9.7 % (0-10); NRBC Flagged by Analyzer 0 % (0-5); Neutrophil # 2.92 X10^3/uL (2.7-7.7); Neutrophil % 78.3 % (47-70); POSITIVE DIFFERENTIAL YES; Platelet Count 166 K/mm3 (150-450); RBC Distribution Width CV 18.9 % (11.6-14.6); RBC Distribution Width SD 63.8 fl (35.1-43.9); Red Blood Count 4.49 M/mm3 (4.2-5.4); White Blood Count 3.7 K/mm3 (4.4-11.0)
[2022-07-19 13:30] LABS: Differential Indicated SCAN CRITERIA MET
[2022-07-19 13:42] LABS: ALB/GLOB Ratio 0.5 RATIO (0.9-2.4); AST(SGOT) 15 U/L (15-37); Alanine Aminotransfer ALT/SGPT 16 U/L (13-56); Albumin, Serum 2.4 g/dL (3.2-5.0); Alkaline Phosphatase 194 U/L (45-117); Anion Gap 6 (5-15); BUN 60 mg/dL (7-18); BUN/Creat Ratio 28.8 RATIO (10-20); Calcium,Total 7.7 mg/dL (8.5-10.1); Chloride 93 mmol/L (98-107); Creatinine, Serum 2.08 mg/dL (0.55-1.02); EST Glomerular Filtration Rate 24 mL/min (>60); Est Glom Filt Rate - Afr Amer 29 mL/min (>60); Globulin 4.4 g/dL (2.2-4.2); Glucose 235 mg/dL (74-106); Potassium 3.9 mmol/L (3.5-5.1); Protein, Total 6.8 g/dL (6.4-8.2); Sodium Level 128 mmol/L (136-145); Thyroid Stim Hormone (TSH) 3.05 uIU/mL (0.358-3.74)
[2022-07-19 13:46] LABS: Differential Comment SCANNED
[2022-07-21 09:19] LABS: Pathologist Review Reviewed
== END | disposition home or self-care (01) ==
LOC: POLAB3 11:06
PROVIDERS: Nurse Practitioner Family; PCP Family Medicine Geriatric Medicine; Visit Provider Family Medicine Geriatric Medicine
DX: E55.9 Vitamin D deficiency, unspecified (principal); E11.9 Type 2 diabetes mellitus without complications; I10 Essential (primary) hypertension
CPT/HCPCS: 36415; 80053; 82306; 84443; 85025

== ENCOUNTER 2022-08-05 11:43 | Outpatient (CLI) | payer MEDICARE, OTHER, SELFPAY ==
--- NOTE | 2022-08-05 13:24 | CT_ITS ---
STUDY: CT ABDOMEN AND PELVIS WITHOUT CONTRAST REASON FOR EXAM: Female, 87 years old. Abdominal pain and distention RADIATION DOSAGE (If Supplied By Facility): CTDIvol = ( 9.63 ) mGy, DLP = ( 536.37 ) mGycm TECHNIQUE: Transaxial images were obtained from the dome of the diaphragm to the symphysis pubis without oral contrast, and without intravenous contrast. Sagittal and coronal images were reconstructed. Individualized dose optimization techniques were used for this CT. COMPARISON: CT from 04/10/2020 ultrasound from 06/25/2022 FINDINGS: There is right lung bases show free flowing bilateral pleural effusions and bibasilar atelectasis.. There is cardiomegaly with calcified coronary vessels and replaced/stented aortic valve There is a diffuse contour abnormality of the liver consistent with cirrhotic changes. There is associated diffuse 4 quadrant ascites noted There is non-visualization of the gallbladder, which may be secondary to either contraction or a prior cholecystectomy. Normal spleen. Normal pancreas. Normal bilateral adrenal glands. No obstructive uropathy or suspicious solid renal lesion, there are punctate nonobstructing renal stones. Normal visualized stomach. Normal small intestine. Scattered colonic diverticula, no CT evidence of acute diverticulitis There is non-visualization of the appendix. There is diffuse atherosclerotic calcification of the abdominal aorta, without a demonstrated aneurysm. Normal inferior vena cava. Normal retroperitoneum. Normal urinary bladder. Uterus is present, the endometrium cannot be accurately evaluated with CT Subcutaneous edema and induration suggest anasarca. There are diffuse degenerative changes of the visualized lumbar spine. CT/Abdomen/Pelvis without Cont IMPRESSION: Cirrhotic liver with extensive 4 quadrant abdominal ascites Nonobstructing nephrolithiasis Diverticulosis Degenerative bony changes Uterus is present, the endometrium cannot be accurately evaluated with CT Small bilateral pleural effusions Induration and fluid noted in the subcutaneous fat suggests anasarca Electronically Signed: Ousmane Gresham MD at 13:49 EDT ,
[2022-08-05] MEDS: Lidocaine 2% (20 ml mdv) 20 ML Vial INFILT (13:35)
--- NOTE | 2022-08-05 13:41 | US_ITS ---
PROCEDURE: ULTRASOUND GUIDED PARACENTESIS CLINICAL HISTORY: Female, 87 years old. ASCITES CONSENT: Informed consent obtained Time-Out Called: Yes. Consent form signed: Yes. PT-PTT Levels Checked: Yes. SEDATION: Local TECHNIQUE: Sonographically guided FINDINGS: After informed consent was obtained, appropriate site for paracentesis was determined using sonographic guidance. The area was prepped and draped in a sterile manner, and 2% Xylocaine was used as local anesthetic. Under sonographic guidance, a peritoneal drainage catheter was advanced into the peritoneal cavity, straw-colored serous fluid was noted and approximately 4950 mL was withdrawn via suction. The procedure was stopped at this point due to patient''s ability to have albumin infusion at this time of day. Patient tolerated the procedure with no immediate complications and was returned to the ER in stable condition US/Paracentesis with US IMPRESSION: Successful sonographically guided paracentesis Electronically Signed: Ousmane Gresham MD at 14:51 EDT ,
[2022-08-05 13:48] VITALS: BP 162/44; BP 163/61; BP 170/63; PULSE 69; PULSE 73; RESP 16; RESP 18; TEMP 36.6; O2SAT 94; O2SAT 98; O2SAT 99
== END 2022-08-05 23:59 | disposition home or self-care (01) ==
PROVIDERS: PCP Family Medicine Geriatric Medicine; Visit Provider Family Medicine Geriatric Medicine
DX: R18.8 Other ascites (principal); K74.60 Unspecified cirrhosis of liver; N18.4 Chronic kidney disease, stage 4 (severe); I12.9 Hypertensive chronic kidney disease with stage 1 through stage 4 chronic kidney disease, or unspecified chronic kidney disease; R19.5 Other fecal abnormalities; R14.0 Abdominal distension (gaseous)
CPT/HCPCS: 49083; 36415; 74176; 80053; 84100; 85025

== ENCOUNTER → 2022-08-05 | Outpatient (CLI) | payer MEDICARE, OTHER, SELFPAY ==
[2022-08-05 12:34] LABS: Absolute Lymphocyte Count 0.38 X10^3/uL (0.83-4.51); Absolute Neutrophil Count 3.3 X10^3/uL (2.0-7.7); Basophil# 0.03 X10^3/uL; Basophil% 0.7 % (0-1); Eosinophil# 0.06 X10^3/uL; Eosinophils% 1.5 % (0-5); Hematocrit 39.9 % (37-47); Hemoglobin 12.1 g/dL (12.0-15.0); Lymphocyte # 0.38 X10^3/ul (0.83-4.51); Lymphocyte % 9.4 % (19-41); Mean Corp Hgb Conc 30.3 g/dL (32-36); Mean Corpuscular Hgb 27.4 pg (27.0-32.0); Mean Corpuscular Volume 90.5 fL (81-99); Monocyte% 7.4 % (0-10); NRBC Flagged by Analyzer 0 % (0-5); Neutrophil # 3.27 X10^3/uL (2.7-7.7); Neutrophil % 80.5 % (47-70); POSITIVE DIFFERENTIAL YES; Platelet Count 127 K/mm3 (150-450); RBC Distribution Width CV 17.1 % (11.6-14.6); RBC Distribution Width SD 57.5 fl (35.1-43.9); Red Blood Count 4.41 M/mm3 (4.2-5.4); White Blood Count 4.1 K/mm3 (4.4-11.0)
[2022-08-05 12:35] LABS: Differential Indicated SCAN CRITERIA MET
[2022-08-05 13:07] LABS: ALB/GLOB Ratio 0.5 RATIO (0.9-2.4); AST(SGOT) 20 U/L (15-37); Alanine Aminotransfer ALT/SGPT 16 U/L (13-56); Albumin, Serum 2.3 g/dL (3.2-5.0); Alkaline Phosphatase 182 U/L (45-117); Anion Gap 9 (5-15); BUN 68 mg/dL (7-18); BUN/Creat Ratio 32.2 RATIO (10-20); Calcium,Total 8.2 mg/dL (8.5-10.1); Chloride 97 mmol/L (98-107); Creatinine, Serum 2.11 mg/dL (0.55-1.02); EST Glomerular Filtration Rate 24 mL/min (>60); Est Glom Filt Rate - Afr Amer 29 mL/min (>60); Globulin 4.4 g/dL (2.2-4.2); Glucose 164 mg/dL (74-106); Phosphorus 2.2 mg/dL (2.5-4.9); Potassium 4.2 mmol/L (3.5-5.1); Protein, Total 6.7 g/dL (6.4-8.2); Sodium Level 133 mmol/L (136-145)
[2022-08-09 08:46] LABS: Pathologist Review Reviewed
== END | disposition home or self-care (01) ==
LOC: POLAB3 11:50
PROVIDERS: Nurse Practitioner Family; PCP Family Medicine Geriatric Medicine; Visit Provider Family Medicine Geriatric Medicine
DX: I10 Essential (primary) hypertension (principal)
CPT/HCPCS: 36415; 80053; 84100; 85025

== ENCOUNTER → 2022-08-10 | Outpatient (CLI) | payer MEDICARE, OTHER, SELFPAY ==
--- NOTE | 2022-08-10 10:46 | US_ITS ---
PROCEDURE: Ultrasound guided paracentesis. DATE OF EXAMINATION: August 10, 2022. INDICATION: Female, 87 years old. Ascites. PHYSICIAN: Larry Abraham M.D. TECHNIQUE: The risks, benefits, and alternatives to the procedure were explained to the patient. The specific risks of bleeding, infection, and damage to bowel were detailed and accepted. Witnessed informed consent was obtained. The abdomen was ultrasonographically surveyed. An appropriate pocket of fluid was identified at the left lower quadrant. The skin were cleaned and prepped in the usual sterile fashion. Using ultrasound guidance, the peritoneal cavity was accessed with a 5-Korean paracentesis needle/catheter system. The trocar was removed. A total of 8050 ml of lyla-colored fluid were removed from the peritoneal cavity. The catheter was removed and a sterile dressing was applied. The procedure was well tolerated. US/Paracentesis with US IMPRESSION: Ultrasound guided paracentesis. Electronically Signed: Larry Abraham MD at 12:38 EDT ,
[2022-08-10] MEDS: Lidocaine 2% (20 ml mdv) 20 ML Vial INFILT (10:50)
[2022-08-10 11:00] VITALS: BP 102/45; BP 120/45; BP 123/44; PULSE 70; PULSE 72; PULSE 74; RESP 16; RESP 18; O2SAT 100; O2SAT 98; O2SAT 99
[2022-08-10] MEDS: 0.9% Saline Lock 10 ML Syringe IV (11:38)
[2022-08-10 11:57] VITALS: BP 102/35; PULSE 83; RESP 16; TEMP 36; O2SAT 98; BMI 20.2
[2022-08-10] MEDS: 0.9% NaCl Peripheral Flush Adult/Peds IV (12:03)
[2022-08-10] MEDS: Albumin Human 25% (50 mL) 12.5 GM/50 ML IV.SOLN IV (12:12)
[2022-08-10 12:57] VITALS: BP 123/42; PULSE 73; RESP 16; TEMP 36.1; O2SAT 100
== END | disposition home or self-care (01) ==
LOC: US 10:42
PROVIDERS: PCP Family Medicine Geriatric Medicine; Referring Provider Internal Medicine Gastroenterology; Visit Provider Internal Medicine Gastroenterology
DX: R18.8 Other ascites (principal); K74.60 Unspecified cirrhosis of liver
CPT/HCPCS: 96365; 49083; J7050; P9047; A4216

== ENCOUNTER 2022-08-13 07:44 | Inpatient (IN) | payer MEDICARE, OTHER, SELFPAY ==
[2022-08-13 07:45] VITALS: BP 155/54; PULSE 92; RESP 16; TEMP 36.8; O2SAT 98; BMI 20.7
--- NOTE | 2022-08-13 07:51 | ED.RN ---
recemtly had paracentesis. this happened last tme she had this procedure per daughter
--- NOTE | 2022-08-13 07:56 | CT_ITS ---
INDICATION: abdominal pain, history of cirrhosis, paracentesis 3 days ago EXAMINATION: CT ABDOMEN AND PELVIS WITHOUT CONTRAST - CT Abdomen And Pelvis W/O Contrast Injection TECHNIQUE: Helically acquired images were obtained of the abdomen and pelvis without oral or IV contrast. A radiation dose optimization technique was used for this scan. IV Contrast dosage and agent: None. Oral contrast: None. COMPARISON: None. FINDINGS: LOWER CHEST: Status post aortic valve replacement. Small bilateral effusions. LIVER: Shrunken cirrhotic liver. Large amount of ascites throughout abdoment and pelvis. GALLBLADDER AND BILIARY TREE: No calcified gallstones. No gallbladder distension or wall edema. No intra- or extrahepatic biliary ductal dilation. PANCREAS: No focal cystic or solid mass. SPLEEN: Moderate splenomegaly consistent with portal hypertension. ADRENAL GLANDS: No nodules. KIDNEYS AND URETERS: Mild cortical atrophy bilaterally. PERITONEUM: No ascites or free air. No other fluid collection. BOWEL: Moderate sigmoid diverticulosis. LYMPH NODES: No enlarged mesenteric or retroperitoneal lymph nodes. VESSELS: Aorta is non-dilated. Varices throughout the left upper quadrant URINARY BLADDER: Unremarkable. REPRODUCTIVE ORGANS: No pelvic masses. ABDOMINAL WALL: No discrete abdominal or pelvic wall hernia. BONES: No lytic or blastic abnormality. CT/Abdomen/Pelvis without Cont IMPRESSION: Small bilateral effusions. Cirrhotic liver, splenomegaly and varices left upper quadrant. Large amount of ascites. Sigmoid diverticulosis. Mild cortical thinning of kidneys. Electronically Signed: Braydon Lim MD, ADITI at 9:18 EDT ,
--- NOTE | 2022-08-13 07:56 | CT_ITS ---
INDICATION: altered mental status EXAMINATION: CT BRAIN - CT Head or Brain W/O Contrast Injection TECHNIQUE: Multiple axial images were obtained of the head without intravenous contrast. A radiation dose optimization technique was used for this scan. IV Contrast dosage and agent: None. COMPARISON: FINDINGS: BRAIN PARENCHYMA: Moderate cortical and central atrophy, moderate chronic ischemic change. Dystrophic calcifications in basal ganglia bilaterally. CALVARIUM, SKULL BASE, PARANASAL SINUSES AND MASTOID AIR CELLS: Clear. No discrete lytic or blastic abnormalities. ORBITS: Both globes, extraocular muscles, optic nerves and retrobulbar fat appear unremarkable. ASPECTS Score for Acute Strokes: 10 CT/Brain/Head without Contrast IMPRESSION: No acute changes. Moderate cortical and central atrophy. Electronically Signed: Braydon Lim MD, ADITI at 9:02 EDT ,
--- NOTE | 2022-08-13 07:57 | EKG12_ITS ---
Test Reason : ALT MENTAL Blood Pressure : / mmHG Vent. Rate : 091 BPM Atrial Rate : 091 BPM P-R Int : 230 ms QRS Dur : 102 ms QT Int : 370 ms P-R-T Axes : 009 -29 067 degrees QTc Int : 455 ms Sinus rhythm with 1st degree A-V block Inferior infarct , age undetermined Anterolateral infarct , age undetermined Abnormal ECG Confirmed by MICHAEL BUENO, ROSHNI ([id number]), scientific editor ISABELA FRYE ([id number]) on 08/15/2022 2:10:23 PM Referred By: TIANA Confirmed By:ROSHNI RODRIGUEZ MD
--- NOTE | 2022-08-13 08:01 | EX.ED.DYSGE1 ---
HPI History of Present Illness Chief Complaint: Mental Status Change Informant: family (Daughter) and EMS Onset/Context/Timing Onset: Yesterday Context: Gradual Onset Timing: Continuous Quality: Weak and confused Location: All over Current Severity: Severe Maximum Severity: Severe Narrative Narrative: Patient generally weak and very confused, slurring her speech significantly. This started gradually yesterday, daughter thinks more so in the evening, worse when she woke up this morning. Patient lives alone. She had a paracentesis 3 days ago, she has cirrhosis. She had another paracentesis of about a week before that, and 2 of them about a month ago. After one of them, she had generalized weakness and confusion just like this that spontaneously abated. She states that the day after her paracentesis, 2 days ago, she developed a painful rash in her left face and went to an eye doctor and was diagnosed with shingles. That day and yesterday morning, she was doing well, living independently as she usually does. Daughter states she is DNR CCA and states that there should be record of it in our system, although she does not have any paperwork with her right now. Signed DNR that we have prior record of is signed by the patient as DNR comfort care only. She does not know the reason for her cirrhosis; it is not alcohol. She does not get regular paracentesis, she gets them periodically when she needs them. No recent illness that she knows of. She did have a fall yesterday that was minor, the daughter did not see it, but they have cameras in her home and she reviewed the video footage of it, seen that she was bending over to pick something up and lost her balance, landing on her buttocks, without hitting her head or having loss of consciousness. She was able to get up and walk after that. EMS was called, they evaluated her and she was doing okay and was not transported to the emergency department. [facility] Medical History Anemia of chronic renal failure, stage 3 (moderate) Basal cell carcinoma Bilateral carotid bruits Cancer Cardiology follow-up encounter Cataracts, bilateral Chronic cough Chronic diastolic (congestive) heart failure Chronic renal disease, stage 3, moderately decreased glomerular filtration rate (GFR) between 30-59 mL/min/1.73 square meter Cirrhosis of liver with ascites COVID-19 (11/05/21) Debility Diabetes mellitus Easy bruising Essential hypertension Gastric reflux GERD (gastroesophageal reflux disease) History of renal disease History of transcatheter aortic valve replacement (TAVR) (03/09/20) Hoarseness Hyperlipidemia Hypertension Hypothyroid Hypothyroidism TRACY (iron deficiency anemia) Insulin dependent diabetes mellitus Iron deficiency anemia due to chronic blood loss Left bundle branch block (LBBB) Lower extremity edema Non-rheumatic tricuspid valve insufficiency Non-smoker Nonrheumatic aortic (valve) stenosis Nonrheumatic mitral valve stenosis with insufficiency Pleural effusion Pleural effusion, left Proteus pneumonia Secondary pulmonary arterial hypertension Seizure Seizure disorder Seizures Status epilepticus Status post abdominal paracentesis Thrombocytopenia Thyroid disease Traumatic open wound of right lower leg with delayed healing Type 2 diabetes mellitus without complication Unresponsive Walker as ambulation aid Wears glasses Home Medications acetaminophen 325 mg tablet 650 mg PO Q8H PRN Pain 1-10 Or Fever 06/01/20 [History Last Taken Unknown] cholecalciferol (vitamin D3) 25 mcg (1,000 unit) tablet 1,000 unit PO DAILY 06/29/20 [History Last Taken Unknown] bumetanide 1 mg tablet 1 mg PO BID 07/07/20 [History Last Taken Unknown] phenytoin sodium extended 100 mg capsule 100 mg PO TID #90 caps 12/03/20 [Rx Last Taken 02/15/21 08:45] epoetin franklin-epbx 2,000 unit/mL injection solution (Retacrit) 2,000 unit subcut .Q 2 WEEKS 01/04/21 [History Last Taken Unknown] pantoprazole 40 mg tablet,delayed release 40 mg PO DAILY Check with primary doctor #0 tabs 02/15/21 [Rx Last Taken 02/15/21 08:45] ferrous sulfate 325 mg (65 mg iron) tablet (iron) 325 mg PO DAILY 05/26/21 [History Last Taken Unknown] levothyroxine 100 mcg tablet 125 mcg PO DAILY THYROID 10/19/21 [History Last Taken Unknown] ascorbic acid (vitamin C) 125 mg chewable tablet 125 mg PO DAILY 02/08/22 [History Last Taken Unknown] aspirin 81 mg tablet,delayed release 81 mg PO Q OTHER DAY heart 02/08/22 [History Last Taken Unknown] amlodipine 10 mg tablet 10 mg PO DAILY Check with primary doctor #90 tabs 04/08/22 [Rx Last Taken Unknown] spironolactone 50 mg tablet (Aldactone) 50 mg PO DAILY 06/28/22 [History Last Taken Unknown] metoprolol succinate 25 mg tablet,extended release 24 hr (Toprol XL) 25 mg PO DAILY #90 tabs 07/06/22 [Rx Last Taken Unknown] hydralazine 50 mg tablet 50 mg PO TID HTN 08/13/22 [History Last Taken 08/12/22] odkkqhyu-yxrcbkmto-qvjhjanu 3.5 mg/mL-10,000 unit/mL-0.1% eye drops 1 drp LEFT EYE 4XD SHINGLES 08/13/22 [History Last Taken 08/12/22] valacyclovir 1 gram tablet 1,000 mg PO TID SHINGLES 08/13/22 [History Last Taken 08/12/22] Allergy/AdvReac Type Severity Reaction Status Date / Time No Known Allergies Allergy Verified 08/09/22 11:30 Family History Brother Myocardial infarction, Onset Age: 50 Father Myocardial infarction, Onset Age: 60 Surgical History History of abdominal paracentesis (03/11/20) History of bilateral cataract extraction History of cholecystectomy History of left heart catheterization (11/11/19) Hx of colonoscopy Social History (Updated 08/13/22 @ 08:[address] Lazaro Finley MD) household members: none housing: house Smoking Status: Never smoker second hand exposure: No alcohol intake: never substance use type: does not use diet: low salt well-balanced diet: daily or most days caffeine: Yes Type: coffee Number of servings: 2 eating out: rarely or never what type of physical activity do you participate in: walking duration: < 15 minutes/day kvng/hindu: Jewish seatbelt use: always ROS ROS ED Review of Systems ROS Unobtainable: due to mental status EXAM Physical Exam Const Vital Signs: 08/13/22 07:45 08/13/22 07:52 Temperature 98.2 F Temperature Source Temporal Pulse Rate 92 Respiratory Rate 16 Respiratory Effort Normal Respiratory Pattern Normal Blood Pressure 155/54 H Blood Pressure Mean 87 Pulse Ox 98 Oxygen Delivery Method Room Air Positive well nourished, well developed and cachectic Constitutional Narrative: somnolent, eyes open to voice General Appearance ED: well developed, cachectic and NAD Nutritional Appearance: cachectic HEENT Reports dry mucous membranes HEENT Narrative: left upper facial rash normocephalic and atraumatic Mouth ED: Yes dry mucous membranes Mouth: dry mucous membranes Eyes Eyes Narrative: EOMI. R pupil 2mm, reactive. L eyelids matted shut, no edema/cellulitis. Neck full ROM, no lymphadenopathy and supple Resp normal respiratory effort and clear to auscultation bilaterally Cardio regular rate, regular rhythm and peripheral pulses 2+ throughout Rate: Negative for tachycardic Heart Sounds: murmur systolic II/ soft GI GI Narrative: distended, soft. no palp mass. Auscultation: normoactive bowel sounds Palpation: soft Extremity normal to inspection General Extremety ED: Negative for edema, pulses abnormal or tenderness General Extremity: Negative for edema or pulses abnormal Neuro CN's II-XII intact bilaterally Neuro Narrative: Somnolent alerts to voice. Does not follow commands. Grossly confused. See NIHSS. Moves all 4 extremities. Sensorium / Orientation: awake and orientation impaired Skin no wounds Skin Narrative: Rash left upper face and periorbital area NIHSS NIHSS Initial: 1a Level of Consciousness: 1 1b LOC Questions (Score 2 if aphasic/stupor): 2 1c LOC Commands (Only score 1st attempt): 2 2 Best Gaze (If aphasic, use reflexive mvmts.): 0 3 Visual: 0 4 Facial Palsy: 0 5 Motor Arm Right (UN = amputation/fusion): 1 5 Motor Arm Left: 1 6 Motor Leg Right: 3 6 Motor Leg Left: 2 7 Limb ataxia (Only + if out of proportion): 0 8 Sensory (Aphasia/stupor=0 or 1, coma=2): 1 9 Best Language: 2 10 Dysarthria (mute, coma=2, intubated=UN): 2 11 Extinction and Inattention (only scored if +): 0 Total Score: 17 MDM MDM MDM Narrative Medical decision making narrative: Clinically patient appears to be dehydrated, but her mental status change appears to be out of proportion to this, as she is very confused. She is borderline uremic, her creatinine is a little higher than her last one a week ago, but all in all similar to prior range. She is hyponatremic which is a change. Ammonia is elevated at 99, in context is consistent with hepatic encephalopathy. The patient has lactulose at home, but according to the daughter does not take it daily. CT head images appear to show no signs of acute injury or subdural, and CT of the abdomen/pelvis appears to show significant amount of ascites but otherwise nothing inflammatory/acute, both on my interpretation. My interpretations of the CTs agree with those of the radiologist. Plan is for admission. Patient is breathing and arousable, her airway is patent, she can talk but she is very confused, and her vitals are stable. Does not require intubation right now nor intensive care admission. With regards to giving the patient lactulose, discussed options with daughter, she prefers that we wait to see if IV fluids make her more alert so that she can take the lactulose orally, in order to avoid an NG tube which I think is reasonable. Lab Data Attestation: I reviewed the patient's lab results. Labs: Laboratory Results - last 24 hr 08/13/22 08/13/22 08/13/22 07:50 07:50 07:50 WBC 6.6 RBC 4.15 L Hgb 11.5 L Hct 35.1 L MCV 84.6 MCH 27.7 MCHC 32.8 RDW Std Deviation 51.0 H RDW Coeff of Meng 16.5 H Plt Count 151 MPV 9.6 Immature Gran % (Auto) 0.300 Neut % (Auto) 79.9 H Lymph % (Auto) 8.9 L [place] % (Auto) 9.2 Eos % (Auto) 1.2 Baso % (Auto) 0.5 Absolute Neuts (auto) 5.3 Absolute Lymphs (auto) 0.59 L Nucleated RBC % 0 PT 13.8 INR 1.1 Sodium 125 L Potassium 4.7 Chloride 94 L Carbon Dioxide 23.0 Anion Gap 8 BUN 84 H Creatinine 2.62 H Estim Creat Clear Calc 10.87 Est GFR (MDRD) Af Amer 22 L Est GFR (MDRD) Non-Af 18 L BUN/Creatinine Ratio 32.1 H Glucose 203 H Calcium 8.0 L Total Bilirubin 0.80 AST 53 H ALT 30 Alkaline Phosphatase 247 H Ammonia Troponin I High Sens 34 Total Protein 6.7 Albumin 2.3 L Globulin 4.4 H Albumin/Globulin Ratio 0.5 L Urine Color Urine Clarity Urine pH Ur Specific Jbphh Urine Protein Urine Glucose (UA) Urine Ketones Urine Occult Blood Urine Nitrite Urine Bilirubin Urine Urobilinogen Ur Leukocyte Esterase Urine RBC Urine WBC Ur Squamous Epith Cells Urine Bacteria Urine Mucus 08/13/22 08/13/22 08:06 09:00 WBC RBC Hgb Hct MCV MCH MCHC RDW Std Deviation RDW Coeff of Meng Plt Count MPV Immature Gran % (Auto) Neut % (Auto) Lymph % (Auto) [place] % (Auto) Eos % (Auto) Baso % (Auto) Absolute Neuts (auto) Absolute Lymphs (auto) Nucleated RBC % PT INR Sodium Potassium Chloride Carbon Dioxide Anion Gap BUN Creatinine Estim Creat Clear Calc Est GFR (MDRD) Af Amer Est GFR (MDRD) Non-Af BUN/Creatinine Ratio Glucose Calcium Total Bilirubin AST ALT Alkaline Phosphatase Ammonia 99.0 H Troponin I High Sens Total Protein Albumin Globulin Albumin/Globulin Ratio Urine Color Yellow Urine Clarity Sl. Cloudy Urine pH 7.0 Ur Specific Jbphh 1.010 Urine Protein 30 H Urine Glucose (UA) Normal Urine Ketones Negative Urine Occult Blood 10 H Urine Nitrite Negative Urine Bilirubin Negative Urine Urobilinogen Normal Ur Leukocyte Esterase 100 H Urine RBC 0 SEEN Urine WBC 50-100 SEEN Ur Squamous Epith Cells 0 SEEN Urine Bacteria 3+ Urine Mucus 0 SEEN Radiography Chest X-Ray - ED: 1 View, Read by ED Physician, No Acute Disease, Chronic Changes and No Infiltrates Diagnostic Testing: Clinical Impression(s) from Imaging Studies Abdomen/Pelvis CT 08/13/22 07:56 IMPRESSION: Small bilateral effusions. Cirrhotic liver, splenomegaly and varices left upper quadrant. Large amount of ascites. Sigmoid diverticulosis. Mild cortical thinning of kidneys. Electronically Signed: Braydon Lim MD, JD at 9:18 EDT , Brain CT 08/13/22 07:56 IMPRESSION: No acute changes. Moderate cortical and central atrophy. Electronically Signed: Braydon Lim MD, JD at 9:02 EDT , Chest X-Ray 08/13/22 08:34 IMPRESSION: No acute cardiopulmonary disease. Electronically Signed: Braydon Lim MD, ADITI at 9:05 EDT , Rhythm Strip Rhythm Strip: Sinus Rhythm Rate: 91 Ectopy: None EKG Initial EKG: Attestation: I personally reviewed and interpreted this EKG as follows: Interpretation: Sinus Rhythm and No Acute Injury Pattern Comments: Limb leads and axis unchanged compared with prior on 04/26/2020, but precordial leads show septal Q waves that were not present before Prior EKG tracings: available for review Management Discussion w/another healthcare provider: Hospitalist Discharge Plan Dx/Rx/DC Orders Clinical Impression: Acute hepatic encephalopathy, Cirrhosis of liver with ascites, Acute hyponatremia, Dehydration, CKD (chronic kidney disease) Disposition Disposition: Acute Care Hospital [facility]
[2022-08-13 08:22] LABS: Absolute Lymphocyte Count 0.59 X10^3/uL (0.83-4.51); Absolute Neutrophil Count 5.3 X10^3/uL (2.0-7.7); Basophil# 0.03 X10^3/uL; Basophil% 0.5 % (0-1); Eosinophil# 0.08 X10^3/uL; Eosinophils% 1.2 % (0-5); Hematocrit 35.1 % (37-47); Hemoglobin 11.5 g/dL (12.0-15.0); Lymphocyte # 0.59 X10^3/ul (0.83-4.51); Lymphocyte % 8.9 % (19-41); Mean Corp Hgb Conc 32.8 g/dL (32-36); Mean Corpuscular Hgb 27.7 pg (27.0-32.0); Mean Corpuscular Volume 84.6 fL (81-99); Mean Platelet Vol. 9.6 fl (6.2-12.0); Monocyte# 0.61 X10^3/uL; Monocyte% 9.2 % (0-10); NRBC Flagged by Analyzer 0 % (0-5); Neutrophil % 79.9 % (47-70); POSITIVE DIFFERENTIAL YES; Platelet Count 151 K/mm3 (150-450); RBC Distribution Width CV 16.5 % (11.6-14.6); Red Blood Count 4.15 M/mm3 (4.2-5.4); White Blood Count 6.6 K/mm3 (4.4-11.0)
[2022-08-13 08:27] LABS: Differential Indicated SCAN CRITERIA MET
[2022-08-13 08:31] LABS: ALB/GLOB Ratio 0.5 RATIO (0.9-2.4); AST(SGOT) 53 U/L (15-37); Alanine Aminotransfer ALT/SGPT 30 U/L (13-56); Albumin, Serum 2.3 g/dL (3.2-5.0); Alkaline Phosphatase 247 U/L (45-117); Anion Gap 8 (5-15); BUN 84 mg/dL (7-18); BUN/Creat Ratio 32.1 RATIO (10-20); Chloride 94 mmol/L (98-107); Creatinine, Serum 2.62 mg/dL (0.55-1.02); EST Glomerular Filtration Rate 18 mL/min (>60); Est Glom Filt Rate - Afr Amer 22 mL/min (>60); Estimated Creatinine Clearance 10.87 ml/min; Globulin 4.4 g/dL (2.2-4.2); Glucose 203 mg/dL (74-106); Potassium 4.7 mmol/L (3.5-5.1); Protein, Total 6.7 g/dL (6.4-8.2); Sodium Level 125 mmol/L (136-145); Troponin-I HS 34 pg/mL (3.0-54.0)
--- NOTE | 2022-08-13 08:34 | RAD_ITS ---
INDICATION: altered MS EXAMINATION/TECHNIQUE: X-RAY - XR Chest 1 View COMPARISON: 04/25/2020 FINDINGS: LINES/DEVICES: ETT and nasogastric tube removed. LUNGS: No consolidation, edema or effusion. No pneumothorax. MEDIASTINUM AND CARDIOVASCULAR STRUCTURES: Cardiac silhouette not enlarged. Central airways and mediastinal contour are unremarkable. BONES AND SOFT TISSUES: Unremarkable. Status post aortic valve replacement. RAD/Chest 1 View (Portable) IMPRESSION: No acute cardiopulmonary disease. Electronically Signed: Braydon Lim MD, ADITI at 9:05 EDT ,
[2022-08-13 08:53] LABS: International Normalized Ratio 1.1; Prothrombin Time (Protime)PT. 13.8 SECONDS (11.7-14.9)
--- NOTE | 2022-08-13 09:06 | HP.PCM.HOS_ITS ---
HPI - General General Date of Admission: 08/13/22 Date of Service: 08/13/22 Chief Complaint: altered mental status HPI Narrative MERCEDES SORTO, is a 87 F with a PMH as outlined who presents via the ED on 08/13/2022 with a complaint of weakness and altered mental status. She has a history of cirrhosis and has been having periodic paracentesis. She last had paracentesis 3 days prior to admission. She had had paracentesis a week prior to that as well. Daughter found her confused and she also had a fall on the day before presentation. Daughter reviewed camera footage in her home and realised that patient fell whilst picking up something and lost her balance. She didn't hit her head or lose consciousness. She had no fever, chills, cough, chest pain, palpitations, dizziness, nausea, vomiting or diarrhea. Review of systems otherwise negative. Per her daughter, she had paracentesis with removal of 3L of fluid ~ 1 week ago, and subsequently she had another session of paracentesis 3 days ago with removal of 5L of fluid. She received Vitals were BP of 155/54., LA of 92, RR of 16 and temp of 98.2F. She was saturating at 98% on room air. CBC showed wbc of 6.6, Hb of 11.5 and platelets of 151. INR is 1.1. Chemistry showed sodium of 125, chloride of 94, Cr of 2.62 and ammonia of 99. Initial troponin was 34. Urinalysis shows no evidence of UTI. CXR showed no acute cardiopulmonary process and brain MRI showed no acute intracranial pathology and moderate cortical and central atrophy. She is being admitted to be managed for acute metabolic encephalopathy likely due to hepatic encephalopathy, hyponatremia and dehydration. [facility] Medical History Anemia of chronic renal failure, stage 3 (moderate) Basal cell carcinoma Bilateral carotid bruits Cancer Cardiology follow-up encounter Cataracts, bilateral Chronic cough Chronic diastolic (congestive) heart failure Chronic renal disease, stage 3, moderately decreased glomerular filtration rate (GFR) between 30-59 mL/min/1.73 square meter Cirrhosis of liver with ascites COVID-19 (03/26/21) Debility Diabetes mellitus Easy bruising Essential hypertension Gastric reflux GERD (gastroesophageal reflux disease) History of renal disease History of transcatheter aortic valve replacement (TAVR) (03/09/20) Hoarseness Hyperlipidemia Hypertension Hypothyroid Hypothyroidism TRACY (iron deficiency anemia) Insulin dependent diabetes mellitus Iron deficiency anemia due to chronic blood loss Left bundle branch block (LBBB) Lower extremity edema Non-rheumatic tricuspid valve insufficiency Non-smoker Nonrheumatic aortic (valve) stenosis Nonrheumatic mitral valve stenosis with insufficiency Pleural effusion Pleural effusion, left Proteus pneumonia Secondary pulmonary arterial hypertension Seizure Seizure disorder Seizures Status epilepticus Status post abdominal paracentesis Thrombocytopenia Thyroid disease Traumatic open wound of right lower leg with delayed healing Type 2 diabetes mellitus without complication Unresponsive Walker as ambulation aid Wears glasses Home Medications acetaminophen 325 mg tablet 650 mg PO Q8H PRN Pain 1-10 Or Fever 06/01/20 [History Last Taken Unknown] cholecalciferol (vitamin D3) 25 mcg (1,000 unit) tablet 1,000 unit PO DAILY 06/29/20 [History Last Taken 08/12/22] bumetanide 1 mg tablet 1 mg PO BID 07/07/20 [History Last Taken 08/12/22] phenytoin sodium extended 100 mg capsule 100 mg PO TID #90 caps 12/03/20 [Rx Last Taken 08/12/22] epoetin franklin-epbx 2,000 unit/mL injection solution (Retacrit) 2,000 unit subcut .Q 2 WEEKS 01/04/21 [History Last Taken 1 Month Ago ~07/16/22] pantoprazole 40 mg tablet,delayed release 40 mg PO DAILY Check with primary doctor #0 tabs 02/15/21 [Rx Last Taken 08/12/22] ferrous sulfate 325 mg (65 mg iron) tablet (iron) 325 mg PO DAILY 05/26/21 [History Last Taken 08/12/22] levothyroxine 100 mcg tablet 125 mcg PO DAILY THYROID 10/19/21 [History Last Taken 08/12/22] ascorbic acid (vitamin C) 125 mg chewable tablet 125 mg PO DAILY 02/08/22 [History Last Taken 08/12/22] aspirin 81 mg tablet,delayed release 81 mg PO Q OTHER DAY heart 02/08/22 [History Last Taken 08/12/22] spironolactone 50 mg tablet (Aldactone) 50 mg PO DAILY 06/28/22 [History Last Taken 08/12/22] metoprolol succinate 25 mg tablet,extended release 24 hr (Toprol XL) 25 mg PO DAILY #90 tabs 07/06/22 [Rx Last Taken 08/12/22] hydralazine 50 mg tablet 50 mg PO TID HTN 08/13/22 [History Last Taken 08/12/22] xidoqzkn-varrgbhah-arpedzmr 3.5 mg/mL-10,000 unit/mL-0.1% eye drops 1 drp LEFT E YE 4XD SHINGLES 08/13/22 [History Last Taken 08/12/22] valacyclovir 1 gram tablet 1,000 mg PO TID SHINGLES 08/13/22 [History Last Taken 08/12/22] Allergy/AdvReac Type Severity Reaction Status Date / Time No Known Allergies Allergy Verified 08/09/22 11:30 Family History Brother Myocardial infarction, Onset Age: 50 Father Myocardial infarction, Onset Age: 60 Surgical History History of abdominal paracentesis (03/11/20) History of bilateral cataract extraction History of cholecystectomy History of left heart catheterization (11/11/19) Hx of colonoscopy Social History (Updated 08/13/22 @ 08:[address] Lazaro Finley MD) household members: none housing: house Smoking Status: Never smoker second hand exposure: No alcohol intake: never substance use type: does not use diet: low salt well-balanced diet: daily or most days caffeine: Yes Type: coffee Number of servings: 2 eating out: rarely or never what type of physical activity do you participate in: walking duration: < 15 minutes/day kvng/restoration: Jainism seatbelt use: always ROS Constitutional Constitutional: Reports fatigue; Denies anorexia, chills, fever(s) or malaise ENT HEENT: Denies headache(s) Cardiovascular Cardiovascular: Denies chest pain, dyspnea on exertion, edema, orthopnea or rapid heart rate Respiratory/Chest Respiratory/Chest: Denies cough, dyspnea, productive cough, shortness of breath at rest or shortness of breath with exertion Gastrointestinal Gastrointestinal: Denies abdominal pain, diarrhea, hematemesis, nausea or vomiting Genitourinary Genitourinary: Denies burning urination or dysuria Neurologic Neurologic: Reports confusion; Denies dizziness, focal weakness, headache(s), seizures or syncope Psychiatric Psychiatric: Denies anxiety or depression Endocrine Endocrinology: Denies change in body appearance Vital Signs Vital Signs Vital Signs: 08/13/22 07:45 08/13/22 07:52 Temperature 98.2 F Temperature Source Temporal Pulse Rate 92 Respiratory Rate 16 Respiratory Effort Normal Respiratory Pattern Normal Blood Pressure 155/54 H Blood Pressure Mean 87 Pulse Ox 98 Oxygen Delivery Method Room Air Weight Weight: 106 lb 7.732 oz Body Mass Index (BMI) 20.7 Physical Exam Const alert Constitutional Narrative: confused but able to communicate HEENT normocephalic, head/scalp atraumatic and hearing grossly normal bilaterally Eyes PERRL, EOMs intact bilaterally and conjunctivae normal Resp Resp Narrative: mildly diminished breath sounds bibasally, no wheezes or crackles. Cardio regular rate, regular rhythm, S1 normal heart sound, S2 normal heart sound and no murmurs GI normal to inspection, nondistended, normoactive bowel sounds, soft to palpation and non-tender Extremity normal to inspection, full ROM and no clubbing, cyanosis or edema Neuro oriented x3, CN's II-XII intact bilaterally, moves all extremities and no focal motor deficits Neuro Narrative: frail Sensorium / Orientation: awake Results Lab / Micro Data Result Diagrams: 08/13/22 07:50 08/13/22 07:50 Labs: Laboratory Results - last 24 hr 08/13/22 07:50: WBC 6.6, RBC 4.15 L, Hgb 11.5 L, Hct 35.1 L, MCV 84.6, MCH 27.7, MCHC 32.8, RDW Std Deviation 51.0 H, RDW Coeff of Meng 16.5 H, Plt Count 151, MPV 9.6, Immature Gran % (Auto) 0.300, Neut % (Auto) 79.9 H, Lymph % (Auto) 8.9 L, [place] % (Auto) 9.2, Eos % (Auto) 1.2, Baso % (Auto) 0.5, Absolute Neuts (auto) 5.3, Absolute Lymphs (auto) 0.59 L, Nucleated RBC % 0 08/13/22 07:50: Sodium 125 L, Potassium 4.7, Chloride 94 L, Carbon Dioxide 23.0, Anion Gap 8, BUN 84 H, Creatinine 2.62 H, Estim Creat Clear Calc 10.87, Est GFR (MDRD) Af Amer 22 L, Est GFR (MDRD) Non-Af 18 L, BUN/Creatinine Ratio 32.1 H, Glucose 203 H, Calcium 8.0 L, Total Bilirubin 0.80, AST 53 H, ALT 30, Alkaline Phosphatase 247 H, Troponin I High Sens 34, Total Protein 6.7, Albumin 2.3 L, Globulin 4.4 H, Albumin/Globulin Ratio 0.5 L 08/13/22 07:50: PT 13.8, INR 1.1 08/13/22 08:06: Ammonia 99.0 H Rhythm Strip Rhythm Strip: Sinus Rhythm Rate: 91 Ectopy: None Radiology Impression Brain CT 08/13/22 07:56 IMPRESSION: No acute changes. Moderate cortical and central atrophy. Electronically Signed: Braydon Lim MD, ADITI at 9:02 EDT , Assessment & Plan Assessment/Plan (1) Hyponatremia: (2) Acute hyponatremia: (3) Dehydration: PLAN: Plan #Acute metabolic encephalopathy due to hyperammonemia and acute on chronic hyponatremia * admit to PCU * start on lactulose. Hydrate gently with IVF due to hyponatremia * give lactulose rectally due to encephalopathy and switch to oral once mentation has improved * #UTI: urine analysis shows 3+ bacteria. Start on IV ceftriaxone and get urine cultures #Hypothyroidism: on synthroid #Shingles: on valacyclovir #Liver cirrhosis with ascites * on lactulose. as above * requires periodic paracentesis * on lasculose and spironolactone as well as metoprolol and bumex * #Seizure disorder: on phenytoin #Hypertension: on hydralazine and metoprolol as well as spironolactone. DVT prophylaxis: Lovenox CODE STATUS: DNRCCA no Intubation * Patient counseled extensively about different types of CODE STATUS including full code, DNR CCA and DNR CCA. Patient's daughter elects for her to be DNRCCA no intubation. * Total xqpw-mr-evvl time 17 minutes. Total time spent on evaluation and management of patient, reviewing chart and specialist notes, discussing plan with patient and her daughter, discussion with nursing and ancillary staff as well as documentation: 85 minutes Charges/Coding Visit Charges Inpatient E&M: 99867 Init Hosp L3 Procedures Hospitalists Procedures: 11767 Advncd Care Plan 30 Min
[2022-08-13 09:08] LABS: Mucous, Urine 0 SEEN /hpf (<or=2+); Red Blood Cells-Urine 0 SEEN /hpf (0-5); Squamous Epithelial Cells - UA 0 SEEN /hpf (5-10)
[2022-08-13 09:09] LABS: Color, Urine Yellow (Yellow); Glucose, Dipstick Normal (Normal); Ketone-Dipstick Negative (Negative); Leukocyte Esterase-Dipstick 100 /ul (Negative); Nitrite-Dipstick Negative (Negative); Occult Blood-Urine 10 /ul (Negative); Protein-Dipstick 30 mg/dl (Negative); Urine Bilirubin Dipstick Negative (Negative); Urine Clarity Sl. Cloudy (Clear); Urine Urobilinogen Normal (Normal)
[2022-08-13 09:10] LABS: Bacteria 3+ /hpf (None Seen); White Blood Cells 50-100 SEEN /hpf (0-5)
[2022-08-13 09:29] VITALS: BMI 20.4
[2022-08-13 09:47] VITALS: BP 158/74; PULSE 90; RESP 14; TEMP 36.7; O2SAT 94
[2022-08-13 10:08] VITALS: BP 120/61; PULSE 86; RESP 14; TEMP 36.7; O2SAT 98
[2022-08-13 10:15] VITALS: BP 112/62; PULSE 85; RESP 14; TEMP 36.5; O2SAT 99
[2022-08-13 10:19] LABS: Osmolality, Serum 304 mOsm/KG (280-301)
[2022-08-13] MEDS: 0.9% Normal Saline 1,000 ML 125 ML IV ×2 (10:33→21:31)
[2022-08-13] MEDS: Lactulose 20 GM/30 ML UDC 200 GM RC (10:33)
[2022-08-13] MEDS: Lactulose 20 GM/30 ML UDC PO ×2 (13:29→17:25)
[2022-08-13 17:20] VITALS: BP 137/56; PULSE 87; RESP 20; TEMP 36.5; O2SAT 100
[2022-08-13 22:14] VITALS: BP 132/48; PULSE 91; RESP 16; TEMP 37; O2SAT 99
[2022-08-14 03:45] VITALS: BP 133/75; PULSE 99; RESP 18; TEMP 37; O2SAT 97
[2022-08-14 04:50] VITALS: BMI 19.7
[2022-08-14 05:25] LABS: Absolute Lymphocyte Count 0.49 X10^3/uL (0.83-4.51); Absolute Neutrophil Count 3.3 X10^3/uL (2.0-7.7); Basophil# 0.03 X10^3/uL; Basophil% 0.7 % (0-1); Eosinophil# 0.07 X10^3/uL; Eosinophils% 1.6 % (0-5); Hematocrit 30.4 % (37-47); Hemoglobin 9.6 g/dL (12.0-15.0); Lymphocyte # 0.49 X10^3/ul (0.83-4.51); Lymphocyte % 11.3 % (19-41); Mean Corp Hgb Conc 31.6 g/dL (32-36); Mean Corpuscular Hgb 27.3 pg (27.0-32.0); Mean Corpuscular Volume 86.4 fL (81-99); Mean Platelet Vol. 10.4 fl (6.2-12.0); Monocyte# 0.44 X10^3/uL; Monocyte% 10.2 % (0-10); NRBC Flagged by Analyzer 0 % (0-5); Neutrophil # 3.27 X10^3/uL (2.7-7.7); Neutrophil % 75.7 % (47-70); POSITIVE DIFFERENTIAL YES; Platelet Count 138 K/mm3 (150-450); RBC Distribution Width CV 16.9 % (11.6-14.6); RBC Distribution Width SD 53.3 fl (35.1-43.9); Red Blood Count 3.52 M/mm3 (4.2-5.4); White Blood Count 4.3 K/mm3 (4.4-11.0)
[2022-08-14 05:36] LABS: Differential Indicated SCAN CRITERIA MET
[2022-08-14 06:08] LABS: ALB/GLOB Ratio 0.5 RATIO (0.9-2.4); AST(SGOT) 45 U/L (15-37); Alanine Aminotransfer ALT/SGPT 33 U/L (13-56); Albumin, Serum 1.8 g/dL (3.2-5.0); Alkaline Phosphatase 206 U/L (45-117); Anion Gap 6 (5-15); BUN 78 mg/dL (7-18); BUN/Creat Ratio 35.3 RATIO (10-20); Calcium,Total 7.6 mg/dL (8.5-10.1); Chloride 105 mmol/L (98-107); Creatinine, Serum 2.21 mg/dL (0.55-1.02); EST Glomerular Filtration Rate 22 mL/min (>60); Est Glom Filt Rate - Afr Amer 27 mL/min (>60); Estimated Creatinine Clearance 12.91 ml/min; Globulin 3.6 g/dL (2.2-4.2); Glucose 120 mg/dL (74-106); Potassium 4.4 mmol/L (3.5-5.1); Protein, Total 5.4 g/dL (6.4-8.2); Sodium Level 132 mmol/L (136-145)
[2022-08-14 07:18] LABS: Differential Comment SCANNED
--- NOTE | 2022-08-14 08:07 | PN.HOSP_ITS ---
Reason for Visit Reason for Visit: Diagnoses Dehydration (08/13/22) Hypo-osmolality and hyponatremia (08/13/22) Subjective Subjective Resting comfortably in bed with daughter at bedside. She woke up easily and denied any complaints at this time, answer questions appropriately but was quick to fall back asleep after conversation Objective Data Objective Data Vital Signs: Vital Signs Temp Pulse Resp BP Pulse Ox O2 Del Method 98.6 F 99 18 133/75 H 97 Room Air 08/14/22 03:45 08/14/22 03:45 08/14/22 03:45 08/14/22 03:45 08/14/22 03:45 08/14/22 03:45 Oxygen Delivery Method Room Air Weight: 45.6 kg Body Mass Index (BMI) 19.7 Intake & Output: Intake and Output for Last 24 Hours 08/12/22 08/13/22 08/14/22 23:59 23:59 23:59 Intake Total 1000 / 1000 960.42 / 960.42 Balance 1000 / 1000 960.42 / 960.42 Lab / Micro Data Result Diagrams: 08/14/22 04:15 08/14/22 04:15 Labs: Laboratory Results - last 24 hr 08/13/22 07:50: WBC 6.6, RBC 4.15 L, Hgb 11.5 L, Hct 35.1 L, MCV 84.6, MCH 27.7, MCHC 32.8, RDW Std Deviation 51.0 H, RDW Coeff of Meng 16.5 H, Plt Count 151, MPV 9.6, Immature Gran % (Auto) 0.300, Neut % (Auto) 79.9 H, Lymph % (Auto) 8.9 L, [place] % (Auto) 9.2, Eos % (Auto) 1.2, Baso % (Auto) 0.5, Absolute Neuts (auto) 5.3, Absolute Lymphs (auto) 0.59 L, Nucleated RBC % 0 08/13/22 07:50: Sodium 125 L, Potassium 4.7, Chloride 94 L, Carbon Dioxide 23.0, Anion Gap 8, BUN 84 H, Creatinine 2.62 H, Estim Creat Clear Calc 10.87, Est GFR (MDRD) Af Amer 22 L, Est GFR (MDRD) Non-Af 18 L, BUN/Creatinine Ratio 32.1 H, Glucose 203 H, Calcium 8.0 L, Total Bilirubin 0.80, AST 53 H, ALT 30, Alkaline Phosphatase 247 H, Troponin I High Sens 34, Total Protein 6.7, Albumin 2.3 L, Globulin 4.4 H, Albumin/Globulin Ratio 0.5 L 08/13/22 07:50: PT 13.8, INR 1.1 08/13/22 08:06: Ammonia 99.0 H 08/13/22 09:00: Urine Color Yellow, Urine Clarity Sl. Cloudy, Urine pH 7.0, Ur Specific [place] 1.010, Urine Protein 30 H, Urine Glucose (UA) Normal, Urine Ketones Negative, Urine Occult Blood 10 H, Urine Nitrite Negative, Urine Bilirubin Negative, Urine Urobilinogen Normal, Ur Leukocyte Esterase 100 H, Urine RBC 0 SEEN, Urine WBC 50-100 SEEN, Ur Squamous Epith Cells 0 SEEN, Urine Bacteria 3+, Urine Mucus 0 SEEN 08/13/22 09:20: Serum Osmolality 304 H 08/14/22 04:15: WBC 4.3 L, RBC 3.52 L, Hgb 9.6 L, Hct 30.4 L, MCV 86.4, MCH 27.3, MCHC 31.6 L, RDW Std Deviation 53.3 H, RDW Coeff of Meng 16.9 H, Plt Count 138 L, MPV 10.4, Immature Gran % (Auto) 0.500, Neut % (Auto) 75.7 H, Lymph % (Auto) 11.3 L, [place] % (Auto) 10.2 H, Eos % (Auto) 1.6, Baso % (Auto) 0.7, Absolute Neuts (auto) 3.3, Absolute Lymphs (auto) 0.49 L, Nucleated RBC % 0, Differential Comment SCANNED, Diff Path Review September foll 08/14/22 04:15: Sodium 132 L, Potassium 4.4, Chloride 105, Carbon Dioxide 21.0, Anion Gap 6, BUN 78 H, Creatinine 2.21 H, Estim Creat Clear Calc 12.91, Est GFR (MDRD) Af Amer 27 L, Est GFR (MDRD) Non-Af 22 L, BUN/Creatinine Ratio 35.3 H, Glucose 120 H, Calcium 7.6 L, Total Bilirubin 0.50, AST 45 H, ALT 33, Alkaline Phosphatase 206 H, Total Protein 5.4 L, Albumin 1.8 L, Globulin 3.6, Albumin/Globulin Ratio 0.5 L Radiography Diagnostic Testing: Radiology Impression Abdomen/Pelvis CT 08/13/22 07:56 IMPRESSION: Small bilateral effusions. Cirrhotic liver, splenomegaly and varices left upper quadrant. Large amount of ascites. Sigmoid diverticulosis. Mild cortical thinning of kidneys. Electronically Signed: Braydon Lim MD, JD at 9:18 EDT , Brain CT 08/13/22 07:56 IMPRESSION: No acute changes. Moderate cortical and central atrophy. Electronically Signed: Braydon Lim MD, JD at 9:02 EDT , Chest X-Ray 08/13/22 08:34 IMPRESSION: No acute cardiopulmonary disease. Electronically Signed: Braydon Lim MD, JD at 9:05 EDT , Rhythm Strip Rhythm Strip: Sinus Rhythm Rate: 91 Ectopy: None Physical Exam Narrative General: Easily awoken and answer questions appropriately HEENT: Atraumatic, normocephalic Eyes: Anicteric, has lesions that are crusting over left eye Neck: Supple Respiratory: Somewhat diminished at the bases, normal respiratory effort Cardiovascular: Regular rate GI: Soft, nontender Extremities: No edema Musculoskeletal: Moving all extremities Neuro: No overt focal neurological deficits Skin: No rashes appreciated Psych: Cooperative Assessment & Plan Assessment/Plan (1) Acute hepatic encephalopathy: (2) CKD (chronic kidney disease): (3) Hyponatremia: (4) Epilepsy with status epilepticus, not intractable: PLAN: Plan #Hepatic encephalopathy along with metabolic encephalopathy secondary to UTI and acute on chronic hyponatremia -Ammonia 99 on admission -Had missed several doses of lactulose due to being too tired, was able to wake up and take dose this a.m. and had bowel movement after -Continue lactulose -CT head on admission with moderate cortical and central atrophy but no other acute abnormality -We will treat UTI -Hyponatremia improving #Urinary tract infection -Urine culture -Continue Rocephin #Shingles -Has left periorbital lesions that are crusting -Was seen by Optho as an outpatient on -Continue eyedrops and acyclovir #Cirrhosis -Has frequent paracentesis and had 8 L of fluid removed over the course of 1 week, daughter reports she did get albumin after that however -Held diuretics on admission as patient required gentle hydration, given need for multiple bowel movements likely inducing diarrhea and still poor p.o. we will hold off on diuretics at this time with low threshold to resume #Anemia -Has history of chronic iron deficiency anemia with no external source identified -Hemoglobin 9.6, yesterday 11.5 but no active bleeding appreciated, has had variable hemoglobin in the past -Follows with oncology for this and she had GI evaluation December 2020 with upper and lower endoscopies in January 2021 which demonstrated esophageal varices, chronic gastritis, hemorrhoids, diverticulosis -Continue iron -Suspect dilutional given 2 L of IVF but will check fecal occult in the event there is underlying GI bleed that may be worsening or contributing to picture #Hypothyroidism -TSH last month within normal limits -Continue Synthroid #Hyponatremia -Improved from 06 15-, continue to trend #Seizure disorder -Continue phenytoin #CKD stage IIIb -Appears fairly close to baseline, avoid nephrotoxic agents #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
[2022-08-14 10:13] VITALS: BP 130/55; PULSE 86; RESP 16; TEMP 36.5; O2SAT 99
[2022-08-14] MEDS: Neomycin/Polymyxin/Dexameth 5ML OPTH.BTL 1 DRP LEFT EYE ×4 (10:32→22:41)
[2022-08-14] MEDS: Lactulose 20 GM/30 ML UDC PO ×3 (10:32→18:17)
[2022-08-14] MEDS: Acyclovir 800 MG Tablet PO (10:34)
[2022-08-14] MEDS: Phenytoin Na 100 MG Capsule PO (10:34)
[2022-08-14 15:39] VITALS: BP 126/38; PULSE 93; RESP 16; TEMP 36.6; O2SAT 98
[2022-08-14 22:40] VITALS: BP 109/40; PULSE 99; RESP 18; TEMP 37.4; O2SAT 99
[2022-08-15] VITALS (10 sets, daily range): BP systolic 109–137; BP diastolic 40–55; PULSE 74–100; RESP 16; TEMP 36–37.3; O2SAT 98–100; BMI 19.6
[2022-08-15] MEDS: Lactulose 20 GM/30 ML UDC PO ×6 (01:21→22:21)
[2022-08-15] MEDS: Menthol/Lanolin/Calamine/Znox 113 GM Tube 1 APPLIC TOPICAL ×3 (05:42→22:18)
[2022-08-15] MEDS: Acyclovir 800 MG Tablet PO ×4 (05:48→22:24)
[2022-08-15 05:49] LABS: Absolute Lymphocyte Count 0.74 X10^3/uL (0.83-4.51); Absolute Neutrophil Count 2.8 X10^3/uL (2.0-7.7); Basophil# 0.03 X10^3/uL; Basophil% 0.7 % (0-1); Eosinophil# 0.04 X10^3/uL; Hemoglobin 9.9 g/dL (12.0-15.0); Lymphocyte # 0.74 X10^3/ul (0.83-4.51); Lymphocyte % 17.9 % (19-41); Mean Corp Hgb Conc 31.9 g/dL (32-36); Mean Corpuscular Hgb 28.1 pg (27.0-32.0); Mean Corpuscular Volume 88.1 fL (81-99); Mean Platelet Vol. 9.3 fl (6.2-12.0); Monocyte# 0.49 X10^3/uL; Monocyte% 11.9 % (0-10); NRBC Flagged by Analyzer 0 % (0-5); Neutrophil # 2.81 X10^3/uL (2.7-7.7); Platelet Count 137 K/mm3 (150-450); RBC Distribution Width CV 16.9 % (11.6-14.6); RBC Distribution Width SD 54.2 fl (35.1-43.9); Red Blood Count 3.52 M/mm3 (4.2-5.4); White Blood Count 4.1 K/mm3 (4.4-11.0)
[2022-08-15] MEDS: hydrALAZINE 50 MG Tablet PO ×2 (05:49→14:32)
[2022-08-15] MEDS: Levothyroxine 125 MCG Tablet PO (05:49)
[2022-08-15] MEDS: Phenytoin Na 100 MG Capsule PO ×3 (05:56→22:32)
[2022-08-15 06:35] LABS: Anion Gap 7 (5-15); BUN 80 mg/dL (7-18); BUN/Creat Ratio 34.3 RATIO (10-20); Calcium,Total 7.8 mg/dL (8.5-10.1); Chloride 108 mmol/L (98-107); Creatinine, Serum 2.33 mg/dL (0.55-1.02); EST Glomerular Filtration Rate 21 mL/min (>60); Est Glom Filt Rate - Afr Amer 25 mL/min (>60); Estimated Creatinine Clearance 12.22 ml/min; Glucose 115 mg/dL (74-106); Potassium 4.1 mmol/L (3.5-5.1); Sodium Level 135 mmol/L (136-145)
--- NOTE | 2022-08-15 10:56 | PN.HOSP_ITS ---
Reason for Visit Reason for Visit: Diagnoses Dehydration (08/13/22) Hypo-osmolality and hyponatremia (08/13/22) Epilepsy, unspecified, not intractable, with status epilepticus (08/13/22) Hepatic encephalopathy (08/13/22) Chronic kidney disease, unspecified (08/13/22) Subjective Subjective Easily awoken this morning, denied any complaints Objective Data Objective Data Vital Signs: Vital Signs Temp Pulse Resp BP Pulse Ox O2 Del Method 99.1 F 94 16 119/42 L 98 Room Air 08/15/22 05:33 08/15/22 05:49 08/15/22 05:33 08/15/22 05:49 08/15/22 05:33 08/15/22 05:34 Oxygen Delivery Method Room Air Weight: 45.6 kg Body Mass Index (BMI) 19.6 Intake & Output: Intake and Output for Last 24 Hours 08/13/22 08/14/22 08/15/22 23:59 23:59 23:59 Intake Total 1000 / 1000 960.42 / 960.42 Balance 1000 / 1000 960.42 / 960.42 Lab / Micro Data Result Diagrams: 08/15/22 05:20 08/15/22 05:20 Labs: Laboratory Results - last 24 hr 08/15/22 05:20: WBC 4.1 L, RBC 3.52 L, Hgb 9.9 L, Hct 31.0 L, MCV 88.1, MCH 28.1, MCHC 31.9 L, RDW Std Deviation 54.2 H, RDW Coeff of Meng 16.9 H, Plt Count 137 L, MPV 9.3, Immature Gran % (Auto) 0.500, Neut % (Auto) 68.0, Lymph % (Auto) 17.9 L, [place] % (Auto) 11.9 H, Eos % (Auto) 1.0, Baso % (Auto) 0.7, Absolute Neuts (auto) 2.8, Absolute Lymphs (auto) 0.74 L, Nucleated RBC % 0 08/15/22 05:20: Sodium 135 L, Potassium 4.1, Chloride 108 H, Carbon Dioxide 20.0 L, Anion Gap 7, BUN 80 H, Creatinine 2.33 H, Estim Creat Clear Calc 12.22, Est GFR (MDRD) Af Amer 25 L, Est GFR (MDRD) Non-Af 21 L, BUN/Creatinine Ratio 34.3 H , Glucose 115 H, Calcium 7.8 L Rhythm Strip Rhythm Strip: Sinus Rhythm Rate: 91 Ectopy: None Physical Exam Narrative General: Easily awoke HEENT: Atraumatic, normocephalic Eyes: Anicteric, has lesions that are crusting over left eye Neck: Supple Respiratory: Somewhat diminished at the bases, normal respiratory effort Cardiovascular: Regular rate GI: Soft, nontender Extremities: No edema Musculoskeletal: Moving all extremities Neuro: No overt focal neurological deficits Skin: No rashes appreciated Psych: Cooperative Assessment & Plan Assessment/Plan (1) Acute hepatic encephalopathy: (2) CKD (chronic kidney disease): (3) Hyponatremia: (4) Epilepsy with status epilepticus, not intractable: PLAN: Plan #Hepatic encephalopathy along with metabolic encephalopathy secondary to UTI and acute on chronic hyponatremia -Ammonia 99 on admission -Had missed several doses of lactulose due to being too tired, was able to wake up and take dose this a.m. and had bowel movement after -Continue lactulose -CT head on admission with moderate cortical and central atrophy but no other acute abnormality -We will treat UTI -Hyponatremia improving -08/15: Beginning to improve, continue lactulose. Seems to have slight bump in BUN/creatinine, will give dose of albumin. Speech is consulted as p.o. intake improving but she did have a coughing episode #Urinary tract infection -Urine culture had not been sent on admission -Continue Rocephin for empiric course given convincing UA #Shingles -Has left periorbital lesions that are crusting -Was seen by Optho as an outpatient on -Continue eyedrops and acyclovir #Cirrhosis -Has frequent paracentesis and had 8 L of fluid removed over the course of 1 week, daughter reports she did get albumin after that however -Held diuretics on admission as patient required gentle hydration, given need for multiple bowel movements likely inducing diarrhea and still poor p.o. we will hold off on diuretics at this time with low threshold to resume -08/15: Giving dose of albumin and is seems somewhat intravascularly depleted and has albumin of 1.8, , holding diuretics. #Anemia -Has history of chronic iron deficiency anemia with no external source identified -Hemoglobin 9.6, yesterday 11.5 but no active bleeding appreciated, has had variable hemoglobin in the past -Follows with oncology for this and she had GI evaluation December 2020 with upper and lower endoscopies in January 2021 which demonstrated esophageal varices, chronic gastritis, hemorrhoids, diverticulosis -Continue iron -Suspect dilutional given 2 L of IVF but will check fecal occult in the event there is underlying GI bleed that may be worsening or contributing to picture -08/15: FOBT had yet to be collected but no blood reported and hemoglobin stable, will DC order #Hypothyroidism -TSH last month within normal limits -Continue Synthroid #Hyponatremia -Improved from 06 15-, continue to trend #Seizure disorder -Continue phenytoin #CKD stage IIIb -Appears fairly close to baseline, avoid nephrotoxic agents #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
[2022-08-15] MEDS: Neomycin/Polymyxin/Dexameth 5ML OPTH.BTL 1 DRP LEFT EYE ×4 (11:23→22:23)
[2022-08-15] MEDS: Ferrous Sulfate 325 MG Tablet PO (11:28)
[2022-08-15] MEDS: Metoprolol(XL)Succ 25 MG Tablet PO (11:35)
--- NOTE | 2022-08-15 12:20 | CASEMGMT ---
CARL GARCIA called daughter Farida for initial transition planning/care coordination assessment as patient is confused. CARL GARCIA introduced self and role at [facility]. Daughter willing to participate in assessment and is able to answer all questions appropriately. Care providers, pharmacy, and demographics verified. Daughter states they prefer to have patient go to SNF at discharge. A list of SNF providers including quality and resource use data and consistent with the patient?s preferred geographical region, medical needs, and insurance network were provided from the [facility] Guide and left in patient's room. Daughter states first choice is TCU and second choice is [facility]. Daughter states he has no further needs or concerns at this time. CARL GARCIA updated SW regarding request for SNF and preferences. CM to follow for discharge planning needs that may arise. PCP: Sarath Specialists: Hans nephazar; [facility]; Tracie, back seam stitcher; Justice, cylinder press operator helper Preferred Pharmacy: [facility] Insurance: [facility], MMO Prescription Benefit: yes Living Will/HPOA: yes, daughters LNOK: Daughters Living Arrangements: Patient lives alone in a 2 story home with bed and bath on first floor. 3 steps and railing to enter the home. Patient was independent at home prior to hospitalization Transportation: daughters DME/HHC: Patient has shower chair, BSC, cane, walker, grab bars, and wheelchair at home. Patient has had [facility] in the past. Patient has previously been to TCU in the past. Disposition Plan: SNF pending acceptance. Jing SHUKLA, RN, CM
--- NOTE | 2022-08-15 14:52 | CASEMGMT ---
Therapy is recommending placement for patient. RN JOSE spoke with family and provided them with a list. Per RN JOSE family's choices are TCU and [facility]. TCU is full. SW sent a referral to [facility] via [facility]. Await response. Emani Skelton [employer]WORK[employer]ANNA
[2022-08-15] MEDS: Albumin Human 25% (50 mL) 12.5 GM/50 ML IV.SOLN IV (21:57)
[2022-08-15] MEDS: Pantoprazole Sodium 40 MG Tablet PO (22:31)
[2022-08-16] VITALS (8 sets, daily range): BP systolic 113–143; BP diastolic 40–52; PULSE 68–73; RESP 16–18; TEMP 35.9–36.6; O2SAT 97–100; BMI 39.2
[2022-08-16] MEDS: Lactulose 20 GM/30 ML UDC PO ×6 (00:30→21:18)
[2022-08-16] MEDS: Phenytoin Na 100 MG Capsule PO ×3 (05:16→21:23)
[2022-08-16] MEDS: Levothyroxine 125 MCG Tablet PO (05:16)
[2022-08-16] MEDS: Acyclovir 800 MG Tablet PO ×3 (05:16→21:23)
[2022-08-16] MEDS: Menthol/Lanolin/Calamine/Znox 113 GM Tube 1 APPLIC TOPICAL ×2 (05:17→21:30)
[2022-08-16] MEDS: hydrALAZINE 50 MG Tablet PO ×2 (05:20→21:20)
--- NOTE | 2022-08-16 06:00 | NURSING ---
Pt needs much encouragement to do for self and health promotion.
[2022-08-16 06:08] LABS: Absolute Neutrophil Count 2.3 X10^3/uL (2.0-7.7); Basophil# 0.03 X10^3/uL; Basophil% 0.9 % (0-1); Eosinophil# 0.13 X10^3/uL; Eosinophils% 3.8 % (0-5); Hematocrit 34.3 % (37-47); Hemoglobin 10.6 g/dL (12.0-15.0); Lymphocyte % 17.4 % (19-41); Mean Corp Hgb Conc 30.9 g/dL (32-36); Mean Corpuscular Hgb 27.2 pg (27.0-32.0); Mean Corpuscular Volume 88.2 fL (81-99); Mean Platelet Vol. 9.5 fl (6.2-12.0); Monocyte% 11.6 % (0-10); NRBC Flagged by Analyzer 0 % (0-5); Neutrophil # 2.26 X10^3/uL (2.7-7.7); Neutrophil % 65.7 % (47-70); POSITIVE DIFFERENTIAL YES; Platelet Count 149 K/mm3 (150-450); RBC Distribution Width CV 16.7 % (11.6-14.6); RBC Distribution Width SD 53.8 fl (35.1-43.9); Red Blood Count 3.89 M/mm3 (4.2-5.4); White Blood Count 3.4 K/mm3 (4.4-11.0)
[2022-08-16 06:26] LABS: Differential Indicated SCAN CRITERIA MET
[2022-08-16 06:49] LABS: Differential Comment SCANNED
[2022-08-16 06:51] LABS: Anion Gap 8 (5-15); BUN 77 mg/dL (7-18); BUN/Creat Ratio 29.7 RATIO (10-20); Calcium,Total 8.1 mg/dL (8.5-10.1); Chloride 109 mmol/L (98-107); Creatinine, Serum 2.59 mg/dL (0.55-1.02); EST Glomerular Filtration Rate 19 mL/min (>60); Est Glom Filt Rate - Afr Amer 23 mL/min (>60); Estimated Creatinine Clearance 10.99 ml/min; Glucose 155 mg/dL (74-106); Potassium 4.1 mmol/L (3.5-5.1); Sodium Level 137 mmol/L (136-145)
--- NOTE | 2022-08-16 07:55 | US_ITS ---
STUDY: RENAL ULTRASOUND - COMPLETE REASON FOR EXAM: Female, 87 years old. Abnormal lab findings. TECHNIQUE: Ultrasound evaluation of the kidneys was performed with real-time and static edward-scale imaging. Limited study due to patient''s medical condition. COMPARISON: Comparison is made with prior CT scan of the abdomen dated August 13, 2022. FINDINGS: RIGHT KIDNEY: Normal location of the right kidney, which is normal in size. The right kidney measures 9.3 cm x 3.5 cm x 6 cm. There is a normal cortex of the right kidney. The renal cortex measures 1.5 cm. There is a 1.2 cm x 0.9 cm x 1.1 cm cyst. Tiny calculi are seen within the right kidney. There is no right hydronephrosis. DISTAL RIGHT URETER: There is non-visualization of the distal right ureter. There is no demonstrated right ureterovesical junction calculus. There is no demonstrated right ureteral jet. LEFT KIDNEY: with mild renal atrophy. The left kidney measures 8 cm x 3.8 cm x 4.3 cm. There is a normal cortex of the left kidney. The renal cortex measures 1.2 cm. There is no left renal mass or cyst. Scattered nonobstructive tiny intrarenal calculi. There is no left hydronephrosis. DISTAL LEFT URETER: There is non-visualization of the distal left ureter. There is no demonstrated left ureterovesical junction calculus. There is no demonstrated left ureteral jet. BLADDER: The bladder is empty at the time of the examination. US/Kidney and Bladder IMPRESSION: Small bilateral nonobstructive intrarenal calculi. No evidence of hydronephrosis. Mild atrophy of the left kidney. Electronically Signed: Larry Abraham MD at 13:56 EDT ,
[2022-08-16] MEDS: 0.9% Saline Lock 10 ML Syringe IV ×2 (08:20→21:29)
[2022-08-16] MEDS: Ferrous Sulfate 325 MG Tablet PO (08:21)
[2022-08-16] MEDS: Aspirin E.C. 81 MG Tablet PO (08:21)
[2022-08-16] MEDS: Neomycin/Polymyxin/Dexameth 5ML OPTH.BTL 1 DRP LEFT EYE ×4 (10:50→21:28)
[2022-08-16] MEDS: Albumin Human 25% (50 mL) 12.5 GM/50 ML IV.SOLN IV (10:51)
[2022-08-16] MEDS: Metoprolol(XL)Succ 25 MG Tablet PO (10:56)
--- NOTE | 2022-08-16 12:06 | CASEMGMT ---
[facility] has declined patient. RIN sent a message to Greta with TCU to see if TCU has any beds. Greta will review referral. Emani CARLOS
[2022-08-16 13:12] LABS: Anion Gap 5 (5-15); BUN 77 mg/dL (7-18); BUN/Creat Ratio 29.5 RATIO (10-20); Calcium,Total 8.2 mg/dL (8.5-10.1); Chloride 108 mmol/L (98-107); Creatinine, Serum 2.61 mg/dL (0.55-1.02); EST Glomerular Filtration Rate 18 mL/min (>60); Est Glom Filt Rate - Afr Amer 22 mL/min (>60); Estimated Creatinine Clearance 10.91 ml/min; Glucose 199 mg/dL (74-106); Potassium 3.8 mmol/L (3.5-5.1); Sodium Level 135 mmol/L (136-145)
[2022-08-16 13:39] LABS: Pathologist Review Reviewed
--- NOTE | 2022-08-16 15:56 | PN.HOSP_ITS ---
Reason for Visit Reason for Visit: Diagnoses Dehydration (08/13/22) Hypo-osmolality and hyponatremia (08/13/22) Epilepsy, unspecified, not intractable, with status epilepticus (08/13/22) Hepatic encephalopathy (08/13/22) Chronic kidney disease, unspecified (08/13/22) Subjective Subjective More awake and alert today, denied abdominal pain or shortness of breath Objective Data Objective Data Vital Signs: Vital Signs Temp Pulse Resp BP Pulse Ox O2 Del Method 97.7 F L 72 16 119/40 L 100 Room Air 08/16/22 10:44 08/16/22 10:56 08/16/22 10:44 08/16/22 14:01 08/16/22 10:44 08/16/22 10:44 Oxygen Delivery Method Room Air Weight: 45.6 kg Body Mass Index (BMI) 39.2 Intake & Output: Intake and Output for Last 24 Hours 08/14/22 08/15/22 08/16/22 23:59 23:59 23:59 Intake Total 960.42 / 960.42 290 / 290 300 / 300 Balance 960.42 / 960.42 290 / 290 300 / 300 Lab / Micro Data Result Diagrams: 08/16/22 05:55 08/16/22 12:15 Labs: Laboratory Results - last 24 hr 08/14/22 04:15: Diff Path Review Reviewed 08/16/22 05:55: WBC 3.4 L, RBC 3.89 L, Hgb 10.6 L, Hct 34.3 L, MCV 88.2, MCH 27.2, MCHC 30.9 L, RDW Std Deviation 53.8 H, RDW Coeff of Meng 16.7 H, Plt Count 149 L, MPV 9.5, Immature Gran % (Auto) 0.600, Neut % (Auto) 65.7, Lymph % (Auto) 17.4 L, [place] % (Auto) 11.6 H, Eos % (Auto) 3.8, Baso % (Auto) 0.9, Absolute Neuts (auto) 2.3, Absolute Lymphs (auto) 0.60 L, Nucleated RBC % 0, Differential Comment SCANNED, Diff Path Review September08/16/22 05:55: Sodium 137, Potassium 4.1, Chloride 109 H, Carbon Dioxide 20.0 L , Anion Gap 8, BUN 77 H, Creatinine 2.59 H, Estim Creat Clear Calc 10.99, Est GFR (MDRD) Af Amer 23 L, Est GFR (MDRD) Non-Af 19 L, BUN/Creatinine Ratio 29.7 H , Glucose 155 H, Calcium 8.1 L 08/16/22 12:15: Sodium 135 L, Potassium 3.8, Chloride 108 H, Carbon Dioxide 22.0, Anion Gap 5, BUN 77 H, Creatinine 2.61 H, Estim Creat Clear Calc 10.91, Est GFR (MDRD) Af Amer 22 L, Est GFR (MDRD) Non-Af 18 L, BUN/Creatinine Ratio 29.5 H, Glucose 199 H, Calcium 8.2 L Radiography Diagnostic Testing: Radiology Impression Renal Ultrasound 08/16/22 07:55 IMPRESSION: Small bilateral nonobstructive intrarenal calculi. No evidence of hydronephrosis. Mild atrophy of the left kidney. Electronically Signed: Larry Abraham MD at 13:56 EDT , Rhythm Strip Rhythm Strip: Sinus Rhythm Rate: 91 Ectopy: None Physical Exam Narrative General: Awake and alert today HEENT: Atraumatic, normocephalic Eyes: Anicteric, has lesions that are crusting over left eye Neck: Supple Respiratory: Somewhat diminished at the bases, normal respiratory effort Cardiovascular: Regular rate GI: Soft, nontender, somewhat distended without rebound, guarding, rigidity Extremities: No edema Musculoskeletal: Moving all extremities Neuro: No overt focal neurological deficits Skin: No rashes appreciated Psych: Cooperative Assessment & Plan Assessment/Plan (1) Acute hepatic encephalopathy: (2) CKD (chronic kidney disease): (3) Hyponatremia: (4) Epilepsy with status epilepticus, not intractable: PLAN: Plan #KELLY on CKD stage IIIb -Kidney function initially improved slightly but has progressively worsened since that time. Had some gentle hydration and albumin with worsening, retroperitoneal ultrasound fairly unremarkable -Nephrology consulted -Urine studies ordered #Hepatic encephalopathy along with metabolic encephalopathy secondary to UTI and acute on chronic hyponatremia -Ammonia 99 on admission -Had missed several doses of lactulose due to being too tired, was able to wake up and take dose this a.m. and had bowel movement after -Continue lactulose -CT head on admission with moderate cortical and central atrophy but no other acute abnormality -We will treat UTI -Hyponatremia improving -08/15: Beginning to improve, continue lactulose. Seems to have slight bump in BUN/creatinine, will give dose of albumin. Speech is consulted as p.o. intake improving but she did have a coughing episode -08/16: Mental status continues to improve #Urinary tract infection -Urine culture had not been sent on admission -Continue Rocephin for empiric course given convincing UA #Shingles -Has left periorbital lesions that are crusting -Was seen by Optho as an outpatient on -Continue eyedrops and acyclovir #Cirrhosis -Has frequent paracentesis and had 8 L of fluid removed over the course of 1 week, daughter reports she did get albumin after that however -Held diuretics on admission as patient required gentle hydration, given need for multiple bowel movements likely inducing diarrhea and still poor p.o. we will hold off on diuretics at this time with low threshold to resume -08/15: Giving dose of albumin and is seems somewhat intravascularly depleted and has albumin of 1.8, holding diuretics. #Anemia -Has history of chronic iron deficiency anemia with no external source identified -Hemoglobin 9.6, yesterday 11.5 but no active bleeding appreciated, has had variable hemoglobin in the past -Follows with oncology for this and she had GI evaluation December 2020 with upper and lower endoscopies in January 2021 which demonstrated esophageal varices, chronic gastritis, hemorrhoids, diverticulosis -Continue iron -Suspect dilutional given 2 L of IVF but will check fecal occult in the event there is underlying GI bleed that may be worsening or contributing to picture -08/15: FOBT had yet to be collected but no blood reported and hemoglobin stable, will DC order #Hypothyroidism -TSH last month within normal limits -Continue Synthroid #Hyponatremia -Improved from 06 15-, continue to trend #Seizure disorder -Continue phenytoin #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
--- NOTE | 2022-08-16 16:18 | CASEMGMT ---
TCU accepted patient. SW notified patient's daughter Farida via phone. [facility] level [facility] care when ready. Emani CARLOS
[2022-08-16 17:01] LABS: Urine Chloride 43 mmol/L (Not Establ.); Urine Sodium 50 mmol/L (Not Establ.)
[2022-08-16 17:02] LABS: Urine Sodium 49 mmol/L (Not Establ.)
[2022-08-16 17:49] LABS: Osmolality, Urine 386 mOsm/KG
[2022-08-16] MEDS: Pantoprazole Sodium 40 MG Tablet PO (21:23)
[2022-08-17] VITALS (7 sets, daily range): BP systolic 106–133; BP diastolic 42–51; PULSE 72–81; RESP 15–17; TEMP 36.4–36.6; O2SAT 100; BMI 19.6
[2022-08-17] MEDS: Lactulose 20 GM/30 ML UDC PO ×4 (02:49→13:05)
[2022-08-17 05:07] LABS: Absolute Lymphocyte Count 0.37 X10^3/uL (0.83-4.51); Absolute Neutrophil Count 2.6 X10^3/uL (2.0-7.7); Basophil# 0.02 X10^3/uL; Basophil% 0.6 % (0-1); Eosinophil# 0.14 X10^3/uL; Hemoglobin 10.3 g/dL (12.0-15.0); Lymphocyte # 0.37 X10^3/ul (0.83-4.51); Lymphocyte % 10.6 % (19-41); Mean Corp Hgb Conc 30.3 g/dL (32-36); Mean Corpuscular Hgb 27.4 pg (27.0-32.0); Mean Corpuscular Volume 90.4 fL (81-99); Monocyte# 0.35 X10^3/uL; NRBC Flagged by Analyzer 0 % (0-5); Neutrophil # 2.59 X10^3/uL (2.7-7.7); Neutrophil % 74.2 % (47-70); POSITIVE DIFFERENTIAL YES; Platelet Count 134 K/mm3 (150-450); RBC Distribution Width CV 16.6 % (11.6-14.6); RBC Distribution Width SD 55.1 fl (35.1-43.9); Red Blood Count 3.76 M/mm3 (4.2-5.4); White Blood Count 3.5 K/mm3 (4.4-11.0)
[2022-08-17 05:11] LABS: Differential Indicated SCAN CRITERIA MET
[2022-08-17 05:31] LABS: Anion Gap 10 (5-15); BUN 75 mg/dL (7-18); BUN/Creat Ratio 29.3 RATIO (10-20); Calcium,Total 8.2 mg/dL (8.5-10.1); Chloride 108 mmol/L (98-107); Creatinine, Serum 2.56 mg/dL (0.55-1.02); EST Glomerular Filtration Rate 19 mL/min (>60); Est Glom Filt Rate - Afr Amer 23 mL/min (>60); Estimated Creatinine Clearance 11.12 ml/min; Glucose 178 mg/dL (74-106); Potassium 3.6 mmol/L (3.5-5.1); Sodium Level 137 mmol/L (136-145)
[2022-08-17] MEDS: Levothyroxine 125 MCG Tablet PO (05:43)
[2022-08-17] MEDS: Acyclovir 800 MG Tablet PO ×2 (05:43→13:06)
[2022-08-17] MEDS: hydrALAZINE 50 MG Tablet PO (05:43)
[2022-08-17] MEDS: Phenytoin Na 100 MG Capsule PO ×2 (05:43→13:05)
[2022-08-17] MEDS: Menthol/Lanolin/Calamine/Znox 113 GM Tube 1 APPLIC TOPICAL ×2 (05:43→13:05)
[2022-08-17 05:46] LABS: Differential Comment SCANNED
[2022-08-17] MEDS: Metoprolol(XL)Succ 25 MG Tablet PO (08:51)
--- NOTE | 2022-08-17 08:51 | CON.PCM.RE_ITS ---
Assessment & Plan Assessment/Plan (1) CKD (chronic kidney disease) stage 5, GFR less than 15 ml/min: PLAN: not a dialysis candidate. Pt agrees to no dialysis. Discussed with primary service (2) Acute hepatic encephalopathy: PLAN: resolved (3) FTT (failure to thrive) in adult: PLAN: chronic debilitation, (4) Cachexia: (5) Hyponatremia: PLAN: improved (6) Dehydration: (7) History of transcatheter aortic valve replacement (TAVR): (8) Cirrhosis of liver with ascites: (9) Essential hypertension: HPI Consult Data Date of Consult: 08/17/22 HPI Narrative Reason for Consultation: CKD stage 5 HPI Narrative: MERCEDES SORTO, is a 87 cachectic, emaciated, chronically debilitated F who prese nted to ED on 08/13 for confusion, encephalopathy with hyperammonemia, renal failure, dehydration, and, hyponatremia. She has CKD and is not a dialysis candidate. She is in agreement to no dialysis. She has been eating. Denied nausea, vomiting. no fever, chills, cough. Her daughter takes care of her at home. She has a history of liver cirrhosis requiring paracentesis in the past. [facility] Medical History Anemia of chronic renal failure, stage 3 (moderate) Basal cell carcinoma Bilateral carotid bruits Cancer Cardiology follow-up encounter Cataracts, bilateral Chronic cough Chronic diastolic (congestive) heart failure Chronic renal disease, stage 3, moderately decreased glomerular filtration rate (GFR) between 30-59 mL/min/1.73 square meter Cirrhosis of liver with ascites COVID-19 (03/26/21) Debility Diabetes mellitus Easy bruising Essential hypertension Gastric reflux GERD (gastroesophageal reflux disease) History of renal disease History of transcatheter aortic valve replacement (TAVR) (03/09/20) Hoarseness Hyperlipidemia Hypertension Hypothyroid Hypothyroidism TRACY (iron deficiency anemia) Insulin dependent diabetes mellitus Iron deficiency anemia due to chronic blood loss Left bundle branch block (LBBB) Lower extremity edema Non-rheumatic tricuspid valve insufficiency Non-smoker Nonrheumatic aortic (valve) stenosis Nonrheumatic mitral valve stenosis with insufficiency Pleural effusion Pleural effusion, left Proteus pneumonia Secondary pulmonary arterial hypertension Seizure Seizure disorder Seizures Status epilepticus Status post abdominal paracentesis Thrombocytopenia Thyroid disease Traumatic open wound of right lower leg with delayed healing Type 2 diabetes mellitus without complication Unresponsive Walker as ambulation aid Wears glasses Home Medications acetaminophen 325 mg tablet 650 mg PO Q8H PRN Pain 1-10 Or Fever 06/01/20 [History Last Taken Unknown] cholecalciferol (vitamin D3) 25 mcg (1,000 unit) tablet 1,000 unit PO DAILY 06/29/20 [History Last Taken 08/12/22] bumetanide 1 mg tablet 1 mg PO BID 07/07/20 [History Last Taken 08/12/22] phenytoin sodium extended 100 mg capsule 100 mg PO TID #90 caps 12/03/20 [Rx Last Taken 08/12/22] epoetin franklin-epbx 2,000 unit/mL injection solution (Retacrit) 2,000 unit subcut .Q 2 WEEKS 01/04/21 [History Last Taken 1 Month Ago ~07/16/22] pantoprazole 40 mg tablet,delayed release 40 mg PO DAILY Check with primary doctor #0 tabs 02/15/21 [Rx Last Taken 08/12/22] ferrous sulfate 325 mg (65 mg iron) tablet (iron) 325 mg PO DAILY 05/26/21 [History Last Taken 08/12/22] levothyroxine 100 mcg tablet 125 mcg PO DAILY THYROID 10/19/21 [History Last Taken 08/12/22] ascorbic acid (vitamin C) 125 mg chewable tablet 125 mg PO DAILY 02/08/22 [History Last Taken 08/12/22] aspirin 81 mg tablet,delayed release 81 mg PO Q OTHER DAY heart 02/08/22 [History Last Taken 08/12/22] spironolactone 50 mg tablet (Aldactone) 50 mg PO DAILY 06/28/22 [History Last Taken 08/12/22] metoprolol succinate 25 mg tablet,extended release 24 hr (Toprol XL) 25 mg PO DAILY #90 tabs 07/06/22 [Rx Last Taken 08/12/22] hydralazine 50 mg tablet 50 mg PO TID HTN 08/13/22 [History Last Taken 08/12/22] emexhder-cynbqxgex-fhtfclvb 3.5 mg/mL-10,000 unit/mL-0.1% eye drops 1 drp LEFT EYE 4XD SHINGLES 08/13/22 [History Last Taken 08/12/22] valacyclovir 1 gram tablet 1,000 mg PO TID SHINGLES 08/13/22 [History Last Taken 08/12/22] Allergy/AdvReac Type Severity Reaction Status Date / Time No Known Allergies Allergy Verified 08/09/22 11:30 Family History Brother Myocardial infarction, Onset Age: 50 Father Myocardial infarction, Onset Age: 60 Surgical History History of abdominal paracentesis (03/11/20) History of bilateral cataract extraction History of cholecystectomy History of left heart catheterization (11/11/19) Hx of colonoscopy Social History (Updated 08/13/22 @ 08:[address] Lazaro Finley MD) household members: none housing: house Smoking Status: Never smoker second hand exposure: No alcohol intake: never substance use type: does not use diet: low salt well-balanced diet: daily or most days caffeine: Yes Type: coffee Number of servings: 2 eating out: rarely or never what type of physical activity do you participate in: walking duration: < 15 minutes/day kvng/roman catholic: Congregational seatbelt use: always ROS Review of Systems ROS Unobtainable: other Details: poor historian Constitutional Constitutional: Reports weakness and other Details: chronic debilitation, bedridden. Able to feed self Respiratory/Chest Respiratory/Chest: Denies dyspnea on exertion Gastrointestinal Gastrointestinal: Denies abdominal pain, anorexia, diarrhea or nausea Hematologic/Lymphatic Hematologic/Lymphatic: Reports anemia, easy bleeding and easy bruising Physical Exam Const alert and oriented x3 Constitutional Narrative: chronic debilitation, frail Nutritional Appearance: cachectic and thin HEENT HEENT Narrative: shingles on over left eye on face Resp no use of accessory muscles and clear to auscultation bilaterally Cardio regular rate, no murmurs and no rub GI non-tender and non-distended Palpation: soft; Negative for ascites Extremity no clubbing, cyanosis or edema Skin General Skin Exam: ecchymosis Neuro Neuro Narrative: gen weakness, frail Psych cooperative Lab / Micro Data Result Diagrams: 08/17/22 04:32 08/17/22 04:32 Labs: Laboratory Results - last 24 hr 08/14/22 04:15: Diff Path Review Reviewed 08/16/22 12:15: Sodium 135 L, Potassium 3.8, Chloride 108 H, Carbon Dioxide 22.0, Anion Gap 5, BUN 77 H, Creatinine 2.61 H, Estim Creat Clear Calc 10.91, Est GFR (MDRD) Af Amer 22 L, Est GFR (MDRD) Non-Af 18 L, BUN/Creatinine Ratio 29.5 H, Glucose 199 H, Calcium 8.2 L 08/16/22 16:35: Ur Random Sodium 50, Urine Creatinine 77.20, Urine Potassium 21.0, Urine Chloride 43 08/16/22 16:35: Ur Random Sodium 49 08/16/22 16:35: Urine Osmolality 386 08/17/22 04:32: WBC 3.5 L, RBC 3.76 L, Hgb 10.3 L, Hct 34.0 L, MCV 90.4, MCH 27.4, MCHC 30.3 L, RDW Std Deviation 55.1 H, RDW Coeff of Meng 16.6 H, Plt Count 134 L, MPV 10.0, Immature Gran % (Auto) 0.600, Neut % (Auto) 74.2 H, Lymph % (Auto) 10.6 L, Campbell % (Auto) 10.0, Eos % (Auto) 4.0, Baso % (Auto) 0.6, Absolute Neuts (auto) 2.6, Absolute Lymphs (auto) 0.37 L, Nucleated RBC % 0, Differential Comment SCANNED, Diff Path Review September08/17/22 04:32: Sodium 137, Potassium 3.6, Chloride 108 H, Carbon Dioxide 19.0 L , Anion Gap 10, BUN 75 H, Creatinine 2.56 H, Estim Creat Clear Calc 11.12, Est GFR (MDRD) Af Amer 23 L, Est GFR (MDRD) Non-Af 19 L, BUN/Creatinine Ratio 29.3 H , Glucose 178 H, Calcium 8.2 L Rhythm Strip Rhythm Strip: Sinus Rhythm Rate: 91 Ectopy: None Radiology Impression Renal Ultrasound 08/16/22 07:55 IMPRESSION: Small bilateral nonobstructive intrarenal calculi. No evidence of hydronephrosis. Mild atrophy of the left kidney. Electronically Signed: Larry Abraham MD at 13:56 EDT ,
[2022-08-17] MEDS: Ferrous Sulfate 325 MG Tablet PO (08:52)
[2022-08-17] MEDS: Neomycin/Polymyxin/Dexameth 5ML OPTH.BTL 1 DRP LEFT EYE ×2 (08:52→13:06)
--- NOTE | 2022-08-17 09:59 | PN.HOSP_ITS ---
Reason for Visit Reason for Visit: Diagnoses Dehydration (08/13/22) Hypo-osmolality and hyponatremia (08/13/22) Epilepsy, unspecified, not intractable, with status epilepticus (08/13/22) Hepatic encephalopathy (08/13/22) Chronic kidney disease, unspecified (08/13/22) Subjective Subjective Denies any complaints today, denies abdominal pain Objective Data Objective Data Vital Signs: Vital Signs Temp Pulse Resp BP Pulse Ox O2 Del Method 97.5 F L 81 17 125/51 H 100 Room Air 08/17/22 08:49 08/17/22 08:51 08/17/22 08:49 08/17/22 08:51 08/17/22 08:49 08/17/22 08:49 Oxygen Delivery Method Room Air Weight: 45.7 kg Body Mass Index (BMI) 19.6 Intake & Output: Intake and Output for Last 24 Hours 08/15/22 08/16/22 08/17/22 23:59 23:59 23:59 Intake Total 290 / 290 300 / 540 480 / 480 Balance 290 / 290 300 / 540 480 / 480 Lab / Micro Data Result Diagrams: 08/17/22 04:32 08/17/22 04:32 Labs: Laboratory Results - last 24 hr 08/14/22 04:15: Diff Path Review Reviewed 08/16/22 12:15: Sodium 135 L, Potassium 3.8, Chloride 108 H, Carbon Dioxide 22.0, Anion Gap 5, BUN 77 H, Creatinine 2.61 H, Estim Creat Clear Calc 10.91, E st GFR (MDRD) Af Amer 22 L, Est GFR (MDRD) Non-Af 18 L, BUN/Creatinine Ratio 29.5 H, Glucose 199 H, Calcium 8.2 L 08/16/22 16:35: Ur Random Sodium 50, Urine Creatinine 77.20, Urine Potassium 21.0, Urine Chloride 43 08/16/22 16:35: Ur Random Sodium 49 08/16/22 16:35: Urine Osmolality 386 08/17/22 04:32: WBC 3.5 L, RBC 3.76 L, Hgb 10.3 L, Hct 34.0 L, MCV 90.4, MCH 27.4, MCHC 30.3 L, RDW Std Deviation 55.1 H, RDW Coeff of Meng 16.6 H, Plt Count 134 L, MPV 10.0, Immature Gran % (Auto) 0.600, Neut % (Auto) 74.2 H, Lymph % (Auto) 10.6 L, [place] % (Auto) 10.0, Eos % (Auto) 4.0, Baso % (Auto) 0.6, Absolute Neuts (auto) 2.6, Absolute Lymphs (auto) 0.37 L, Nucleated RBC % 0, Differential Comment SCANNED, Diff Path Review September08/17/22 04:32: Sodium 137, Potassium 3.6, Chloride 108 H, Carbon Dioxide 19.0 L , Anion Gap 10, BUN 75 H, Creatinine 2.56 H, Estim Creat Clear Calc 11.12, Est GFR (MDRD) Af Amer 23 L, Est GFR (MDRD) Non-Af 19 L, BUN/Creatinine Ratio 29.3 H , Glucose 178 H, Calcium 8.2 L Radiography Diagnostic Testing: Radiology Impression Renal Ultrasound 08/16/22 07:55 IMPRESSION: Small bilateral nonobstructive intrarenal calculi. No evidence of hydronephrosis. Mild atrophy of the left kidney. Electronically Signed: Larry Abraham MD at 13:56 EDT , Rhythm Strip Rhythm Strip: Sinus Rhythm Rate: 91 Ectopy: None Physical Exam Narrative General: Awake and alert today HEENT: Atraumatic, normocephalic Eyes: Anicteric, has lesions that are crusting over left eye Neck: Supple Respiratory: Somewhat diminished at the bases, normal respiratory effort Cardiovascular: Regular rate GI: Soft, nontender, somewhat distended without rebound, guarding, rigidity Extremities: No edema Musculoskeletal: Moving all extremities Neuro: No overt focal neurological deficits Skin: No rashes appreciated Psych: Cooperative Assessment & Plan Assessment/Plan (1) Acute hepatic encephalopathy: (2) CKD (chronic kidney disease): (3) Hyponatremia: (4) Epilepsy with status epilepticus, not intractable: PLAN: Plan #KELLY on CKD stage IIIb -Kidney function initially improved slightly but has progressively worsened since that time. Had some gentle hydration and albumin with worsening, r etroperitoneal ultrasound fairly unremarkable -Nephrology consulted -Urine studies ordered -08/17 very slightly improved today. Nephrology to evaluate today, if no further work-up or intervention may be able to go to TCU today #Hepatic encephalopathy along with metabolic encephalopathy secondary to UTI and acute on chronic hyponatremia -Ammonia 99 on admission -Had missed several doses of lactulose due to being too tired, was able to wake up and take dose this a.m. and had bowel movement after -Continue lactulose -CT head on admission with moderate cortical and central atrophy but no other ac [place] abnormality -We will treat UTI -Hyponatremia improving -08/15: Beginning to improve, continue lactulose. Seems to have slight bump in BUN/creatinine, will give dose of albumin. Speech is consulted as p.o. intake improving but she did have a coughing episode -08/16: Mental status continues to improve #Urinary tract infection -Urine culture had not been sent on admission -Continue Rocephin for empiric course given convincing UA #Shingles -Has left periorbital lesions that are crusting -Was seen by Optho as an outpatient on -Continue eyedrops and acyclovir #Cirrhosis -Has frequent paracentesis and had 8 L of fluid removed over the course of 1 week, daughter reports she did get albumin after that however -Held diuretics on admission as patient required gentle hydration, given need for multiple bowel movements likely inducing diarrhea and still poor p.o. we will hold off on diuretics at this time with low threshold to resume -08/15: Giving dose of albumin and is seems somewhat intravascularly depleted and has albumin of 1.8, holding diuretics. #Anemia -Has history of chronic iron deficiency anemia with no external source identified -Hemoglobin 9.6, yesterday 11.5 but no active bleeding appreciated, has had variable hemoglobin in the past -Follows with oncology for this and she had GI evaluation December 2020 with upper and lower endoscopies in January 2021 which demonstrated esophageal varices, chronic gastritis, hemorrhoids, diverticulosis -Continue iron -Suspect dilutional given 2 L of IVF but will check fecal occult in the event there is underlying GI bleed that may be worsening or contributing to picture -08/15: FOBT had yet to be collected but no blood reported and hemoglobin stable, will DC order #Hypothyroidism -TSH last month within normal limits -Continue Synthroid #Hyponatremia -Improved from 06 15-, continue to trend #Seizure disorder -Continue phenytoin #History of TAVR 03/09/2020 -continue current management #DVT ppx: SCDs Soledad Posey MD Time spent in the patient's overall evaluation,decision-making process, review of diagnostic data, adjustment of management, discussion with other providers, nursing nursing and ancillary staff involved in patient's care documentation, 30 Minutes Charges/Coding Visit Charges Inpatient E&M: 29725 Subs Hosp L2
[2022-08-17 13:31] LABS: Pathologist Review Reviewed
[2022-08-17 13:35] LABS: Pathologist Review Reviewed
--- NOTE | 2022-08-17 15:13 | TREXTCAR_ITS ---
Diet Diet Order/Speech Therapy: 08/16/22 15:25 Diet: Regular - No Added Salt Food consistency:: Soft & Bite Sized Liquid Consistency:: Regular/Thin Type of Dietary Supplement:: Ensure Compact TID Is pt able to select menu?: No Diet Comments: Direct Supervision/Assist feeding as needed, Meals only if fully alert Routine Orders/Code Status Suppository Type: Dulcolax 10mg Suppository Frequency: Daily PRN Routine Lab Work: BMP (2-3 days) Wound(s) coccyx: Wound Type: Pressure Injury Therapies Physical Therapy: Eval and Treat Occupational Therapy: Eval and Treat Problem/Diagnosis (1) CKD (chronic kidney disease) stage 5, GFR less than 15 ml/min: Status: Chronic Code(s): N18.5 - Chronic kidney disease, stage 5 (2) Acute hepatic encephalopathy: Status: Acute Code(s): K76.82 - Hepatic encephalopathy (3) FTT (failure to thrive) in adult: Status: Acute Code(s): R62.7 - Adult failure to thrive (4) Cachexia: Status: Acute Code(s): R64 - Cachexia (5) Hyponatremia: Status: Acute Code(s): E87.1 - Hypo-osmolality and hyponatremia (6) Dehydration: Status: Acute Code(s): E86.0 - Dehydration (7) History of transcatheter aortic valve replacement (TAVR): Status: Chronic Code(s): Z95.2 - Presence of prosthetic heart valve Comment: TAVR w/ Medtronic Evolut Pro bioprosthetic valve 23 mm 03/09/2020 (8) Cirrhosis of liver with ascites: Status: Chronic Code(s): K74.60 - Unspecified cirrhosis of liver; R18.8 - Other ascites (9) Essential hypertension: Status: Chronic Code(s): I10 - Essential (primary) hypertension Plan 87-year-old female with a history of CKD stage III, heart failure preserved ejection fraction, liver cirrhosis with ascites, anemia, hypothyroidism, history of TAVR, seizure disorder who presented to [facility] 08/13 with weakness and altered mental status. She has a history of cirrhosis with periodic paracentesis and her last 1 was 3 days prior to admission. She had a large-volume paracentesis that day and the week prior with close to 8 L between both. She did receive some albumin but progressively was worse. Of note she also was diagnosed with shingles 2 days prior to admission and started on valacyclovir and topical I treatment by her airplane rental clerk. In the ED she had a sodium of 125 and a creatinine of 2.62 as well as an ammonia of 99 and a UA concerning for UTI. MRI brain with chronic changes. Admitted for dehydration, hepatic encephalopathy, hyponatremia. She was started on lactulose and gently hydrated. Her mental status slowly improved and she was evaluated by physical therapy who felt she would benefit from placement and family agreed. On day of discharge she denied any abdominal pain, reported feeling fair with no complaints voiced. Discharge instructions as followed: -Continue lactulose to titrate to 2-3 bowel movements daily -Given slight decrease in kidney function diuretics have been held. Would recommend checking BMP in 2 to 3 days and if kidney function stable or improved can resume low-dose of diuretics -Continue valacyclovir through 08/19 and continue eyedrops in left eye -Additionally there is concern for UTI and you will be discharged on cefdinir 300 mg twice daily for 7 days -Please call your primary care provider's office upon discharge to schedule a hospital follow up within 1 week. -For any concerning signs or symptoms please call 911 or proceed to the nearest emergency department #KELLY on CKD stage IIIb-improving #Hepatic encephalopathy along with metabolic encephalopathy secondary to UTI and acute on chronic hyponatremia #Urinary tract infection #Shingles #Cirrhosis #Anemia #Hypothyroidism #Hyponatremia #Seizure disorder #History of TAVR 03/09/2020 Allergies/Procedures Done in Hospital Allergies No Known Allergies Allergy (Verified 08/09/22 11:30) Procedures: - (Renal ultra sound, CT abd and pelvis) Type of Care/Length of Stay Estimated LOS: Convalescent Care Less Than 30 days Type of Care Needed: Skilled Rehab Potential: Fair Prognosis: Fair Additional Orders/Day of Discharge Day of Discharge: 08/17/22 Dietary and Speech Recommendations Dietitian Recommendations/Changes: Will change diet to regular/no added salt; fluid restriction as needed per physician; texture/consistency as per FIRE INSPECTOR. Will add ensure compact TID w/ meals as tolerated. Adjust ONS as needed. Discharge Plan Admission Admit Date/Time: 08/13/22 09:12 Primary Reason for Your Visit: Confusion and fall Attending Provider: Soledad Posey Primary Care Provider: Aleksandar Clemens [employer] Providers: Mariella Montgomery ; Kelly Maxwell Instructions Patient Instructions: ED Fall Prevention Additional Instructions / Restrictions: DISCHARGE INSTRUCTIONS PLEASE READ *Please take this with you to your next doctors appointment* -Continue lactulose to titrate to 2-3 bowel movements daily -Given slight decrease in kidney function diuretics have been held. Would recommend checking BMP in 2 to 3 days and if kidney function stable or improved can resume low-dose of diuretics -Continue valacyclovir through 08/19 and continue eyedrops in left eye -Additionally there is concern for UTI and you will be discharged on cefdinir 300 mg twice daily for 7 days -Please call your primary care provider's office upon discharge to schedule a hospital follow up within 1 week. -For any concerning signs or symptoms please call 911 or proceed to the nearest emergency department Discharge Orders/Prescriptions Prescriptions: New lactulose 20 gram/30 mL Solution 20 g PO TID 30 Days Qty: 2700 0RF Rx Instructions: Titrate to 2-3 bowel movements daily cefdinir 300 mg capsule 300 mg PO BID 7 Days Qty: 14 0RF Continued Retacrit 2,000 unit/mL solution 2,000 unit subcut .Q 2 WEEKS Label Comments: Varying dose phenytoin sodium extended 100 mg capsule 100 mg PO TID Qty: 90 2RF ferrous sulfate [iron] 325 mg (65 mg iron) tablet 325 mg PO DAILY ascorbic acid (vitamin C) 125 mg tablet,chewable 125 mg PO DAILY aspirin 81 mg tablet,delayed release (DR/EC) 81 mg PO Q OTHER DAY cholecalciferol (vitamin D3) 1,000 UNIT tablet 1,000 unit PO DAILY levothyroxine 100 mcg tablet 125 mcg PO DAILY pantoprazole 40 MG tablet,delayed release (DR/EC) 40 mg PO DAILY Qty: 0 0RF Rx Instructions: take at night due to levothyroxine in AM neomycin-polymyxin B-dexameth 3.5mg/mL-10,000 unit/mL-0.1 % drops,suspension 1 drp LEFT EYE 4XD Label Comments: INSTILL 1 (ONE) DROP IN THE LEFT EYE FOUR TIMES DAILY hydralazine 50 mg Tablet 50 mg PO TID valacyclovir 1 gram tablet 1,000 mg PO TID 3 Days Qty: 0 0RF Label Comments: TAKE 1 TABLET BY MOUTH THREE TIMES DAILY metoprolol succinate [Toprol XL] 25 mg tablet extended release 24 hr 25 mg PO DAILY Qty: 90 3RF Held bumetanide 1 mg tablet 1 mg PO BID Hold Instructions: Resume on 08/19/22. Label Comments: Take 1 Tablet orally twice per day for 90 days spironolactone [Aldactone] 50 mg tablet 50 mg PO DAILY Hold Instructions: Resume on 08/19/22. Discontinued acetaminophen 325 MG tablet 650 mg PO Q8H PRN (Reason: Pain 1-10 Or Fever) Referrals / Follow Up: Aleksandar Clemens Chi, MD [Primary Care Provider] - Within 1 Week Disposition Disposition (needs filled in before D/C Order can be placed): [facility]
--- NOTE | 2022-08-17 15:26 | CASEMGMT ---
Patient will be discharged to TCU today. RN did notify patient's daughter earlier, but SW will call daughter to make sure she is aware. Emani CARLOS
--- NOTE | 2022-08-17 15:29 | DS.PCM_ITS ---
Providers Date of Admission: 08/13/22 Date of Discharge: 08/17/22 Primary Care Physician: Dr. Aleksandar Clemens MD Consultations 08/16/22 13:54 Consult: Nephrology Routine Consulting Provider: Kelly Maxwell Reason for Consult: Worsening renal fxn EMERGENT Consult: No MD Notified: Yes Date Notified: 08/16/22 Time Notified: 15:00 Method of Notification: Text Reason For Visit: HEPATIC ENCEPHALOPATHY, HYPONATREMIA, CIRRHOSIS Diagnosis Discharge Diagnosis (1) CKD (chronic kidney disease) stage 5, GFR less than 15 ml/min: Status: Chronic Code(s): N18.5 - Chronic kidney disease, stage 5 (2) Acute hepatic encephalopathy: Status: Acute Code(s): K76.82 - Hepatic encephalopathy (3) FTT (failure to thrive) in adult: Status: Acute Code(s): R62.7 - Adult failure to thrive (4) Cachexia: Status: Acute Code(s): R64 - Cachexia (5) Hyponatremia: Status: Acute Code(s): E87.1 - Hypo-osmolality and hyponatremia (6) Dehydration: Status: Acute Code(s): E86.0 - Dehydration (7) History of transcatheter aortic valve replacement (TAVR): Status: Chronic Code(s): Z95.2 - Presence of prosthetic heart valve (8) Cirrhosis of liver with ascites: Status: Chronic Code(s): K74.60 - Unspecified cirrhosis of liver; R18.8 - Other ascites (9) Essential hypertension: Status: Chronic Code(s): I10 - Essential (primary) hypertension Plan #KELLY on CKD stage IIIb-improving #Hepatic encephalopathy along with metabolic encephalopathy secondary to UTI and acute on chronic hyponatremia #Urinary tract infection #Shingles #Cirrhosis #Anemia #Hypothyroidism #Hyponatremia #Seizure disorder #History of TAVR 03/09/2020 Medications at Discharge Home Medications cholecalciferol (vitamin D3) 25 mcg (1,000 unit) tablet 1,000 unit PO DAILY 06/29/20 bumetanide 1 mg tablet 1 mg PO BID 07/07/20 phenytoin sodium extended 100 mg capsule 100 mg PO TID #90 caps 12/03/20 epoetin franklin-epbx 2,000 unit/mL injection solution (Retacrit) 2,000 unit subcut .Q 2 WEEKS 01/04/21 pantoprazole 40 mg tablet,delayed release 40 mg PO DAILY Check with primary doctor #0 tabs 02/15/21 ferrous sulfate 325 mg (65 mg iron) tablet (iron) 325 mg PO DAILY 05/26/21 levothyroxine 100 mcg tablet 125 mcg PO DAILY THYROID 10/19/21 ascorbic acid (vitamin C) 125 mg chewable tablet 125 mg PO DAILY 02/08/22 aspirin 81 mg tablet,delayed release 81 mg PO Q OTHER DAY heart 02/08/22 spironolactone 50 mg tablet (Aldactone) 50 mg PO DAILY 06/28/22 metoprolol succinate 25 mg tablet,extended release 24 hr (Toprol XL) 25 mg PO DAILY #90 tabs 07/06/22 hydralazine 50 mg tablet 50 mg PO TID HTN 08/13/22 keosenqt-lwcrdbdrn-uachnkad 3.5 mg/mL-10,000 unit/mL-0.1% eye drops 1 drp LEFT EYE 4XD SHINGLES 08/13/22 cefdinir 300 mg capsule 300 mg PO BID 7 days #14 caps 08/17/22 lactulose 20 gram/30 mL oral solution 20 g (30 mL) PO TID 30 days #2,700 mL 08/17/22 valacyclovir 1 gram tablet 1,000 mg PO TID SHINGLES 3 days #0 tabs 08/17/22 Hospital Course Summary of Care Provided Minutes Spent on Discharge: 35 Hospital Course: 87-year-old female with a history of CKD stage III, heart failure preserved ejection fraction, liver cirrhosis with ascites, anemia, hypothyroidism, history of TAVR, seizure disorder who presented to [facility] 08/13 with weakness and altered mental status. She has a history of cirrhosis with periodic paracentesis and her last 1 was 3 days prior to admission. She had a large-volume paracentesis that day and the week prior with close to 8 L between both. She did receive some albumin but progressively was worse. Of note she also was diagnosed with shingles 2 days prior to admission and started on valacyclovir and topical I treatment by her agricultural commodities inspector. In the ED she had a sodium of 125 and a creatinine of 2.62 as well as an ammonia of 99 and a UA concerning for UTI. MRI brain with chronic changes. Admitted for dehydration, hepatic encephalopathy, hyponatremia. She was started on lactulose and gently hydrated. Her mental status slowly improved and she was evaluated by physical therapy who felt she would benefit from placement and family agreed. On day of discharge she denied any abdominal pain, reported feeling fair with no complaints voiced. Discharge instructions as followed: -Continue lactulose to titrate to 2-3 bowel movements daily -Given slight decrease in kidney function diuretics have been held. Would recommend checking BMP in 2 to 3 days and if kidney function stable or improved can resume low-dose of diuretics -Continue valacyclovir through 08/19 and continue eyedrops in left eye -Additionally there is concern for UTI and you will be discharged on cefdinir 300 mg twice daily for 7 days -Please call your primary care provider's office upon discharge to schedule a [facility]sp[facility] follow up within 1 week. -For any concerning signs or symptoms please call 911 or proceed to the nearest emergency department Physical Exam Narrative General: Awake and alert today HEENT: Atraumatic, normocephalic Eyes: Anicteric, has lesions that are crusting over left eye Neck: Supple Respiratory: Somewhat diminished at the bases, normal respiratory effort Cardiovascular: Regular rate GI: Soft, nontender, somewhat distended without rebound, guarding, rigidity Extremities: No edema Musculoskeletal: Moving all extremities Neuro: No overt focal neurological deficits Skin: No rashes appreciated Psych: Cooperative Weight / BMI Weight Weight: 45.7 kg Body Mass Index (BMI) 19.6 ABG / Lab / Microbiology Data Result Diagrams: 08/17/22 04:32 08/17/22 04:32 Laboratory: Laboratory Results - last 24 hr 08/16/22 05:55: Diff Path Review Reviewed 08/16/22 16:35: Ur Random Sodium 50, Urine Creatinine 77.20, Urine Potassium 21.0, Urine Chloride 43 08/16/22 16:35: Ur Random Sodium 49 08/16/22 16:35: Urine Osmolality 386 08/17/22 04:32: WBC 3.5 L, RBC 3.76 L, Hgb 10.3 L, Hct 34.0 L, MCV 90.4, MCH 27.4, MCHC 30.3 L, RDW Std Deviation 55.1 H, RDW Coeff of Meng 16.6 H, Plt Count 134 L, MPV 10.0, Immature Gran % (Auto) 0.600, Neut % (Auto) 74.2 H, Lymph % (Auto) 10.6 L, Vilas % (Auto) 10.0, Eos % (Auto) 4.0, Baso % (Auto) 0.6, Absolute Neuts (auto) 2.6, Absolute Lymphs (auto) 0.37 L, Nucleated RBC % 0, Differential Comment SCANNED, Diff Path Review Reviewed 08/17/22 04:32: Sodium 137, Potassium 3.6, Chloride 108 H, Carbon Dioxide 19.0 L , Anion Gap 10, BUN 75 H, Creatinine 2.56 H, Estim Creat Clear Calc 11.12, Est GFR (MDRD) Af Amer 23 L, Est GFR (MDRD) Non-Af 19 L, BUN/Creatinine Ratio 29.3 H , Glucose 178 H, Calcium 8.2 L Meaningful Use Info Meaningful Use Diagnoses (Choose all that apply): None applicable Discharge Plan Admission Admit Date/Time: 08/13/22 09:12 Primary Reason for Your Visit: Confusion and fall Attending Provider: Soledad Posey Primary Care Provider: Aleksandar Clemens Chi Consulting Providers: Mariella Montgomery ; Kelly Maxwell Instructions Patient Instructions: ED Fall Prevention Additional Instructions / Restrictions: DISCHARGE INSTRUCTIONS PLEASE READ *Please take this with you to your next doctors appointment* -Continue lactulose to titrate to 2-3 bowel movements daily -Given slight decrease in kidney function diuretics have been held. Would recommend checking BMP in 2 to 3 days and if kidney function stable or improved can resume low-dose of diuretics -Continue valacyclovir through 08/19 and continue eyedrops in left eye -Additionally there is concern for UTI and you will be discharged on cefdinir 300 mg twice daily for 7 days -Please call your primary care provider's office upon discharge to [facility] -For any concerning signs or symptoms please call 911 or proceed to the nearest emergency department Discharge Orders/Prescriptions Prescriptions: New lactulose 20 gram/30 mL Solution 20 g PO TID 30 Days Qty: 2700 0RF Rx Instructions: Titrate to 2-3 bowel movements daily cefdinir 300 mg capsule 300 mg PO BID 7 Days Qty: 14 0RF Continued Retacrit 2,000 unit/mL solution 2,000 unit subcut .Q 2 WEEKS Label Comments: Varying dose phenytoin sodium extended 100 mg capsule 100 mg PO TID Qty: 90 2RF ferrous sulfate [iron] 325 mg (65 mg iron) tablet 325 mg PO DAILY ascorbic acid (vitamin C) 125 mg tablet,chewable 125 mg PO DAILY aspirin 81 mg tablet,delayed release (DR/EC) 81 mg PO Q OTHER DAY cholecalciferol (vitamin D3) 1,000 UNIT tablet 1,000 unit PO DAILY levothyroxine 100 mcg tablet 125 mcg PO DAILY pantoprazole 40 MG tablet,delayed release (DR/EC) 40 mg PO DAILY Qty: 0 0RF Rx Instructions: take at night due to levothyroxine in AM neomycin-polymyxin B-dexameth 3.5mg/mL-10,000 unit/mL-0.1 % drops,suspension 1 drp LEFT EYE 4XD Label Comments: INSTILL 1 (ONE) DROP IN THE LEFT EYE FOUR TIMES DAILY hydralazine 50 mg Tablet 50 mg PO TID valacyclovir 1 gram tablet 1,000 mg PO TID 3 Days Qty: 0 0RF Label Comments: TAKE 1 TABLET BY MOUTH THREE TIMES DAILY metoprolol succinate [Toprol XL] 25 mg tablet extended release 24 hr 25 mg PO DAILY Qty: 90 3RF Held bumetanide 1 mg tablet 1 mg PO BID Hold Instructions: Resume on 08/19/22. Label Comments: Take 1 Tablet orally twice per day for 90 days spironolactone [Aldactone] 50 mg tablet 50 mg PO DAILY Hold Instructions: Resume on 08/19/22. Discontinued acetaminophen 325 MG tablet 650 mg PO Q8H PRN (Reason: Pain 1-10 Or Fever) Referrals / Follow Up: Aleksandar Clemens Chi, MD [Primary Care Provider] - Within 1 Week Disposition Disposition (needs filled in before D/C Order can be placed): [facility] Facility Charges/Coding Visit Charges Inpatient E&M: 69352 Disch Hosp >30min
--- NOTE | 2022-08-17 16:01 | NURSING ---
This RN called report to CARL Diehl in TCU. Waiting for COVID test results, then may transfer over to TCU unit.
== END 2022-08-17 17:03 | disposition skilled nursing facility (03) | DRG 441 ==
LOC: ED 08:53 → ICU 09:25 → PCU 17:17
PROVIDERS: Admitting Provider Student in an Organized Health Care Education/Training Program; Emergency Provider Emergency Medicine; PCP Family Medicine Geriatric Medicine; Visit Provider Internal Medicine
DX: K76.82 Hepatic encephalopathy (principal); G93.41 Metabolic encephalopathy; I13.2 Hypertensive heart and chronic kidney disease with heart failure and with stage 5 chronic kidney disease, or end stage renal disease; N17.9 Acute kidney failure, unspecified; E87.1 Hypo-osmolality and hyponatremia; N18.5 Chronic kidney disease, stage 5; R18.8 Other ascites; I50.32 Chronic diastolic (congestive) heart failure; N39.0 Urinary tract infection, site not specified; D63.1 Anemia in chronic kidney disease; E11.22 Type 2 diabetes mellitus with diabetic chronic kidney disease; G40.909 Epilepsy, unspecified, not intractable, without status epilepticus; K74.60 Unspecified cirrhosis of liver; Z79.4 Long term (current) use of insulin; E03.9 Hypothyroidism, unspecified; E86.0 Dehydration; E78.5 Hyperlipidemia, unspecified; D50.9 Iron deficiency anemia, unspecified; B02.9 Zoster without complications; Z66 Do not resuscitate; R53.81 Other malaise; R62.7 Adult failure to thrive; Z79.82 Long term (current) use of aspirin; Z20.822 Contact with and (suspected) exposure to COVID-19; Z86.16 Personal history of COVID-19
CPT/HCPCS: 36415; 49083; 70450; 71045; 74176; 76770; 80048; 80053; 81001; 82140; 82436; 82570; 83930; 83935; 84133; 84300; 84484; 85025; 85610; 87426; 92526; 92610; 92611; 93005; 97110; 97161; 97166; 97530; 97535; 99285; J7030; J7050; P9047; P9612; A4216

== ENCOUNTER 2022-08-17 17:00 | Inpatient (IN) | payer MEDICARE, OTHER, SELFPAY ==
[2022-08-17 17:15] VITALS: BP 138/66; PULSE 72; RESP 18; TEMP 36.1; O2SAT 100; BMI 19.1
[2022-08-17 18:10] LABS: Bedside Glucose 224 mg/dL (74-106)
--- NOTE | 2022-08-17 18:50 | NURSING ---
Spoke with the daughter regarding Retacrit inj. Per daughter medication is managed by Dr. Rendon and is as needed based on patient's levels. Per daughter patient has an appointment on Tuesday 08/[address] Rendon, she is unsure of the time. States she will let staff know of time when she finds out.
[2022-08-17] MEDS: Cefdinir 300 MG Capsule PO (19:36)
[2022-08-17] MEDS: Neomycin/Polymyxin/Dexameth 5ML OPTH.BTL 1 DRP LEFT EYE ×2 (19:36→22:39)
[2022-08-17] MEDS: Acyclovir 800 MG Tablet PO ×2 (19:36→22:37)
--- NOTE | 2022-08-17 20:01 | HP.PCM_ITS ---
HPI - General General Date of Admission: 08/17/22 Date of Service: 08/17/22 Chief Complaint: Here for rehabilitation. HPI Narrative 08/13/2022 MERCEDES SORTO, is a 87 Female who presents to [facility] Emergency Department with change in mental status. 08/13/2022 EKG sinus rhythm with first degree A-V block, inferior infarct, age undetermined, anterolateral infarct, age undetermined. Weak, confused, slurring speech for 2 days. Paracentesis 3 days prior for ascites from cirrhosis of liver. Recent diagnosis of shingles left face. Fell at home. Ammonia 99, CT brain negative, CT abdomen/pelvis showed diffuse ascites. Very confused. 08/13/2022 Admit to Hospital. Lactulose for acute hepatic encephalopathy. Gentle IV fluids for hyponatremia. Rocephin IV for urinary tract infection. Valtrex for herpes zoster. 08/14/2022 Arouses easily, but sleepy. Continue Lactulose. Hyponatremia improving. Shingles left eye improving. Check stool guaiac for anemia. 08/15/2022 No complaints. Encephalopathy improving with Lactulose, add Albumin. Speech therapy for aspiration. Continue Rocephin for urinary tract infection, no urine culture. Cancel stool guaiac. 08/16/2022 More awake, more alert. Mental status improved. Hold diuretics for dehydration. 08/17/2022 Change Rocephin to Cefdinir to finish treatment of urinary tract infection. 08/17/2022 Admit to TCU with debility, here for rehabilitation, strengthening, p rior to discharge home alone. Video cameras in house, daughters live next door, and stop by every day. [facility] Medical History Anemia of chronic renal failure, stage 3 (moderate) Basal cell carcinoma Bilateral carotid bruits Cancer Cardiology follow-up encounter Cataracts, bilateral Chronic cough Chronic diastolic (congestive) heart failure Chronic renal disease, stage 3, moderately decreased glomerular filtration rate (GFR) between 30-59 mL/min/1.73 square meter Cirrhosis of liver with ascites COVID-19 (03/26/21) Debility Diabetes mellitus Easy bruising Essential hypertension Gastric reflux GERD (gastroesophageal reflux disease) History of renal disease History of transcatheter aortic valve replacement (TAVR) (03/09/20) Hoarseness Hyperlipidemia Hypertension Hypothyroid Hypothyroidism TRACY (iron deficiency anemia) Insulin dependent diabetes mellitus Iron deficiency anemia due to chronic blood loss Left bundle branch block (LBBB) Lower extremity edema Non-rheumatic tricuspid valve insufficiency Non-smoker Nonrheumatic aortic (valve) stenosis Nonrheumatic mitral valve stenosis with insufficiency Pleural effusion Pleural effusion, left Proteus pneumonia Secondary pulmonary arterial hypertension Seizure Seizure disorder Seizures Status epilepticus Status post abdominal paracentesis Thrombocytopenia Thyroid disease Traumatic open wound of right lower leg with delayed healing Type 2 diabetes mellitus without complication Unresponsive Walker as ambulation aid Wears glasses Home Medications cholecalciferol (vitamin D3) 25 mcg (1,000 unit) tablet 1,000 unit PO DAILY supplement 06/29/20 [History Last Taken 08/12/22] bumetanide 1 mg tablet 1 mg PO BID heart 07/07/20 [History Last Taken 08/12/22] epoetin franklin-epbx 2,000 unit/mL injection solution (Retacrit) 2,000 unit subcut .Q 2 WEEKS anemia 01/04/21 [History Last Taken 1 Month Ago ~07/16/22] ferrous sulfate 325 mg (65 mg iron) tablet (iron) 325 mg PO DAILY supplement 05/26/21 [History Last Taken 08/12/22] levothyroxine 100 mcg tablet 125 mcg PO DAILY THYROID 10/19/21 [History Last Taken 08/12/22] ascorbic acid (vitamin C) 125 mg chewable tablet 125 mg PO DAILY supplement 02/08/22 [History Last Taken 08/12/22] aspirin 81 mg tablet,delayed release 81 mg PO Q OTHER DAY heart 02/08/22 [History Last Taken 08/12/22] spironolactone 50 mg tablet (Aldactone) 50 mg PO DAILY blood pressure 06/28/22 [History Last Taken 08/12/22] hydralazine 50 mg tablet 50 mg PO TID HTN 08/13/22 [History Last Taken 08/12/22] jelacrvx-cqgwitqfa-alwgcshw 3.5 mg/mL-10,000 unit/mL-0.1% eye drops 1 drp LEFT EYE 4XD SHINGLES 08/13/22 [History Last Taken 08/12/22] cefdinir 300 mg capsule 300 mg PO BID antibiotic 08/17/22 [History Last Taken Unknown] lactulose 20 gram/30 mL oral solution 20 g PO TID Bowels 08/17/22 [History Last Taken Unknown] metoprolol succinate 25 mg tablet,extended release 24 hr (Toprol XL) 25 mg PO DAILY blood pressure 08/17/22 [History Last Taken Unknown] pantoprazole 40 mg tablet,delayed release 40 mg PO DAILY stomach 08/17/22 [History Last Taken Unknown] phenytoin sodium extended 100 mg capsule 100 mg PO TID seizures 08/17/22 [History Last Taken Unknown] valacyclovir 1 gram tablet 1,000 mg PO TID SHINGLES 3 days #0 tabs 08/17/22 [Rx Last Taken 08/12/22] Allergy/AdvReac Type Severity Reaction Status Date / Time No Known Allergies Allergy Verified 08/09/22 11:30 Family History Brother Myocardial infarction, Onset Age: 50 Father Myocardial infarction, Onset Age: 60 Surgical History History of abdominal paracentesis (03/11/20) History of bilateral cataract extraction History of cholecystectomy History of left heart catheterization (11/11/19) Hx of colonoscopy Social History household members: none housing: house Smoking Status: Never smoker second hand exposure: No alcohol intake: never substance use type: does not use diet: low salt well-balanced diet: daily or most days caffeine: Yes Type: coffee Number of servings: 2 eating out: rarely or never what type of physical activity do you participate in: walking duration: < 15 minutes/day kvng/gnosticist: [employer] seatbelt use: always ROS Constitutional Constitutional: Denies chills, fever(s) or weight gain ENT HEENT: Denies headache(s), nasal congestion or nasal discharge Cardiovascular Cardiovascular: Denies chest pain or palpitations Respiratory/Chest Respiratory/Chest: Denies cough, excessive phlegm production or shortness of breath with exertion Gastrointestinal Gastrointestinal: Denies abdominal pain, nausea or vomiting Genitourinary Genitourinary: Denies dysuria Musculoskeletal Musculoskeletal: Denies joint pain or joint swelling Integumentary Integumentary: Denies rash or wounds Neurologic Neurologic: Denies focal weakness, numbness or tingling Psychiatric Psychiatric: Denies anxiety, auditory hallucinations, depression, homicidal ideation or suicidal ideation Vital Signs Vital Signs Vital Signs: 08/17/22 17:15 Temperature 97.0 F L Temperature Source Oral Pulse Rate 72 Respiratory Rate 18 Blood Pressure 138/66 H Blood Pressure Mean 90 Blood Pressure Source Monitor Pulse Ox 100 Oxygen Delivery Method Room Air Weight Weight: 44.316 kg Body Mass Index (BMI) 19.1 Physical Exam Const alert General Appearance: cooperative HEENT normocephalic Eyes PERRL and EOMs intact bilaterally Neck supple, no JVD and no carotid bruits Resp normal respiratory effort, normal air movement and clear to auscultation bilaterally Cardio regular rate and regular rhythm GI normal to inspection, nondistended, normoactive bowel sounds, non-tender and non-distended Extremity normal capillary refill General Extremity: Negative for edema Skin no rashes or lesions noted General Skin Exam: no breakdown Psych affect normal Appearance: appropriate Results Lab / Micro Data Labs: Laboratory Results - last 24 hr 08/17/22 17:48: POC Glucose 224 H Assessment & Plan Assessment/Plan (1) Debility: (2) Hepatic encephalopathy: (3) Hyponatremia: (4) Urinary tract infection: (5) Herpes zoster: (6) Chronic kidney disease, stage 4 (severe): (7) Ascites: (8) 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: (9) Seizure disorder: (10) Anemia in chronic kidney disease: (11) GERD (gastroesophageal reflux disease): (12) Iron deficiency anemia: (13) Hypothyroidism: (14) Essential (primary) hypertension: PLAN: Plan 87 year old female with below past medical history hospitalized for acute hepatic encephalopathy secondary to KENNEDY cirrhosis, complicated by hyponatremia, urinary tract infection, herpes zoster, admitted to TCU with debility, here for rehabilitation, strengthening, prior to discharge home alone. * Debility - PT/OT. * Dysphagia - ST. * Pain - Tylenol 1000mg q6h prn pain (1-10). * Bowel - Lactulose 20gm tid, Dulcolax 10mg daily prn. * Adult immunization - Administer pneumonia vaccine, covid19 vaccine, flu vaccine. * DVT prophylaxis - Hold anemia. * Herpes Zoster - Acyclovir 800mg 5x/day thru 08/19/2022, Neosporin 1gtt os 4x/day thru 08/19/2022. * Urinary tract infection - Cefdinir 300mg bid thru 08/24/2022. * Iron deficiency anemia - Ferrex 150mg qam, Vitamin C 500mg qam. * Hypertension - Metoprolol succinate 25mg daily, Hydralazine 50mg tid. * Hypothyroidism - Levothyroxine 125mcg daily. * GERD - Pantoprazole 40mg qhs. * Seizure disorder - Dilantin 100mg tid. * Ascites - Aldactone 50mg daily, Paracentesis as needed.
[2022-08-17 22:00] VITALS: PULSE 72; RESP 16; O2SAT 99
[2022-08-17 22:21] LABS: Bedside Glucose 254 mg/dL (74-106)
[2022-08-17] MEDS: Lactulose 20 GM/30 ML UDC PO (22:36)
[2022-08-17 22:37] VITALS: BP 128/67; PULSE 82
[2022-08-17] MEDS: hydrALAZINE 50 MG Tablet PO (22:37)
[2022-08-17] MEDS: Pantoprazole Sodium 40 MG Tablet PO (22:37)
[2022-08-17] MEDS: Phenytoin Na 100 MG Capsule PO (22:38)
[2022-08-18 05:44] LABS: Absolute Lymphocyte Count 0.44 X10^3/uL (0.83-4.51); Absolute Neutrophil Count 2.6 X10^3/uL (2.0-7.7); Basophil# 0.02 X10^3/uL; Basophil% 0.5 % (0-1); Eosinophils% 2.7 % (0-5); Hematocrit 31.3 % (37-47); Hemoglobin 9.8 g/dL (12.0-15.0); Lymphocyte # 0.44 X10^3/ul (0.83-4.51); Lymphocyte % 12.1 % (19-41); Mean Corp Hgb Conc 31.3 g/dL (32-36); Mean Corpuscular Hgb 27.3 pg (27.0-32.0); Mean Corpuscular Volume 87.2 fL (81-99); Mean Platelet Vol. 9.4 fl (6.2-12.0); Monocyte# 0.46 X10^3/uL; Monocyte% 12.6 % (0-10); NRBC Flagged by Analyzer 0 % (0-5); Neutrophil # 2.62 X10^3/uL (2.7-7.7); Neutrophil % 72.1 % (47-70); POSITIVE DIFFERENTIAL YES; Platelet Count 120 K/mm3 (150-450); RBC Distribution Width CV 16.5 % (11.6-14.6); RBC Distribution Width SD 51.8 fl (35.1-43.9); Red Blood Count 3.59 M/mm3 (4.2-5.4); White Blood Count 3.6 K/mm3 (4.4-11.0)
[2022-08-18 05:52] LABS: Differential Indicated SCAN CRITERIA MET
[2022-08-18] MEDS: Phenytoin Na 100 MG Capsule PO ×3 (06:16→21:14)
[2022-08-18] MEDS: Cefdinir 300 MG Capsule PO ×2 (06:16→17:00)
[2022-08-18] MEDS: Lactulose 20 GM/30 ML UDC PO ×3 (06:16→21:13)
[2022-08-18] MEDS: Acyclovir 800 MG Tablet PO ×5 (06:16→21:15)
[2022-08-18] MEDS: Levothyroxine 125 MCG Tablet PO (06:16)
[2022-08-18 06:19] VITALS: BP 99/46; PULSE 74
[2022-08-18] MEDS: Neomycin/Polymyxin/Dexameth 5ML OPTH.BTL 1 DRP LEFT EYE ×4 (06:20→21:14)
[2022-08-18 06:26] LABS: Bedside Glucose 190 mg/dL (74-106)
[2022-08-18 06:32] LABS: Differential Comment SCANNED
[2022-08-18 06:36] LABS: Anion Gap 8 (5-15); BUN 74 mg/dL (7-18); BUN/Creat Ratio 29.2 RATIO (10-20); Chloride 108 mmol/L (98-107); Creatinine, Serum 2.53 mg/dL (0.55-1.02); EST Glomerular Filtration Rate 19 mL/min (>60); Est Glom Filt Rate - Afr Amer 23 mL/min (>60); Estimated Creatinine Clearance 10.96 ml/min; Glucose 196 mg/dL (74-106); Potassium 3.7 mmol/L (3.5-5.1); Sodium Level 137 mmol/L (136-145)
[2022-08-18 08:36] VITALS: BP 114/46; PULSE 78
[2022-08-18] MEDS: Iron Polysaccharide Complex 150 MG CAPSULE PO (08:36)
[2022-08-18] MEDS: Metoprolol(XL)Succ 25 MG Tablet PO (08:36)
[2022-08-18] MEDS: Ascorbic Acid 500 MG Tablet PO (08:36)
--- NOTE | 2022-08-18 10:10 | NURSING ---
Called pharmacy to see about giving Retacrit here,she takes 2000units q2 weeks. Per pharmacy they have med and its ok to be given on TCU. Left note for Dr Clemens to order.
[2022-08-18] MEDS: Tuberculin,Purif.prot.deriv. 50 TU/ML Vial 0.1 ML ID (10:46)
[2022-08-18 11:25] LABS: Bedside Glucose 289 mg/dL (74-106)
[2022-08-18 14:23] VITALS: BP 113/56; PULSE 72
[2022-08-18] MEDS: hydrALAZINE 50 MG Tablet PO ×2 (14:23→21:18)
[2022-08-18] MEDS: 0.9% Saline Lock 10 ML Syringe IV (14:34)
[2022-08-18 15:10] VITALS: BP 113/56; PULSE 72; RESP 14; TEMP 35.3; O2SAT 100
--- NOTE | 2022-08-18 15:35 | NURSING ---
Daughter brought in hearing aids and ceo na. At bedside.
[2022-08-18 16:35] LABS: Bedside Glucose 326 mg/dL (74-106)
[2022-08-18] MEDS: Insulin Lispro 100 UNIT/ML INSULN.PEN SC (18:06)
[2022-08-18] MEDS: Ammonium Lactate 225 gm Bottle 1 APPLIC TOPICAL (18:10)
--- NOTE | 2022-08-18 19:24 | NURSING ---
Addendum entered by Miriam Oconnell 08/20/22 17:50: daughter reports she will get injection here. ordered placed for 08/22 Original Note: Spoke with daughter Farida regarding appt with Justice on august 22 and whether he is ok with us giving Retacrit injection here or at his office. daughter will call us and update.
[2022-08-18] MEDS: Pantoprazole Sodium 40 MG Tablet PO (21:15)
[2022-08-18 21:18] VITALS: BP 134/61; PULSE 74
[2022-08-18 21:35] LABS: Bedside Glucose 255 mg/dL (74-106)
[2022-08-18 22:00] VITALS: PULSE 73; RESP 16; O2SAT 98
[2022-08-19] MEDS: Neomycin/Polymyxin/Dexameth 5ML OPTH.BTL 1 DRP LEFT EYE ×4 (04:28→23:05)
[2022-08-19] MEDS: Ammonium Lactate 225 gm Bottle 1 APPLIC TOPICAL ×2 (04:29→17:22)
[2022-08-19] MEDS: Cefdinir 300 MG Capsule PO ×2 (04:29→17:22)
[2022-08-19] MEDS: Acyclovir 800 MG Tablet PO ×5 (04:29→23:00)
[2022-08-19] MEDS: Phenytoin Na 100 MG Capsule PO ×3 (04:29→23:00)
[2022-08-19] MEDS: Spironolactone 50 MG Tablet PO (04:30)
[2022-08-19] MEDS: Lactulose 20 GM/30 ML UDC PO (04:30)
[2022-08-19 04:31] VITALS: BP 134/58; PULSE 74
[2022-08-19] MEDS: hydrALAZINE 50 MG Tablet PO ×3 (04:31→23:06)
[2022-08-19] MEDS: Levothyroxine 125 MCG Tablet PO (04:39)
[2022-08-19 06:30] LABS: Bedside Glucose 220 mg/dL (74-106)
[2022-08-19 09:14] VITALS: PULSE 73
[2022-08-19] MEDS: Metoprolol(XL)Succ 25 MG Tablet PO (09:14)
[2022-08-19] MEDS: Insulin Lispro 100 UNIT/ML INSULN.PEN SC ×3 (09:15→17:21)
[2022-08-19] MEDS: Iron Polysaccharide Complex 150 MG CAPSULE PO (09:15)
[2022-08-19] MEDS: Ascorbic Acid 500 MG Tablet PO (09:15)
--- NOTE | 2022-08-19 09:26 | NS ---
Provided written copy of daily specials/first choice menu w/ instructions on how to order - assisted by ordering special for dinner tonight w/ juice. Food dislikes: not much of a meat eater; prefers hot cereal, likes ensure.
--- NOTE | 2022-08-19 09:27 | PHA.CONS_ITS ---
TCU RX Drug Regimen Review Subjective: 87 YOF admitted to TCU 08/17/22 S/P hospitalization secondary to hepatic encephalopathy, UTI, FTT. Admitted to TCU for rehabilitation/strengthening prior to discharge home where she resides alone. Objective: Allergies No Known Allergies Allergy (Verified 08/09/22 11:30) Current Medications Generic Name Dose Route Start Last Admin Trade Name Freq PRN Reason Stop Dose Admin Acetaminophen 1,000 mg 08/17/22 20:25 Acetaminophen 500 Mg Tablet PO Q6H PRN PRN Pain Score 1-10 Acyclovir 800 mg 08/17/22 18:00 08/19/22 09:14 Acyclovir 800 Mg Tablet PO 08/19/22 22:01 800 mg 5X/DAY FERN Administration Ascorbic Acid 500 mg 08/18/22 08:00 08/19/22 09:15 Ascorbic Acid 500 Mg Tablet PO 500 mg BREAKFAST FERN Administration Bisacodyl 10 mg 08/17/22 17:49 Bisacodyl 5 Mg Tablet PO DAILY PRN PRN Constipation Cefdinir 300 mg 08/17/22 18:00 08/19/22 04:29 Cefdinir 300 Mg Capsule PO 08/24/22 06:01 300 mg BID FERN Administration Epoetin Toribio-epbx 20,000 units 08/22/22 10:00 Epoetin Toribio Epbx 10,000 Units/Ml SC Q14D FERN Hydralazine HCl 50 mg 08/17/22 22:00 08/19/22 04:31 Hydralazine 50 Mg Tablet PO 50 mg TID FERN Administration Hydrocortisone Acetate 25 mg 08/18/22 07:47 Hydrocortisone 25 Mg Suppository RC BID PRN PRN Hemorrhoids Insulin Glargine 15 unit 08/19/22 22:00 Insulin Glargine-Yfgn 100 Unit/Ml Pen SC QHS FERN Insulin Human Lispro 5 unit 08/19/22 06:45 08/19/22 09:15 Insulin Lispro 100 Unit/Ml Insuln.Pen SC 5 units TIDAC FERN Administration Lactic Acid 1 applic 08/18/22 18:00 08/19/22 04:29 Ammonium Lactate 225 Gm Bottle TOPICAL 1 applic BID FERN Administration Protocol Lactulose 20 gm 08/17/22 22:00 08/19/22 04:30 Lactulose 20 Gm/30 Ml Udc PO 20 gm TID FERN Administration Levothyroxine Sodium 125 mcg 08/18/22 06:00 08/19/22 04:39 Levothyroxine 125 Mcg Tablet PO 125 mcg DAILY@0600 FERN Administration Metoprolol Succinate 25 mg 08/18/22 08:00 08/19/22 09:14 Metoprolol(Xl)Succ 25 Mg Tablet PO 25 mg DAILY@0800 FERN Administration Neomycin/Polymyxin/Dexamethasone 1 drp 08/17/22 22:00 08/19/22 04:28 Neomycin/Polymyxin/Dexameth 5ml Opth.Btl LEFT EYE 08/19/22 22:01 1 drp 4X/DAY FERN Administration Pantoprazole Sodium 40 mg 08/17/22 22:00 08/18/22 21:15 Pantoprazole Sodium 40 Mg Tablet PO 40 mg QHS FERN Administration Phenytoin Sodium 100 mg 08/17/22 22:00 08/19/22 04:29 Phenytoin Na 100 Mg Capsule PO 100 mg TID FERN Administration Polysaccharide Iron Complex 150 mg 08/18/22 08:00 08/19/22 09:15 Iron Polysaccharide Complex 150 Mg Capsule PO 150 mg BREAKFAST FERN Administration Sodium Chloride 10 - 40 ml 08/17/22 19:30 08/18/22 14:34 0.9% Saline Lock 10 Ml Syringe IV 10 ml UD PRN Administration SALINE FLUSH Spironolactone 50 mg 08/19/22 06:00 08/19/22 04:30 Spironolactone 50 Mg Tablet PO 50 mg DAILY FERN Administration Tuberculin PPD 0.1 ml 08/25/22 10:00 Tuberculin,Purif.Prot.Deriv. 50 Tu/Ml Vial ID 08/25/22 10:01 X1 ONE Problem List (Last Reviewed 08/17/22 @ 20:[address] 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) Ascites (Acute) Chronic kidney disease, stage 4 (severe) (Chronic) Herpes zoster (Acute) Urinary tract infection (Acute) Hyponatremia (Acute) Hepatic encephalopathy (Acute) Debility (Acute) Vital Signs Temp Pulse Resp BP Pulse Ox O2 Del Method 95.6 F L 73 16 134/58 H 98 Room Air 08/18/22 15:10 08/19/22 09:14 08/18/22 22:00 08/19/22 04:31 08/18/22 22:00 08/18/22 22:00 Oxygen Delivery Method Room Air Weight: 44.316 kg Body Mass Index (BMI) 19.1 Sodium 137 mmol/L (136-145) 08/18/22 05:27 Potassium 3.7 mmol/L (3.5-5.1) 08/18/22 05:27 Chloride 108 mmol/L (98-107) H 08/18/22 05:27 Carbon Dioxide 21.0 mmol/L (21.0-32.0) 08/18/22 05:27 Anion Gap 8 (5-15) 08/18/22 05:27 BUN 74 mg/dL (7-18) H 08/18/22 05:27 Creatinine 2.53 mg/dL (0.55-1.02) H 08/18/22 05:27 Est GFR (MDRD) Af Amer 23 mL/min (>60) L 08/18/22 05:27 Est GFR (MDRD) Non-Af 19 mL/min (>60) L 08/18/22 05:27 BUN/Creatinine Ratio 29.2 RATIO (10-20) H 08/18/22 05:27 Glucose 196 mg/dL (74-106) H 08/18/22 05:27 Assessment/Plan: 1. Pain: Tylenol 1000mg PO Q6h PRN Pain 1-10. Please continue to monitor for increased/decreased S/S pain, PRN medication usage. - To date, the patient has not utilized any doses, or reported pain per EMR review. It appears pain is well managed at this time, continue to monitor. 2. UTI: Cefdinir 300mg PO BID thru 08/24/22. Per EMR review, no culture data available. Please continue to monitor urinary frequency/urgency, resolution of infection. Patient with estimated CrCl ~11 mL/min, which qualifies patient for once daily dosing. Please change Cefdinir dose to 300mg PO Daily, to finish out course of treatment, thank you. 3. Herpes Zoster (To L-face): Acyclovir 800mg PO 5x/day thru 08/19/22, Neosporin ophthalmic drops 1 gtt OS 4x/day thru 08/19/22. Please continue to monitor for resolution of infection, course completes today. 4. Acites/ Encephalopathy: Lactulose 20g PO TID, Aldactone 50mg PO Daily. Please continue to monitor Potassium levels (last 3.7 on 08/19), S/S confusion, ammonia levels as clinically indicated ( last 63 on 08/16). Aldactone is a Beer's Criteria medication which should be avoided in patients with CrCl <30, as well as causing hyponatremia in patients. Please evaluate use in this patient to see if benefit outweighs risk, thank you. 5. Hypertension: Hydralazine 50mg PO TID, Toprol XL 25mg PO Daily. Please continue to monitor BP (range 99-138/46-67), pulse (range 72-82). 6. Hypothyroidism: Synthroid 125mcg PO Daily. Please continue to monitor for S/S hypothyroidism, Thyroid function tests as clinically indicted (last done 07/19/22, WNL). 7.Seizure Disorder: Phenytoin 100mg PO TID. Please continue to monitor LFT, CBC. Please consider obtaining a phenytoin level, as the patient had issues at time of hospital admission which could be potential for toxicity (last phenytoin level was done in 2020 per EMR review). This medication is also a Beer's Criteria medication which can increase the risk of falls and fractures. It does not appear the patient has issues at this time, please continue to monitor for falls. 8. GERD: Protonix 40mg PO QHS. Please continue to monitor for stomach upset, bloating/gas. May also encourage non-pharmacologic options to help minimize GERD exacerbations as well as medication. 9. Iron Deficiency/ anemia: Ferrex 150mg PO daily, Ascorbic acid 500mg PO Daily, Retacrit 20,000 unit SC Q14d. Please continue to monitor iron levels as clinically indicated (last done 06/2022), H/H (Hgb 9.8, Hct 31.3 on 08/18). 10. Skin Integrity: Ammonium lactate topically BID. 11. Hemorrhoids: Hydrocortisone suppositories BID PRN. Please continue to monitor for symptom improvement. - The patient has not required any PRN doses at this time. 12. Bowel: Dulcolax 10mg PO Dialy PRN. Please continue to monitor for increased/decreased constipation and/or diarrhea. Assessment/Plan for indications treated with psychotropic medications: The Patient is not on any psychotropic medications at this time. Medical chart and medication regimen reviewed. The following medication irregularities or issues were identified: 1. UTI: Cefdinir 300mg PO BID thru 08/24/22. Patient with estimated CrCl ~11 mL/min, which qualifies patient for once daily dosing. Please change Cefdinir dose to 300mg PO Daily to finish out course of treatment, thank you. 2. 4. Ascites: Aldactone 50mg PO Daily. Aldactone is a Beer's Criteria medic ation which should be avoided in patients with CrCl <30, as well as causing hyponatremia in patients. Please evaluate use in this patient (est CrCl 11 mL/min) to see if benefit outweighs risk, thank you. 3. Seizure Disorder: Phenytoin 100mg PO TID. Please consider obtaining a phenytoin level, as the last phenytoin level was done in 2020 per EMR review, thank you. Date of Note:: 08/19/22
[2022-08-19 09:54] LABS: Pathologist Review Reviewed
[2022-08-19 11:01] LABS: Bedside Glucose 330 mg/dL (74-106)
--- NOTE | 2022-08-19 11:40 | NURSING ---
Saddle Stitch Operator Note; Activity Asset: Luz Aviles is independent in her choice of daily activities. She has been admitted on precautionary Iso due to shingles and will do activities in her room till this is lifted. She has reading materials, word puzzles her quaker books and cell phone along w/watching tv. Staff will continue daily visit for social, mental and physical well-being.
--- NOTE | 2022-08-19 13:53 | WOUNDNOTE ---
wound photo: [email or web address]
[2022-08-19 14:36] VITALS: PULSE 72
[2022-08-19 14:56] VITALS: BP 123/45; PULSE 72; RESP 19; TEMP 36.9; O2SAT 100
[2022-08-19 16:25] LABS: Bedside Glucose 226 mg/dL (74-106)
--- NOTE | 2022-08-19 16:30 | CASEMGMT ---
Social Work Met with patient to complete initial assessment. Pt known to this worker from previous stay. Confirmed no changes to previous assessment. Pt does live home alone with daughter's assistance. Confirmed no changes to previous MOLST or code status - DNR-CC. Notified nursing as purple bracelet was not placed. Educated to Medicare benefit. Encouraged to contact secondary insurance to ensure copay coverage. Pt's goal is to return home. SW to continue to follow for DC planning. requested referral for palliative services. RIN placed order and consulted [facility]. Emailed referral. Palliative confirmed referral and have spoken to Farida rosario. Francesca Contreras, UTILITY MECHANIC SUPERVISOR METAL ALLOY SCIENTIST
[2022-08-19 21:50] LABS: Bedside Glucose 87 mg/dL (74-106)
[2022-08-19 22:00] VITALS: RESP 18
[2022-08-19] MEDS: Acetaminophen 500 MG Tablet 1000 MG PO (22:59)
[2022-08-19] MEDS: Pantoprazole Sodium 40 MG Tablet PO (22:59)
[2022-08-19 23:06] VITALS: BP 122/54; PULSE 80
[2022-08-20] VITALS (7 sets, daily range): BP systolic 102–124; BP diastolic 50–58; PULSE 71–77; RESP 17; TEMP 36.5; O2SAT 97–99
[2022-08-20 06:20] LABS: Bedside Glucose 128 mg/dL (74-106)
[2022-08-20] MEDS: Levothyroxine 125 MCG Tablet PO (07:12)
[2022-08-20] MEDS: Phenytoin Na 100 MG Capsule PO ×3 (07:12→21:51)
[2022-08-20] MEDS: Cefdinir 300 MG Capsule PO (07:13)
[2022-08-20] MEDS: Ammonium Lactate 225 gm Bottle 1 APPLIC TOPICAL ×2 (07:13→18:09)
[2022-08-20] MEDS: Lactulose 20 GM/30 ML UDC PO ×3 (07:13→21:51)
[2022-08-20] MEDS: Iron Polysaccharide Complex 150 MG CAPSULE PO (08:38)
[2022-08-20] MEDS: Metoprolol(XL)Succ 25 MG Tablet PO (08:38)
[2022-08-20] MEDS: Ascorbic Acid 500 MG Tablet PO (08:38)
[2022-08-20] MEDS: Insulin Lispro 100 UNIT/ML INSULN.PEN SC ×3 (08:38→18:08)
[2022-08-20] MEDS: 0.9% Saline Lock 10 ML Syringe IV (10:12)
--- NOTE | 2022-08-20 11:06 | NURSING ---
dr kwon updated on BP's, aldactone DC'd d/t Creatinine Cl, dilantin level check and omnicef decreased to daily per pharmacy recommendations
[2022-08-20 12:16] LABS: Bedside Glucose 261 mg/dL (74-106)
[2022-08-20 12:32] LABS: Phenytoin (Dilantin) Level 8.5 mL (10.0-20.0)
--- NOTE | 2022-08-20 13:58 | NURSING ---
dilantin level 8.5, dr kwon notified, no changes to dilantin at this time.
[2022-08-20] MEDS: hydrALAZINE 50 MG Tablet PO ×2 (14:19→21:51)
[2022-08-20 16:41] LABS: Bedside Glucose 213 mg/dL (74-106)
[2022-08-20 21:31] LABS: Bedside Glucose 223 mg/dL (74-106)
[2022-08-20] MEDS: Pantoprazole Sodium 40 MG Tablet PO (21:51)
[2022-08-21] MEDS: Cefdinir 300 MG Capsule PO (05:26)
[2022-08-21] MEDS: Lactulose 20 GM/30 ML UDC PO ×3 (05:27→22:50)
[2022-08-21] MEDS: Ammonium Lactate 225 gm Bottle 1 APPLIC TOPICAL ×2 (05:27→17:48)
[2022-08-21] MEDS: Phenytoin Na 100 MG Capsule PO ×3 (05:27→22:50)
[2022-08-21] MEDS: Levothyroxine 125 MCG Tablet PO (05:27)
[2022-08-21 05:38] VITALS: BP 136/65; PULSE 74
[2022-08-21] MEDS: hydrALAZINE 50 MG Tablet PO ×2 (05:38→22:50)
[2022-08-21 06:20] LABS: Bedside Glucose 112 mg/dL (74-106)
[2022-08-21 08:36] VITALS: BP 112/63; PULSE 75
[2022-08-21] MEDS: Iron Polysaccharide Complex 150 MG CAPSULE PO (08:36)
[2022-08-21] MEDS: Metoprolol(XL)Succ 25 MG Tablet PO (08:36)
[2022-08-21] MEDS: Insulin Lispro 100 UNIT/ML INSULN.PEN SC ×3 (08:36→17:48)
[2022-08-21] MEDS: Ascorbic Acid 500 MG Tablet PO (08:37)
[2022-08-21] MEDS: 0.9% Saline Lock 10 ML Syringe IV (09:32)
[2022-08-21 11:40] LABS: Bedside Glucose 172 mg/dL (74-106)
[2022-08-21] MEDS: Acetaminophen 500 MG Tablet 1000 MG PO ×2 (12:32→22:51)
[2022-08-21 14:10] VITALS: BP 100/40; PULSE 71; RESP 18; TEMP 36.4; O2SAT 98
[2022-08-21 14:34] VITALS: BMI 20.5
[2022-08-21 17:30] LABS: Bedside Glucose 195 mg/dL (74-106)
[2022-08-21 21:45] LABS: Bedside Glucose 163 mg/dL (74-106)
[2022-08-21] MEDS: Pantoprazole Sodium 40 MG Tablet PO (22:49)
[2022-08-21 22:50] VITALS: BP 129/58; PULSE 70
--- NOTE | 2022-08-21 23:05 | NURSING ---
Pt ate some peach yogurt and one monique doone cookie for an hs snack. No swallowing difficulty noted. Will continue to monitor.
[2022-08-22 06:21] LABS: Bedside Glucose 129 mg/dL (74-106)
[2022-08-22 06:31] VITALS: BP 126/59; PULSE 67
[2022-08-22] MEDS: hydrALAZINE 50 MG Tablet PO ×3 (06:31→21:52)
[2022-08-22] MEDS: Lactulose 20 GM/30 ML UDC PO ×3 (06:32→21:52)
[2022-08-22] MEDS: Cefdinir 300 MG Capsule PO (06:32)
[2022-08-22] MEDS: Phenytoin Na 100 MG Capsule PO ×3 (06:32→21:52)
[2022-08-22] MEDS: Levothyroxine 125 MCG Tablet PO (06:32)
[2022-08-22] MEDS: 0.9% Saline Lock 10 ML Syringe IV ×3 (06:45→17:58)
[2022-08-22] MEDS: Ammonium Lactate 225 gm Bottle 1 APPLIC TOPICAL ×2 (06:47→17:57)
[2022-08-22 06:50] VITALS: BMI 20.2
[2022-08-22] MEDS: Insulin Lispro 100 UNIT/ML INSULN.PEN SC ×3 (08:34→17:52)
[2022-08-22 08:35] VITALS: BP 126/59; PULSE 67
[2022-08-22] MEDS: Iron Polysaccharide Complex 150 MG CAPSULE PO (08:35)
[2022-08-22] MEDS: Metoprolol(XL)Succ 25 MG Tablet PO (08:35)
[2022-08-22] MEDS: Ascorbic Acid 500 MG Tablet PO (08:35)
--- NOTE | 2022-08-22 10:49 | NURSING ---
Addendum entered by Deepika Colon 08/22/22 12:37: Family brought in vaccine card, patient had bivalent booster, vaccine list updated. Original Note: Offered bivalent Covid booster, patient said she would take but thought she already had vaccine. Called and spoke with daughter, she said her sister will bring her vaccine card in today to see if she still needs booster.
[2022-08-22 11:10] LABS: Bedside Glucose 120 mg/dL (74-106)
[2022-08-22 14:44] VITALS: BP 123/67; PULSE 63; RESP 16; O2SAT 99
[2022-08-22 14:57] VITALS: BP 123/67; PULSE 63
[2022-08-22 14:57] LABS: Basophil# 0.02 X10^3/uL; Basophil% 0.3 % (0-1); Eosinophil# 0.07 X10^3/uL; Eosinophils% 1.2 % (0-5); Hematocrit 31.4 % (37-47); Hemoglobin 10.2 g/dL (12.0-15.0); Lymphocyte % 5.2 % (19-41); Mean Corp Hgb Conc 32.5 g/dL (32-36); Mean Corpuscular Volume 86.3 fL (81-99); Monocyte# 0.39 X10^3/uL; Monocyte% 6.7 % (0-10); NRBC Flagged by Analyzer 0 % (0-5); Neutrophil % 86.3 % (47-70); POSITIVE DIFFERENTIAL YES; Platelet Count 137 K/mm3 (150-450); RBC Distribution Width CV 16.9 % (11.6-14.6); Red Blood Count 3.64 M/mm3 (4.2-5.4); White Blood Count 5.8 K/mm3 (4.4-11.0)
[2022-08-22 14:59] LABS: Differential Indicated SCAN CRITERIA MET
[2022-08-22 15:22] LABS: Differential Comment SCANNED
--- NOTE | 2022-08-22 15:23 | CASEMGMT ---
Social Work SW spoke with Bright from Palliative Medicine who states she met with pt today and pt signed papers with [facility]. SW to update Palliative of pts discharge. NICOLE Nichols
--- NOTE | 2022-08-22 16:22 | NURSING ---
[facility] called and reports can not see patient in office today due to shingles. CBC ordered and office reports can receive Retacrit injection on the floor. CBC results called in and talk to Dr. Rendon and he gives verbal order for Retacrit 40,000 which will last 2 weeks. Patient to follow-up in 2 weeks.
[2022-08-22 16:25] LABS: Bedside Glucose 178 mg/dL (74-106)
[2022-08-22] MEDS: Epoetin Alfa epbx 10,000 UNITS/ML 40000 UNIT SC (17:51)
[2022-08-22 21:35] LABS: Bedside Glucose 228 mg/dL (74-106)
[2022-08-22 21:52] VITALS: BP 123/52; PULSE 71
[2022-08-22] MEDS: Pantoprazole Sodium 40 MG Tablet PO (21:52)
[2022-08-23 06:00] VITALS: BMI 20.2
[2022-08-23 06:12] VITALS: BP 126/60; PULSE 72
[2022-08-23] MEDS: Levothyroxine 125 MCG Tablet PO (06:12)
[2022-08-23] MEDS: hydrALAZINE 50 MG Tablet PO ×3 (06:12→22:56)
[2022-08-23] MEDS: Ammonium Lactate 225 gm Bottle 1 APPLIC TOPICAL ×2 (06:12→17:48)
[2022-08-23] MEDS: Lactulose 20 GM/30 ML UDC PO ×3 (06:12→22:56)
[2022-08-23] MEDS: Cefdinir 300 MG Capsule PO (06:12)
[2022-08-23] MEDS: Phenytoin Na 100 MG Capsule PO ×3 (06:12→22:56)
[2022-08-23 06:41] LABS: Bedside Glucose 77 mg/dL (74-106)
[2022-08-23] MEDS: Ascorbic Acid 500 MG Tablet PO (08:18)
[2022-08-23] MEDS: Iron Polysaccharide Complex 150 MG CAPSULE PO (08:18)
[2022-08-23 08:19] VITALS: PULSE 72
[2022-08-23] MEDS: Metoprolol(XL)Succ 25 MG Tablet PO (08:19)
--- NOTE | 2022-08-23 09:22 | NURSING ---
S.O. changed dressing for wounds after shower. This nurse provided supplies and dated dressings. Explained to S.O. that all dressings must have date on them.
--- NOTE | 2022-08-23 10:01 | NURSING ---
Call from radiology, they can do paracentesis tomorrow (08/24/22) @0800. Patient to be brought down for procedure @0745. Does NOT need to be NPO.
[2022-08-23 11:01] LABS: Bedside Glucose 216 mg/dL (74-106)
[2022-08-23] MEDS: 0.9% Saline Lock 10 ML Syringe IV (11:46)
[2022-08-23] MEDS: Neomycin/Polymyxin/Dexameth 5ML OPTH.BTL 1 DRP LEFT EYE ×2 (11:46→17:45)
[2022-08-23 13:34] VITALS: BP 107/47; PULSE 62; RESP 19; TEMP 35.9; O2SAT 99
[2022-08-23 13:40] VITALS: PULSE 62
[2022-08-23 16:05] LABS: Bedside Glucose 247 mg/dL (74-106)
[2022-08-23] MEDS: Insulin Lispro 100 UNIT/ML INSULN.PEN SC (17:46)
[2022-08-23 22:00] VITALS: PULSE 74; RESP 18; O2SAT 98
[2022-08-23 22:15] LABS: Bedside Glucose 173 mg/dL (74-106)
[2022-08-23 22:56] VITALS: BP 115/53; PULSE 74
[2022-08-23] MEDS: Pantoprazole Sodium 40 MG Tablet PO (22:56)
[2022-08-24] MEDS: Neomycin/Polymyxin/Dexameth 5ML OPTH.BTL 1 DRP LEFT EYE ×3 (05:00→17:56)
[2022-08-24] MEDS: Levothyroxine 125 MCG Tablet PO (05:01)
[2022-08-24] MEDS: Cefdinir 300 MG Capsule PO (05:01)
[2022-08-24 05:02] VITALS: BP 115/46; PULSE 71
[2022-08-24] MEDS: Phenytoin Na 100 MG Capsule PO ×3 (05:02→19:57)
[2022-08-24] MEDS: Ammonium Lactate 225 gm Bottle 1 APPLIC TOPICAL ×2 (05:02→17:56)
--- NOTE | 2022-08-24 05:08 | NURSING ---
Blood pressure 115/46 this AM. Hydralazine held at this time. Lactulose also held due to procedure scheduled for this AM. Will continue to monitor.
[2022-08-24 06:25] LABS: Bedside Glucose 92 mg/dL (74-106)
--- NOTE | 2022-08-24 07:45 | NURSING ---
patient leaving unit at this time for Paracentesis.
--- NOTE | 2022-08-24 08:47 | NURSING ---
Sample Hand Note; MDS Complete
--- NOTE | 2022-08-24 09:09 | NURSING ---
Angela deputy brand inspector. 5350ml fluid removed via paracentesis, recommending this to be done weekly for now.
--- NOTE | 2022-08-24 09:15 | NURSING ---
pt returned from ultrasound at this time via bed.
--- NOTE | 2022-08-24 09:18 | NURSING ---
patient returned from paracentesis
[2022-08-24] MEDS: Ascorbic Acid 500 MG Tablet PO (09:19)
[2022-08-24] MEDS: Iron Polysaccharide Complex 150 MG CAPSULE PO (09:19)
[2022-08-24 09:21] VITALS: BP 131/49; PULSE 65
[2022-08-24] MEDS: Metoprolol(XL)Succ 25 MG Tablet PO (09:21)
[2022-08-24 10:05] VITALS: BMI 18.4
[2022-08-24] MEDS: 0.9% Saline Lock 10 ML Syringe IV ×2 (10:07→13:49)
[2022-08-24] MEDS: Albumin Human 25% (100 mL) 25 GM/100 ML BAG IV ×2 (10:19→12:05)
--- NOTE | 2022-08-24 10:41 | CASEMGMT ---
Social Work IDT met with patient, two daughters present and one dtr via conference call for care plan meeting. Discussed patient's progress in PT/OT/ST/SN. Educated to Medicare benefit. Encouraged to contact secondary insurance to ensure copay coverage. Pt signed with [facility]. IDT recommending / care. Pt's goal is to return home, but broached topic of needing an alternative DC plan. SW to continue to follow for DC planning. Francesca Contreras, CONVENIENCE STORE MANAGER ASSOCIATE PROJECT MANAGER
[2022-08-24 11:20] LABS: Bedside Glucose 153 mg/dL (74-106)
--- NOTE | 2022-08-24 13:39 | CASEMGMT ---
Social Work BIMS (04/05) and PHQ-9 () completed for MDS assessment. SW explored positive responses. Pt reports to all answers relate to admission dx and hopeful for regain in strength, energy and appetite once recovered. Brick Molder Hand requested start of Remeron , which would also assist in mood. SW to continue to monitor. Francesca Contreras, PASSENGER SERVICE MANAGER PATIENT COMPANION
[2022-08-24 13:40] VITALS: BP 105/44; PULSE 69; RESP 17; TEMP 36; O2SAT 96
[2022-08-24 13:45] VITALS: PULSE 69
[2022-08-24] MEDS: Lactulose 20 GM/30 ML UDC PO ×2 (13:45→19:56)
[2022-08-24] MEDS: hydrALAZINE 25 MG Tablet PO ×2 (13:45→19:57)
[2022-08-24 16:35] LABS: Bedside Glucose 205 mg/dL (74-106)
[2022-08-24] MEDS: Insulin Lispro 100 UNIT/ML INSULN.PEN SC (17:56)
[2022-08-24 19:57] VITALS: BP 124/53; PULSE 64
[2022-08-24] MEDS: Pantoprazole Sodium 40 MG Tablet PO (19:57)
[2022-08-24] MEDS: Mirtazapine 15 MG Tablet 7.5 MG PO (19:59)
[2022-08-24 22:05] LABS: Bedside Glucose 226 mg/dL (74-106)
[2022-08-25] VITALS (10 sets, daily range): BP systolic 92–137; BP diastolic 33–59; PULSE 63–72; RESP 16–17; TEMP 35.7–35.8; O2SAT 98–99; BMI 18.1
[2022-08-25] MEDS: Neomycin/Polymyxin/Dexameth 5ML OPTH.BTL 1 DRP LEFT EYE ×5 (00:21→23:41)
[2022-08-25] MEDS: Ammonium Lactate 225 gm Bottle 1 APPLIC TOPICAL ×2 (05:04→18:22)
[2022-08-25] MEDS: Phenytoin Na 100 MG Capsule PO ×2 (05:04→22:58)
[2022-08-25] MEDS: hydrALAZINE 25 MG Tablet PO ×2 (05:04→22:57)
[2022-08-25] MEDS: Cefdinir 300 MG Capsule PO (05:04)
[2022-08-25] MEDS: Levothyroxine 125 MCG Tablet PO (05:04)
[2022-08-25] MEDS: Lactulose 20 GM/30 ML UDC PO ×2 (05:04→22:56)
[2022-08-25 05:57] LABS: Absolute Lymphocyte Count 0.49 X10^3/uL (0.83-4.51); Absolute Neutrophil Count 2.5 X10^3/uL (2.0-7.7); Basophil# 0.02 X10^3/uL; Basophil% 0.6 % (0-1); Eosinophil# 0.11 X10^3/uL; Hematocrit 27.7 % (37-47); Hemoglobin 8.7 g/dL (12.0-15.0); Lymphocyte # 0.49 X10^3/ul (0.83-4.51); Lymphocyte % 13.5 % (19-41); Mean Corp Hgb Conc 31.4 g/dL (32-36); Mean Corpuscular Hgb 27.1 pg (27.0-32.0); Mean Corpuscular Volume 86.3 fL (81-99); Mean Platelet Vol. 9.5 fl (6.2-12.0); Monocyte# 0.51 X10^3/uL; NRBC Flagged by Analyzer 0 % (0-5); Neutrophil # 2.48 X10^3/uL (2.7-7.7); Neutrophil % 68.3 % (47-70); POSITIVE DIFFERENTIAL YES; Platelet Count 127 K/mm3 (150-450); RBC Distribution Width CV 17.1 % (11.6-14.6); RBC Distribution Width SD 53.4 fl (35.1-43.9); Red Blood Count 3.21 M/mm3 (4.2-5.4); White Blood Count 3.6 K/mm3 (4.4-11.0)
[2022-08-25 06:12] LABS: Anion Gap 8 (5-15); BUN 94 mg/dL (7-18); BUN/Creat Ratio 34.4 RATIO (10-20); Chloride 108 mmol/L (98-107); Creatinine, Serum 2.73 mg/dL (0.55-1.02); EST Glomerular Filtration Rate 18 mL/min (>60); Est Glom Filt Rate - Afr Amer 21 mL/min (>60); Estimated Creatinine Clearance 9.78 ml/min; Glucose 103 mg/dL (74-106); Potassium 4.2 mmol/L (3.5-5.1); Sodium Level 136 mmol/L (136-145)
[2022-08-25 06:31] LABS: Bedside Glucose 106 mg/dL (74-106)
[2022-08-25 06:36] LABS: Differential Indicated SCAN CRITERIA MET
[2022-08-25 06:41] LABS: Anisocytosis 1+
[2022-08-25 06:42] LABS: Platelet Estimate SLT DEC (ADEQ)
[2022-08-25] MEDS: Tuberculin,Purif.prot.deriv. 50 TU/ML Vial 0.1 ML ID (09:23)
[2022-08-25] MEDS: Ascorbic Acid 500 MG Tablet PO (09:29)
[2022-08-25] MEDS: Iron Polysaccharide Complex 150 MG CAPSULE PO (09:29)
[2022-08-25] MEDS: Metoprolol(XL)Succ 25 MG Tablet PO (09:29)
[2022-08-25 13:11] LABS: Pathologist Review Reviewed
[2022-08-25 13:41] LABS: Bedside Glucose 123 mg/dL (74-106)
[2022-08-25] MEDS: 0.9% Saline Lock 10 ML Syringe IV (14:55)
--- NOTE | 2022-08-25 15:07 | NURSING ---
attempted to wake pt, pt mumbles yes and goes right back to sleep. won't open eyes. warm wash cloth to face. held dilantin & lactulose d/t unable to get pt to stay awake to even drink water. mouth care with oral swabs done. pt snoring. vitals stable. call light on lap. repositioned on left side. will continue to monitor.
[2022-08-25 16:50] LABS: Bedside Glucose 201 mg/dL (74-106)
[2022-08-25] MEDS: Insulin Lispro 100 UNIT/ML INSULN.PEN SC (18:22)
--- NOTE | 2022-08-25 18:54 | NURSING ---
dr kwon updated, pt not eating or drinking d/t lethargy and weakness. BPs running low today. new order for IVF NS at 60cc/hr until tomorrow.
[2022-08-25] MEDS: 0.9% Normal Saline 1,000 ML 60 ML IV (19:05)
[2022-08-25 21:50] LABS: Bedside Glucose 102 mg/dL (74-106)
[2022-08-26] MEDS: Ammonium Lactate 225 gm Bottle 1 APPLIC TOPICAL ×2 (05:05→18:32)
[2022-08-26] MEDS: Neomycin/Polymyxin/Dexameth 5ML OPTH.BTL 1 DRP LEFT EYE ×3 (05:05→18:31)
[2022-08-26 05:08] VITALS: BP 131/57; PULSE 67; RESP 14
[2022-08-26 06:40] LABS: Bedside Glucose 67 mg/dL (74-106)
[2022-08-26 07:25] LABS: Bedside Glucose 80 mg/dL (74-106)
--- NOTE | 2022-08-26 08:00 | NURSING ---
on unit, notified of patient continued lethargy, 0600 glucose 64,reviewed current IV fluids, very little oral intake and output, cloudy urine, notified patient unable to take AM medication due to unable to awaken patient long enough to take safely. Discussed Hospice. to address
--- NOTE | 2022-08-26 08:40 | NURSING ---
Daughter here, assisted pt to eat breakfast, daughter states she talked to Dr. Clemens this morning and is aware that pt will be going to hospice.
[2022-08-26 08:45] VITALS: BP 131/57; PULSE 67
[2022-08-26] MEDS: Metoprolol(XL)Succ 25 MG Tablet PO (08:45)
--- NOTE | 2022-08-26 08:45 | CASEMGMT ---
Addendum entered by Francesca Contreras 08/26/22 16:13: Pt was denied for IPU. Hospice nurse spoke with family to update. RIN followed up with both dtrs and discussed next steps. After discussion, family requesting referrals to [facility] and [facility]. RIN spoke with admissions at all facilities. [facility] will need to assess pt on Monday, but do have rooms available. [facility] does not have LTC rooms but would need to assess for AL. Dtr's would prefer to pursue [facility] and [facility]. Dtrs plan to tour ALs this weekend, and possibly DC Monday or Monday. Referrals sent. DC postponed. Addendum entered by Francesca Contreras 08/26/22 12:04: Miriam Payan met with pt and dtr in room. Hospice papers signed. Hospice Admission COMFORT ADVISOR, Debbie, on site as well. Once gives approval for admission, [facility] to transport pt to [facility] via cot. Currently scheduled for pick up driver at 1600. RIN met with pt, and two dtrs in room. Provided emotional support. Dietary Comfort Cart provided to family. Offered ongoing support as needed. Family expressed gratitude for care of pt. Original Note: Social Work Received notification from Dr. Clemens with request for pt to admit to [facility] IPU. Dr. Clemens reports to have spoken with pt and dtr, Farida, and both agreeable. RIN placed phone call to Angela at [facility]. Faxed referral. Updated IDT. Will continue to follow. Plan: DC 08/26 to [facility]
[2022-08-26] MEDS: Phenytoin Na 100 MG Capsule PO ×2 (08:46→14:28)
[2022-08-26] MEDS: Levothyroxine 125 MCG Tablet PO (08:46)
[2022-08-26] MEDS: Cefdinir 300 MG Capsule PO (08:46)
[2022-08-26] MEDS: Dext 5%-0.45% NS 1,000 ML 60 ML IV (08:48)
--- NOTE | 2022-08-26 13:15 | DS.PCM_ITS ---
Providers Date of Admission: 08/17/22 Primary Care Physician: Dr. Aleksandar Clemens MD Consultations 08/18/22 01:18 Consult: Onc/Wound/beater operator Routine Comment: open area coccyx 08/18/22 16:29 Consult: Hospice / Palliative Care Routine Consulting Provider: [facility] Reason for Consult: PALLIATIVE - end stage renal and liver disease EMERGENT Consult: No MD Notified: Yes Date Notified: 08/18/22 Time Notified: 16:29 Method of Notification: Text Reason For Visit: ACUTE ENCEPHALOPATHY/ FTT Diagnosis Discharge Diagnosis (1) Debility: Status: Acute Code(s): R53.81 - Other malaise (2) Hepatic encephalopathy: Status: Acute Code(s): K76.82 - Hepatic encephalopathy (3) Hyponatremia: Status: Acute Code(s): E87.1 - Hypo-osmolality and hyponatremia (4) Urinary tract infection: Status: Acute Code(s): N39.0 - Urinary tract infection, site not specified (5) Herpes zoster: Status: Acute Code(s): B02.9 - Zoster without complications (6) Chronic kidney disease, stage 4 (severe): Status: Chronic Code(s): N18.4 - Chronic kidney disease, stage 4 (severe) (7) Ascites: Status: Acute Code(s): R18.8 - Other ascites (8) 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: Status: Acute Code(s): K75.81 - Nonalcoholic steatohepatitis (KENNEDY); K74.60 - Unspecified cirrhosis of liver (9) Seizure disorder: Status: Acute Code(s): G40.909 - Epilepsy, unspecified, not intractable, without status epilepticus (10) Anemia in chronic kidney disease: Status: Chronic Code(s): N18.9 - Chronic kidney disease, unspecified; D63.1 - Anemia in chronic kidney disease (11) GERD (gastroesophageal reflux disease): Status: Acute Code(s): K21.9 - Gastro-esophageal reflux disease without esophagitis (12) Iron deficiency anemia: Status: Acute Code(s): D50.9 - Iron deficiency anemia, unspecified (13) Hypothyroidism: Status: Acute Code(s): E03.9 - Hypothyroidism, unspecified (14) Essential (primary) hypertension: Status: Acute Code(s): I10 - Essential (primary) hypertension Plan 87 year old female with below past medical history hospitalized for acute hepatic encephalopathy secondary to KENNEDY cirrhosis, complicated by hyponatremia, urinary tract infection, herpes zoster, admitted to TCU with debility, here for rehabilitation, strengthening, prior to discharge home alone. * Debility - PT/OT. * Dysphagia - ST. * Pain - Tylenol 1000mg q6h prn pain (1-10). * Bowel - Lactulose 20gm tid, Dulcolax 10mg daily prn. * Adult immunization - Administer pneumonia vaccine, covid19 vaccine, flu vaccine. * DVT prophylaxis - Hold anemia. * Herpes Zoster - Acyclovir 800mg 5x/day thru 08/19/2022, Neosporin 1gtt os 4x/day thru 08/19/2022. * Urinary tract infection - Cefdinir 300mg bid thru 08/24/2022. * Iron deficiency anemia - Ferrex 150mg qam, Vitamin C 500mg qam. * Hypertension - Metoprolol succinate 25mg daily, Hydralazine 50mg tid. * Hypothyroidism - Levothyroxine 125mcg daily. * GERD - Pantoprazole 40mg qhs. * Seizure disorder - Dilantin 100mg tid. * Ascites - Aldactone 50mg daily, Paracentesis as needed. Hospital Course Operations None Procedures Paracentesis Summary of Care Provided Minutes Spent on Discharge: 35 Hospital Course: 87 year old female with below past medical history hospitalized for acute hepatic encephalopathy secondary to KENNEDY cirrhosis, complicated by hyponatremia, urinary tract infection, herpes zoster, admitted to TCU with debility, here for rehabilitation, strengthening, prior to discharge home alone. 08/26/2022 Resident dying, short of breath, somnolence, abdominal distention, abdominal bloating, difficult to make comfortable. Discharge to Inpatient Hospice unit 08/26/2022 for terminal care/comfort care. Physical Exam Const alert General Appearance: cooperative HEENT normocephalic Eyes PERRL and EOMs intact bilaterally Neck supple, no JVD and no carotid bruits Resp normal respiratory effort, normal air movement and clear to auscultation bilaterally Cardio regular rate and regular rhythm GI non-tender GI Narrative: Mild distention. Extremity normal capillary refill General Extremity: Negative for edema Skin no rashes or lesions noted General Skin Exam: no breakdown Psych affect normal Appearance: appropriate Medical Records Data Medical Nutrition Assessment Dietitian: Malnutrition Criteria Met Start: 08/24/22 13:21 Freq: Status: Active Protocol: Document 08/24/22 13:21 SHARRI (Rec: 08/24/22 13:21 [facility] [id number]) Nutrition Malnutrition Evidence of Malnutrition Exists Yes Malnutrition (severe): Chronic Evidenced By Suboptimal Energy Intake ( Severe),Weight Loss (Severe), Physical Changes (Severe) Intake Problem Inadequate Oral Intake Status Inactive Problem Clinical Problem Chronic Disease or Condition Related Malnutrition Etiology related to acute illness and inadequate energy intake Signs/Symptoms as evidenced by po intake meeting <75% of est nutritional needs; UBW: 59.09 kg - before the paracentesis stuff started ( wt loss 27.8% x 4 mo), 06/24/22 wt = 49.09 kg (wt loss of 13.1 % x 2 mo), 3.7% wt loss since adm and 8.5% wt loss today after paracentesis); also w/ obvious fat / muscle loss throughout body (face, upper/ lower extremities, core). Status Active Problem Altered Nutrient-Related Laboratory Values Status Inactive Problem Recommendation Dietitian Recommendations/Changes Continue regular/no added salt ; fluid restriction as needed per physician; texture/ consistency as per AND TAXI INSTRUCTOR BUS TROLLEY. Continue ensure compact TID w/ meals as tolerated. Small portions per res/family request and preference Rec appetite stimulant to help encourage increased po intake Will provide fortified foods as able and magic cup w/ lunch and dinner MD may wish to consider more aggressive nutrition support if po intake continues poor and/or additional wt loss AND if in accordance w/ res/family wishes Weight / BMI Weight Weight: 42 kg Body Mass Index (BMI) 18.1 ABG / Lab / Microbiology Data Result Diagrams: 08/25/22 05:31 08/25/22 05:31 Laboratory: Laboratory Results - last 24 hr 08/25/22 11:09: POC Glucose 123 H 08/25/22 16:19: POC Glucose 201 H 08/25/22 21:24: POC Glucose 102 08/26/22 06:10: POC Glucose 67 L 08/26/22 07:05: POC Glucose 80 Microbiology: Microbiology 08/23/22 07:01 Nasal Secretion SARS-CoV-2 Antigen (Rapid) - Final 08/21/22 05:48 Nasal Secretion SARS-CoV-2 Antigen (Rapid) - Final 08/19/22 05:00 Nasal Secretion SARS-CoV-2 Antigen (Rapid) - Final D/C Instructions Discharge Diet: No restrictions Discharge Activity: Return to Normal Activity and May Shower Additional Instructions: Discharge to Inpatient Hospice unit 08/26/2022 for terminal care/comfort care. Please Follow Up With: Regina Rendon MD When: Cancel. Meaningful Use Info Meaningful Use Diagnoses (Choose all that apply): None applicable Discharge Plan Admission Admit Date/Time: 08/17/22 17:00 Primary Reason for Your Visit: Debility. Attending Provider: Aleksandar Clemens Chi Primary Care Provider: Aleksandar Clemens Chi Consulting Providers: Sandra Patel ; Praveen Carlson ; Soledad Sutton ; Yumi Clinton ; Yanna Watkins INTERNAL CONTROL MANAGER Instructions Additional Instructions / Restrictions: Discharge to Inpatient Hospice unit 08/26/2022 for terminal care/comfort care. Discharge Orders/Prescriptions Prescriptions: Discontinued bumetanide 1 mg tablet 1 mg PO BID Hold Instructions: Resume on 08/19/22. Label Comments: Take 1 Tablet orally twice per day for 90 days Rx Instructions: resume on 08/19/2022 Retacrit 2,000 unit/mL solution 2,000 unit subcut .Q 2 WEEKS Label Comments: Varying dose ferrous sulfate [iron] 325 mg (65 mg iron) tablet 325 mg PO DAILY spironolactone [Aldactone] 50 mg tablet 50 mg PO DAILY Hold Instructions: Resume on 08/19/22. ascorbic acid (vitamin C) 125 mg tablet,chewable 125 mg PO DAILY aspirin 81 mg tablet,delayed release (DR/EC) 81 mg PO Q OTHER DAY cholecalciferol (vitamin D3) 1,000 UNIT tablet 1,000 unit PO DAILY levothyroxine 100 mcg tablet 125 mcg PO DAILY neomycin-polymyxin B-dexameth 3.5mg/mL-10,000 unit/mL-0.1 % drops,suspension 1 drp LEFT EYE 4XD Label Comments: INSTILL 1 (ONE) DROP IN THE LEFT EYE FOUR TIMES DAILY hydralazine 50 mg Tablet 50 mg PO TID valacyclovir 1 gram tablet 1,000 mg PO TID 3 Days Qty: 0 0RF Label Comments: TAKE 1 TABLET BY MOUTH THREE TIMES DAILY phenytoin sodium extended 100 mg capsule 100 mg PO TID pantoprazole 40 MG tablet,delayed release (DR/EC) 40 mg PO DAILY Rx Instructions: take at night due to levothyroxine in AM metoprolol succinate [Toprol XL] 25 mg tablet extended release 24 hr 25 mg PO DAILY cefdinir 300 mg capsule 300 mg PO BID lactulose 20 gram/30 mL solution 20 g PO TID Rx Instructions: Titrate to 2-3 bowel movements daily Referrals / Follow Up: Aleksandar Clemens Chi, MD [Primary Care Provider] - Disposition Disposition (needs filled in before D/C Order can be placed): Hospice in Medical Facility
[2022-08-26 15:35] LABS: Bedside Glucose 220 mg/dL (74-106)
[2022-08-26 15:51] VITALS: TEMP 36.3
--- NOTE | 2022-08-26 16:15 | NURSING ---
Report called to [facility], spoke with nurse Sugar.
[2022-08-26 17:41] LABS: Bedside Glucose 174 mg/dL (74-106)
[2022-08-26 21:45] VITALS: PULSE 64; RESP 16; O2SAT 98
[2022-08-26 21:50] LABS: Bedside Glucose 255 mg/dL (74-106)
[2022-08-26 22:08] VITALS: BP 124/46; PULSE 69
[2022-08-26] MEDS: hydrALAZINE 25 MG Tablet PO (22:08)
[2022-08-26] MEDS: oxyCODONE 5 MG Tablet 2.5 MG PO (22:09)
[2022-08-26] MEDS: Mirtazapine 15 MG Tablet 7.5 MG PO (22:10)
[2022-08-27] MEDS: Neomycin/Polymyxin/Dexameth 5ML OPTH.BTL 1 DRP LEFT EYE ×4 (00:34→23:17)
[2022-08-27] MEDS: Dext 5%-0.45% NS 1,000 ML 60 ML IV ×2 (01:21→18:24)
[2022-08-27 05:27] VITALS: BP 131/40; PULSE 70
[2022-08-27] MEDS: hydrALAZINE 25 MG Tablet PO (05:27)
[2022-08-27] MEDS: oxyCODONE 5 MG Tablet 2.5 MG PO ×3 (05:28→23:07)
[2022-08-27] MEDS: Cefdinir 300 MG Capsule PO (05:28)
[2022-08-27] MEDS: Levothyroxine 125 MCG Tablet PO (05:29)
[2022-08-27] MEDS: Phenytoin Na 100 MG Capsule PO (05:29)
[2022-08-27 06:31] LABS: Bedside Glucose 177 mg/dL (74-106)
[2022-08-27] MEDS: Iron Polysaccharide Complex 150 MG CAPSULE PO (08:57)
[2022-08-27 09:03] VITALS: BP 108/49; PULSE 69
[2022-08-27] MEDS: Metoprolol(XL)Succ 25 MG Tablet PO (09:03)
[2022-08-27] MEDS: Ascorbic Acid 500 MG Tablet PO (09:04)
[2022-08-27 11:30] LABS: Bedside Glucose 222 mg/dL (74-106)
[2022-08-27] MEDS: ALPRAZolam 0.5 MG Tablet 0.25 MG PO ×2 (12:53→23:08)
[2022-08-27 16:00] VITALS: BP 125/42; PULSE 69; RESP 14; TEMP 36.2; O2SAT 99
--- NOTE | 2022-08-27 16:03 | NURSING ---
Patient remains lethargic today and hard to awaken. Family in room and agrees with holding medication except for comfort meds while patient unable to be aroused. NO for Xanax and Phenergan for restlessness while eyes closed and episode of scant amount of dark brown emesis this AM.
[2022-08-27 17:11] LABS: Bedside Glucose 174 mg/dL (74-106)
[2022-08-27 22:06] LABS: Bedside Glucose 197 mg/dL (74-106)
[2022-08-27 22:50] VITALS: BP 133/50; PULSE 71
[2022-08-27] MEDS: Ammonium Lactate 225 gm Bottle 1 APPLIC TOPICAL (22:50)
--- NOTE | 2022-08-28 04:36 | NURSING ---
No void this shift.
[2022-08-28 06:13] VITALS: BP 138/63; PULSE 72
[2022-08-28] MEDS: Ammonium Lactate 225 gm Bottle 1 APPLIC TOPICAL ×2 (06:13→22:23)
[2022-08-28] MEDS: Neomycin/Polymyxin/Dexameth 5ML OPTH.BTL 1 DRP LEFT EYE ×3 (06:18→16:30)
[2022-08-28 06:21] LABS: Bedside Glucose 153 mg/dL (74-106)
[2022-08-28] MEDS: oxyCODONE 5 MG Tablet 2.5 MG PO ×3 (06:22→22:22)
[2022-08-28] MEDS: Dext 5%-0.45% NS 1,000 ML 60 ML IV (11:13)
[2022-08-28] MEDS: ALPRAZolam 0.5 MG Tablet 0.25 MG PO ×2 (11:20→22:21)
[2022-08-28 11:35] LABS: Bedside Glucose 174 mg/dL (74-106)
[2022-08-28 15:07] VITALS: BP 128/46; PULSE 67; RESP 15; TEMP 36.2; O2SAT 100
[2022-08-28 16:31] LABS: Bedside Glucose 155 mg/dL (74-106)
[2022-08-28 21:35] LABS: Bedside Glucose 197 mg/dL (74-106)
[2022-08-28 22:24] VITALS: BP 158/58; PULSE 70
[2022-08-28 22:55] VITALS: O2SAT 99
[2022-08-29] MEDS: Neomycin/Polymyxin/Dexameth 5ML OPTH.BTL 1 DRP LEFT EYE ×3 (00:12→17:27)
[2022-08-29] MEDS: Dext 5%-0.45% NS 1,000 ML 60 ML IV (03:55)
[2022-08-29] MEDS: ALPRAZolam 0.5 MG Tablet 0.25 MG PO (06:28)
[2022-08-29] MEDS: oxyCODONE 5 MG Tablet 2.5 MG PO (06:28)
[2022-08-29 06:38] VITALS: BP 137/47; PULSE 80
[2022-08-29] MEDS: Ammonium Lactate 225 gm Bottle 1 APPLIC TOPICAL (06:40)
[2022-08-29 06:41] LABS: Bedside Glucose 141 mg/dL (74-106)
--- NOTE | 2022-08-29 08:52 | NURSING ---
Family requesting IVF be turned off. Fluids discontinued, left note for Dr. Clemens.
--- NOTE | 2022-08-29 08:55 | NURSING ---
Andrew here to assess pt at this time
[2022-08-29 11:35] LABS: Bedside Glucose 155 mg/dL (74-106)
--- NOTE | 2022-08-29 11:45 | CASEMGMT ---
Addendum entered by Francesca Contreras 08/29/22 16:38: RIN spoke with three dtrs in pt room. SW updated dtrs that currently pt is receiving [facility] services and per Medicare guidelines, pt should continue to remain skilled through 09/10, thus can remain in TCU without receiving therapy. Dtrs relieved with information and would like pt to remain in TCU until she passes, as their fear is pt will pass in transport. SW acknowledged. Still encouraged family to continue pursuing care in the home. Dtrs agreed. Dtrs stated they elected to stop pt's IV fluids and Dr. Clemens has ordered PRN Morphine for pt's discomfort. Dtrs expressed extreme gratitude for care from staff and assistance from this worker. All parties to remain updated. SW updated Andrew and SUSAN. SW to continue to follow. Original Note: Social Work SW followed up with Andrew. They can accept pt. [facility] requires 30 day minimum stay, which would not fit for this pt. RIN spoke with dtr, Farida, to follow up. Family is considering taking pt home with hospice and hired 12/12 care. SW offered list of nonskilled [facility] agencies to contact. Dtr will be visiting this afternoon and SW to meet with family. RIN did provide phone number for [facility] to dtr to begin contacting. Dtr appreciative. SW to continue to follow. Francesca Contreras, SHAUN NEWTONW
[2022-08-29] MEDS: Phenytoin Na 100 MG Capsule PO (13:31)
[2022-08-29 13:41] VITALS: BP 121/46; PULSE 66; RESP 14; TEMP 36.1; O2SAT 99
[2022-08-29] MEDS: morphine (oral solution) 10MG/0.5ML Syringe 10 MG SL/PO (15:22)
[2022-08-29 16:45] LABS: Bedside Glucose 210 mg/dL (74-106)
[2022-08-29 20:41] VITALS: PULSE 78; RESP 20; O2SAT 96
[2022-08-29 22:00] LABS: Bedside Glucose 122 mg/dL (74-106)
[2022-08-30 06:00] VITALS: BMI 18.8
[2022-08-30] MEDS: Phenytoin Na 100 MG Capsule PO (06:05)
[2022-08-30] MEDS: morphine (oral solution) 10MG/0.5ML Syringe 10 MG SL/PO (06:17)
[2022-08-30 06:51] LABS: Bedside Glucose 101 mg/dL (74-106)
--- NOTE | 2022-08-30 10:07 | MDS.RN ---
Information for the mds was obtained from review of the clinical record, interview of resident, staff, and direct observation of resident's care.
[2022-08-30 11:25] LABS: Bedside Glucose 114 mg/dL (74-106)
[2022-08-30] MEDS: Neomycin/Polymyxin/Dexameth 5ML OPTH.BTL 1 DRP LEFT EYE (12:38)
[2022-08-30] MEDS: Ammonium Lactate 225 gm Bottle 1 APPLIC TOPICAL ×2 (12:39→23:59)
--- NOTE | 2022-08-30 13:21 | WOUNDNOTE ---
Pt resting in bed with many family members at bedside. Did not turn patient to assess buttocks at this time.
[2022-08-30 14:32] VITALS: BP 155/67; PULSE 80; RESP 20; TEMP 36.4; O2SAT 96
[2022-08-30] MEDS: Phenytoin Na 100 MG/4 ML UDC PO ×2 (14:57→23:58)
--- NOTE | 2022-08-30 15:54 | CHAPLAIN ---
Type of Pastoral Visit _x__ Initial Visit ___ Follow-up Visit ___ On-call Visit ___ General Patient Visit ___ Spiritual Assessment ___ Family Conference ___ Bereavement ___ Rapid Response ___ Code Blue ___ Other (describe below) Pastoral Care Referral From ___ Patient _x__ Family _x__ Nurse ___ Physician ___ Stunner ___ Supervisor Grain And Yeast Plants ___ Other (describe below) Sacrament/Intervention _x__ Active listening ___ Anointing ___ Roman Catholic ___ Bereavement ___ Communion ___ Kalina exploration ___ ___ Life review _x__ Prayer ___ Reconciliation ___ Sacrament of Sick _x__ Supportive presence ___ Wedding ___ Other (describe below) Pastoral Comments RN notified this metal roaster during rounds in TCU that this patient was at end-of-life stage and would benefit from offering support to pt and family members; two daughters and a DIL are in the room and at bedside; pt eyes barely open but she responds to simple questions with one word answers or a nod of the head; pt is very frail in appearance and is in weakened state; family welcomes the presence and supportive words; family welcomes prayer and spiritual comfort at this time; offer of ongoing support given as desired by the family; other family members may be coming in yet today
--- NOTE | 2022-08-30 16:58 | CASEMGMT ---
Social Work Spoke with Angela at [facility] to update on pt remaining in TCU until further notice. SW followed up dtr's in room. Provided emotional support. Family appreciative. Francesca Contreras, CHANNEL MAN ALGORITHM DESIGN ENGINEER
[2022-08-31 06:00] VITALS: BMI 18.8
[2022-08-31] MEDS: Phenytoin Na 100 MG/4 ML UDC PO (06:09)
[2022-08-31] MEDS: LORazepam 2 MG/ML Bottle 0.5 MG SL ×2 (11:03→15:52)
[2022-08-31] MEDS: Ammonium Lactate 225 gm Bottle 1 APPLIC TOPICAL ×2 (11:12→21:24)
[2022-08-31 14:24] VITALS: BP 124/46; PULSE 74; RESP 14; TEMP 36.9; O2SAT 95
--- NOTE | 2022-08-31 16:08 | CHAPLAIN ---
Type of Pastoral Visit ___ Initial Visit ___ Follow-up Visit ___ On-call Visit ___ General Patient Visit ___ Spiritual Assessment ___ Family Conference ___ Bereavement ___ Rapid Response ___ Code Blue ___ Other (describe below) Pastoral Care Referral From ___ Patient ___ Family ___ Nurse ___ Physician ___ Dye Tank Tender ___ Enrollment Clerk ___ Other (describe below) Sacrament/Intervention ___ Active listening ___ Anointing ___ Advent ___ Bereavement ___ Communion ___ Kalina exploration ___ ___ Life review ___ Prayer ___ Reconciliation ___ Sacrament of Sick ___ Supportive presence ___ Wedding ___ Other (describe below) Pastoral Comments daughter in room with patient who remains quiet and calm without verbal or nonverbal response at this visit; pt is expected to pass away in TCU; daughter is complimentary about care and the comfort of patient; daughter asks for a prayer; presence and prayer given
[2022-08-31 22:18] VITALS: PULSE 76; RESP 12; O2SAT 94
--- NOTE | 2022-09-01 03:17 | NURSING ---
Presents in bed eyes closed, lethargy continues, no distress/restlessness/anxiety observed at this time. Resps even and unlabored. Call light in reach.
[2022-09-01 05:34] LABS: Absolute Lymphocyte Count 0.44 X10^3/uL (0.83-4.51); Absolute Neutrophil Count 3.7 X10^3/uL (2.0-7.7); Basophil# 0.02 X10^3/uL; Basophil% 0.4 % (0-1); Eosinophil# 0.09 X10^3/uL; Eosinophils% 1.9 % (0-5); Hematocrit 29.2 % (37-47); Hemoglobin 8.8 g/dL (12.0-15.0); Lymphocyte # 0.44 X10^3/ul (0.83-4.51); Lymphocyte % 9.4 % (19-41); Mean Corp Hgb Conc 30.1 g/dL (32-36); Mean Corpuscular Hgb 27.8 pg (27.0-32.0); Mean Corpuscular Volume 92.1 fL (81-99); Mean Platelet Vol. 8.8 fl (6.2-12.0); Monocyte# 0.42 X10^3/uL; Monocyte% 8.9 % (0-10); NRBC Flagged by Analyzer 0 % (0-5); Neutrophil # 3.72 X10^3/uL (2.7-7.7); Neutrophil % 79.2 % (47-70); POSITIVE COUNT YES; POSITIVE DIFFERENTIAL YES; POSITIVE MORPHOLOGY YES; Platelet Count 83 K/mm3 (150-450); RBC Distribution Width CV 20.3 % (11.6-14.6); RBC Distribution Width SD 55.1 fl (35.1-43.9); Red Blood Count 3.17 M/mm3 (4.2-5.4); White Blood Count 4.7 K/mm3 (4.4-11.0)
[2022-09-01 05:35] LABS: Differential Indicated SCAN CRITERIA MET
[2022-09-01 06:00] VITALS: BMI 18.8
[2022-09-01 06:00] LABS: Anion Gap 3 (5-15); BUN 81 mg/dL (7-18); Calcium,Total 7.8 mg/dL (8.5-10.1); Chloride 116 mmol/L (98-107); Creatinine, Serum 2.38 mg/dL (0.55-1.02); EST Glomerular Filtration Rate 21 mL/min (>60); Est Glom Filt Rate - Afr Amer 25 mL/min (>60); Estimated Creatinine Clearance 11.44 ml/min; Glucose 36 mg/dL (74-106); Potassium 5.5 mmol/L (3.5-5.1); Sodium Level 139 mmol/L (136-145)
[2022-09-01 06:08] LABS: Anisocytosis 1+; Platelet Estimate MOD DEC (ADEQ)
--- NOTE | 2022-09-01 06:10 | NURSING ---
paged regarding critical blood glucose level reported by lab of 36. Patient lethargic, not accepting fluids or food by mouth. Return call received from Dr. Clemens, do not give IM glucagon, cancel labs. Order repeated back to Dr. Clemens.
--- NOTE | 2022-09-01 06:35 | NURSING ---
Presents in bed, eyes closed. Semi-rodriguez position. Lethargy continues, responds to verbal stimuli when called by name, does not open eyes, respirations 10/min, no terminal secretions noted, no restlessness or anxiety observed at this time. Patient. repositioned for comfort. No distress observed or reported. Call light in reach.
--- NOTE | 2022-09-01 15:57 | CHAPLAIN ---
Type of Pastoral Visit ___ Initial Visit _x__ Follow-up Visit ___ On-call Visit ___ General Patient Visit ___ Spiritual Assessment ___ Family Conference ___ Bereavement ___ Rapid Response ___ Code Blue ___ Other (describe below) Pastoral Care Referral From ___ Patient _x__ Family ___ Nurse ___ Physician ___ Business Applications Analyst ___ [employer] Hyperion Consultant ___ Other (describe below) Sacrament/Intervention ___ Active listening ___ Anointing ___ Taoist ___ Bereavement ___ Communion ___ Kalina exploration ___ ___ Life review ___ Prayer ___ Reconciliation ___ Sacrament of Sick ___ Supportive presence ___ Wedding _x__ Other (describe below) Pastoral Comments met daughter in hallway as she was leaving the unit; daughter reports nothing really has changed; offer of support and presence given; no new needs at this time as patient continues to decline and end of life is expected soon
[2022-09-01 16:00] VITALS: BP 122/34; PULSE 76; RESP 13; TEMP 37.2; O2SAT 99
[2022-09-01 20:00] VITALS: PULSE 78; RESP 14; O2SAT 97
[2022-09-01] MEDS: Ammonium Lactate 225 gm Bottle 1 APPLIC TOPICAL (23:06)
[2022-09-02 09:08] VITALS: PULSE 89
[2022-09-02] MEDS: Ammonium Lactate 225 gm Bottle 1 APPLIC TOPICAL ×2 (09:25→19:50)
[2022-09-02 14:50] VITALS: BP 153/44; PULSE 73; RESP 16; TEMP 36.2; O2SAT 100
[2022-09-03] MEDS: morphine (oral solution) 10MG/0.5ML Syringe 10 MG SL/PO ×3 (08:41→23:36)
[2022-09-03] MEDS: Ammonium Lactate 225 gm Bottle 1 APPLIC TOPICAL ×2 (08:44→23:19)
[2022-09-03 13:47] VITALS: BP 130/50; PULSE 83; RESP 20; TEMP 36.9; O2SAT 97
[2022-09-03 23:15] VITALS: O2SAT 97
[2022-09-04] MEDS: morphine (oral solution) 10MG/0.5ML Syringe 10 MG SL/PO ×2 (06:56→13:06)
[2022-09-04 07:00] VITALS: BP 135/39; PULSE 89
[2022-09-04 10:00] VITALS: O2SAT 94
[2022-09-04] MEDS: Ammonium Lactate 225 gm Bottle 1 APPLIC TOPICAL ×2 (10:22→21:54)
[2022-09-04] MEDS: Atropine Sulfate 1% 2 ml Bottle 4 DRP PO ×3 (10:43→18:12)
[2022-09-04 14:33] VITALS: BP 130/55; PULSE 90; RESP 10; TEMP 36; O2SAT 91
[2022-09-04] MEDS: LORazepam 2 MG/ML Bottle 0.5 MG SL (15:19)
--- NOTE | 2022-09-05 02:13 | NURSING ---
Pt lying in bed quietly w/ eyes closed. RR 14/min. Sp02 90% RA. No restlessness noted.
[2022-09-05] MEDS: Ammonium Lactate 225 gm Bottle 1 APPLIC TOPICAL ×2 (08:50→21:41)
[2022-09-05] MEDS: LORazepam 2 MG/ML Bottle 0.5 MG SL ×2 (12:07→16:36)
[2022-09-05 14:49] VITALS: BP 111/41; PULSE 101; RESP 14; TEMP 37.7; O2SAT 94
[2022-09-05] MEDS: Atropine Sulfate 1% 2 ml Bottle 4 DRP PO (21:22)
[2022-09-06] MEDS: Atropine Sulfate 1% 2 ml Bottle 4 DRP PO (05:39)
[2022-09-06] MEDS: morphine (oral solution) 10MG/0.5ML Syringe 10 MG SL/PO (05:39)
--- NOTE | 2022-09-06 09:15 | CASEMGMT ---
Social Work SW continues to check in with family and pt daily in room. Either one or three daughters are at bedside. Friends and extended family have visited as well. Pt appears to be resting comfortably during each SW visit. Dr. Clemens spoke with dtr's last evening and saw pt. still estimating pt's passing within a few days. SW to continue to follow Medicare guidelines for skilled stay with Director. Family continues to express appreciation for care of pt during stay, and are prepared to pay privately if pt has not passed and no longer covers pt's stay. SW will continue to follow. SHAUN Solis MS ACCESS DATABASE DEVELOPER
[2022-09-06 10:00] VITALS: PULSE 88; O2SAT 90
[2022-09-06] MEDS: LORazepam 2 MG/ML Bottle 0.5 MG SL ×2 (10:17→23:18)
[2022-09-06] MEDS: Ammonium Lactate 225 gm Bottle 1 APPLIC TOPICAL ×2 (10:20→21:30)
--- NOTE | 2022-09-06 16:19 | CASEMGMT ---
Social Work SW met with two daughters in room to update on IDT Huddle discussion. Pt is no longer going to meet skilled criteria beginning 09/11 and offered options: Hospice reeval for IPU, hospice at home or in AL/SNF, or pt remain private pay in TCU. Family in agreement for pt to remain in TCU private pay until passing. Family continuously expresses the appreciation for high quality care and pt remains comfortable. SW educated to private pay cost and policy. Family expressed understanding. LCD 09/10. Private pay 09/11 SHAUN Solis
--- NOTE | 2022-09-06 16:24 | CHAPLAIN ---
Type of Pastoral Visit ___ Initial Visit _x__ Follow-up Visit ___ On-call Visit ___ General Patient Visit ___ Spiritual Assessment ___ Family Conference ___ Bereavement ___ Rapid Response ___ Code Blue ___ Other (describe below) Pastoral Care Referral From ___ Patient _x__ Family _x__ Nurse ___ Physician ___ Sack Cleaning Hand ___ Turbine Operator ___ Other (describe below) Sacrament/Intervention _x__ Active listening ___ Anointing ___ Hindu ___ Bereavement ___ Communion ___ Kalina exploration ___ ___ Life review _x__ Prayer ___ Reconciliation ___ Sacrament of Sick _x__ Supportive presence ___ Wedding ___ Other (describe below) Pastoral Comments two daughters at bedside with patient who is almost entirely unresponsive; pt did peek open her eyes very briefly at one point when addressed and touched; daughters express thankfulness for great care and for offers of support from this back tufter; family welcomes visits and prayers again for patient; family is content with care and are very realistic about approaching of pt; time to listen, give support, and offer presence to family; prayed at bedside for pt with family
[2022-09-06] MEDS: Acetaminophen 650 MG Suppository RC (16:55)
[2022-09-06 18:55] VITALS: PULSE 87; TEMP 37.1; O2SAT 93
--- NOTE | 2022-09-06 23:54 | NURSING ---
Patient somewhat restless with recent brief change, repositioning. Ativan intensol administered. Patient resting on left side, eyes closed. Apnea noted at approximately 5 seconds between breaths. Will continue to monitor.
[2022-09-07] MEDS: Atropine Sulfate 1% 2 ml Bottle 4 DRP PO ×2 (06:55→09:32)
[2022-09-07] MEDS: LORazepam 2 MG/ML Bottle 0.5 MG SL ×2 (08:46→20:33)
--- NOTE | 2022-09-07 09:27 | NURSING ---
paged Dr. Clemens, Atropine does not seem to be lasting. TORB to increase PRN frequency to Q1H PRN.
[2022-09-07] MEDS: Ammonium Lactate 225 gm Bottle 1 APPLIC TOPICAL ×2 (09:43→20:36)
--- NOTE | 2022-09-07 16:15 | NURSING ---
daughter, Farida left at this time. Does want notified with any changes or mottling to feet. will update cnc supervisor. pt no void this shift. oral care provided.
[2022-09-07 18:15] VITALS: BP 122/41; PULSE 103; RESP 14; TEMP 37.2; O2SAT 93
[2022-09-07] MEDS: Acetaminophen 650 MG Suppository RC (20:55)
[2022-09-07 21:00] VITALS: PULSE 99; RESP 12; O2SAT 92
--- NOTE | 2022-09-07 21:01 | NURSING ---
Patient with Temperature of 100.4 axillary. Tylenol 650mg suppository administered. Will continue to monitor.
--- NOTE | 2022-09-07 22:27 | NURSING ---
Call placed to patient's daughter, update given on patient's change in condition. Daughter appreciative of call and would like to be called if anything further develops anytime through the night.
[2022-09-08] MEDS: Acetaminophen 650 MG Suppository RC (04:54)
[2022-09-08] MEDS: LORazepam 2 MG/ML Bottle 0.5 MG SL (04:59)
--- NOTE | 2022-09-08 05:04 | NURSING ---
Patient noted to have temperature of 101.5F axillary. Tylenol administered rectally. Ativan 0.25mL administered as well for some agitation noted with moving of shoulder, hands. Will continue to monitor.
[2022-09-08] MEDS: morphine (oral solution) 10MG/0.5ML Syringe 10 MG SL/PO ×3 (06:48→13:59)
[2022-09-08] MEDS: Atropine Sulfate 1% 2 ml Bottle 4 DRP PO (06:55)
--- NOTE | 2022-09-08 07:04 | NURSING ---
Rechecked patient's temperature, 102.1F Axillary. Patient appears to be uncomfortable, some moaning noted. Morphine administered, atropine drops administered. Cool rags applied to forehead, under arms. Daughter updated. Will continue to monitor.
[2022-09-08] MEDS: Ammonium Lactate 225 gm Bottle 1 APPLIC TOPICAL ×2 (10:58→20:33)
--- NOTE | 2022-09-09 08:00 | NURSING ---
This nurse checked on pt. Pt not breathing checked for carotid pulse and absent, listened to apical pulse and was absent. Dr. Clemens Notified and assessed pt. Dr. Clemens announced Time of 0755. Pt's daughter Farida notified and will be here in 10 min.
== END 2022-09-09 09:45 | DRG 442 ==
PROVIDERS: Admitting Provider Family Medicine Geriatric Medicine; PCP Family Medicine Geriatric Medicine; Referring Provider Family Medicine Geriatric Medicine; Visit Provider Family Medicine Geriatric Medicine
DX: K75.81 Nonalcoholic steatohepatitis (NASH) (principal); N39.0 Urinary tract infection, site not specified; I13.0 Hypertensive heart and chronic kidney disease with heart failure and stage 1 through stage 4 chronic kidney disease, or unspecified chronic kidney disease; E87.1 Hypo-osmolality and hyponatremia; I50.32 Chronic diastolic (congestive) heart failure; R18.8 Other ascites; N18.4 Chronic kidney disease, stage 4 (severe); G40.901 Epilepsy, unspecified, not intractable, with status epilepticus; L89.152 Pressure ulcer of sacral region, stage 2; D63.1 Anemia in chronic kidney disease; E11.22 Type 2 diabetes mellitus with diabetic chronic kidney disease; Z79.4 Long term (current) use of insulin; K74.60 Unspecified cirrhosis of liver; G40.909 Epilepsy, unspecified, not intractable, without status epilepticus; K76.82 Hepatic encephalopathy; D50.0 Iron deficiency anemia secondary to blood loss (chronic); E03.9 Hypothyroidism, unspecified; E78.5 Hyperlipidemia, unspecified; K21.9 Gastro-esophageal reflux disease without esophagitis; Z79.82 Long term (current) use of aspirin; B02.9 Zoster without complications; Z86.16 Personal history of COVID-19; Z79.899 Other long term (current) drug therapy
CPT/HCPCS: 36415; 80048; 80185; 82962; 85025; 87426; 87811; 92508; 92526; 92610; 97110; 97116; 97162; 97166; 97530; 97535; 97802; J7030; P9047; A4216; J7799; Q5106

== ENCOUNTER → 2022-08-24 | Outpatient (CLI) | payer MEDICARE, OTHER, SELFPAY ==
--- NOTE | 2022-08-24 07:48 | US_ITS ---
PROCEDURE: Ultrasound guided paracentesis. DATE OF EXAMINATION: PROCEDURE: Ultrasound guided paracentesis. DATE OF EXAMINATION: August 24, 2022. INDICATION: Female, 87 years old. Ascites. PHYSICIAN: Larry Abraham M.D. TECHNIQUE: The risks, benefits, and alternatives to the procedure were explained to the patient. The specific risks of bleeding, infection, and damage to bowel were detailed and accepted. Witnessed informed consent was obtained. The abdomen was ultrasonographically surveyed. An appropriate pocket of fluid was identified at the right lower quadrant. The skin were cleaned and prepped in the usual sterile fashion. Using ultrasound guidance, the peritoneal cavity was accessed with a 5-Bangladeshi paracentesis needle/catheter system. The trocar was removed. A total of 5950 ml of lyla-colored fluid were removed from the peritoneal cavity. The catheter was removed and a sterile dressing was applied. The procedure was well tolerated. US/Paracentesis with US IMPRESSION: Ultrasound guided paracentesis. . Electronically Signed: Larry Abraham MD at 10:07 EDT ,
[2022-08-24 08:19] VITALS: BP 115/41; BP 117/46; BP 127/34; PULSE 64; PULSE 67; PULSE 69; RESP 16; TEMP 36.2; O2SAT 100; O2SAT 99
[2022-08-24] MEDS: Lidocaine 2% (20 ml mdv) 20 ML Vial (08:28)
[2022-08-24 09:00] VITALS: BP 99/25; PULSE 66; RESP 16; O2SAT 98
== END | disposition home or self-care (01) ==
LOC: US 07:47
PROVIDERS: PCP Family Medicine Geriatric Medicine; Referring Provider Family Medicine Geriatric Medicine; Visit Provider Family Medicine Geriatric Medicine
DX: R18.8 Other ascites (principal)
CPT/HCPCS: 49083